=== PATIENT | female | born 1960 | race Caucasian/White ===

== ENCOUNTER → 2016-07-25 | Outpatient (CLI) | payer BC, MEDICARE ==
--- NOTE | 2016-07-28 09:22 | MM ---
Reason for exam: screening (asymptomatic). Last mammogram was performed 1 year ago. History: Patient is postmenopausal. Benign excisional biopsy of the right breast. Taking estrogen for 6 years. Physical Findings: A clinical breast exam by your physician is recommended on an annual basis and results should be correlated with mammographic findings. MG Screening Mammo w CAD Bilateral CC and MLO view(s) were taken. Prior study comparison: July 30, 2015, left breast MG 3d work up w/cad LT. July 24, 2015, bilateral MG screening mammo w CAD. There are scattered fibroglandular densities. Finding: There are typically benign calcifications in both breasts. No significant changes in finding since July 30, 2015 and July 24, 2015. ASSESSMENT: Benign, BI-RAD 2 RECOMMENDATION: Routine screening mammogram of both breasts in 1 year.
== END | disposition home or self-care (01) ==
LOC: RADMAMWWP 10:58
PROVIDERS: ATTEND Family Medicine
DX: Z12.31 Encounter for screening mammogram for malignant neoplasm of breast (principal)

== ENCOUNTER → 2016-09-16 | Outpatient (CLI) | payer BC, MEDICARE ==
--- NOTE | 2016-09-16 13:06 | CT ---
EXAMINATION TYPE: CT sinus wo con DATE OF EXAM: 09/16/2016 12:56 PM COMPARISON: April 02, 2011 HISTORY: Deviated septum CT DLP: [address] of the paranasal sinuses was performed in the axial and coronal planes. Bone and soft tissue settings are submitted. Changes of medial maxillary antrectomy and near total ethmoidectomy. The paranasal sinuses are free of air fluid level. Mild mucosal thickening at the base of the left maxillary sinus. No evidence for obstruction. The nasal septum is midline. No bony destructive changes are seen within the field of view. IMPRESSION: Postoperative changes as discussed with mild mucosal thickening at the base of the left maxillary ant rum. Nasal septum appears to be midline.
== END | disposition home or self-care (01) ==
LOC: RADCTMAIN 11:52
PROVIDERS: ATTEND Otolaryngology Otolaryngology/Facial Plastic Surgery
DX: J34.89 Other specified disorders of nose and nasal sinuses (principal)
CPT/HCPCS: 70486

== ENCOUNTER → 2016-11-04 | Outpatient (CLI) | payer BC, MEDICARE ==
--- NOTE | 2016-11-04 16:35 | XR ---
EXAMINATION TYPE: XR chest 2V DATE OF EXAM: 11/04/2016 COMPARISON: 05/01/2016 HISTORY: Bronchitis TECHNIQUE: Frontal and lateral views of the chest are obtained. FINDINGS: Lungs are clear. There is no heart failure. Heart size is normal. There is neural stimulat or in the mid thoracic spine. There is no sign of pleural effusion. IMPRESSION: No active cardiopulmonary disease. There is improved aeration of the lungs compared to l ast exam.
== END ==
LOC: RADXRMAIN 16:07
PROVIDERS: ATTEND Family Medicine
DX: J20.9 Acute bronchitis, unspecified (principal)
CPT/HCPCS: 71020

== ENCOUNTER → 2016-12-09 | Outpatient (CLI) | payer BC, MEDICARE ==
--- NOTE | 2016-12-09 16:56 | CT ---
EXAMINATION TYPE: CT brain wo con DATE OF EXAM: 12/09/2016 COMPARISON: 05/01/2016 HISTORY: 56-year-old female concussion, Patient complains of hitting back of head 1 week ago. Patien t complains of new (x1 day) posterior lump in approximate location of where she hit head that is pain ful to touch. TECHNIQUE: Examination was done in axial plane without intravenous contrast. Coronal and sagittal r econstructions performed. CT DLP: 1085 mGycm Automated exposure control for dose reduction was used. FINDINGS: There is no evidence of acute intracranial hemorrhage, acute ischemic changes, mass, mass-effect, or extra-axial fluid collection. There is no effacement of cerebral sulci or basal subarachnoid cister ns. There is no hydrocephalus. There is no midline shift. [place]-white matter distinction is preserv ed. Mild bifrontal cerebral volume loss. 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 Paranasal sinuses and mastoid air cells are well pneumatized. Orbits and globes are intact. No calvar ial fracture. IMPRESSION: No acute intracranial abnormality seen. Similar mild bifrontal cerebral atrophy.
== END | disposition home or self-care (01) ==
LOC: RADCTMAIN 16:30
PROVIDERS: ATTEND Family Medicine
DX: G31.9 Degenerative disease of nervous system, unspecified (principal); Z88.0 Allergy status to penicillin; Z88.1 Allergy status to other antibiotic agents; Z88.3 Allergy status to other anti-infective agents; Z88.8 Allergy status to other drugs, medicaments and biological substances
CPT/HCPCS: 70450

== ENCOUNTER → 2016-12-10 | Outpatient (CLI) | payer BC, MEDICARE ==
--- NOTE | 2016-12-11 06:45 | XR ---
EXAMINATION TYPE: XR cervical spine comp DATE OF EXAM: 12/10/2016 TECHNIQUE: Frontal, lateral, oblique, and open mouth view of the cervical spine are obtained. HISTORY: M54.2 Cervicalgia per order. Pain for one day after hitting injury per patient. COMPARISON: Cervical spine x-ray November 24, 2014. Cervical spine CT May 01, 2016. FINDINGS: The cervical spine is visualized in its entirety from C1 thru the top bottom of C7 level, it is satisfactory in alignment without evidence of acute fracture or dislocation. C7-T1 articulation is suboptimally evaluated without dedicated swimmer's view. The pre-vertebral soft tissue appears wi thin normal limits. The C1-C2 articulation is within normal limits on the open mouth view. Osseous structures are somewhat demineralized. Vertebral body heights and disc space heights are fair ly well-maintained. There is mild multilevel anterior spurring. The oblique images are within normal limits. Mild vascular calcification left carotid bulb level is redemonstrated. IMPRESSION: Demineralization and multilevel degenerative changes as detailed above. No acute fracture or dislocation is seen.
== END | disposition home or self-care (01) ==
LOC: RADXRMAIN 16:11
PROVIDERS: ATTEND Family Medicine
DX: M47.812 Spondylosis without myelopathy or radiculopathy, cervical region (principal); M81.0 Age-related osteoporosis without current pathological fracture
CPT/HCPCS: 72050

== ENCOUNTER → 2017-01-12 | Outpatient (CLI) | payer BC, MEDICARE ==
[2017-01-12 16:10] LABS: CH 33.1; CHCM 33.1; HCT 40.5 % (34.0-46.0); HDW 2.43; HGB 13.8 gm/dL (11.4-16.0); MCH 34.2 pg (25.0-35.0); MCV 100.6 fL (80.0-100.0); Macrocytosis Slight; RBC 4.03 m/uL (3.80-5.40); RDW 13.7 % (11.5-15.5); WBC 10.5 k/uL (3.8-10.6)
[2017-01-12 16:34] LABS: ALT 30 U/L (9-52); AST 28 U/L (14-36); Alkaline Phosphatase 64 U/L (38-126); Anion Gap 10 mmol/L; Blood Urea Nitrogen 8 mg/dL (7-17); Calcium 9.3 mg/dL (8.4-10.2); Carbon Dioxide 27 mmol/L (22-30); Chloride 104 mmol/L (98-107); Glucose 100 mg/dL (74-99); Non-African American GFR(MDRD) >60 (>60 ml/min/1.73 sqM); Potassium 4.1 mmol/L (3.5-5.1); Sodium 141 mmol/L (137-145); Total Bilirubin 0.4 mg/dL (0.2-1.3); Total Protein 7.1 g/dL (6.3-8.2)
== END | disposition home or self-care (01) ==
LOC: LABWHC1 15:34
PROVIDERS: ATTEND Podiatrist Foot & Ankle Surgery
DX: Z01.812 Encounter for preprocedural laboratory examination (principal)
CPT/HCPCS: 36415; 80053; 85027

== ENCOUNTER 2017-04-02 16:03 | Observation (INO) | payer BC, MEDICARE ==
[2017-04-02 16:10] VITALS: RESP 18
[2017-04-02] MEDS ORDERED: NITROGLYCERIN OINT 1 INCH/GM PACKET TOPICAL STA (16:40)
[2017-04-02] MEDS ORDERED: SODIUM CHLORIDE 0.9% 1,000 ML IV STA (16:40)
[2017-04-02] MEDS ORDERED: ONDANSETRON 4 MG/2 ML VIAL IVP STA (16:40)
[2017-04-02] MEDS ORDERED: MORPHINE SULFATE 10 MG/ML SYRINGE IV STA (16:40)
[2017-04-02 16:52] LABS: Basophils # (A) 0.1 k/uL (0-0.2); Basophils % (A) 1 %; CH 32.2; CHCM 32.5; Eosinophils # (A) 0.1 k/uL (0-0.7); Eosinophils % (A) 1 %; HCT 41.1 % (34.0-46.0); HDW 2.45; HGB 13.5 gm/dL (11.4-16.0); Luc % (Auto) 1; Lymphocytes # (A) 2.7 k/uL (1.0-4.8); Lymphocytes % (A) 28 %; MCH 32.8 pg (25.0-35.0); MCV 99.4 fL (80.0-100.0); Mean Platelet Volume 7.5; Monocytes # (A) 0.5 k/uL (0-1.0); Monocytes % (A) 5 %; Neutrophils # (A) 6.2 k/uL (1.3-7.7); Neutrophils % (A) 65 %; RBC 4.13 m/uL (3.80-5.40); RDW 14.3 % (11.5-15.5); WBC 9.6 k/uL (3.8-10.6); WBC (Perox) 9.64
[2017-04-02 17:02] LABS: ALT 31 U/L (9-52); AST 27 U/L (14-36); Alkaline Phosphatase 67 U/L (38-126); Anion Gap 9 mmol/L; Blood Urea Nitrogen 7 mg/dL (7-17); Calcium 8.9 mg/dL (8.4-10.2); Carbon Dioxide 24 mmol/L (22-30); Chloride 108 mmol/L (98-107); Glucose 109 mg/dL (74-99); Magnesium 1.6 mg/dL (1.6-2.3); Non-African American GFR(MDRD) >60 (>60 ml/min/1.73 sqM); Potassium 4.2 mmol/L (3.5-5.1); Sodium 141 mmol/L (137-145); Total Bilirubin 0.2 mg/dL (0.2-1.3); Total Protein 7.4 g/dL (6.3-8.2)
[2017-04-02 17:06] LABS: Partial Thromboplastin Time 24.1 sec (22.0-30.0); Prothrombin Time 10.3 sec (9.0-12.0)
[2017-04-02 17:14] LABS: Creatine Kinase 111 U/L (30-135)
--- NOTE | 2017-04-02 17:23 | ED ---
Chest Pain HPI - General Chief Complaint: Chest Pain Stated Complaint: Chest Pain Time Seen by Provider: 04/02/17 16:26 Source: patient Mode of arrival: ambulatory Limitations: no limitations - History of Present Illness Initial Comments: 56 years old female had episode of chest pain yesterday, it lasted for about an hour and she has a prescription of nitro she took 3 nitros it took the edge off pain also went to the left side of the jaw and she also had episode of shortness of breath shortness of breath she does have a some baseline she has a history of COPD she has smoked for 40 years. He denies any headaches no migraines no neck stiffness no fever no chills or pain no frequency urgency dysuria - Related Data Home Medications Medication Instructions Recorded Confirmed Albuterol Inhaler [Ventolin Hfa 2 puff INHALATION RT-QID PRN 12/05/15 04/02/17 Inhaler] DULoxetine HCL [Cymbalta] 120 mg PO DAILY 12/05/15 04/02/17 Estradiol [Estrace] 1 mg PO DAILY 12/05/15 04/02/17 Gabapentin [Neurontin] 600 mg PO TID 12/05/15 04/02/17 Lisinopril [Zestril] 10 mg PO DAILY 12/05/15 04/02/17 Potassium Chloride [Klor-Con 10] 10 meq PO DAILY 12/05/15 04/02/17 Ziprasidone HCl [Geodon] 80 mg PO HS 12/05/15 04/02/17 cycloSPORINE 0.05% OPHTH SOLN 1 drops BOTH EYES BID 12/05/15 04/02/17 [Restasis] Cyclobenzaprine [Flexeril] 10 mg PO TID 03/03/16 04/02/17 Levothyroxine Sodium [Synthroid] 50 mcg PO SUTUWETHSA 03/03/16 04/02/17 traZODone HCL 100 mg PO HS 03/04/16 04/02/17 clonazePAM [KlonoPIN] 1 mg PO TID 05/02/16 04/02/17 Atorvastatin [Lipitor] 40 mg PO DAILY 04/02/17 04/02/17 Cetirizine HCl [Zyrtec] 10 mg PO DAILY 04/02/17 04/02/17 Dextroamphetamine/Amphetamine 10 mg PO BID 04/02/17 04/02/17 [Adderall] Furosemide [Lasix] 20 - 40 mg PO DAILY PRN 04/02/17 04/02/17 HYDROcodone/APAP 10-325MG [[place] 1 tab PO QID PRN 04/02/17 04/02/17 10-325] Ibuprofen [Motrin] 800 mg PO TID PRN 04/02/17 04/02/17 Linaclotide [Linzess] 290 mcg PO DAILY 04/02/17 04/02/17 Nitroglycerin Sl Tabs [Nitrostat] 0.4 mg SUBLINGUAL Q5M PRN 04/02/17 04/02/17 Ziprasidone [Geodon] 60 mg PO DAILY 04/02/17 04/02/17 Allergies Allergy/AdvReac Type Severity Reaction Status Date / Time adhesive Allergy Rash/Hives Verified 04/02/17 16:56 azithromycin Allergy Rash/Hives Verified 04/02/17 16:56 [From Zithromax Z-Ivan] ciprofloxacin [From Cipro] Allergy Rash/Hives Verified 04/02/17 16:56 ciprofloxacin HCl Allergy Rash/Hives Verified 04/02/17 16:56 [From Cipro] clarithromycin [From Biaxin] Allergy Rash/Hives Verified 04/02/17 16:56 doxycycline calcium Allergy Rash/Hives Verified 04/02/17 16:56 [From Vibramycin] doxycycline hyclate Allergy Rash/Hives Verified 04/02/17 16:56 [From Vibramycin] doxycycline monohydrate Allergy Rash/Hives Verified 04/02/17 16:56 [From Vibramycin] erythromycin base Allergy Rash/Hives Verified 04/02/17 16:56 [From E-Mycin] Latex, Natural Rubber Allergy Anaphylaxis Verified 04/02/17 16:56 levofloxacin [From Levaquin] Allergy Rash/Hives Verified 04/02/17 16:56 oxybutynin chloride Allergy Rash/Hives Verified 04/02/17 16:56 [From Ditropan] penicillin G Allergy Rash/Hives Verified 04/02/17 16:56 prochlorperazine edisylate Allergy Rash/Hives Verified 04/02/17 16:56 [From Compazine] prochlorperazine maleate Allergy Rash/Hives Verified 04/02/17 16:56 [From Compazine] tetracycline [Tetracycline] Allergy Rash/Hives Verified 04/02/17 16:56 valdecoxib [From Bextra] Allergy Rash/Hives Verified 04/02/17 16:56 Review of Systems ROS Statement: Those systems with pertinent positive or pertinent negative responses have been documented in the HPI. ROS Other: All systems not noted in ROS Statement are negative. EKG Findings - EKG Comments: EKG Findings:: EKG is normal sinus rhythm ventricular rate is 79 [place] interval is 150 QRS duration is 96 QT/QTc is 414/474 review of this EKG revealed a T-wave inversion in aVL no ST elevation or ST depression noticed this EKG EKG was compared with the EKG done on 12/06/2015and changes were appreciated Past Medical History Past Medical History: COPD, CVA/TIA, Diabetes Mellitus, Fibromyalgia, Hypertension, Osteoarthritis (OA), Pneumonia, Rheumatoid Arthritis (RA), Thyroid Disorder Additional Past Medical History / Comment(s): diabetic neuropathy, lupus ,diet controlled diabetic ,DDD IBS, chronic dry eye, palpitations,migraines, TIA x 5- rt lip droops, emphysema, eczema in ears, History of Any Multi-Drug Resistant Organisms: None Reported Past Surgical History: Back Surgery, Cholecystectomy, Hysterectomy, Orthopedic Surgery, Tonsillectomy, Uterine Ablation Additional Past Surgical History / Comment(s): EGD, Colonoscopy, vocal cord surgery, cataract bilateral removal, right knee arthroscopy, right elbow surgery , bilateral feet heel spurs and arthroplasty on left foot toes, left carpal tunnel, nerve stimulator in spine, laminectomy L4-5,hiatal hernia repair, biopsy left arm,mult sinus surgeries, STIMULATOR BATTERIES REPLACED IN BACK Past Anesthesia/Blood Transfusion Reactions: Family History of Problems w/ Anesthesia Additional Past Anesthesia/Blood Transfusion Reaction / Comment(s): claustrophobic, mother- [place] during surgery Past Psychological History: Anxiety, Bipolar, Depression, Panic Disorder Smoking Status: Current every day smoker Past Alcohol Use History: Occasional Past Drug Use History: Marijuana - Past Family History Mother Family Medical History: Cancer Additional Family Medical History / Comment(s): Mother has scleroderma. She is 75 yrs old. Father Family Medical History: Cancer Additional Family Medical History / Comment(s): LUNG CANCER General Exam Limitations: no limitations Course Vital Signs 11/02/17 11/02/17 11/02/17 16:05 17:13 18:19 Temperature 98.6 F Pulse Rate 107 H 76 78 Respiratory 18 18 18 Rate Blood Pressure 133/58 128/73 129/73 O2 Sat by Pulse 99 96 97 Oximetry Disposition Clinical Impression: Chest pain Disposition: ADMITTED IP TO THIS HOSP Condition: Good Referrals: Anson Valdez MD [Primary Care Provider] - 1-2 days
[2017-04-02] MEDS ORDERED: RX INFO: IV CONTRAST WAS GIVEN 1 EACH MISC MISCELLANE PRN (17:25)
[2017-04-02 17:27] LABS: Creatine Kinase MB 1.3 ng/mL (0.0-2.4); Troponin I <0.012 ng/mL (0.000-0.034)
--- NOTE | 2017-04-02 17:50 | XR ---
EXAMINATION TYPE: XR chest 2V DATE OF EXAM: 04/02/2017 COMPARISON: 11/04/2016 HISTORY: Chest pain TECHNIQUE: Frontal and lateral views of the chest are obtained. FINDINGS: There is relative poor inspiration. There is slight coarsening of the lung markings at the lung bases. There is no pleural effusion. There is neurostimulator in the mid thoracic spine. There are chest leads. Thoracic aorta is atheromatous. Heart size is normal. IMPRESSION: Poor inspiration with minimal atelectasis at the lung bases that is worse than last exam . Normal heart. No heart failure.
--- NOTE | 2017-04-02 17:57 | CT ---
EXAMINATION TYPE: CT angio chest DATE OF EXAM: 04/02/2017 5:50 PM COMPARISON: 03/16/2011 HISTORY: Chest pain today. CT DLP: 302.8 mGycm Automated exposure control for dose reduction was used. CONTRAST: CTA scan of the thorax is performed with IV Contrast, patient injected with 60 mL of Omnipaque 350, p ulmonary embolism protocol. There are 3-D post processed images.. FINDINGS: The lungs are clear of consolidation. There is no evidence of a pulmonary mass. There is mild right m iddle lobe atelectasis. There is mild left posterior basilar subsegmental atelectasis. There is no pl eural effusion. Heart size is normal. I see no filling defects in the pulmonary arteries. There is no sign of aortic aneurysm or dissection. There is no mediastinal adenopathy. There are no hilar masses. There is spurr ing in the thoracic spine. IMPRESSION: NO EVIDENCE OF PULMONARY EMBOLISM. THERE IS BILATERAL MILD SCARRING AND ATELECTASIS THAT IS NOT SIGNI FICANTLY DIFFERENT THAN OLD EXAM.
[2017-04-02] MEDS ORDERED: NITROGLYCERIN SL TABS 0.4 MG TAB SUBLINGUAL PRN (18:28)
[2017-04-02] MEDS ORDERED: HEPARIN SODIUM,PORCINE 5,000 UNIT/ML 1 ML VIAL IV ONE (18:28)
[2017-04-02] MEDS ORDERED: MORPHINE SULFATE 10 MG/ML SYRINGE IV PRN (18:28)
[2017-04-02] MEDS ORDERED: HEPARIN SODIUM,PORCINE/D5W PMX 25,000 UNIT in DEXTROSE/WATER 1 500ML.BAG IV SCH (18:30)
[2017-04-02] MEDS ORDERED: IBUPROFEN 800 MG TAB PO PRN (18:33)
[2017-04-02] MEDS ORDERED: ALBUTEROL NEBULIZED 2.5 MG/3 ML INHALATION PRN (18:33)
[2017-04-02] MEDS ORDERED: FUROSEMIDE 20 MG TAB PO PRN (18:33)
[2017-04-02] MEDS ORDERED: HYDROcodone/APAP 10-325MG 1 EACH TAB PO PRN (18:33)
[2017-04-02 20:47] VITALS: BMI 25.9
[2017-04-02 20:48] LABS: Glucose,Whole Blood 93 mg/dL (75-99)
[2017-04-02] MEDS: cycloSPORINE 0.05% OPHTH 0.4 ML DROPERETTE BOTH EYES SCH (20:55)
[2017-04-02] MEDS: GABAPENTIN 300 MG CAP PO SCH (20:56)
[2017-04-02] MEDS: clonazePAM 1 MG TAB PO SCH (20:56)
[2017-04-02] MEDS: CYCLOBENZAPRINE 10 MG TAB PO SCH (20:56)
[2017-04-02 21:00] LABS: Creatine Kinase 97 U/L (30-135)
[2017-04-02] MEDS ORDERED: traZODone HCL 100 MG TAB PO SCH (21:00)
[2017-04-02] MEDS ORDERED: NON-FORMULARY DRUG (Dextroamphetamine/Amphetamine [Adderall] 10 MG) PO SCH (21:00)
[2017-04-02] MEDS ORDERED: ZIPRASIDONE 80 MG CAP PO SCH (21:00)
[2017-04-02 21:14] LABS: Creatine Kinase MB 1.4 ng/mL (0.0-2.4); Troponin I <0.012 ng/mL (0.000-0.034)
[2017-04-03 02:24] LABS: Creatine Kinase 81 U/L (30-135)
[2017-04-03 02:37] LABS: Creatine Kinase MB 1.1 ng/mL (0.0-2.4); Troponin I <0.012 ng/mL (0.000-0.034)
[2017-04-03 03:37] LABS: Cholesterol 144 mg/dL (<200); HDL Cholesterol 52 mg/dL (40-60)
[2017-04-03 07:01] LABS: Glucose,Whole Blood 96 mg/dL (75-99)
[2017-04-03] MEDS ORDERED: ZIPRASIDONE 60 MG CAP PO SCH (07:30)
[2017-04-03 08:34] VITALS: PULSE 68
[2017-04-03] MEDS ORDERED: NON-FORMULARY DRUG (Linaclotide [Linzess] 290 MCG) PO SCH (09:00)
[2017-04-03] MEDS ORDERED: POTASSIUM CHLORIDE ER 10 MEQ TAB.ER.PRT PO SCH (09:00)
[2017-04-03] MEDS ORDERED: DULoxetine HCL 60 MG CAPSULE.DR PO SCH (09:00)
[2017-04-03] MEDS ORDERED: LISINOPRIL 10 MG TAB PO SCH (09:00)
[2017-04-03] MEDS ORDERED: ATORVASTATIN 40 MG TAB PO SCH (09:00)
[2017-04-03] MEDS ORDERED: ASPIRIN 325 MG TAB PO SCH (09:00)
[2017-04-03] MEDS ORDERED: LORATADINE 10 MG TAB PO SCH (09:00)
[2017-04-03] MEDS: GABAPENTIN 300 MG CAP PO SCH (09:18)
[2017-04-03] MEDS: cycloSPORINE 0.05% OPHTH 0.4 ML DROPERETTE BOTH EYES SCH (09:19)
[2017-04-03] MEDS: CYCLOBENZAPRINE 10 MG TAB PO SCH (09:19)
[2017-04-03] MEDS: clonazePAM 1 MG TAB PO SCH (09:19)
[2017-04-03] MEDS ORDERED: ISOSORBIDE MONONITRATE ER 30 MG TAB.ER.24H PO SCH (09:45)
[2017-04-03 12:13] LABS: Glucose,Whole Blood 102 mg/dL (75-99)
[2017-04-03 12:17] VITALS: BP 104/52; TEMP 98.6
--- NOTE | 2017-04-03 14:01 | P.CRDCN ---
History of Present Illness Consult date: 04/03/17 History of present illness: This is a 56 showed female patient who sees Dr. Rick in the office. Past medical history significant for hypertension, hyperlipidemia, chronic tobacco abuse, diabetes and chronic migraines. The patient came to the emergency room with complaints of chest pain that lasted for approximately one hour. This episode occurred on Thursday she waited to present to the hospital until last night. She states she has been having a migraine constantly for the past week. The pain is not associated with shortness of breath, dizziness, palpitations or nausea. She states that she does feel tingling in her left jaw line. She recently saw Dr. Rick in the office and underwent a Lexiscan stress test which was negative. It showed a normal perfusion study with a small well mild defect at the apex that could be physiological although previous small myocardial infarction cannot be excluded. At this time of the chest pain the patient states she took 3 sublingual nitroglycerin and the pain ultimately went away. This time of my examination she denies any ongoing chest pain. She is only complaining of a migraine headache. She has been coughing recently the cough is dry in nature and she was recently treated for an upper respiratory infection. EKG reveals sinus mechanism with no acute ST or T-wave abnormalities. Chest x-ray indicates atelectasis with no sign of heart failure. CTA negative for pulmonary embolism. Blood pressure 90/52 with a heart rate of 62. Cardiac enzymes negative 3, potassium 4.2, magnesium 1.6, BUS and 7, creatinine 0.69, LDL 58, HDL 52, triglycerides 169, total cholesterol 144. Current cardiac medications include Zestril 10 mg daily, Lasix 20-40 mg daily when necessary, Lipitor 40 mg daily. Review of Systems CONSTITUTIONAL: Denies fever. Denies chills. EYES: Denies blurred vision. Denies vision changes. Denies eye pain. EARS, NOSE, MOUTH & THROAT: Complains of persistent headache for the past week. Denies sore throat. Denies ear pain. CARDIOVASCULAR: Complains of one episode of midsternal chest pain Thursday that lasted one hour with difficulty taking a deep. Denies orthopnea. Denies PND. Denies palpitations. RESPIRATORY: Complains of chronic cough. GASTROINTESTINAL: Denies abdominal pain. Denies diarrhea. Denies constipation. Denies nausea. Denies vomitng. MUSCULOSKELETAL: Denies myalgias. INTEGUMENTARY: Denies pruitis. Denies rash. NEUROLOGIC: Denies numbness. Denies tingling. Denies weakness. PSYCHIATRIC: Denies anxiety. Denies depression. ENDOCRINE: Denies fatigue. Denies weight change. Denies polydipsia. Denies polyurina. GENITOURINARY: Denies burning, hematuria or urgency with micturation. HEMATOLOGIC: Denies history of anemia. Denies bleeding. Past Medical History Past Medical History: COPD, CVA/TIA, Diabetes Mellitus, Fibromyalgia, Hypertension, Osteoarthritis (OA), Pneumonia, Rheumatoid Arthritis (RA), Thyroid Disorder Additional Past Medical History / Comment(s): diabetic neuropathy, lupus ,diet controlled diabetic ,DDD IBS, chronic dry eye, palpitations,migraines, TIA x 5- rt lip droops, emphysema, eczema in ears, History of Any Multi-Drug Resistant Organisms: None Reported Past Surgical History: Back Surgery, Cholecystectomy, Hysterectomy, Orthopedic Surgery, Tonsillectomy, Uterine Ablation Additional Past Surgical History / Comment(s): EGD, Colonoscopy, vocal cord surgery, cataract bilateral removal, right knee arthroscopy, right elbow surgery , bilateral feet heel spurs and arthroplasty on B/L foot toes, left carpal tunnel, 2 nerve stimulator in spine, laminectomy L4-5,hiatal hernia repair, biopsy left arm,mult sinus surgeries, STIMULATOR BATTERIES REPLACED IN BACK Past Anesthesia/Blood Transfusion Reactions: Family History of Problems w/ Anesthesia Additional Past Anesthesia/Blood Transfusion Reaction / Comment(s): claustrophobic, mother- [place] during surgery Smoking Status: Current every day smoker - Past Family History Mother Family Medical History: Cancer, CVA/TIA, Myocardial Infarction ([place]), Osteoarthritis (OA), Rheumatoid Arthritis (RA) Additional Family Medical History / Comment(s): Mother has scleroderma. She is 75 yrs old. lymphoma and stomach CA, stents. lupus Father Family Medical History: Cancer Additional Family Medical History / Comment(s): LUNG CANCER Medications and Allergies Home Medications Medication Instructions Recorded Confirmed Type Albuterol Inhaler [Ventolin Hfa 2 puff INHALATION RT-QID PRN 12/05/15 04/02/17 History Inhaler] DULoxetine HCL [Cymbalta] 120 mg PO DAILY 12/05/15 04/02/17 History Estradiol [Estrace] 1 mg PO DAILY 12/05/15 04/02/17 History Gabapentin [Neurontin] 600 mg PO TID 12/05/15 04/02/17 History Lisinopril [Zestril] 10 mg PO DAILY 12/05/15 04/02/17 History Potassium Chloride [Klor-Con 10] 10 meq PO DAILY 12/05/15 04/02/17 History Ziprasidone HCl [Geodon] 80 mg PO HS 12/05/15 04/02/17 History cycloSPORINE 0.05% OPHTH SOLN 1 drops BOTH EYES BID 12/05/15 04/02/17 History [Restasis] Cyclobenzaprine [Flexeril] 10 mg PO TID 03/03/16 04/02/17 History Levothyroxine Sodium [Synthroid] 50 mcg PO SUTUWETHSA 03/03/16 04/02/17 History traZODone HCL 100 mg PO HS 03/04/16 04/02/17 History clonazePAM [KlonoPIN] 1 mg PO TID 05/02/16 04/02/17 History Atorvastatin [Lipitor] 40 mg PO DAILY 04/02/17 04/02/17 History Cetirizine HCl [Zyrtec] 10 mg PO DAILY 04/02/17 04/02/17 History Dextroamphetamine/Amphetamine 10 mg PO BID 04/02/17 04/02/17 History [Adderall] Furosemide [Lasix] 20 - 40 mg PO DAILY PRN 04/02/17 04/02/17 History HYDROcodone/APAP 10-325MG [[place] 1 tab PO QID PRN 04/02/17 04/02/17 History 10-325] Ibuprofen [Motrin] 800 mg PO TID PRN 04/02/17 04/02/17 History Linaclotide [Linzess] 290 mcg PO DAILY PRN 04/02/17 04/02/17 History Nitroglycerin Sl Tabs [Nitrostat] 0.4 mg SUBLINGUAL Q5M PRN 04/02/17 04/02/17 History Ziprasidone [Geodon] 60 mg PO DAILY 04/02/17 04/02/17 History Allergies Allergy/AdvReac Type Severity Reaction Status Date / Time adhesive Allergy Rash/Hives Verified 04/02/17 20:26 azithromycin Allergy Rash/Hives Verified 04/02/17 20:26 [From Zithromax Z-Ivan] ciprofloxacin [From Cipro] Allergy Rash/Hives Verified 04/02/17 20:26 ciprofloxacin HCl Allergy Rash/Hives Verified 04/02/17 20:26 [From Cipro] clarithromycin [From Biaxin] Allergy Rash/Hives Verified 04/02/17 20:26 doxycycline calcium Allergy Rash/Hives Verified 04/02/17 20:26 [From Vibramycin] doxycycline hyclate Allergy Rash/Hives Verified 04/02/17 20:26 [From Vibramycin] doxycycline monohydrate Allergy Rash/Hives Verified 04/02/17 20:26 [From Vibramycin] erythromycin base Allergy Rash/Hives Verified 04/02/17 20:26 [From E-Mycin] Latex, Natural Rubber Allergy Anaphylaxis Verified 04/02/17 20:26 levofloxacin [From Levaquin] Allergy Rash/Hives Verified 04/02/17 20:26 oxybutynin chloride Allergy Rash/Hives Verified 04/02/17 20:26 [From Ditropan] penicillin G Allergy Rash/Hives Verified 04/02/17 20:26 prochlorperazine edisylate Allergy Rash/Hives Verified 04/02/17 20:26 [From Compazine] prochlorperazine maleate Allergy Rash/Hives Verified 04/02/17 20:26 [From Compazine] tetracycline [Tetracycline] Allergy Rash/Hives Verified 04/02/17 20:26 valdecoxib [From Bextra] Allergy Hallucinati Verified 04/02/17 20:26 ons Physical Exam Vitals: Vital Signs Temp Pulse Pulse Resp BP BP Pulse Ox 04/03/17 08:00 97.6 F 68 18 98/47 95 04/03/17 04:00 98 F 62 18 90/52 97 04/03/17 00:00 18 04/02/17 23:55 98.1 F 66 18 84/44 99 04/02/17 22:00 18 04/02/17 19:45 98.1 F 65 18 118/70 99 04/02/17 18:51 98.9 F 80 18 132/64 96 04/02/17 18:19 78 18 129/73 97 04/02/17 17:13 76 18 128/73 96 04/02/17 16:05 98.6 F 107 H 18 133/58 99 Intake and Output 04/02/17 04/03/17 04/03/17 22:59 06:59 14:59 Intake Total 137.208 Balance 137.208 Intake: Intake, IV Titration 137.208 Amount Heparin Sodium,Porcine/ 137.208 D5w Pmx 25,000 unit In Dextrose/Water 1 500ml. bag @ 12 UNITS/KG/HR 18.5 mls/hr IV .Q24H [facility] Rx#: [id number] Other: # Voids 1 1 Weight 77.5 kg GENERAL: This is a 56-year-old female in no apparent distress at the time of my examination. HEENT: Head is atraumatic, normocephalic. Pupils are equal, round. Sclerae anicteric. Conjunctivae are clear. Mucous membranes of the mouth are moist. Neck is supple. There is no jugular venous distention. No carotid bruit is heard. LUNGS: Scattered rhonchi throughout, no wheezes or rales. No chest wall tenderness is noted on palpation or with deep breathing. HEART: Regular rate and rhythm without murmurs, rubs or gallops. S1 and S2 heard. ABDOMEN: Soft, nontender. Bowel sounds are heard. No organomegaly noted. EXTREMITIES: 2+ peripheral pulses with no evidence of peripheral edema and no calf tenderness noted. NEUROLOGIC: Patient is awake, alert and oriented x3. Results 04/02/17 14:34 04/02/17 14:34 Cardiac Enzymes 04/02/17 04/02/17 04/02/17 Range/Units 14:34 14:34 20:18 AST 27 (14-36) U/L CK-MB (CK-2) 1.3 1.4 (0.0-2.4) ng/mL Troponin I <0.012 <0.012 (0.000-0.034) ng/mL 04/03/17 Range/Units 01:52 AST (14-36) U/L CK-MB (CK-2) 1.1 (0.0-2.4) ng/mL Troponin I <0.012 (0.000-0.034) ng/mL Coagulation 04/02/17 04/03/17 Range/Units 14:34 01:52 PT 10.3 (9.0-12.0) sec APTT 24.1 46.3 H (22.0-30.0) sec Lipids 04/03/17 Range/Units 01:52 Triglycerides 169 H (<150) mg/dL Cholesterol 144 (<200) mg/dL HDL Cholesterol 52 (40-60) mg/dL CBC 04/02/17 Range/Units 14:34 WBC 9.6 (3.8-10.6) k/uL RBC 4.13 (3.80-5.40) m/uL Hgb 13.5 (11.4-16.0) gm/dL Hct 41.1 (34.0-46.0) % Plt Count 270 (150-450) k/uL Comprehensive Metabolic Panel 04/02/17 Range/Units 14:34 Sodium 141 (137-145) mmol/L Potassium 4.2 (3.5-5.1) mmol/L Chloride 108 H (98-107) mmol/L Carbon Dioxide 24 (22-30) mmol/L BUN 7 (7-17) mg/dL Creatinine 0.69 (0.52-1.04) mg/dL Glucose 109 H (74-99) mg/dL Calcium 8.9 (8.4-10.2) mg/dL AST 27 (14-36) U/L ALT 31 (9-52) U/L Alkaline Phosphatase 67 (38-126) U/L Total Protein 7.4 (6.3-8.2) g/dL Albumin 4.2 (3.5-5.0) g/dL Current Medications Generic Name Dose Route Start Last Admin Trade Name Freq PRN Reason Stop Dose Admin Hydrocodone Bitart/Acetaminophen 1 each 04/02/17 18:33 [place] 10 PO QID PRN Pain Albuterol Sulfate 2.5 mg 04/02/17 18:33 Ventolin Nebulized INHALATION RT-QID PRN Shortness Of Breath Aspirin 325 mg 04/03/17 09:00 Aspirin PO DAILY [facility] Atorvastatin Calcium 40 mg 04/03/17 09:00 Lipitor PO DAILY ANA Clonazepam 1 mg 04/02/17 22:00 04/02/17 20:56 Klonopin PO 1 mg TID ANA Administration Cyclobenzaprine HCl 10 mg 04/02/17 22:00 04/02/17 20:56 Flexeril PO 10 mg TID ANA Administration Cyclosporine 1 drops 04/02/17 21:00 04/02/17 20:55 Restasis 0.05% Ophth Soln BOTH EYES 1 drops BID ANA Administration Duloxetine HCl 120 mg 04/03/17 09:00 Cymbalta PO DAILY ANA Furosemide 20 mg 04/02/17 18:33 Lasix PO DAILY PRN Edema Gabapentin 600 mg 04/02/17 22:00 04/02/17 20:56 Neurontin PO 600 mg TID ANA Administration Heparin Sodium/Dextrose 25,000 500 mls @ 18.5 mls/hr 04/02/17 18:30 04/03/17 02:29 unit/ IV Solution IV 14 units/kg/hr .Q24H ANA 21.59 mls/hr Protocol Titration 12 UNITS/KG/HR Ibuprofen 800 mg 04/02/17 18:33 Motrin PO TID PRN Mild Pain Levothyroxine Sodium 50 mcg 04/04/17 06:30 Synthroid PO SUTUWETHSA [facility] Lisinopril 10 mg 04/03/17 09:00 Zestril PO DAILY [facility] Loratadine 10 mg 04/03/17 09:00 Claritin PO DAILY [facility] Miscellaneous Information 1 each 04/02/17 17:25 Rx Info: Iv Contrast Was Given MISCELLANE 04/04/17 17:25 DAILY PRN Per Protocol Morphine Sulfate 4 mg 04/02/17 18:28 04/02/17 20:53 Morphine Sulfate (Inj) IV 4 mg Q5M PRN Administration Chest Pain Nitroglycerin 0.4 mg 04/02/17 18:28 Nitrostat SUBLINGUAL Q5M PRN Chest Pain Non-Formulary Medication 290 mcg 04/03/17 09:00 Linaclotide [Linzess] PO DAILY [facility] Potassium Chloride 10 meq 04/03/17 09:00 K-Dur 10 PO DAILY [facility] Trazodone HCl 100 mg 04/02/17 21:00 04/02/17 20:55 Desyrel PO 100 mg HS ANA Administration Ziprasidone 60 mg 04/03/17 07:30 Geodon PO AC-BRKFST ANA Ziprasidone 80 mg 04/02/17 21:00 04/02/17 20:55 Geodon PO 80 mg HS ANA Administration Intake and Output 11/07/1804/03/17 04/03/17 22:59 06:59 14:59 Intake Total 137.208 Balance 137.208 Intake: Intake, IV Titration 137.208 Amount Heparin Sodium,Porcine/ 137.208 D5w Pmx 25,000 unit In Dextrose/Water 1 500ml. bag @ 12 UNITS/KG/HR 18.5 mls/hr IV .Q24H [facility] Rx#: [id number] Other: # Voids 1 1 Weight 77.5 kg 04/02/17 14:34 04/02/17 14:34 Assessment and Plan Assessment: ASSESSMENT 1. Chest pain, atypical. Patient had a normal Lexiscan stress test in the office November 2016. 2. Hypertension 3. Hyperlipidemia 4. Diabetes mellitus 5. Chronic tobacco abuse PLAN EKG and cardiac enzymes rule out an acute coronary event. Start imdur for possibility of coronary spasm secondary to imitrex. We would do no further cardiac workup at this time. Recommend evaluation per pulmonology for chronic lung disease. Thank you kindly for this consultation. Nurse Practitioner note has been reviewed, I agree with a documented findings and plan of care. Patient was seen and examined.
--- NOTE | 2017-04-03 16:19 | P.HPIM ---
History of Present Illness 56 -year-old female patient who sees Dr. Rick in the office. Past medical history significant for hypertension, hyperlipidemia, chronic tobacco abuse, diabetes and chronic migraines. The patient came to the emergency room with complaints of chest pain that lasted for approximately one hour. This episode occurred on Thursday she waited to present to the hospital until last night. She states she has been having a migraine constantly for the past week. The pain is not associated with shortness of breath, dizziness, palpitations or nausea. She states that she does feel tingling in her left jaw line. She recently saw Dr. Rick in the office and underwent a Lexiscan stress test which was negative. It showed a normal perfusion study with a small well mild defect at the apex that could be physiological although previous small myocardial infarction cannot be excluded. At this time of the chest pain the patient states she took 3 sublingual nitroglycerin and the pain ultimately went away. This time of my examination she denies any ongoing chest pain. She is only complaining of a migraine headache. She has been coughing recently the cough is dry in nature and she was recently treated for an upper respiratory infection. patient was a valid by cardiology and patient is a recent stress test which was negative because of which patient is cleared for discharge patient pain appears to be musculoskeletal coming from the back and patient the has a bandlike pain around the lower chest area and patient does have significant degenerative thoracic spine disease which is contributing to her pain. Review of Systems REVIEW OF SYSTEMS: CONSTITUTIONAL: No fever, no malaise, no fatigue. HEENT: No recent visual problems or hearing problems. Denied any sore throat. CARDIOVASCULAR: No orthopnea, PND, no palpitations, no syncope. PULMONARY: No shortness of breath, no cough, no hemoptysis. GASTROINTESTINAL: No diarrhea, no nausea, no vomiting, no abdominal pain. Normoactive bowel sounds. NEUROLOGICAL: No headaches, no weakness, no numbness. HEMATOLOGICAL: Denies any bleeding or petechiae. GENITOURINARY: Denies any burning micturition, frequency, or urgency. MUSCULOSKELETAL/RHEUMATOLOGICAL: Denies any joint pain, swelling, or any muscle pain. ENDOCRINE: Denies any polyuria or polydipsia. The rest of the 14-point review of systems is negative. Past Medical History Past Medical History: COPD, CVA/TIA, Diabetes Mellitus, Fibromyalgia, Hypertension, Osteoarthritis (OA), Pneumonia, Rheumatoid Arthritis (RA), Thyroid Disorder Additional Past Medical History / Comment(s): diabetic neuropathy, lupus ,diet controlled diabetic ,DDD IBS, chronic dry eye, palpitations,migraines, TIA x 5- rt lip droops, emphysema, eczema in ears, History of Any Multi-Drug Resistant Organisms: None Reported Past Surgical History: Back Surgery, Cholecystectomy, Hysterectomy, Orthopedic Surgery, Tonsillectomy, Uterine Ablation Additional Past Surgical History / Comment(s): EGD, Colonoscopy, vocal cord surgery, cataract bilateral removal, right knee arthroscopy, right elbow surgery , bilateral feet heel spurs and arthroplasty on B/L foot toes, left carpal tunnel, 2 nerve stimulator in spine, laminectomy L4-5,hiatal hernia repair, biopsy left arm,mult sinus surgeries, STIMULATOR BATTERIES REPLACED IN BACK Past Anesthesia/Blood Transfusion Reactions: Family History of Problems w/ Anesthesia Additional Past Anesthesia/Blood Transfusion Reaction / Comment(s): claustrophobic, mother- [place] during surgery Smoking Status: Current every day smoker - Past Family History Mother Family Medical History: Cancer, CVA/TIA, Myocardial Infarction ([place]), Osteoarthritis (OA), Rheumatoid Arthritis (RA) Additional Family Medical History / Comment(s): Mother has scleroderma. She is 75 yrs old. lymphoma and stomach CA, stents. lupus Father Family Medical History: Cancer Additional Family Medical History / Comment(s): LUNG CANCER Medications and Allergies Home Medications Medication Instructions Recorded Confirmed Type Albuterol Inhaler [Ventolin Hfa 2 puff INHALATION RT-QID PRN 12/05/15 04/02/17 History Inhaler] DULoxetine HCL [Cymbalta] 120 mg PO DAILY 12/05/15 04/02/17 History Estradiol [Estrace] 1 mg PO DAILY 12/05/15 04/02/17 History Gabapentin [Neurontin] 600 mg PO TID 12/05/15 04/02/17 History Lisinopril [Zestril] 10 mg PO DAILY 12/05/15 04/02/17 History Potassium Chloride [Klor-Con 10] 10 meq PO DAILY 12/05/15 04/02/17 History Ziprasidone HCl [Geodon] 80 mg PO HS 12/05/15 04/02/17 History cycloSPORINE 0.05% OPHTH SOLN 1 drops BOTH EYES BID 12/05/15 04/02/17 History [Restasis] Cyclobenzaprine [Flexeril] 10 mg PO TID 03/03/16 04/02/17 History Levothyroxine Sodium [Synthroid] 50 mcg PO SUTUWETHSA 03/03/16 04/02/17 History traZODone HCL 100 mg PO HS 03/04/16 04/02/17 History clonazePAM [KlonoPIN] 1 mg PO TID 05/02/16 04/02/17 History Atorvastatin [Lipitor] 40 mg PO DAILY 04/02/17 04/02/17 History Cetirizine HCl [Zyrtec] 10 mg PO DAILY 04/02/17 04/02/17 History Dextroamphetamine/Amphetamine 10 mg PO BID 04/02/17 04/02/17 History [Adderall] Furosemide [Lasix] 20 - 40 mg PO DAILY PRN 04/02/17 04/02/17 History HYDROcodone/APAP 10-325MG [[place] 1 tab PO QID PRN 04/02/17 04/02/17 History 10-325] Ibuprofen [Motrin] 800 mg PO TID PRN 04/02/17 04/02/17 History Linaclotide [Linzess] 290 mcg PO DAILY PRN 04/02/17 04/02/17 History Nitroglycerin Sl Tabs [Nitrostat] 0.4 mg SUBLINGUAL Q5M PRN 04/02/17 04/02/17 History Ziprasidone [Geodon] 60 mg PO DAILY 04/02/17 04/02/17 History Isosorbide Mononitrate ER [Imdur] 30 mg PO DAILY #30 tab.er.24h 04/03/17 Rx Allergies Allergy/AdvReac Type Severity Reaction Status Date / Time adhesive Allergy Rash/Hives Verified 04/02/17 20:26 azithromycin Allergy Rash/Hives Verified 04/02/17 20:26 [From Zithromax Z-Ivan] ciprofloxacin [From Cipro] Allergy Rash/Hives Verified 04/02/17 20:26 ciprofloxacin HCl Allergy Rash/Hives Verified 04/02/17 20:26 [From Cipro] clarithromycin [From Biaxin] Allergy Rash/Hives Verified 04/02/17 20:26 doxycycline calcium Allergy Rash/Hives Verified 04/02/17 20:26 [From Vibramycin] doxycycline hyclate Allergy Rash/Hives Verified 04/02/17 20:26 [From Vibramycin] doxycycline monohydrate Allergy Rash/Hives Verified 04/02/17 20:26 [From Vibramycin] erythromycin base Allergy Rash/Hives Verified 04/02/17 20:26 [From E-Mycin] Latex, Natural Rubber Allergy Anaphylaxis Verified 04/02/17 20:26 levofloxacin [From Levaquin] Allergy Rash/Hives Verified 04/02/17 20:26 oxybutynin chloride Allergy Rash/Hives Verified 04/02/17 20:26 [From Ditropan] penicillin G Allergy Rash/Hives Verified 04/02/17 20:26 prochlorperazine edisylate Allergy Rash/Hives Verified 04/02/17 20:26 [From Compazine] prochlorperazine maleate Allergy Rash/Hives Verified 04/02/17 20:26 [From Compazine] tetracycline [Tetracycline] Allergy Rash/Hives Verified 04/02/17 20:26 valdecoxib [From Bextra] Allergy Hallucinati Verified 04/02/17 20:26 ons Physical Exam Vitals: Vital Signs Temp Pulse Pulse Resp BP BP Pulse Ox 04/03/17 12:00 98.6 F 68 18 104/52 96 04/03/17 08:00 97.6 F 68 18 98/47 95 04/03/17 04:00 98 F 62 18 90/52 97 04/03/17 00:00 18 04/02/17 23:55 98.1 F 66 18 84/44 99 04/02/17 22:00 18 04/02/17 19:45 98.1 F 65 18 118/70 99 04/02/17 18:51 98.9 F 80 18 132/64 96 04/02/17 18:19 78 18 129/73 97 04/02/17 17:13 76 18 128/73 96 Intake and Output 04/03/17 04/03/17 04/03/17 06:59 14:59 22:59 Intake Total 137.208 240 Balance 137.208 240 Intake: Intake, IV Titration 137.208 Amount Heparin Sodium,Porcine/ 137.208 D5w Pmx 25,000 unit In Dextrose/Water 1 500ml. bag @ 12 UNITS/KG/HR 18.5 mls/hr IV .Q24H [facility] Rx#: [id number] Oral 240 Other: Voiding Method Toilet # Voids 1 1 PHYSICAL EXAMINATION: GENERAL: The patient is alert and oriented x3, not in any acute distress. Well developed, well nourished. HEENT: Pupils are round and equally reacting to light. EOMI. No scleral icterus. No conjunctival pallor. Normocephalic, atraumatic. No pharyngeal erythema. No thyromegaly. CARDIOVASCULAR: S1 and S2 present. No murmurs, rubs, or gallops. PULMONARY: Chest is clear to auscultation, no wheezing or crackles. ABDOMEN: Soft, nontender, nondistended, normoactive bowel sounds. No palpable organomegaly. MUSCULOSKELETAL: No joint swelling or deformity. EXTREMITIES: No cyanosis, clubbing, or pedal edema. NEUROLOGICAL: Gross neurological examination did not reveal any focal deficits. SKIN: No rashes. Results CBC & Chem 7: 04/02/17 14:34 04/02/17 14:34 Labs: Abnormal Lab Results - Last 24 Hours (Table) 04/02/17 04/02/17 04/03/17 Range/Units 14:34 14:34 01:52 APTT (22.0-30.0) sec D-Dimer 0.80 H (<0.60) mg/L FEU Chloride 108 H (98-107) mmol/L Glucose 109 H (74-99) mg/dL POC Glucose (mg/dL) (75-99) mg/dL Triglycerides 169 H (<150) mg/dL 04/03/17 04/03/17 Range/Units 01:52 12:07 APTT 46.3 H (22.0-30.0) sec D-Dimer (<0.60) mg/L FEU Chloride (98-107) mmol/L Glucose (74-99) mg/dL POC Glucose (mg/dL) 102 H (75-99) mg/dL Triglycerides (<150) mg/dL Thrombosis Risk Factor Assmnt - Choose All That Apply Each Risk Factor Represents 2 Points: Age 61-74 years Each Risk Factor Represents 3 Points: Positive Lupus Anticoagulant Thrombosis Risk Factor Assessment Total Risk Factor Score: 5 Thrombosis Risk Factor Assessment Level: High Risk Assessment and Plan Plan: #1 chest pain: Rule out acute coronary syndromes and patient chest pain is musculoskeletal in nature patient has recent stress sutures is negative patient pain is coming from the back and patient has follow-up with neurology for a morphine pump placement failure patient will be discharged to follow with the neurology as an outpatient. 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
--- NOTE | 2017-04-03 16:20 | P.DS ---
Providers Date of admission: 04/02/17 18:28 Attending physician: Bro Houston Consults: 04/02/17 18:28 Consult Physician Urgent Consulting Provider: Melanie Hampton Consult Reason/Comments: Chest pain with a multiple risk factors Do you want consulting provider notified?: Yes Primary care physician: Anson Valdez [facility] Course: refer to my HPI for further details Patient Condition at Discharge: Good Plan - Discharge Summary New Discharge Prescriptions: New Isosorbide Mononitrate ER [Imdur] 30 mg PO DAILY #30 tab.er.24h No Action Gabapentin [Neurontin] 600 mg PO TID Estradiol [Estrace] 1 mg PO DAILY Potassium Chloride [Klor-Con 10] 10 meq PO DAILY DULoxetine HCL [Cymbalta] 120 mg PO DAILY Albuterol Inhaler [Ventolin Hfa Inhaler] 2 puff INHALATION RT-QID PRN PRN Reason: Shortness Of Breath cycloSPORINE 0.05% OPHTH SOLN [Restasis] 1 drops BOTH EYES BID Ziprasidone HCl [Geodon] 80 mg PO HS Lisinopril [Zestril] 10 mg PO DAILY Levothyroxine Sodium [Synthroid] 50 mcg PO SUTUWETHSA Cyclobenzaprine [Flexeril] 10 mg PO TID traZODone HCL 100 mg PO HS clonazePAM [KlonoPIN] 1 mg PO TID Ziprasidone [Geodon] 60 mg PO DAILY Nitroglycerin Sl Tabs [Nitrostat] 0.4 mg SUBLINGUAL Q5M PRN PRN Reason: Chest Pain Linaclotide [Linzess] 290 mcg PO DAILY PRN PRN Reason: Constipation Ibuprofen [Motrin] 800 mg PO TID PRN PRN Reason: Pain HYDROcodone/APAP 10-325MG [[place] 10-325] 1 tab PO QID PRN PRN Reason: Pain Furosemide [Lasix] 20 - 40 mg PO DAILY PRN PRN Reason: Edema Dextroamphetamine/Amphetamine [Adderall] 10 mg PO BID Cetirizine HCl [Zyrtec] 10 mg PO DAILY Atorvastatin [Lipitor] 40 mg PO DAILY Discharge Medication List Albuterol Inhaler [Ventolin Hfa Inhaler] 2 puff INHALATION RT-QID PRN 12/05/15 [ History] DULoxetine HCL [Cymbalta] 120 mg PO DAILY 12/05/15 [History] Estradiol [Estrace] 1 mg PO DAILY 12/05/15 [History] Gabapentin [Neurontin] 600 mg PO TID 12/05/15 [History] Lisinopril [Zestril] 10 mg PO DAILY 12/05/15 [History] Potassium Chloride [Klor-Con 10] 10 meq PO DAILY 12/05/15 [History] Ziprasidone HCl [Geodon] 80 mg PO HS 12/05/15 [History] cycloSPORINE 0.05% OPHTH SOLN [Restasis] 1 drops BOTH EYES BID 12/05/15 [History ] Cyclobenzaprine [Flexeril] 10 mg PO TID 03/03/16 [History] Levothyroxine Sodium [Synthroid] 50 mcg PO SUTUWETHSA 03/03/16 [History] traZODone HCL 100 mg PO HS 03/04/16 [History] clonazePAM [KlonoPIN] 1 mg PO TID 05/02/16 [History] Atorvastatin [Lipitor] 40 mg PO DAILY 04/02/17 [History] Cetirizine HCl [Zyrtec] 10 mg PO DAILY 04/02/17 [History] Dextroamphetamine/Amphetamine [Adderall] 10 mg PO BID 04/02/17 [History] Furosemide [Lasix] 20 - 40 mg PO DAILY PRN 04/02/17 [History] HYDROcodone/APAP 10-325MG [[place] 10-325] 1 tab PO QID PRN 04/02/17 [History] Ibuprofen [Motrin] 800 mg PO TID PRN 04/02/17 [History] Linaclotide [Linzess] 290 mcg PO DAILY PRN 04/02/17 [History] Nitroglycerin Sl Tabs [Nitrostat] 0.4 mg SUBLINGUAL Q5M PRN 04/02/17 [History] Ziprasidone [Geodon] 60 mg PO DAILY 04/02/17 [History] Isosorbide Mononitrate ER [Imdur] 30 mg PO DAILY #30 tab.er.24h 04/03/17 [Rx] Follow up Appointment(s)/Referral(s): Anson Valdez MD [Primary Care Provider] - 04/08/17 9:30 am Shahla Rick MD [STAFF PHYSICIAN] - 4 Weeks (office will call with appointment date and time) Patient Instructions/Handouts: Chest Pain (DC) Activity/Diet/Wound Care/Special Instructions: Resume normal activity Follow up with Dr. Valdez Discharge Disposition: HOME SELF-CARE
[2017-04-04] MEDS ORDERED: LEVOTHYROXINE 50 MCG TAB PO SCH (06:30)
== END 2017-04-03 15:21 | disposition home or self-care (01) ==
LOC: EC 16:03 → 3OBS 18:28
PROVIDERS: ADMIT Hospitalist; ATTEND Hospitalist
DX: R07.89 Other chest pain (principal); I10 Essential (primary) hypertension; E78.5 Hyperlipidemia, unspecified; F17.200 Nicotine dependence, unspecified, uncomplicated; J44.9 Chronic obstructive pulmonary disease, unspecified; M79.7 Fibromyalgia; M06.9 Rheumatoid arthritis, unspecified; M50.30 Other cervical disc degeneration, unspecified cervical region; M51.34 Other intervertebral disc degeneration, thoracic region; E03.9 Hypothyroidism, unspecified; M19.90 Unspecified osteoarthritis, unspecified site; E11.40 Type 2 diabetes mellitus with diabetic neuropathy, unspecified; K58.9 Irritable bowel syndrome, unspecified; H04.129 Dry eye syndrome of unspecified lacrimal gland; G43.909 Migraine, unspecified, not intractable, without status migrainosus; I69.392 Facial weakness following cerebral infarction; F41.0 Panic disorder [episodic paroxysmal anxiety]; F31.9 Bipolar disorder, unspecified; Z80.1 Family history of malignant neoplasm of trachea, bronchus and lung; J06.9 Acute upper respiratory infection, unspecified; Z79.890 Hormone replacement therapy; Z79.899 Other long term (current) drug therapy; Z87.01 Personal history of pneumonia (recurrent); Z91.048 Other nonmedicinal substance allergy status; Z91.040 Latex allergy status; Z88.0 Allergy status to penicillin; Z88.8 Allergy status to other drugs, medicaments and biological substances; Z88.1 Allergy status to other antibiotic agents
CPT/HCPCS: 96375 ×3; 96361 ×3; 99285; 96365; 96366 ×2; 96376; 36415; 93005; 85379; 83880; 80061; 80053; 82550 ×2; 82553 ×2; 83735; 84484 ×2; 85025; 85610; 85730 ×2; 71020; 71275; G0378 ×2; J1644 ×2; Q9967; J2270; J2405

== ENCOUNTER → 2017-08-03 | Outpatient (CLI) | payer BC, MEDICARE ==
--- NOTE | 2017-08-04 10:42 | MM ---
Reason for exam: screening (asymptomatic). Last mammogram was performed 1 year ago. History: Patient is postmenopausal. Benign excisional biopsy of the right breast. Taking estrogen for 6 years. Physical Findings: A clinical breast exam by your physician is recommended on an annual basis and results should be correlated with mammographic findings. MG Screening Mammo w CAD Bilateral CC and MLO view(s) were taken. Prior study comparison: July 25, 2016, bilateral MG screening mammo w CAD. July 24, 2015, bilateral MG screening mammo w CAD. July 06, 2014, bilateral MG screening mammo w CAD. There are scattered fibroglandular densities. No significant changes when compared with prior studies. ASSESSMENT: Negative, BI-RAD 1 RECOMMENDATION: Routine screening mammogram of both breasts in 1 year. Manage on a clinical basis with regard to patient's inferior left breast pain.
== END | disposition home or self-care (01) ==
LOC: RADMAMWWP 16:43
PROVIDERS: ATTEND Family Medicine
DX: Z12.31 Encounter for screening mammogram for malignant neoplasm of breast (principal)
CPT/HCPCS: 77067

== ENCOUNTER → 2017-11-16 | Outpatient (CLI) | payer BC, MEDICARE ==
[2017-11-16 08:29] LABS: Cholesterol 142 mg/dL (<200); Glucose 146 mg/dL (74-99); HDL Cholesterol 30 mg/dL (40-60); LDL Cholesterol,Calculated 44 mg/dL (0-99); Triglycerides 338 mg/dL (<150)
[2017-11-16 12:49] LABS: Hemoglobin A1C 7.1 % (4.0-6.0)
== END | disposition home or self-care (01) ==
LOC: LABWHC1 07:47
PROVIDERS: ATTEND Psychiatry & Neurology Psychiatry
DX: F31.81 Bipolar II disorder (principal)
CPT/HCPCS: 36415; 80061; 82947; 83036

== ENCOUNTER 2018-05-07 06:57 | Day surgery (SDC) | payer BC, MEDICARE ==
[2018-05-05 11:21] VITALS: BMI 22.8
[~2018-05-07 06:57] MED LIST: LACTATED RINGERS 1,000 ML IV SCH
[2018-05-07 07:23] VITALS: RESP 16; TEMP 97.8
[2018-05-07 07:35] LABS: Glucose,Whole Blood 142 mg/dL (75-99)
[2018-05-07] MEDS ORDERED: PROPOFOL 10 MG/ML 20 ML VIAL IV ONE (07:40)
--- NOTE | 2018-05-07 07:58 | P.PCN ---
Date of Procedure: 05/07/18 Procedure(s) Performed: BRIEF HISTORY: Patient is a 57-year-old, pleasant, white female, scheduled for an upper endoscopy as a part of evaluation of persistent epigastric pain, intermittent dysphagia to solids for the last several months duration. Pain sometimes can be very intense radiating to the back associated with nausea but no emesis. She is status post Romeo fundoplication 4 years ago. In view of this and she is scheduled for an upper endoscopy to evaluate further.. PROCEDURE PERFORMED: Esophagogastroduodenoscopy with biopsy. PREOPERATIVE DIAGNOSIS: Persistent epigastric pain, nausea and intermittent dysphagia to solids. IV sedation per anesthesia. PROCEDURE: After informed consent was obtained, the patient was brought into the endoscopy unit. IV sedation was administered by Anesthesia under continuous monitoring. Initially the Olympus GIF-140 video endoscope was inserted into the mouth. Esophagus intubated without any difficulty. It was gradually advanced into the stomach and duodenum and carefully examined. The bulb and the second part of the duodenum appeared normal. The scope at this time was withdrawn to the stomach, adequately insufflated with air, and upon careful examination, mucosa of the antrum, had mild gastritis and biopsies were done from this area. The appeared normal. There was large amount of retained solid food in the stomach with no evidence of gastric outlet obstruction. The visualized portions of the body, cardia and the fundus appeared normal. The scope was then withdrawn into the esophagus. The GE junction was located at 41 cm from the incisors. There was a 5 mm GE junction polyp that was biopsied. The lower esophageal sphincter at the site of Romeo fundoplication was very tight but there was no stricture noted. The entire length of esophagus appeared normal. Biopsies were done from the esophagus. There were no erosions or ulcerations seen and the patient tolerated the procedure well. IMPRESSION: 1. Retained food in the stomach suggestive of diabetic gastroparesis but no evidence of gastric outlet obstruction. 2. Mild antral gastritis. 3. Tight lower esophagus into secondary to Romeo fundoplication but no evidence of esophagitis or esophageal stricture. RECOMMENDATIONS: The findings of this examination were discussed with the patient as well as her family. She was advised to continue with Prilosec 20 mg daily, small frequent meals and follow antireflux measures. She will follow with the biopsy results and she'll be seen in office in 3-4 weeks..
[2018-05-07 08:12] VITALS: BP 100/59; PULSE 83
== END 2018-05-07 09:00 | disposition home or self-care (01) ==
LOC: ORWHC2ENDO 06:57
PROVIDERS: ATTEND Internal Medicine Gastroenterology
DX: K29.50 Unspecified chronic gastritis without bleeding (principal); K31.84 Gastroparesis; I10 Essential (primary) hypertension; E78.5 Hyperlipidemia, unspecified; K20.9 Esophagitis, unspecified; E11.43 Type 2 diabetes mellitus with diabetic autonomic (poly)neuropathy; M06.9 Rheumatoid arthritis, unspecified; K58.9 Irritable bowel syndrome, unspecified; M79.7 Fibromyalgia; Z79.891 Long term (current) use of opiate analgesic; Z86.73 Personal history of transient ischemic attack (TIA), and cerebral infarction without residual deficits; Z79.890 Hormone replacement therapy; Z79.899 Other long term (current) drug therapy; Z88.1 Allergy status to other antibiotic agents; Z88.0 Allergy status to penicillin; Z88.3 Allergy status to other anti-infective agents; Z91.040 Latex allergy status; Z79.84 Long term (current) use of oral hypoglycemic drugs
CPT/HCPCS: 88305; 43239; J2704

== ENCOUNTER 2018-05-14 12:14 | Emergency (ER) | payer BC, MEDICARE ==
[2018-05-14 12:39] VITALS: BP 104/63; PULSE 94; RESP 18; TEMP 97.8
--- NOTE | 2018-05-14 13:09 | ED ---
Extremity Problem HPI - General Chief complaint: Extremity Problem,Nontraumatic Stated complaint: leg redness, "poss bug bite or blood clot" Time Seen by Provider: 05/14/18 12:35 Source: patient, RN notes reviewed, old records reviewed Mode of arrival: wheelchair Limitations: no limitations - History of Present Illness Initial comments: Patient is a 57-year-old female presents emergency department today with an area of redness over her left calf. Patient reports that she noticed it started this morning. Patient states that she's had no history of blood clots. She has not been sedentary. No hormone use. Patient states she's chest pain or shortness of breath. Patient reports that she's been having intermittent skin infections. She is currently on Bactrim and has 2 days of this left. Patient states that she's had the area of redness and swelling measuring 3 cm. Patient lives that she may been bit by something on her leg. - Related Data Home Medications Medication Instructions Recorded Confirmed Albuterol Inhaler [Ventolin Hfa 2 puff INHALATION RT-QID PRN 12/05/15 05/07/18 Inhaler] DULoxetine HCL [Cymbalta] 120 mg PO DAILY 12/05/15 05/07/18 Gabapentin [Neurontin] 600 mg PO TID 12/05/15 05/07/18 Lisinopril [Zestril] 10 mg PO DAILY 12/05/15 05/07/18 Potassium Chloride [Klor-Con 10] 10 meq PO BID 12/05/15 05/07/18 Ziprasidone HCl [Geodon] 80 mg PO HS 12/05/15 05/07/18 cycloSPORINE 0.05% OPHTH SOLN 1 drops BOTH EYES BID 12/05/15 05/07/18 [Restasis] Cyclobenzaprine [Flexeril] 10 mg PO TID 03/03/16 05/07/18 Levothyroxine Sodium [Synthroid] 50 mcg PO DAILY 03/03/16 05/07/18 traZODone HCL 100 mg PO HS 03/04/16 05/07/18 clonazePAM [KlonoPIN] 1 mg PO TID 05/02/16 05/07/18 Dextroamphetamine/Amphetamine 10 mg PO BID 04/02/17 05/07/18 [Adderall] Furosemide [Lasix] 20 - 40 mg PO BID 04/02/17 05/07/18 HYDROcodone/APAP 10-325MG [[place] 1 tab PO QID PRN 04/02/17 05/07/18 10-325] Ibuprofen [Motrin] 800 mg PO TID PRN 04/02/17 05/07/18 Linaclotide [Linzess] 290 mcg PO DAILY PRN 04/02/17 05/07/18 Nitroglycerin Sl Tabs [Nitrostat] 0.4 mg SUBLINGUAL Q5M PRN 04/02/17 05/07/18 Ziprasidone [Geodon] 60 mg PO DAILY 04/02/17 05/07/18 Morphine Pump 05/05/18 Sulfamethox-Tmp 800-160Mg [Bactrim 1 tab PO Q12HR 05/05/18 05/07/18 DS 800-160 mg] metFORMIN HCL [Glucophage] 500 mg PO BID 05/05/18 05/07/18 Previous Rx's Medication Instructions Recorded Isosorbide Mononitrate ER [Imdur] 30 mg PO DAILY #30 tab.er.24h 04/03/17 Sulfamethox-Tmp 800-160Mg [Bactrim 1 tab PO Q12HR #10 tab 05/14/18 DS 800-160 mg] Allergies Allergy/AdvReac Type Severity Reaction Status Date / Time adhesive Allergy Rash/Hives Verified 09/08/17 17:00 azithromycin Allergy Rash/Hives Verified 09/08/17 17:00 [From Zithromax Z-Ivan] ciprofloxacin [From Cipro] Allergy Rash/Hives Verified 09/08/17 17:00 ciprofloxacin HCl Allergy Rash/Hives Verified 09/08/17 17:00 [From Cipro] clarithromycin [From Biaxin] Allergy Rash/Hives Verified 09/08/17 17:00 doxycycline calcium Allergy Rash/Hives Verified 09/08/17 17:00 [From Vibramycin] doxycycline hyclate Allergy Rash/Hives Verified 09/08/17 17:00 [From Vibramycin] doxycycline monohydrate Allergy Rash/Hives Verified 09/08/17 17:00 [From Vibramycin] erythromycin base Allergy Rash/Hives Verified 09/08/17 17:00 [From E-Mycin] Latex, Natural Rubber Allergy Anaphylaxis Verified 09/08/17 17:00 levofloxacin [From Levaquin] Allergy Rash/Hives Verified 09/08/17 17:00 oxybutynin chloride Allergy Rash/Hives Verified 09/08/17 17:00 [From Ditropan] penicillin G Allergy Rash/Hives Verified 09/08/17 17:00 prochlorperazine edisylate Allergy Rash/Hives Verified 09/08/17 17:00 [From Compazine] prochlorperazine maleate Allergy Rash/Hives Verified 09/08/17 17:00 [From Compazine] tetracycline [Tetracycline] Allergy Rash/Hives Verified 09/08/17 17:00 valdecoxib [From Bextra] Allergy Hallucinati Verified 09/08/17 17:00 ons Review of Systems ROS Statement: Those systems with pertinent positive or pertinent negative responses have been documented in the HPI. ROS Other: All systems not noted in ROS Statement are negative. Past Medical History Past Medical History: COPD, CVA/TIA, Diabetes Mellitus, Fibromyalgia, Hyperlipidemia, Hypertension, Osteoarthritis (OA), Rheumatoid Arthritis (RA), Skin Disorder, Thyroid Disorder Additional Past Medical History / Comment(s): diabetic neuropathy, lupus ,DDD , IBS, chronic dry eye, palpitations,migraines, TIA x 5-rt lip droops, emphysema, eczema in ears, HAS NON HEALING WOULD TO RT LITTLE TOE, gastroparesis History of Any Multi-Drug Resistant Organisms: None Reported Past Surgical History: Back Surgery, Cholecystectomy, Hernia Repair, Hysterectomy, Orthopedic Surgery, Tonsillectomy, Uterine Ablation Additional Past Surgical History / Comment(s): EGD, Colonoscopy, vocal cord surgery, cataract bilateral removal, right knee arthroscopy, right elbow surgery , bilateral feet heel spurs and arthroplasty on B/L foot toes, BILAT CTR, 2 nerve stimulator in spine X2, laminectomy L4-5,hiatal hernia repair, biopsy left arm,mult sinus surgeries, STIMULATOR BATTERIES REPLACED IN BACK , MORPHINE PUMP INSERTED, I&D RT FOOT WOUND, Past Anesthesia/Blood Transfusion Reactions: Family History of Problems w/ Anesthesia Additional Past Anesthesia/Blood Transfusion Reaction / Comment(s): claustrophobic, mother- AL during surgery Past Psychological History: Anxiety, Bipolar, Depression, Panic Disorder, PTSD Smoking Status: Current every day smoker Past Alcohol Use History: Occasional Past Drug Use History: None Reported - Past Family History Mother Family Medical History: Cancer, CVA/TIA, Myocardial Infarction (AL), Osteoarthritis (OA), Rheumatoid Arthritis (RA) Additional Family Medical History / Comment(s): Mother has scleroderma. She is 75 yrs old. lymphoma and stomach CA, stents. lupus Father Family Medical History: Cancer Additional Family Medical History / Comment(s): LUNG CANCER General Exam - General Exam Comments Initial Comments: Pleasant 57-year-old female. Alert and oriented. Patient appears in no acute distress. Limitations: no limitations General appearance: alert, in no apparent distress Head exam: Present: atraumatic, normocephalic, normal inspection Eye exam: Present: normal appearance, PERRL, EOMI. Absent: scleral icterus, conjunctival injection, periorbital swelling ENT exam: Present: normal exam, mucous membranes moist Neck exam: Present: normal inspection. Absent: tenderness, meningismus, lymphadenopathy Respiratory exam: Present: normal lung sounds bilaterally. Absent: respiratory distress, wheezes, rales, rhonchi, stridor Cardiovascular Exam: Present: regular rate, normal rhythm, normal heart sounds. Absent: systolic murmur, diastolic murmur, rubs, gallop, clicks GI/Abdominal exam: Present: soft, normal bowel sounds. Absent: distended, tenderness, guarding, rebound, rigid Extremities exam: Present: normal inspection, full ROM, normal capillary refill. Absent: tenderness, pedal edema, joint swelling, calf tenderness Left Knee exam: Present: normal inspection, full ROM. Absent: laceration Lower Leg exam: Present: full ROM. Absent: normal inspection (Patient has a 3 cm superficial area of erythema over the medial aspect of the calf. Some superficial veins noted. No circumferential. No posterior calf tenderness. There is a central area that seems to be a puncture wound from a insect bite. That erythema is soupy superficial cellulitis.) Ankle exam: Present: normal inspection, full ROM Foot/Toe exam: Present: normal inspection, full ROM Neurovascular tendon exam: Present: no vascular compromise Back exam: Present: normal inspection Neurological exam: Present: alert, oriented X3, CN II-XII intact Psychiatric exam: Present: normal affect, normal mood Course Vital Signs 05/14/18 12:34 Temperature 97.8 F Pulse Rate 94 Respiratory 18 Rate Blood Pressure 104/63 O2 Sat by Pulse 95 Oximetry Medical Decision Making - Medical Decision Making 57-year-old female. Alert and oriented. Patient appears in no acute distress. She presents today with some superficial erythema over the left medial calf. The areas circumferential measuring 3 cm. Appears to be cellulitis with a central area likely from a bite. At this time Patient will be given Rx on Bactrim. Patient will be able to follow up with PCP. Discussed with increasing swelling she should foullow up or return to ED if it worsens. Disposition Clinical Impression: Cellulitis of right leg Disposition: HOME SELF-CARE Condition: Good Instructions: Cellulitis (ED) Additional Instructions: Patient advised to monitor the area. The area of redness worsens, please return for reevaluation. Take medication as prescribed. Warm compresses over the area. Prescriptions: Sulfamethox-Tmp 800-160Mg [Bactrim DS 800-160 mg] 1 tab PO Q12HR #10 tab Is patient prescribed a controlled substance at d/c from ED?: No Referrals: Reinaldo Starr MD [Primary Care Provider] - 1-2 days Time of Disposition: 13:03
== END 2018-05-14 13:13 | disposition home or self-care (01) ==
LOC: EC 12:14
DX: L03.116 Cellulitis of left lower limb (principal); J44.9 Chronic obstructive pulmonary disease, unspecified; E11.40 Type 2 diabetes mellitus with diabetic neuropathy, unspecified; E11.43 Type 2 diabetes mellitus with diabetic autonomic (poly)neuropathy; K31.84 Gastroparesis; I10 Essential (primary) hypertension; M19.90 Unspecified osteoarthritis, unspecified site; E07.9 Disorder of thyroid, unspecified; F31.9 Bipolar disorder, unspecified; M79.7 Fibromyalgia; F41.0 Panic disorder [episodic paroxysmal anxiety]; M06.9 Rheumatoid arthritis, unspecified; F17.200 Nicotine dependence, unspecified, uncomplicated; Z79.899 Other long term (current) drug therapy; Z79.84 Long term (current) use of oral hypoglycemic drugs; Z88.1 Allergy status to other antibiotic agents; Z88.0 Allergy status to penicillin; Z91.040 Latex allergy status; Z91.048 Other nonmedicinal substance allergy status; Z88.8 Allergy status to other drugs, medicaments and biological substances; Z86.69 Personal history of other diseases of the nervous system and sense organs; Z98.42 Cataract extraction status, left eye; Z98.41 Cataract extraction status, right eye; Z98.890 Other specified postprocedural states
CPT/HCPCS: 99283

== ENCOUNTER → 2018-05-19 | Outpatient (CLI) | payer BC, MEDICARE ==
--- NOTE | 2018-05-20 12:08 | BD ---
EXAMINATION TYPE: Axial Bone Density DATE OF EXAM: 05/19/2018 COMPARISON: NONE CLINICAL HISTORY: Height: 5 FT 6 IN Weight: 183 FRAX RISK QUESTIONS: History of Fracture in Adulthood: YES Secondary Osteoporosis: 3. Menopause before 45: YES Current Tobacco Use: YES RISK FACTORS HISTORY OF: History of Wrist Fracture: LT WRIST When: UNSURE Surgery to Spine/Hip(right/left)/Wrist (right/left): LUMBAR WITH METAL When: 2002 Family History of Osteoporosis: YES Active: YES Postmenopausal woman: TOTAL HYST AGE 32 Take estrogen and/or progesterone medications: YES How lon YEARS Lost more than 2 inches in height since high school: YES Poor Health: YES MEDICATIONS: Thyroid Medications: YES Which medication: SYNTHROID How Long: APROX 15 YEARS Additional Medications: SYNTHROID, LASIX, GLUCOPHAGE, CYMBALTA, MOOD STABILIZER, LISINOPRIL, HEART ME DS Additional History: EXAM MEASUREMENTS: Bone mineral density about the R hip (g/cm2): 0.906 Bone mineral density about the L hip (g/cm2): 0.871 T Score values are as follows: -----R Neck: -1.0 -----L Neck: -1.2 -----R Total: -0.3 -----L Total: -0.2 Bone mineral density has: INCREASED 6.9 % since study of: 2016 Bone mineral density about the L Wrist (g/cm2): 0.649 T Score values are as follows: -----Dist. R+U: -1.3 -----Prox. R+U: -0.3 -----Radius total: -0.4 FIRST TIME WRIST WAS DONE IMPRESSION: No evidence for osteoporosis or osteopenia. NOTE: T-SCORE=SD OF THE YOUNG ADULT MEAN.
== END | disposition home or self-care (01) ==
LOC: RADBDWWP 15:04
PROVIDERS: ATTEND Internal Medicine
DX: N95.1 Menopausal and female climacteric states (principal)
CPT/HCPCS: 77080

== ENCOUNTER 2018-07-20 10:13 | Inpatient (IN) | payer BC, MEDICARE ==
[2018-07-20] MEDS ORDERED: NALOXONE 0.4 MG/ML 1 ML VIAL IV STA ×2 (10:24→10:38)
[2018-07-20] MEDS ORDERED: SODIUM CHLORIDE 0.9% 500 ML 500 ML IV ONE (10:25)
[2018-07-20 10:42] LABS: Basophils # (A) 0.1 k/uL (0-0.2); Basophils % (A) 1 %; Eosinophils # (A) 0.1 k/uL (0-0.7); Eosinophils % (A) 1 %; HCT 39.6 % (34.0-46.0); HGB 12.9 gm/dL (11.4-16.0); Hypochromasia Slight; Lymphocytes # (A) 2.4 k/uL (1.0-4.8); Lymphocytes % (A) 23 %; MCH 32.1 pg (25.0-35.0); MCHC 32.5 g/dL (31.0-37.0); MCV 98.6 fL (80.0-100.0); Monocytes # (A) 0.5 k/uL (0-1.0); Monocytes % (A) 5 %; Neutrophils # (A) 7.2 k/uL (1.3-7.7); Neutrophils % (A) 69 %; Platelet Count 359 k/uL (150-450); RBC 4.01 m/uL (3.80-5.40); RDW 14.5 % (11.5-15.5); WBC 10.5 k/uL (3.8-10.6)
--- NOTE | 2018-07-20 10:42 | ED ---
General Adult HPI - General Chief complaint: Overdose Stated complaint: stemi Time Seen by Provider: 07/20/18 10:13 Source: patient, EMS, RN notes reviewed Mode of arrival: EMS Limitations: altered mental status - History of Present Illness Initial comments: this a 58-year-old female presents emergency department with altered mental status. Patient was at the primary medical care doctor's office and she was lethargic and he decided to send the emergency department. Patient states she is on a pain pump and she did take her [place] today. Patient states she lost her Adderall so she did not take that this morning. Patient states she lost yesterday. Patient has no complaints. Patient states she has no chest pain no difficulty breathing no shortness of breath. Patient denies headache patient denies any numbness weakness. Patient denies abdominal pain patient denies nausea vomiting diarrhea. Patient denies any recent fever chills or cough. Patient the patient was aware of who she was and where she was as well as the year. - Related Data Home Medications Medication Instructions Recorded Confirmed DULoxetine HCL [Cymbalta] 120 mg PO DAILY 12/05/15 07/20/18 Gabapentin [Neurontin] 600 mg PO TID 12/05/15 07/20/18 Lisinopril [Zestril] 10 mg PO DAILY 12/05/15 07/20/18 Cyclobenzaprine [Flexeril] 10 mg PO TID 03/03/16 07/20/18 traZODone HCL 100 mg PO HS 03/04/16 07/20/18 clonazePAM [KlonoPIN] 1 mg PO TID 05/02/16 07/20/18 Dextroamphetamine/Amphetamine 10 mg PO BID 04/02/17 07/20/18 [Adderall] Furosemide [Lasix] 20 - 40 mg PO BID 04/02/17 07/20/18 HYDROcodone/APAP 10-325MG [[place] 1 tab PO QID PRN 04/02/17 07/20/18 10-325] Ibuprofen [Motrin] 800 mg PO TID PRN 04/02/17 07/20/18 Nitroglycerin Sl Tabs [Nitrostat] 0.4 mg SUBLINGUAL Q5M PRN 04/02/17 07/20/18 Ziprasidone [Geodon] 60 mg PO W/SUPPER 04/02/17 07/20/18 Morphine Pump 1 dose IV CONTINUOUS 05/05/18 07/20/18 metFORMIN HCL [Glucophage] 1,000 mg PO BID 05/05/18 07/20/18 Montelukast [Singulair] 10 mg PO DAILY 07/20/18 07/20/18 Omeprazole 20 mg PO DAILY 07/20/18 07/20/18 Ziprasidone [Geodon] 80 mg PO HS 07/20/18 07/20/18 Previous Rx's Medication Instructions Recorded Isosorbide Mononitrate ER [Imdur] 30 mg PO DAILY #30 tab.er.24h 04/03/17 Allergies Allergy/AdvReac Type Severity Reaction Status Date / Time adhesive Allergy Rash/Hives Verified 09/08/17 17:00 azithromycin Allergy Rash/Hives Verified 09/08/17 17:00 [From Zithromax Z-Ivan] ciprofloxacin [From Cipro] Allergy Rash/Hives Verified 09/08/17 17:00 ciprofloxacin HCl Allergy Rash/Hives Verified 09/08/17 17:00 [From Cipro] clarithromycin [From Biaxin] Allergy Rash/Hives Verified 09/08/17 17:00 doxycycline calcium Allergy Rash/Hives Verified 09/08/17 17:00 [From Vibramycin] doxycycline hyclate Allergy Rash/Hives Verified 09/08/17 17:00 [From Vibramycin] doxycycline monohydrate Allergy Rash/Hives Verified 09/08/17 17:00 [From Vibramycin] erythromycin base Allergy Rash/Hives Verified 09/08/17 17:00 [From E-Mycin] Latex, Natural Rubber Allergy Anaphylaxis Verified 09/08/17 17:00 levofloxacin [From Levaquin] Allergy Rash/Hives Verified 09/08/17 17:00 oxybutynin chloride Allergy Rash/Hives Verified 09/08/17 17:00 [From Ditropan] penicillin G Allergy Rash/Hives Verified 09/08/17 17:00 prochlorperazine edisylate Allergy Rash/Hives Verified 09/08/17 17:00 [From Compazine] prochlorperazine maleate Allergy Rash/Hives Verified 09/08/17 17:00 [From Compazine] tetracycline [Tetracycline] Allergy Rash/Hives Verified 09/08/17 17:00 valdecoxib [From Bextra] Allergy Hallucinati Verified 09/08/17 17:00 ons Review of Systems ROS Statement: Those systems with pertinent positive or pertinent negative responses have been documented in the HPI. ROS Other: All systems not noted in ROS Statement are negative. Past Medical History Past Medical History: COPD, CVA/TIA, Diabetes Mellitus, Fibromyalgia, Hyperlipidemia, Hypertension, Osteoarthritis (OA), Rheumatoid Arthritis (RA), Skin Disorder, Thyroid Disorder Additional Past Medical History / Comment(s): diabetic neuropathy, lupus ,DDD , IBS, chronic dry eye, palpitations,migraines, TIA x 5-rt lip droops, emphysema, eczema in ears, HAS NON HEALING WOULD TO RT LITTLE TOE, gastroparesis History of Any Multi-Drug Resistant Organisms: None Reported Past Surgical History: Back Surgery, Cholecystectomy, Hernia Repair, Hysterectomy, Orthopedic Surgery, Tonsillectomy, Uterine Ablation Additional Past Surgical History / Comment(s): EGD, Colonoscopy, vocal cord surgery, cataract bilateral removal, right knee arthroscopy, right elbow surgery , bilateral feet heel spurs and arthroplasty on B/L foot toes, BILAT CTR, 2 nerve stimulator in spine X2, laminectomy L4-5,hiatal hernia repair, biopsy left arm,mult sinus surgeries, STIMULATOR BATTERIES REPLACED IN BACK , MORPHINE PUMP INSERTED, I&D RT FOOT WOUND, Past Anesthesia/Blood Transfusion Reactions: Family History of Problems w/ Anesthesia Additional Past Anesthesia/Blood Transfusion Reaction / Comment(s): claustrophobic, mother- [place] during surgery Past Psychological History: Anxiety, Bipolar, Depression, Panic Disorder, PTSD Smoking Status: Current every day smoker Past Alcohol Use History: Occasional Past Drug Use History: None Reported - Past Family History Mother Family Medical History: Cancer, CVA/TIA, Myocardial Infarction ([place]), Osteoarthritis (OA), Rheumatoid Arthritis (RA) Additional Family Medical History / Comment(s): Mother has scleroderma. She is 75 yrs old. lymphoma and stomach CA, stents. lupus Father Family Medical History: Cancer Additional Family Medical History / Comment(s): LUNG CANCER General Exam - General Exam Comments Initial Comments: GENERAL: Patient is well-developed and well-nourished. Patient is nontoxic and well- hydrated and is in no acute distress.patient is very lethargic. ENT: Neck is soft and supple. No significant lymphadenopathy is noted. Oropharynx is clear. Moist mucous membranes. Neck has full range of motion without eliciting any pain. EYES: The sclera were anicteric and conjunctiva were pink and moist. Extraocular movements were intact and pupils were equal round and reactive to light. Eyelids were unremarkable. PULMONARY: Unlabored respirations. Good breath sounds bilaterally. No audible rales rhonchi or wheezing was noted. CARDIOVASCULAR: There is a regular rate and rhythm without any murmurs gallops or rubs. ABDOMEN: Soft and nontender with normal bowel sounds. No palpable organomegaly was noted. There is no palpable pulsatile mass. SKIN: Skin is clear with no lesions or rashes and otherwise unremarkable. NEUROLOGIC: Patient is alert and oriented x3. Cranial nerves II through XII are grossly intact. Motor and sensory are also intact. Normal speech, volume and content. Symmetrical smile. MUSCULOSKELETAL: Normal extremities with adequate strength and full range of motion. LYMPHATICS: No significant lymphadenopathy is noted PSYCHIATRIC: difficult to assess since patient is very lethargic. Limitations: altered mental status Course Vital Signs 07/20/18 07/20/18 07/20/18 10:15 10:21 10:47 Temperature 98.7 F Pulse Rate 105 H Respiratory 14 14 14 Rate Blood Pressure 120/87 O2 Sat by Pulse 99 Oximetry 07/20/18 10:50 Temperature Pulse Rate 91 Respiratory 14 Rate Blood Pressure 143/72 O2 Sat by Pulse 97 Oximetry Medical Decision Making - Medical Decision Making patient is given 0.4 of Narcan. Patient's EKG shows sinus tachycardia at 104 bpm [place] interval 268 QRSs 108 QT interval 360 QTC is 473. Patient's EKG shows no ST segment elevation or depression. No T-wave abnormalities are noted.EKG is compared to an old EKG no acute abnormalities are noted. After patient received another milligram of Narcan aerobic and thought she was alert and oriented 3 and much more alert. Patient had no complaints. I spoke with Dr. Sol he agreed to admit the patient admitted the patient - Lab Data Result diagrams: 07/20/18 10:20 07/20/18 10:20 Lab Results 07/20/18 07/20/18 07/20/18 Range/Units 10:20 10:20 10:20 WBC 10.5 (3.8-10.6) k/uL RBC 4.01 (3.80-5.40) m/uL Hgb 12.9 (11.4-16.0) gm/dL Hct 39.6 (34.0-46.0) % MCV 98.6 (80.0-100.0) fL MCH 32.1 (25.0-35.0) pg MCHC 32.5 (31.0-37.0) g/dL RDW 14.5 (11.5-15.5) % Plt Count 359 (150-450) k/uL Neutrophils % 69 % Lymphocytes % 23 % Monocytes % 5 % Eosinophils % 1 % Basophils % 1 % Neutrophils # 7.2 (1.3-7.7) k/uL Lymphocytes # 2.4 (1.0-4.8) k/uL Monocytes # 0.5 (0-1.0) k/uL Eosinophils # 0.1 (0-0.7) k/uL Basophils # 0.1 (0-0.2) k/uL Hypochromasia Slight PT (9.0-12.0) sec INR (<1.2) APTT (22.0-30.0) sec Sodium 143 (137-145) mmol/L Potassium 3.2 L (3.5-5.1) mmol/L Chloride 116 H (98-107) mmol/L Carbon Dioxide 17 L (22-30) mmol/L Anion Gap 10 mmol/L BUN 20 H (7-17) mg/dL Creatinine 1.88 H (0.52-1.04) mg/dL Est GFR (CKD-EPI)AfAm 34 (>60 ml/min/1.73 sqM) Est GFR (CKD-EPI)NonAf 29 (>60 ml/min/1.73 sqM) Glucose 125 H (74-99) mg/dL Calcium 12.1 H (8.4-10.2) mg/dL Magnesium 2.1 (1.6-2.3) mg/dL Total Bilirubin 0.4 (0.2-1.3) mg/dL AST 25 (14-36) U/L ALT 28 (9-52) U/L Alkaline Phosphatase 82 (38-126) U/L Total Creatine Kinase 162 H (30-135) U/L CK-MB (CK-2) 5.7 H (0.0-2.4) ng/mL CK-MB (CK-2) Rel Index 3.5 Troponin I <0.012 (0.000-0.034) ng/mL Total Protein 7.3 (6.3-8.2) g/dL Albumin 3.7 (3.5-5.0) g/dL 07/20/18 Range/Units 10:20 WBC (3.8-10.6) k/uL RBC (3.80-5.40) m/uL Hgb (11.4-16.0) gm/dL Hct (34.0-46.0) % MCV (80.0-100.0) fL MCH (25.0-35.0) pg MCHC (31.0-37.0) g/dL RDW (11.5-15.5) % Plt Count (150-450) k/uL Neutrophils % % Lymphocytes % % Monocytes % % Eosinophils % % Basophils % % Neutrophils # (1.3-7.7) k/uL Lymphocytes # (1.0-4.8) k/uL Monocytes # (0-1.0) k/uL Eosinophils # (0-0.7) k/uL Basophils # (0-0.2) k/uL Hypochromasia PT 10.0 (9.0-12.0) sec INR 0.9 (<1.2) APTT 22.4 (22.0-30.0) sec Sodium (137-145) mmol/L Potassium (3.5-5.1) mmol/L Chloride (98-107) mmol/L Carbon Dioxide (22-30) mmol/L Anion Gap mmol/L BUN (7-17) mg/dL Creatinine (0.52-1.04) mg/dL Est GFR (CKD-EPI)AfAm (>60 ml/min/1.73 sqM) Est GFR (CKD-EPI)NonAf (>60 ml/min/1.73 sqM) Glucose (74-99) mg/dL Calcium (8.4-10.2) mg/dL Magnesium (1.6-2.3) mg/dL Total Bilirubin (0.2-1.3) mg/dL AST (14-36) U/L ALT (9-52) U/L Alkaline Phosphatase (38-126) U/L Total Creatine Kinase (30-135) U/L CK-MB (CK-2) (0.0-2.4) ng/mL CK-MB (CK-2) Rel Index Troponin I (0.000-0.034) ng/mL Total Protein (6.3-8.2) g/dL Albumin (3.5-5.0) g/dL Disposition Clinical Impression: Opiate overdose Disposition: ADMITTED IP TO THIS HOSP Referrals: Bobby Frye MD [Primary Care Provider] - 1-2 days Time of Disposition: 12:14
[2018-07-20] MEDS ORDERED: NALOXONE 0.4 MG/ML 10 ML VIAL IVP STA (10:43)
[2018-07-20 10:53] LABS: Albumin 3.7 g/dL (3.5-5.0); Calcium 12.1 mg/dL (8.4-10.2); Magnesium 2.1 mg/dL (1.6-2.3); Potassium 3.2 mmol/L (3.5-5.1); Total Bilirubin 0.4 mg/dL (0.2-1.3); Total Protein 7.3 g/dL (6.3-8.2)
--- NOTE | 2018-07-20 10:53 | XR ---
EXAMINATION TYPE: XR chest 2V DATE OF EXAM: 07/20/2018 COMPARISON: 04/02/2017 HISTORY: 58-year-old female with chest pain TECHNIQUE: AP and lateral views FINDINGS: Leftward patient rotation and patient obliqued towards the left. This causes some limitation in asses sment. Heart appears grossly normal size. Atherosclerotic arch calcifications. Interstitial prominenc e and patchy bibasilar densities are present. No pleural effusion. Spinal stimulator array centered a long the mid thoracic spinal canal. IMPRESSION: Some interstitial and patchy bibasilar opacities could represent areas of atelectasis. Some of these changes appear in part chronic. Early infiltrates difficult to exclude. Correlate for any infectious respiratory signs/symptoms.
[2018-07-20 10:56] LABS: INR 0.9 (<1.2); Partial Thromboplastin Time 22.4 sec (22.0-30.0)
[2018-07-20 11:05] LABS: Creatine Kinase 162 U/L (30-135)
[2018-07-20 11:18] LABS: Creatine Kinase MB 5.7 ng/mL (0.0-2.4); Troponin I <0.012 ng/mL (0.000-0.034)
[2018-07-20] MEDS ORDERED: SODIUM CHLORIDE 0.9% 1,000 ML IV ONE (12:14)
[2018-07-20 16:48] VITALS: BMI 28.0
[2018-07-20 17:33] LABS: Glucose,Whole Blood 125 mg/dL (75-99)
[2018-07-20 20:15] LABS: Glucose,Whole Blood 122 mg/dL (75-99)
[2018-07-20] MEDS: metFORMIN 500 MG TAB PO SCH (21:15)
[2018-07-21 01:58] LABS: Glucose,Whole Blood 99 mg/dL (75-99)
[2018-07-21 07:11] LABS: Glucose,Whole Blood 98 mg/dL (75-99)
--- NOTE | 2018-07-21 07:53 | P.HPIM ---
History of Present Illness H&P Date: 07/21/18 Chief Complaint: Altered mental status The patient is a 58-year-old white female with known history of chronic back pain and anxiety with depression who yesterday came to my office but was obtunded. She actually drove but could not even remember what happened yesterday. We asked her to sign her name and follow-up standard form, and she was able to do this. Due to this, she was transported via EMS and admitted for opiate overdose. She recently had morphine pump with Folcroft from neurology. She also has an element of anxiety and has seen Dr. Wiley whitley in the past. After multiple doses of Narcan, she is now becoming more lucid and she has no recollection of yesterday prior to admission. He does not remember how she came to such a state. However, her friends say that even on Thursday she was not lucid playing cards. Review of Systems Constitutional: Denies chills, Denies fever Eyes: denies blurred vision, denies pain Ears, nose, mouth and throat: Denies headache, Denies sore throat Cardiovascular: Denies chest pain, Denies shortness of breath Genitourinary: Denies dysuria, Denies hematuria Musculoskeletal: Denies myalgias Past Medical History Past Medical History: COPD, CVA/TIA, Diabetes Mellitus, Fibromyalgia, Hyperlipidemia, Hypertension, Osteoarthritis (OA), Rheumatoid Arthritis (RA), Skin Disorder, Thyroid Disorder Additional Past Medical History / Comment(s): diabetic neuropathy, lupus ,DDD , IBS, chronic dry eye, palpitations,migraines, TIA x 5-rt lip droops, emphysema, eczema in ears, history of wound on right toe, gastroparesis History of Any Multi-Drug Resistant Organisms: None Reported Past Surgical History: Back Surgery, Cholecystectomy, Hernia Repair, Hysterectomy, Orthopedic Surgery, Tonsillectomy, Uterine Ablation Additional Past Surgical History / Comment(s): EGD, Colonoscopy, vocal cord surgery, cataract bilateral removal, right knee arthroscopy, right elbow surgery , bilateral feet heel spurs and arthroplasty on B/L foot toes, BILAT CTR, 2 nerve stimulator in spine X2, laminectomy L4-5,hiatal hernia repair, biopsy left arm,mult sinus surgeries, STIMULATOR in back (not currently working) , MORPHINE PUMP INSERTED to left side of abdomen for chronic back pain by Dr. Williamson, I&D RT FOOT WOUND Past Anesthesia/Blood Transfusion Reactions: Family History of Problems w/ Anesthesia Additional Past Anesthesia/Blood Transfusion Reaction / Comment(s): claustrophobic, mother- [place] during surgery Smoking Status: Current every day smoker - Past Family History Mother Family Medical History: Cancer, CVA/TIA, Myocardial Infarction ([place]), Osteoarthritis (OA), Rheumatoid Arthritis (RA) Additional Family Medical History / Comment(s): Mother had scleroderma, lymphoma and stomach CA, stents, lupus Father Family Medical History: Cancer Additional Family Medical History / Comment(s): LUNG CANCER Medications and Allergies Home Medications Medication Instructions Recorded Confirmed Type RX: Gabapentin [Neurontin] 600 mg PO TID 12/05/15 07/20/18 History RX: Lisinopril [Zestril] 10 mg PO DAILY 12/05/15 07/20/18 History Cyclobenzaprine [Flexeril] 10 mg PO TID 03/03/16 07/20/18 History RX: traZODone HCL 100 mg PO HS 03/04/16 07/20/18 History Dextroamphetamine/Amphetamine 10 mg PO BID 04/02/17 07/20/18 History [Adderall] Furosemide [Lasix] 20 - 40 mg PO BID 04/02/17 07/20/18 History HYDROcodone/APAP 10-325MG [Folcroft 1 tab PO QID PRN 04/02/17 07/20/18 History 10-325] Ibuprofen [Motrin] 800 mg PO TID PRN 04/02/17 07/20/18 History Nitroglycerin Sl Tabs [Nitrostat] 0.4 mg SUBLINGUAL Q5M PRN 04/02/17 07/20/18 History Ziprasidone [Geodon] 60 mg PO W/SUPPER 04/02/17 07/20/18 History RX: Isosorbide Mononitrate ER 30 mg PO DAILY #30 tab.er.24h 04/03/17 07/20/18 Rx [Imdur] Morphine Pump 1 dose IV CONTINUOUS 05/05/18 07/20/18 History metFORMIN HCL [Glucophage] 1,000 mg PO BID 05/05/18 07/20/18 History DULoxetine HCL [Cymbalta] 90 mg PO DAILY 07/20/18 07/20/18 History Montelukast [Singulair] 10 mg PO DAILY 07/20/18 07/20/18 History RX: Omeprazole 20 mg PO DAILY 07/20/18 07/20/18 History RX: clonazePAM 0.5 mg PO HS 07/20/18 07/20/18 History RX: clonazePAM 1 mg PO BID@0900,1400 07/20/18 07/20/18 History Ziprasidone [Geodon] 80 mg PO HS 07/20/18 07/20/18 History Allergies Allergy/AdvReac Type Severity Reaction Status Date / Time adhesive Allergy Rash/Hives Verified 09/08/17 17:00 azithromycin Allergy Rash/Hives Verified 09/08/17 17:00 [From Zithromax Z-Ivan] ciprofloxacin [From Cipro] Allergy Rash/Hives Verified 09/08/17 17:00 ciprofloxacin HCl Allergy Rash/Hives Verified 09/08/17 17:00 [From Cipro] clarithromycin [From Biaxin] Allergy Rash/Hives Verified 09/08/17 17:00 doxycycline calcium Allergy Rash/Hives Verified 09/08/17 17:00 [From Vibramycin] doxycycline hyclate Allergy Rash/Hives Verified 09/08/17 17:00 [From Vibramycin] doxycycline monohydrate Allergy Rash/Hives Verified 09/08/17 17:00 [From Vibramycin] erythromycin base Allergy Rash/Hives Verified 09/08/17 17:00 [From E-Mycin] Latex, Natural Rubber Allergy Anaphylaxis Verified 09/08/17 17:00 levofloxacin [From Levaquin] Allergy Rash/Hives Verified 09/08/17 17:00 oxybutynin chloride Allergy Rash/Hives Verified 09/08/17 17:00 [From Ditropan] penicillin G Allergy Rash/Hives Verified 09/08/17 17:00 prochlorperazine edisylate Allergy Rash/Hives Verified 09/08/17 17:00 [From Compazine] prochlorperazine maleate Allergy Rash/Hives Verified 09/08/17 17:00 [From Compazine] tetracycline [Tetracycline] Allergy Rash/Hives Verified 09/08/17 17:00 valdecoxib [From Bextra] Allergy Hallucinati Verified 09/08/17 17:00 ons Physical Exam Vitals: Vital Signs Temp Pulse Pulse Resp BP BP Pulse Ox 07/21/18 04:41 97.8 F 77 18 96/59 97 07/20/18 21:00 98.1 F 87 16 101/66 93 L 07/20/18 16:43 97.4 F L 108 H 16 130/80 100 07/20/18 15:00 96 131/69 95 07/20/18 14:00 95 150/81 97 07/20/18 11:30 96 139/83 100 07/20/18 10:50 91 14 143/72 97 07/20/18 10:47 14 07/20/18 10:21 14 07/20/18 10:15 98.7 F 105 H 14 120/87 99 Intake and Output 07/20/18 07/21/18 07/21/18 22:59 06:59 14:59 Other: Voiding Method Toilet # Voids 1 2 - Constitutional General appearance: no acute distress - EENT Eyes: EOMI - Neck Neck: no lymphadenopathy - Respiratory Respiratory: bilateral: CTA - Cardiovascular Rhythm: regular Heart sounds: normal: S1, S2 Abnormal Heart Sounds: no S3 Gallop - Gastrointestinal General gastrointestinal: soft, no tenderness - Psychiatric Psychiatric: A&O x's 3, no appropriate affect Results CBC & Chem 7: 07/20/18 10:20 07/20/18 10:20 Labs: Abnormal Lab Results - Last 24 Hours (Table) 07/20/18 07/20/18 07/20/18 Range/Units 10:20 10:20 17:31 Potassium 3.2 L (3.5-5.1) mmol/L Chloride 116 H (98-107) mmol/L Carbon Dioxide 17 L (22-30) mmol/L BUN 20 H (7-17) mg/dL Creatinine 1.88 H (0.52-1.04) mg/dL Glucose 125 H (74-99) mg/dL POC Glucose (mg/dL) 125 H (75-99) mg/dL Calcium 12.1 H (8.4-10.2) mg/dL Total Creatine Kinase 162 H (30-135) U/L CK-MB (CK-2) 5.7 H (0.0-2.4) ng/mL 07/20/18 Range/Units 20:14 Potassium (3.5-5.1) mmol/L Chloride (98-107) mmol/L Carbon Dioxide (22-30) mmol/L BUN (7-17) mg/dL Creatinine (0.52-1.04) mg/dL Glucose (74-99) mg/dL POC Glucose (mg/dL) 122 H (75-99) mg/dL Calcium (8.4-10.2) mg/dL Total Creatine Kinase (30-135) U/L CK-MB (CK-2) (0.0-2.4) ng/mL Thrombosis Risk Factor Assmnt - Choose All That Apply Any of the Below Risk Factors Present?: Yes Each Factor Represents 1 point: Abnormal pulmonary function (COPD), Age 41-60 years Other Risk Factors: No Other congenital or acquired thrombophilia - If yes, enter type in comment: No Thrombosis Risk Factor Assessment Total Risk Factor Score: 2 Thrombosis Risk Factor Assessment Level: Low Risk Assessment and Plan (1) Anxiety Current Visit: Yes Status: Acute Code(s): F41.9 - ANXIETY DISORDER, UNSPECIFIED SNOMED Code(s): 49026119 (2) Depression Current Visit: Yes Status: Acute Code(s): F32.9 - MAJOR DEPRESSIVE DISORDER , SINGLE EPISODE, UNSPECIFIED SNOMED Code(s): 35343523 (3) Chronic low back pain Current Visit: Yes Status: Acute Code(s): M54.5 - LOW BACK PAIN; G89.29 - OTHER CHRONIC PAIN SNOMED Code(s): 566689412 (4) Opiate overdose Current Visit: Yes Status: Acute Code(s): T40.601A - POISONING BY UNSP NARCOTICS, ACCIDENTAL, INIT SNOMED Code(s): 978983122 Plan: The patient will continue IV hydration and detoxification. [place] need for removal of the pump or decreasing the dose of her morphine pump. This was discussed with her at length. DC Folcroft and Adderall at this time. Continue Klonopin as necessary per psychiatry. Consider discontinuing Neurontin also. See orders otherwise. Time with Patient: Greater than 30
[2018-07-21] MEDS ORDERED: NITROGLYCERIN SL TABS 0.4 MG TAB SUBLINGUAL PRN (07:54)
[2018-07-21] MEDS ORDERED: IBUPROFEN 800 MG TAB PO PRN (07:54)
[2018-07-21] MEDS: [UNRECOGNIZED DRUG - REMARK] IV SCH (08:56)
[2018-07-21] MEDS: metFORMIN 500 MG TAB PO SCH ×2 (08:56→18:12)
[2018-07-21] MEDS: ISOSORBIDE MONONITRATE ER 30 MG TAB.ER.24H PO SCH (08:57)
[2018-07-21] MEDS: MONTELUKAST 10 MG TAB PO SCH (08:57)
[2018-07-21] MEDS: PANTOPRAZOLE 40 MG TABLET PO SCH (08:57)
[2018-07-21] MEDS: LISINOPRIL 10 MG TAB PO SCH (08:57)
[2018-07-21] MEDS: FUROSEMIDE 20 MG TAB PO SCH ×2 (08:58→16:17)
[2018-07-21] MEDS: DULoxetine HCL 30 MG CAPSULE.DR PO SCH (08:58)
[2018-07-21 10:25] LABS: Calcium 11.6 mg/dL (8.4-10.2); Potassium 3.4 mmol/L (3.5-5.1)
[2018-07-21 11:36] LABS: Glucose,Whole Blood 141 mg/dL (75-99)
[2018-07-21] MEDS ORDERED: Potassium Replacement Protocol 1 EACH MISC MISCELLANE PRN ×2 (14:02→21:05)
[2018-07-21] MEDS: POTASSIUM CHLORIDE ER 20 MEQ TAB.ER PO SCH ×3 (14:34→22:11)
[2018-07-21] MEDS ORDERED: ZIPRASIDONE 60 MG CAP PO SCH (17:30)
[2018-07-21 17:31] LABS: Glucose,Whole Blood 116 mg/dL (75-99)
[2018-07-21 20:10] LABS: Glucose,Whole Blood 105 mg/dL (75-99)
[2018-07-21 21:00] VITALS: RESP 18
[2018-07-22 01:40] LABS: Glucose,Whole Blood 100 mg/dL (75-99)
[2018-07-22 05:30] VITALS: BP 105/66; PULSE 95; TEMP 97.6
[2018-07-22 06:58] LABS: Glucose,Whole Blood 118 mg/dL (75-99)
[2018-07-22] MEDS: PANTOPRAZOLE 40 MG TABLET PO SCH (07:44)
[2018-07-22] MEDS: metFORMIN 500 MG TAB PO SCH (07:44)
[2018-07-22] MEDS: FUROSEMIDE 20 MG TAB PO SCH (07:46)
[2018-07-22] MEDS: DULoxetine HCL 30 MG CAPSULE.DR PO SCH (07:46)
[2018-07-22] MEDS: MONTELUKAST 10 MG TAB PO SCH (07:47)
[2018-07-22] MEDS: LISINOPRIL 10 MG TAB PO SCH (07:47)
[2018-07-22] MEDS: ISOSORBIDE MONONITRATE ER 30 MG TAB.ER.24H PO SCH (07:47)
[2018-07-22] MEDS: [UNRECOGNIZED DRUG - REMARK] IV SCH (08:20)
--- NOTE | 2018-07-22 08:36 | P.DS ---
Providers Date of admission: 07/20/18 12:15 Attending physician: Bobby Frye Primary care physician: Bobby Frye - Discharge Diagnosis(es) (1) Anxiety Current Visit: Yes Status: Acute (2) Depression Current Visit: Yes Status: Acute (3) Chronic low back pain Current Visit: Yes Status: Acute (4) Opiate overdose Current Visit: Yes Status: Acute Hospital Course: The patient is a 58-year-old white female essentially minute for opiate and polypharmacy overdose. The patient was stabilized with appropriate treatment with IV hydration and supportive care. We'll discontinue gabapentin, [place] and Adderall at this time. Question need to decrease trazodone and Geodon as possible but due to her mental state I will defer this to psychiatry. The patient is now stable lucid alert but still at risk. I have had a long discussion with the family to hopefully discontinue the morphine pump. Patient Condition at Discharge: Stable Plan - Discharge Summary Discharge Rx Participant: No New Discharge Prescriptions: Continue Lisinopril [Zestril] 10 mg PO DAILY Cyclobenzaprine [Flexeril] 10 mg PO TID traZODone HCL 100 mg PO HS Ziprasidone [Geodon] 60 mg PO W/SUPPER Nitroglycerin Sl Tabs [Nitrostat] 0.4 mg SUBLINGUAL Q5M PRN PRN Reason: Chest Pain Ibuprofen [Motrin] 800 mg PO TID PRN PRN Reason: Pain Furosemide [Lasix] 20 - 40 mg PO BID Isosorbide Mononitrate ER [Imdur] 30 mg PO DAILY #30 tab.er.24h metFORMIN HCL [Glucophage] 1,000 mg PO BID Morphine Pump 1 dose IV CONTINUOUS Omeprazole 20 mg PO DAILY Montelukast [Singulair] 10 mg PO DAILY DULoxetine HCL [Cymbalta] 90 mg PO DAILY clonazePAM 0.5 mg PO HS clonazePAM 1 mg PO BID@0900,1400 Discontinued Gabapentin [Neurontin] 600 mg PO TID HYDROcodone/APAP 10-325MG [[place] 10-325] 1 tab PO QID PRN PRN Reason: Pain Dextroamphetamine/Amphetamine [Adderall] 10 mg PO BID Ziprasidone [Geodon] 80 mg PO HS Discharge Medication List Lisinopril [Zestril] 10 mg PO DAILY 12/05/15 [History] Cyclobenzaprine [Flexeril] 10 mg PO TID 03/03/16 [History] traZODone HCL 100 mg PO HS 03/04/16 [History] Furosemide [Lasix] 20 - 40 mg PO BID 04/02/17 [History] Ibuprofen [Motrin] 800 mg PO TID PRN 04/02/17 [History] Nitroglycerin Sl Tabs [Nitrostat] 0.4 mg SUBLINGUAL Q5M PRN 04/02/17 [History] Ziprasidone [Geodon] 60 mg PO W/SUPPER 04/02/17 [History] Isosorbide Mononitrate ER [Imdur] 30 mg PO DAILY #30 tab.er.24h 04/03/17 [Rx] Morphine Pump 1 dose IV CONTINUOUS 05/05/18 [History] metFORMIN HCL [Glucophage] 1,000 mg PO BID 05/05/18 [History] DULoxetine HCL [Cymbalta] 90 mg PO DAILY 07/20/18 [History] Montelukast [Singulair] 10 mg PO DAILY 07/20/18 [History] Omeprazole 20 mg PO DAILY 07/20/18 [History] clonazePAM 0.5 mg PO HS 07/20/18 [History] clonazePAM 1 mg PO BID@0900,1400 07/20/18 [History] Follow up Appointment(s)/Referral(s): Bobby Frye MD [Primary Care Provider] - 1-2 days
[2018-07-22 08:48] LABS: HCT 36.6 % (34.0-46.0); HGB 11.6 gm/dL (11.4-16.0); Hypochromasia Slight; MCH 31.4 pg (25.0-35.0); MCHC 31.7 g/dL (31.0-37.0); MCV 99.2 fL (80.0-100.0); Macrocytosis Slight; Mean Platelet Volume 6.5; Platelet Count 327 k/uL (150-450); RBC 3.69 m/uL (3.80-5.40); RDW 14.4 % (11.5-15.5); WBC 8.9 k/uL (3.8-10.6)
[2018-07-22 09:01] LABS: Albumin 3.7 g/dL (3.5-5.0); Calcium 11.1 mg/dL (8.4-10.2); Potassium 3.4 mmol/L (3.5-5.1); Total Bilirubin 0.4 mg/dL (0.2-1.3); Total Protein 7.1 g/dL (6.3-8.2)
== END 2018-07-22 09:00 | disposition home or self-care (01) | DRG 918 ==
LOC: EC 10:13 → 4MS4W 12:15 → 3NMEDONC 13:45
PROVIDERS: ADMIT Family Medicine; ATTEND Family Medicine
DX: T40.601A Poisoning by unspecified narcotics, accidental (unintentional), initial encounter (principal); E11.43 Type 2 diabetes mellitus with diabetic autonomic (poly)neuropathy; E78.5 Hyperlipidemia, unspecified; F17.200 Nicotine dependence, unspecified, uncomplicated; F31.9 Bipolar disorder, unspecified; F40.240 Claustrophobia; F41.0 Panic disorder [episodic paroxysmal anxiety]; F43.10 Post-traumatic stress disorder, unspecified; G89.29 Other chronic pain; I10 Essential (primary) hypertension; J43.9 Emphysema, unspecified; K31.84 Gastroparesis; K58.9 Irritable bowel syndrome, unspecified; M06.9 Rheumatoid arthritis, unspecified; M79.7 Fibromyalgia; Z79.84 Long term (current) use of oral hypoglycemic drugs; Z79.899 Other long term (current) drug therapy; Z80.0 Family history of malignant neoplasm of digestive organs; Z80.1 Family history of malignant neoplasm of trachea, bronchus and lung; Z80.7 Family history of other malignant neoplasms of lymphoid, hematopoietic and related tissues; Z82.49 Family history of ischemic heart disease and other diseases of the circulatory system; Z86.73 Personal history of transient ischemic attack (TIA), and cerebral infarction without residual deficits; Z90.710 Acquired absence of both cervix and uterus; Y63.6 Underdosing and nonadministration of necessary drug, medicament or biological substance; Z88.0 Allergy status to penicillin; Z88.8 Allergy status to other drugs, medicaments and biological substances; Z88.1 Allergy status to other antibiotic agents; Z91.040 Latex allergy status; Z98.42 Cataract extraction status, left eye; Z98.41 Cataract extraction status, right eye; M54.5 Low back pain
CPT/HCPCS: 36415; 71046; 80048; 80053; 82550; 82553; 83036; 83735; 84132; 84484; 85025; 85027; 85610; 85730; 96361; 96374; 99285

== ENCOUNTER 2018-07-30 14:20 | Inpatient (IN) | payer BC, MEDICARE ==
[2018-07-30] MEDS ORDERED: SODIUM CHLORIDE 0.9% 1,000 ML IV ONE (14:37)
[2018-07-30] MEDS ORDERED: SODIUM CHLORIDE 0.9% 500 ML 500 ML IV ONE (14:37)
[2018-07-30 15:09] LABS: Basophils % (A) 0 %; Eosinophils # (A) 0.1 k/uL (0-0.7); Eosinophils % (A) 1 %; HCT 43.1 % (34.0-46.0); HGB 13.9 gm/dL (11.4-16.0); Lymphocytes # (A) 1.9 k/uL (1.0-4.8); Lymphocytes % (A) 19 %; MCH 31.2 pg (25.0-35.0); MCHC 32.3 g/dL (31.0-37.0); MCV 96.7 fL (80.0-100.0); Mean Platelet Volume 6.7; Monocytes # (A) 0.4 k/uL (0-1.0); Monocytes % (A) 4 %; Neutrophils # (A) 7.5 k/uL (1.3-7.7); Neutrophils % (A) 75 %; Platelet Count 306 k/uL (150-450); RBC 4.45 m/uL (3.80-5.40); RDW 14.6 % (11.5-15.5)
[2018-07-30 15:15] LABS: Albumin 4.6 g/dL (3.5-5.0); Calcium 12.5 mg/dL (8.4-10.2); Potassium 4.6 mmol/L (3.5-5.1); Total Bilirubin 0.9 mg/dL (0.2-1.3); Total Protein 8.7 g/dL (6.3-8.2)
[2018-07-30 15:23] LABS: Appearance,Urine Clear (Clear); Bilirubin,Urine Negative (Negative); Blood,Urine Negative (Negative); Color,Urine Yellow; Glucose,Urine (UA) Negative (Negative); Ketones,Urine Negative (Negative); Leukocyte Esterase,Urine Negative (Negative); Nitrite,Urine Negative (Negative); PH, Urine 6.5 (5.0-8.0); Protein,Urine Trace (Negative); Specific Gravity,Urine 1.008 (1.001-1.035); Urobilinogen,Urine <2.0 mg/dL (<2.0)
[2018-07-30 15:28] LABS: Glucose,Whole Blood 138 mg/dL (75-99)
[2018-07-30 15:31] LABS: INR 0.9 (<1.2); Partial Thromboplastin Time 22.5 sec (22.0-30.0); Prothrombin Time 10.1 sec (9.0-12.0)
[2018-07-30 15:32] LABS: Amphetamine Screen,Urine Not Detected (NotDetected); Barbiturate Screen,Urine Not Detected (NotDetected); Benzodiazepines Screen,Urine Not Detected (NotDetected); Cocaine Screen,Urine Not Detected (NotDetected); Methadone Screen, Urine Not Detected (NotDetected); Opiate Screen,Urine Detected (NotDetected); Oxycodone Screen, Urine Not Detected (NotDetected); Phencyclidine Screen,Urine Not Detected (NotDetected); Tricyclic Antidepressant,Urine Not Detected (NotDetected); Urn Cannabinoid Scrn Not Detected (NotDetected)
--- NOTE | 2018-07-30 16:06 | ED ---
General Adult HPI <Samuel Desai - Last Filed: 07/30/18 16:15> - General Source: patient, family Mode of arrival: wheelchair Limitations: altered mental status <Alisa Meyers - Last Filed: 07/30/18 17:27> - General Chief complaint: Overdose Stated complaint: Poss overdose Time Seen by Provider: 07/30/18 14:29 - History of Present Illness Initial comments: 58-year-old female past medical history of multiple psychiatric disorders including bipolar depression, chronic pain with multiple cervical spine surgeries on morphine pump at home and norco. Pt was brought in by patient after being told by primary care provider they should come to the ER. Patient states for the past 2 weeks patient has been out of it, increased drowsiness. They felt this was due to her medication list with multiple psychiatric medications as well her pain medication which includes a morphine pump. Pt was hospitalized and discharged in July for same complaint. Pt states at that time she was much worse, however the symptoms today are very similar in characteristic. He states she knows who she is or where she is at but patient never knows the date or time. He states she always seem tired and lethargic. He denies any focalized weakness he denies any weakness of the upper extremities or lower tremors, patient denies any complaints. He denies noticing any facial droop or speech changes. He states she has not steady on her feet, due to being drowsy. Patient denies any dizziness or chest pain, dyspnea, dyspnea on exertion. She denies any lower extremity edema. Patient denies any fever or chills denies noting any. Pt has no complaints. Pt has history of alcoholism. Pt denies current drinking. Pt denies any drug use in addition to her prescribed medications. Upon arrival VS [facility]. Pt has head down, responding to questions, alert and oriented x 2. Place and person. Quick responses, no slurred speech. (Alisa Meyers) - Related Data Home Medications Medication Instructions Recorded Confirmed Lisinopril [Zestril] 10 mg PO DAILY 12/05/15 07/30/18 Cyclobenzaprine [Flexeril] 10 mg PO TID 03/03/16 07/30/18 traZODone HCL 100 mg PO HS 03/04/16 07/30/18 Ibuprofen [Motrin] 800 mg PO TID PRN 04/02/17 07/30/18 Nitroglycerin Sl Tabs [Nitrostat] 0.4 mg SUBLINGUAL Q5M PRN 04/02/17 07/30/18 Morphine Pump 1 dose IV CONTINUOUS 05/05/18 07/30/18 metFORMIN HCL [Glucophage] 1,000 mg PO BID 05/05/18 07/30/18 Montelukast [Singulair] 10 mg PO DAILY 07/20/18 07/30/18 Omeprazole 20 mg PO DAILY 07/20/18 07/30/18 clonazePAM 0.5 mg PO HS 07/20/18 07/30/18 clonazePAM 1 mg PO BID@0900,1400 07/20/18 07/30/18 DULoxetine HCL [Cymbalta] 30 mg PO DAILY 07/30/18 07/30/18 DULoxetine HCL [Cymbalta] 60 mg PO DAILY 07/30/18 07/30/18 Dextroamphetamine/Amphetamine 10 mg PO BID 07/30/18 07/30/18 [Adderall] Furosemide [Lasix] 40 mg PO BID 07/30/18 07/30/18 Gabapentin 600 mg PO TID 07/30/18 07/30/18 HYDROcodone/APAP 10-325MG [[place] 1 tab PO DAILY 07/30/18 07/30/18 10-325] Linaclotide [Linzess] 290 mg PO DAILY 07/30/18 07/30/18 Ziprasidone [Geodon] 40 mg PO DAILY 07/30/18 07/30/18 Previous Rx's Medication Instructions Recorded Isosorbide Mononitrate ER [Imdur] 30 mg PO DAILY #30 tab.er.24h 04/03/17 Allergies Allergy/AdvReac Type Severity Reaction Status Date / Time adhesive Allergy Rash/Hives Verified 07/30/18 16:10 azithromycin Allergy Rash/Hives Verified 07/30/18 16:10 [From Zithromax Z-Ivan] ciprofloxacin [From Cipro] Allergy Rash/Hives Verified 07/30/18 16:10 ciprofloxacin HCl Allergy Rash/Hives Verified 07/30/18 16:10 [From Cipro] clarithromycin [From Biaxin] Allergy Rash/Hives Verified 07/30/18 16:10 doxycycline calcium Allergy Rash/Hives Verified 07/30/18 16:10 [From Vibramycin] doxycycline hyclate Allergy Rash/Hives Verified 07/30/18 16:10 [From Vibramycin] doxycycline monohydrate Allergy Rash/Hives Verified 07/30/18 16:10 [From Vibramycin] erythromycin base Allergy Rash/Hives Verified 07/30/18 16:10 [From E-Mycin] Latex, Natural Rubber Allergy Anaphylaxis Verified 07/30/18 16:10 levofloxacin [From Levaquin] Allergy Rash/Hives Verified 07/30/18 16:10 oxybutynin chloride Allergy Rash/Hives Verified 07/30/18 16:10 [From Ditropan] penicillin G Allergy Rash/Hives Verified 07/30/18 16:10 prochlorperazine edisylate Allergy Rash/Hives Verified 07/30/18 16:10 [From Compazine] prochlorperazine maleate Allergy Rash/Hives Verified 07/30/18 16:10 [From Compazine] tetracycline [Tetracycline] Allergy Rash/Hives Verified 07/30/18 16:10 valdecoxib [From Bextra] Allergy Hallucinati Verified 07/30/18 16:10 ons Review of Systems ROS Other: All systems not noted in ROS Statement are negative. <Samuel Desai - Last Filed: 07/30/18 16:15> ROS Other: All systems not noted in ROS Statement are negative. <Alisa Meyers - Last Filed: 07/30/18 17:27> ROS Statement: Those systems with pertinent positive or pertinent negative responses have been documented in the HPI. Past Medical History Past Medical History: COPD, CVA/TIA, Diabetes Mellitus, Fibromyalgia, Hyperlipidemia, Hypertension, Osteoarthritis (OA), Rheumatoid Arthritis (RA), Skin Disorder, Thyroid Disorder Additional Past Medical History / Comment(s): diabetic neuropathy, lupus ,DDD , IBS, chronic dry eye, palpitations,migraines, TIA x 5-rt lip droops, emphysema, eczema in ears, history of wound on right toe, gastroparesis History of Any Multi-Drug Resistant Organisms: None Reported Past Surgical History: Back Surgery, Cholecystectomy, Hernia Repair, Hysterectomy, Orthopedic Surgery, Tonsillectomy, Uterine Ablation Additional Past Surgical History / Comment(s): EGD, Colonoscopy, vocal cord surgery, cataract bilateral removal, right knee arthroscopy, right elbow surgery , bilateral feet heel spurs and arthroplasty on B/L foot toes, BILAT CTR, 2 nerve stimulator in spine X2, laminectomy L4-5,hiatal hernia repair, biopsy left arm,mult sinus surgeries, STIMULATOR in back (not currently working) , MORPHINE PUMP INSERTED to left side of abdomen for chronic back pain by Dr. Williamson, I&D RT FOOT WOUND Past Anesthesia/Blood Transfusion Reactions: Family History of Problems w/ Anesthesia Additional Past Anesthesia/Blood Transfusion Reaction / Comment(s): claustrophobic, mother- [place] during surgery Past Psychological History: Anxiety, Bipolar, Depression, Panic Disorder, PTSD Smoking Status: Current every day smoker - Past Family History Mother Family Medical History: Cancer, CVA/TIA, Myocardial Infarction ([place]), Osteoarthritis (OA), Rheumatoid Arthritis (RA) Additional Family Medical History / Comment(s): Mother had scleroderma, lymphoma and stomach CA, stents, lupus Father Family Medical History: Cancer Additional Family Medical History / Comment(s): LUNG CANCER <Alisa Meyers - Last Filed: 07/30/18 17:27> General Exam <Samuel Desai - Last Filed: 07/30/18 16:15> Limitations: altered mental status <Alisa Meyers - Last Filed: 07/30/18 17:27> - General Exam Comments Initial Comments: General: The patient is drowsy, aaox2, person and place. Can recall my name, Eye: +2 mm pupils are equal, round and reactive to light, extra-ocular movements are intact. No nystagmus. There is normal conjunctiva bilaterally. No signs of icterus. Ears, nose, mouth and throat: There are moist mucous membranes and no oral lesions. Neck: The neck is supple, there is no tenderness or JVD. Cardiovascular: There is a regular rate and rhythm. No murmur, rub or gallop is appreciated. Respiratory: Lungs are clear to auscultation, respirations are non-labored, breath sounds are equal. No wheezes, stridor, rales, or rhonchi. Gastrointestinal: Soft, non-distended, non-tender abdomen without masses or organomegaly noted. There is no rebound or guarding present. No CVA tenderness. Bowel sounds are unremarkable. Musculoskeletal: Normal ROM, no tenderness. Strength 5/5. Sensation intact. Radial pulses equal bilaterally 2+. Neurological: A&O x 3. CN II-XII intact, There are no obvious motor or sensory deficits. Coordination appears grossly intact. Speech is slow, but slurred. Skin: Skin is warm and dry and no rashes or lesions are noted. Psychiatric: Cooperative, flat affect, AAOx2, person/place but not time. (Alisa Meyers) Vital Signs 07/30/18 07/30/18 07/30/18 14:22 15:00 15:10 Temperature 98.4 F Pulse Rate 100 Respiratory 16 17 Rate Blood Pressure 107/70 88/68 113/67 O2 Sat by Pulse 98 98 99 Oximetry 07/30/18 17:13 Temperature Pulse Rate 89 Respiratory 19 Rate Blood Pressure 119/61 O2 Sat by Pulse 100 Oximetry EKG Findings - EKG Comments: EKG Findings:: Ventricular 100 bpm, NH interval 160 ms, QRS duration 112 ms, QT/ QTC 388/500 ms. This is a prolonged QT, there is normal sinus nonspecific T- wave abnormality. EKG was compared 07/20/18, no significant change. <Alisa Meyers - Last Filed: 07/30/18 17:27> Medical Decision Making - Lab Data Result diagrams: 07/30/18 14:44 07/30/18 14:44 <Samuel Desai - Last Filed: 07/30/18 16:15> - Lab Data Result diagrams: 07/30/18 14:44 07/30/18 14:44 <Alisa Meyers - Last Filed: 07/30/18 17:27> - Medical Decision Making Patient was reevaluated and reexamined by myself, Dr. Desai. Patient resting comfortably in bed. Patient is somewhat slow to respond. Patient is able to orient however needs to be directed several times. Patient does have elevated ammonia level, etiology is unclear at this time. Patient denies significant alcohol use or any liver disease. Case was discussed in detail with Dr. Tabares , who will admit covering for Dr. Frye. (Samuel Desai) 58-year-old coming in for altered mental status. Patient does not appear in acute distress no signs of respiratory distress. Patient is somewhat slow to respond however alert and oriented 2. Patient had elevated ammonia level at 118. Hypercalcemia at 12. Patient transaminase elelvated, US pending. Pt denies current ETOH there is history of use. Pt on antipsychotics as well as opioid medication at home. At this time is unclear the etiology of increased ammonia will be explored further on inpatient basis. CT brain (-), CXR (-). EKG no acute changes, noted prolong QT. The case was discussed in detail with admitting provider Dr. Tabares, who is aware of history, presenting illness and work up until admission. Agreeable with plan, no further orders at this time. Dr. Desai spoke with admitting provider, I was present for the in person conversation. (Alisa Meyers) - Lab Data Lab Results 07/30/18 07/30/18 07/30/18 Range/Units 14:44 14:44 14:44 WBC 10.0 (3.8-10.6) k/uL RBC 4.45 (3.80-5.40) m/uL Hgb 13.9 (11.4-16.0) gm/dL Hct 43.1 (34.0-46.0) % MCV 96.7 (80.0-100.0) fL MCH 31.2 (25.0-35.0) pg MCHC 32.3 (31.0-37.0) g/dL RDW 14.6 (11.5-15.5) % Plt Count 306 (150-450) k/uL Neutrophils % 75 % Lymphocytes % 19 % Monocytes % 4 % Eosinophils % 1 % Basophils % 0 % Neutrophils # 7.5 (1.3-7.7) k/uL Lymphocytes # 1.9 (1.0-4.8) k/uL Monocytes # 0.4 (0-1.0) k/uL Eosinophils # 0.1 (0-0.7) k/uL Basophils # 0.0 (0-0.2) k/uL PT (9.0-12.0) sec INR (<1.2) APTT (22.0-30.0) sec Sodium 142 (137-145) mmol/L Potassium 4.6 (3.5-5.1) mmol/L Chloride 117 H (98-107) mmol/L Carbon Dioxide 12 L (22-30) mmol/L Anion Gap 13 mmol/L BUN 26 H (7-17) mg/dL Creatinine 1.56 H (0.52-1.04) mg/dL Est GFR (CKD-EPI)AfAm 42 (>60 ml/min/1.73 sqM) Est GFR (CKD-EPI)NonAf 37 (>60 ml/min/1.73 sqM) Glucose 151 H (74-99) mg/dL POC Glucose (mg/dL) (75-99) mg/dL POC Glu Lathe Sander ID Plasma Lactic Acid Otis (0.7-2.0) mmol/L Calcium 12.5 H (8.4-10.2) mg/dL Total Bilirubin 0.9 (0.2-1.3) mg/dL AST 56 H (14-36) U/L ALT 36 (9-52) U/L Alkaline Phosphatase 69 (38-126) U/L Ammonia 118 H (<30) umol/L Troponin I (0.000-0.034) ng/mL Total Protein 8.7 H (6.3-8.2) g/dL Albumin 4.6 (3.5-5.0) g/dL Lipase (23-300) U/L Urine Color Urine Appearance (Clear) Urine pH (5.0-8.0) Ur Specific Helm (1.001-1.035) Urine Protein (Negative) Urine Glucose (UA) (Negative) Urine Ketones (Negative) Urine Blood (Negative) Urine Nitrite (Negative) Urine Bilirubin (Negative) Urine Urobilinogen (<2.0) mg/dL Ur Leukocyte Esterase (Negative) Urine Opiates Screen (NotDetected) Ur Oxycodone Screen (NotDetected) Urine Methadone Screen (NotDetected) Ur Propoxyphene Screen (NotDetected) Ur Barbiturates Screen (NotDetected) U Tricyclic Antidepress (NotDetected) Ur Phencyclidine Scrn (NotDetected) Ur Amphetamines Screen (NotDetected) U Methamphetamines Scrn (NotDetected) U Benzodiazepines Scrn (NotDetected) Urine Cocaine Screen (NotDetected) U Marijuana (THC) Screen (NotDetected) 07/30/18 07/30/18 07/30/18 Range/Units 14:44 14:44 14:44 WBC (3.8-10.6) k/uL RBC (3.80-5.40) m/uL Hgb (11.4-16.0) gm/dL Hct (34.0-46.0) % MCV (80.0-100.0) fL MCH (25.0-35.0) pg MCHC (31.0-37.0) g/dL RDW (11.5-15.5) % Plt Count (150-450) k/uL Neutrophils % % Lymphocytes % % Monocytes % % Eosinophils % % Basophils % % Neutrophils # (1.3-7.7) k/uL Lymphocytes # (1.0-4.8) k/uL Monocytes # (0-1.0) k/uL Eosinophils # (0-0.7) k/uL Basophils # (0-0.2) k/uL PT 10.1 (9.0-12.0) sec INR 0.9 (<1.2) APTT 22.5 (22.0-30.0) sec Sodium (137-145) mmol/L Potassium (3.5-5.1) mmol/L Chloride (98-107) mmol/L Carbon Dioxide (22-30) mmol/L Anion Gap mmol/L BUN (7-17) mg/dL Creatinine (0.52-1.04) mg/dL Est GFR (CKD-EPI)AfAm (>60 ml/min/1.73 sqM) Est GFR (CKD-EPI)NonAf (>60 ml/min/1.73 sqM) Glucose (74-99) mg/dL POC Glucose (mg/dL) (75-99) mg/dL POC Glu Lathe Sander ID Plasma Lactic Acid Otis (0.7-2.0) mmol/L Calcium (8.4-10.2) mg/dL Total Bilirubin (0.2-1.3) mg/dL AST (14-36) U/L ALT (9-52) U/L Alkaline Phosphatase (38-126) U/L Ammonia (<30) umol/L Troponin I <0.012 (0.000-0.034) ng/mL Total Protein (6.3-8.2) g/dL Albumin (3.5-5.0) g/dL Lipase 127 (23-300) U/L Urine Color Urine Appearance (Clear) Urine pH (5.0-8.0) Ur Specific Helm (1.001-1.035) Urine Protein (Negative) Urine Glucose (UA) (Negative) Urine Ketones (Negative) Urine Blood (Negative) Urine Nitrite (Negative) Urine Bilirubin (Negative) Urine Urobilinogen (<2.0) mg/dL Ur Leukocyte Esterase (Negative) Urine Opiates Screen (NotDetected) Ur Oxycodone Screen (NotDetected) Urine Methadone Screen (NotDetected) Ur Propoxyphene Screen (NotDetected) Ur Barbiturates Screen (NotDetected) U Tricyclic Antidepress (NotDetected) Ur Phencyclidine Scrn (NotDetected) Ur Amphetamines Screen (NotDetected) U Methamphetamines Scrn (NotDetected) U Benzodiazepines Scrn (NotDetected) Urine Cocaine Screen (NotDetected) U Marijuana (THC) Screen (NotDetected) 07/30/18 07/30/18 07/30/18 Range/Units 14:44 15:00 15:21 WBC (3.8-10.6) k/uL RBC (3.80-5.40) m/uL Hgb (11.4-16.0) gm/dL Hct (34.0-46.0) % MCV (80.0-100.0) fL MCH (25.0-35.0) pg MCHC (31.0-37.0) g/dL RDW (11.5-15.5) % Plt Count (150-450) k/uL Neutrophils % % Lymphocytes % % Monocytes % % Eosinophils % % Basophils % % Neutrophils # (1.3-7.7) k/uL Lymphocytes # (1.0-4.8) k/uL Monocytes # (0-1.0) k/uL Eosinophils # (0-0.7) k/uL Basophils # (0-0.2) k/uL PT (9.0-12.0) sec INR (<1.2) APTT (22.0-30.0) sec Sodium (137-145) mmol/L Potassium (3.5-5.1) mmol/L Chloride (98-107) mmol/L Carbon Dioxide (22-30) mmol/L Anion Gap mmol/L BUN (7-17) mg/dL Creatinine (0.52-1.04) mg/dL Est GFR (CKD-EPI)AfAm (>60 ml/min/1.73 sqM) Est GFR (CKD-EPI)NonAf (>60 ml/min/1.73 sqM) Glucose (74-99) mg/dL POC Glucose (mg/dL) 138 H (75-99) mg/dL POC Glu Lathe Sander ID Mary Cavazos Plasma Lactic Acid Otis 1.3 (0.7-2.0) mmol/L Calcium (8.4-10.2) mg/dL Total Bilirubin (0.2-1.3) mg/dL AST (14-36) U/L ALT (9-52) U/L Alkaline Phosphatase (38-126) U/L Ammonia (<30) umol/L Troponin I (0.000-0.034) ng/mL Total Protein (6.3-8.2) g/dL Albumin (3.5-5.0) g/dL Lipase (23-300) U/L Urine Color Yellow Urine Appearance Clear (Clear) Urine pH 6.5 (5.0-8.0) Ur Specific Helm 1.008 (1.001-1.035) Urine Protein Trace H (Negative) Urine Glucose (UA) Negative (Negative) Urine Ketones Negative (Negative) Urine Blood Negative (Negative) Urine Nitrite Negative (Negative) Urine Bilirubin Negative (Negative) Urine Urobilinogen <2.0 (<2.0) mg/dL Ur Leukocyte Esterase Negative (Negative) Urine Opiates Screen Detected H (NotDetected) Ur Oxycodone Screen Not Detected (NotDetected) Urine Methadone Screen Not Detected (NotDetected) Ur Propoxyphene Screen Not Detected (NotDetected) Ur Barbiturates Screen Not Detected (NotDetected) U Tricyclic Antidepress Not Detected (NotDetected) Ur Phencyclidine Scrn Not Detected (NotDetected) Ur Amphetamines Screen Not Detected (NotDetected) U Methamphetamines Scrn Not Detected (NotDetected) U Benzodiazepines Scrn Not Detected (NotDetected) Urine Cocaine Screen Not Detected (NotDetected) U Marijuana (THC) Screen Not Detected (NotDetected) Disposition <Samuel Desai - Last Filed: 07/30/18 16:15> Is patient prescribed a controlled substance at d/c from ED?: No Time of Disposition: 16:23 Decision to Admit Reason: Admit from EC Decision Date: 07/30/18 Decision Time: 16:23 <Alisa Meyers - Last Filed: 07/30/18 17:27> Clinical Impression: Altered mental status, Increased ammonia level, Hypercalcemia, Carbon dioxide, decreased level Disposition: ADMITTED IP TO THIS HOSP Condition: Serious
--- NOTE | 2018-07-30 16:12 | CT ---
EXAMINATION TYPE: CT brain wo con DATE OF EXAM: 07/30/2018 COMPARISON: 04/05/2017 HISTORY: Altered mental status. CT DLP: 1087.4 mGycm Automated exposure control for dose reduction was used. FINDINGS: There is no evidence of acute intracranial hemorrhage, acute ischemic changes, mass, mass-effect, or extra-axial fluid collection. There is no effacement of cerebral sulci or basal subarachnoid cisterns . There is no hydrocephalus. There is no midline shift. [place]-white matter distinction is preserved. M oderate bifrontal cerebral cortical atrophy is unchanged. Mild chronic paranasal sinus disease and pr ior Fess. Orbits and globes are intact. Mastoid air cells well pneumatized. IMPRESSION: NO ACUTE HEMORRHAGE OR MASS EFFECT. DEGENERATIVE CHANGE WITH A GREATER FRONTAL LOBE COMPONENT IS DWIGHT LAR TO THE PRIOR EXAM. IF THERE IS CONCERN FOR ACUTE ISCHEMIA CORRELATE WITH MRI CLINICALLY [facility].
[2018-07-30] MEDS ORDERED: LACTULOSE 20 GM/30 ML CUP PO ONE (16:17)
[2018-07-30] MEDS ORDERED: NALOXONE 0.4 MG/ML 1 ML VIAL IV PRN (16:21)
[2018-07-30 16:27] LABS: VBG PH 7.22 (7.31-7.41)
--- NOTE | 2018-07-30 16:28 | XR ---
EXAMINATION TYPE: XR chest 2V DATE OF EXAM: 07/30/2018 COMPARISON: NONE TECHNIQUE: PA and lateral views submitted. HISTORY: Altered mental status FINDINGS: The lungs are clear and there is no pneumothorax, pleural effusion, or focal pneumonia. Hypertrophi c and degenerative change of the spine. There appears to be a spinal stimulator device. Surgical clip s in the abdomen. No overt failure. Atherosclerotic change aorta. IMPRESSION: 1. No acute process.
[2018-07-30] MEDS: SODIUM CHLORIDE 0.9% 1,000 ML IV SCH (17:05)
[2018-07-30 17:24] LABS: Hepatitis A AB IgM Index 0.02; Hepatitis A Antibody IgM NEGATIVE
--- NOTE | 2018-07-30 17:47 | US ---
EXAMINATION TYPE: US liver DATE OF EXAM: 07/30/2018 COMPARISON: CT 2016 CLINICAL HISTORY: Pain. Dizziness, lightheadedness, patient denies any abdomen pain or N/V, history o f cholecystectomy EXAM MEASUREMENTS: Liver Length: 15.4 cm Gallbladder Wall: surgically absent CBD: 0.7 cm Right Kidney: 12.2 x 4.8 x 4.8 cm Difficult and limited study due to patient body habitus Pancreas: obscured by overlying midline bowel gas Liver: mildly heterogeneous Gallbladder: surgically absent Evidence for sonographic Yang's sign: no CBD: visualized portions wnl, limited by overlying bowel gas Right Kidney: visualized portions wnl, inferior pole limited by overlying bowel gas IMPRESSION: No focal liver defect. No dilated ducts. Right kidney shows no hydronephrosis. No ascites seen.
[2018-07-30] MEDS: INSULIN ASPART (NovoLOG) 100 UNIT/ML VIAL SQ SCH (21:06)
[2018-07-30 21:07] LABS: Glucose,Whole Blood 94 mg/dL (75-99)
[2018-07-30] MEDS: LACTULOSE 20 GM/30 ML CUP PO SCH (21:14)
[2018-07-30 23:44] LABS: Hepatitis B Core IgM Non-Reactive (Non-Reactive)
[2018-07-31] MEDS: SODIUM CHLORIDE 0.9% 1,000 ML IV SCH (06:15)
[2018-07-31 06:28] LABS: Glucose,Whole Blood 107 mg/dL (75-99)
[2018-07-31 06:28] LABS: Basophils % (A) 0 %; Eosinophils # (A) 0.2 k/uL (0-0.7); Eosinophils % (A) 2 %; HCT 34.8 % (34.0-46.0); HGB 11.1 gm/dL (11.4-16.0); Lymphocytes # (A) 2.9 k/uL (1.0-4.8); Lymphocytes % (A) 32 %; MCH 31.1 pg (25.0-35.0); MCHC 31.9 g/dL (31.0-37.0); MCV 97.4 fL (80.0-100.0); Mean Platelet Volume 6.9; Monocytes # (A) 0.5 k/uL (0-1.0); Monocytes % (A) 5 %; Neutrophils # (A) 5.2 k/uL (1.3-7.7); Neutrophils % (A) 59 %; Platelet Count 260 k/uL (150-450); RBC 3.57 m/uL (3.80-5.40); RDW 14.5 % (11.5-15.5); WBC 8.8 k/uL (3.8-10.6)
[2018-07-31] MEDS: INSULIN ASPART (NovoLOG) 100 UNIT/ML VIAL SQ SCH ×4 (06:29→20:20)
[2018-07-31 06:38] LABS: Calcium 10.7 mg/dL (8.4-10.2); Magnesium 1.9 mg/dL (1.6-2.3); Potassium 2.8 mmol/L (3.5-5.1)
[2018-07-31] MEDS ORDERED: Potassium Replacement Protocol 1 EACH MISC MISCELLANE PRN ×5 (06:59→23:47)
[2018-07-31] MEDS: POTASSIUM CHLORIDE ER 20 MEQ TAB.ER PO SCH ×7 (07:28→18:56)
[2018-07-31] MEDS: LACTULOSE 20 GM/30 ML CUP PO SCH ×3 (09:07→20:17)
[2018-07-31] MEDS ORDERED: NITROGLYCERIN SL TABS 0.4 MG TAB SUBLINGUAL PRN (10:11)
[2018-07-31] MEDS ORDERED: MORPHINE PUMP IV SCH (10:15)
--- NOTE | 2018-07-31 10:20 | P.HPIM ---
History of Present Illness H&P Date: 07/30/18 58-year-old female came in and is being admitted for altered mental status patient appears to be overdosed upon interviewing. Patient does have chronic pain issues does have a pain pump with 2 spinal stimulators aalong with the patient is also on multiple opiate medications along with clonazepam developed 19 cyclobenzaprine all of which she can cause secondary to affect. Patient is also found to have elevated ammonia patient denied any history of cirrhosis used to be alcoholic denied using alcohol recently. He shouldn't does have some peripheral signs of cirrhosis including palmar erythema although there is no spider anemia or ascites. Patient's INR is only 0.9. Patient is receiving lactulose for this elevated ammonia level CAT scan of the head did not show any significant abnormality. Patient has multiple other issues going on at including acute renal failure secondary to intravascular depletion and diuretic therapy, lisinopril. His metformin will be held as well due to acute renal failure. Patient is also on nonsteroidal anti-inflammatory switched to be held because of acute renal failure. patient is oriented 3 was quite drowsy when I interviewed the patient urine drug screen is positive for opiates in spite of her clonazepam as her home medication patient is negative for benzodiazepines. Review of Systems REVIEW OF SYSTEMS: CONSTITUTIONAL: No fever, no malaise, no fatigue. HEENT: No recent visual problems or hearing problems. Denied any sore throat. CARDIOVASCULAR: No chest pain, orthopnea, PND, no palpitations, no syncope. PULMONARY: No shortness of breath, no cough, no hemoptysis. GASTROINTESTINAL: No diarrhea, no nausea, no vomiting, no abdominal pain. NEUROLOGICAL: No headaches, no weakness, no numbness. HEMATOLOGICAL: Denies any bleeding or petechiae. GENITOURINARY: Denies any burning micturition, frequency, or urgency. MUSCULOSKELETAL/RHEUMATOLOGICAL: Denies any joint pain, swelling, or any muscle pain. ENDOCRINE: Denies any polyuria or polydipsia. The rest of the 14-point review of systems is negative. Past Medical History Past Medical History: COPD, CVA/TIA, Diabetes Mellitus, Fibromyalgia, Hyperlipidemia, Hypertension, Osteoarthritis (OA), Rheumatoid Arthritis (RA), Skin Disorder, Thyroid Disorder Additional Past Medical History / Comment(s): diabetic neuropathy, lupus ,DDD , IBS, chronic dry eye, palpitations,migraines, TIA x 5-rt lip droops, emphysema, eczema in ears, history of wound on right toe, gastroparesis History of Any Multi-Drug Resistant Organisms: None Reported Past Surgical History: Back Surgery, Cholecystectomy, Hernia Repair, Hysterectomy, Orthopedic Surgery, Tonsillectomy, Uterine Ablation Additional Past Surgical History / Comment(s): EGD, Colonoscopy, vocal cord surgery, cataract bilateral removal, right knee arthroscopy, right elbow surgery , bilateral feet heel spurs and arthroplasty on B/L foot toes, BILAT CTR, 2 nerve stimulator in spine X2, laminectomy L4-5,hiatal hernia repair, biopsy left arm,mult sinus surgeries, STIMULATOR in back (not currently working) , MORPHINE PUMP INSERTED to left side of abdomen for chronic back pain by Dr. Williamson, I&D RT FOOT WOUND Past Anesthesia/Blood Transfusion Reactions: Family History of Problems w/ Anesthesia Additional Past Anesthesia/Blood Transfusion Reaction / Comment(s): claustrophobic, mother- AL during surgery Past Psychological History: Anxiety, Bipolar, Depression, Panic Disorder, PTSD Smoking Status: Current every day smoker - Past Family History Mother Family Medical History: Cancer, CVA/TIA, Myocardial Infarction (AL), Osteoarthritis (OA), Rheumatoid Arthritis (RA) Additional Family Medical History / Comment(s): Mother had scleroderma, lymphoma and stomach CA, stents, lupus Father Family Medical History: Cancer Additional Family Medical History / Comment(s): LUNG CANCER Medications and Allergies Home Medications Medication Instructions Recorded Confirmed Type Lisinopril [Zestril] 10 mg PO DAILY 12/05/15 07/30/18 History Cyclobenzaprine [Flexeril] 10 mg PO TID 03/03/16 07/30/18 History traZODone HCL 100 mg PO HS 03/04/16 07/30/18 History Ibuprofen [Motrin] 800 mg PO TID PRN 04/02/17 07/30/18 History Nitroglycerin Sl Tabs [Nitrostat] 0.4 mg SUBLINGUAL Q5M PRN 04/02/17 07/30/18 History Isosorbide Mononitrate ER [Imdur] 30 mg PO DAILY #30 tab.er.24h 04/03/17 Rx Morphine Pump 1 dose IV CONTINUOUS 05/05/18 07/30/18 History metFORMIN HCL [Glucophage] 1,000 mg PO BID 05/05/18 07/30/18 History Montelukast [Singulair] 10 mg PO DAILY 07/20/18 07/30/18 History Omeprazole 20 mg PO DAILY 07/20/18 07/30/18 History clonazePAM 0.5 mg PO HS 07/20/18 07/30/18 History clonazePAM 1 mg PO BID@0900,1400 07/20/18 07/30/18 History DULoxetine HCL [Cymbalta] 30 mg PO DAILY 07/30/18 07/30/18 History DULoxetine HCL [Cymbalta] 60 mg PO DAILY 07/30/18 07/30/18 History Dextroamphetamine/Amphetamine 10 mg PO BID 07/30/18 07/30/18 History [Adderall] Furosemide [Lasix] 40 mg PO BID 07/30/18 07/30/18 History Gabapentin 600 mg PO TID 07/30/18 07/30/18 History HYDROcodone/APAP 10-325MG [[place] 1 tab PO DAILY 07/30/18 07/30/18 History 10-325] Linaclotide [Linzess] 290 mg PO DAILY 07/30/18 07/30/18 History Ziprasidone [Geodon] 40 mg PO DAILY 07/30/18 07/30/18 History Allergies Allergy/AdvReac Type Severity Reaction Status Date / Time adhesive Allergy Rash/Hives Verified 07/30/18 16:10 azithromycin Allergy Rash/Hives Verified 07/30/18 16:10 [From Zithromax Z-Ivan] ciprofloxacin [From Cipro] Allergy Rash/Hives Verified 07/30/18 16:10 ciprofloxacin HCl Allergy Rash/Hives Verified 07/30/18 16:10 [From Cipro] clarithromycin [From Biaxin] Allergy Rash/Hives Verified 07/30/18 16:10 doxycycline calcium Allergy Rash/Hives Verified 07/30/18 16:10 [From Vibramycin] doxycycline hyclate Allergy Rash/Hives Verified 07/30/18 16:10 [From Vibramycin] doxycycline monohydrate Allergy Rash/Hives Verified 07/30/18 16:10 [From Vibramycin] erythromycin base Allergy Rash/Hives Verified 07/30/18 16:10 [From E-Mycin] Latex, Natural Rubber Allergy Anaphylaxis Verified 07/30/18 16:10 levofloxacin [From Levaquin] Allergy Rash/Hives Verified 07/30/18 16:10 oxybutynin chloride Allergy Rash/Hives Verified 07/30/18 16:10 [From Ditropan] penicillin G Allergy Rash/Hives Verified 07/30/18 16:10 prochlorperazine edisylate Allergy Rash/Hives Verified 07/30/18 16:10 [From Compazine] prochlorperazine maleate Allergy Rash/Hives Verified 07/30/18 16:10 [From Compazine] tetracycline [Tetracycline] Allergy Rash/Hives Verified 07/30/18 16:10 valdecoxib [From Bextra] Allergy Hallucinati Verified 07/30/18 16:10 ons Physical Exam Vitals: Vital Signs Temp Pulse Pulse Resp BP BP Pulse Ox 07/31/18 07:35 95 07/31/18 07:20 98.0 F 87 18 131/71 97 07/31/18 03:03 97.6 F 102 H 18 132/70 99 07/31/18 00:00 98 F 88 16 125/69 99 07/30/18 20:00 98 F 84 16 123/82 98 07/30/18 17:13 89 19 119/61 100 07/30/18 16:42 98.2 F 90 18 142/75 98 07/30/18 15:10 17 113/67 99 07/30/18 15:00 88/68 98 07/30/18 14:22 98.4 F 100 16 107/70 98 Intake and Output 07/30/18 07/31/18 07/31/18 22:59 06:59 14:59 Intake Total 840 600 240 Output Total 1200 Balance -360 600 240 Intake: IV 600 600 Sodium Chloride 0.9% 1, 600 600 000 ml @ 75 mls/hr IV . [id number] ONE Rx#:[id number] Oral 240 240 Output: Urine 1200 Other: Weight 76.6 kg PHYSICAL EXAMINATION: GENERAL: The patient is alert and oriented x3, not in any acute distress. Well developed, well nourished. Although patient is oriented 2-3 patient appeared to be quite drowsy and appear to be overdosed on opiates. Pupils are reactive not constricted. HEENT: Pupils are round and equally reacting to light. EOMI. No scleral icterus. No conjunctival pallor. Normocephalic, atraumatic. No pharyngeal erythema. No thyromegaly. CARDIOVASCULAR: S1 and S2 present. No murmurs, rubs, or gallops. PULMONARY: Chest is clear to auscultation, no wheezing or crackles. ABDOMEN: Soft, nontender, nondistended, normoactive bowel sounds. No palpable organomegaly. MUSCULOSKELETAL: No joint swelling or deformity. EXTREMITIES: No cyanosis, clubbing, or pedal edema. NEUROLOGICAL: Gross neurological examination did not reveal any focal deficits. SKIN: No rashes. Results CBC & Chem 7: 07/31/18 05:57 07/31/18 05:57 Labs: Abnormal Lab Results - Last 24 Hours (Table) 07/30/18 07/30/18 07/30/18 Range/Units 14:44 14:44 15:00 RBC (3.80-5.40) m/uL Hgb (11.4-16.0) gm/dL VBG pH (7.31-7.41) VBG pCO2 (37-51) mmHg VBG HCO3 (24-28) mmol/L Potassium (3.5-5.1) mmol/L Chloride 117 H (98-107) mmol/L Carbon Dioxide 12 L (22-30) mmol/L BUN 26 H (7-17) mg/dL Creatinine 1.56 H (0.52-1.04) mg/dL Glucose 151 H (74-99) mg/dL POC Glucose (mg/dL) (75-99) mg/dL Calcium 12.5 H (8.4-10.2) mg/dL AST 56 H (14-36) U/L Ammonia 118 H (<30) umol/L Total Protein 8.7 H (6.3-8.2) g/dL Urine Protein Trace H (Negative) Urine Opiates Screen Detected H (NotDetected) 07/30/18 07/30/18 07/31/18 Range/Units 15:21 16:16 05:57 RBC (3.80-5.40) m/uL Hgb (11.4-16.0) gm/dL VBG pH 7.22 L (7.31-7.41) VBG pCO2 33 L (37-51) mmHg VBG HCO3 13 L (24-28) mmol/L Potassium (3.5-5.1) mmol/L Chloride (98-107) mmol/L Carbon Dioxide (22-30) mmol/L BUN (7-17) mg/dL Creatinine (0.52-1.04) mg/dL Glucose (74-99) mg/dL POC Glucose (mg/dL) 138 H (75-99) mg/dL Calcium (8.4-10.2) mg/dL AST (14-36) U/L Ammonia 91 H (<30) umol/L Total Protein (6.3-8.2) g/dL Urine Protein (Negative) Urine Opiates Screen (NotDetected) 07/31/18 07/31/18 07/31/18 Range/Units 05:57 05:57 06:19 RBC 3.57 L (3.80-5.40) m/uL Hgb 11.1 L (11.4-16.0) gm/dL VBG pH (7.31-7.41) VBG pCO2 (37-51) mmHg VBG HCO3 (24-28) mmol/L Potassium 2.8 L (3.5-5.1) mmol/L Chloride 117 H (98-107) mmol/L Carbon Dioxide 16 L (22-30) mmol/L BUN 18 H (7-17) mg/dL Creatinine 1.14 H (0.52-1.04) mg/dL Glucose 102 H (74-99) mg/dL POC Glucose (mg/dL) 107 H (75-99) mg/dL Calcium 10.7 H (8.4-10.2) mg/dL AST (14-36) U/L Ammonia (<30) umol/L Total Protein (6.3-8.2) g/dL Urine Protein (Negative) Urine Opiates Screen (NotDetected) Thrombosis Risk Factor Assmnt - Choose All That Apply Any of the Below Risk Factors Present?: No Other Risk Factors: No Other congenital or acquired thrombophilia - If yes, enter type in comment: No Thrombosis Risk Factor Assessment Level: Very Low Risk Assessment and Plan Plan: -Altered mental status, multifactorial encephalopathy toxic from medications including Lopid and ALLERGIES see a, metabolic from hyper ammoniemia and acute renal failure. Patient was started on IV fluids monitored overnight. -Hyper ammoniemia etiology is not clear patient is not on any medication that increase in ammonia level patient probably has early stages of cirrhosis although there is no clear-cut evidence for that patient doesn't have any ascites. Patient will be treated with lactic low since repeat ammonia. [place]- acute infiltrate failure multifactorial secondary to diuretic therapy and prerenal azotemia from intravascular lower limb depletion as mentioned about diuretic therapy will be held Patient was continued on IV fluids. -Type 2 diabetes mellitus hold off metformin because of acute renal failure patient will be on sliding scale insulin -COPD without any significant exacerbation -fibromyalgia -Hyperlipidemia -Hypertension -Hypothyroidism For above-mentioned chronic medical problems patient will be resumed on appropriate home medications, sedative medications will be held because of her altered mental status and toxic encephalopathy
[2018-07-31] MEDS ORDERED: SODIUM CHLORIDE 0.45% 1,000 ML IV SCH (10:30)
[2018-07-31 11:29] LABS: Glucose,Whole Blood 103 mg/dL (75-99)
[2018-07-31] MEDS: SODIUM CHLORIDE 0.45% 1,000 ML IV SCH ×2 (11:47→20:17)
[2018-07-31 14:01] VITALS: BMI 27.2
[2018-07-31] MEDS ORDERED: HYOSCYAMINE SULFATE 0.375 MG TAB.ER.12H PO PRN (15:13)
[2018-07-31] MEDS ORDERED: REPAGLINIDE 1 MG TAB PO PRN (15:13)
--- NOTE | 2018-07-31 16:10 | P.PN ---
Subjective 58-year-old female came in and is being admitted for altered mental status patient appears to be overdosed upon interviewing. Patient does have chronic pain issues does have a pain pump with 2 spinal stimulators aalong with the patient is also on multiple opiate medications along with clonazepam developed 19 cyclobenzaprine all of which she can cause secondary to affect. Patient is also found to have elevated ammonia patient denied any history of cirrhosis used to be alcoholic denied using alcohol recently. He shouldn't does have some peripheral signs of cirrhosis including palmar erythema although there is no spider anemia or ascites. Patient's INR is only 0.9. Patient is receiving lactulose for this elevated ammonia level CAT scan of the head did not show any significant abnormality. Patient has multiple other issues going on at including acute renal failure secondary to intravascular depletion and diuretic therapy, lisinopril. His metformin will be held as well due to acute renal failure. Patient is also on nonsteroidal anti-inflammatory switched to be held because of acute renal failure. patient is oriented 3 was quite drowsy when I interviewed the patient urine drug screen is positive for opiates in spite of her clonazepam as her home medication patient is negative for benzodiazepines. 07/31/2018 This is which were reviewed today ammonia level still elevated will continue with the lactulose repeat ammonia tomorrow possibility of discharge tomorrow extensive counseling regarding 70 use was provided. Patient will be transferred out of [facility] to care Constitutional: Denied any fatigue denied any fever. Cardio vascular: denied any chest pain, palpitations Gastrointestinal denied any nausea vomiting Pulmonary: Denied any shortness of breath cough Neurologic denied any new focal deficits All inpatient medications were reviewed and appropriate changes in these medications as dictated in the interval history and assessment and plan. Objective - Vital Signs Vital signs: Vital Signs Temp 98.0 F 07/31/18 11:42 Pulse 85 07/31/18 11:42 Resp 18 07/31/18 11:42 BP 126/81 07/31/18 11:42 Pulse Ox 100 07/31/18 11:42 Intake & Output 07/30/18 07/31/18 07/31/18 18:59 06:59 18:59 Intake Total 240 1200 1080 Output Total 1200 Balance -960 1200 1080 Weight 77.111 kg 76.6 kg 76.6 kg Intake: IV 1200 600 Sodium Chloride 0.9% 1, 1200 600 000 ml @ 75 mls/hr IV . [id number] ONE Rx#:[id number] Oral 240 480 Output: Urine 1200 Other: # Voids 1 # Bowel Movements 1 - Exam PHYSICAL EXAMINATION: GENERAL: The patient is alert and oriented x3, not in any acute distress. Well developed, well nourished. Shouldn't looks much better compared to yesterday. HEENT: Pupils are round and equally reacting to light. EOMI. No scleral icterus. No conjunctival pallor. Normocephalic, atraumatic. No pharyngeal erythema. No thyromegaly. CARDIOVASCULAR: S1 and S2 present. No murmurs, rubs, or gallops. PULMONARY: Chest is clear to auscultation, no wheezing or crackles. ABDOMEN: Soft, nontender, nondistended, normoactive bowel sounds. No palpable organomegaly. MUSCULOSKELETAL: No joint swelling or deformity. EXTREMITIES: No cyanosis, clubbing, or pedal edema. NEUROLOGICAL: Gross neurological examination did not reveal any focal deficits. SKIN: No rashes. - Labs CBC & Chem 7: 07/31/18 05:57 07/31/18 10:42 Labs: Abnormal Lab Results - Last 24 Hours (Table) 07/30/18 07/31/18 07/31/18 Range/Units 16:16 05:57 05:57 RBC 3.57 L (3.80-5.40) m/uL Hgb 11.1 L (11.4-16.0) gm/dL VBG pH 7.22 L (7.31-7.41) VBG pCO2 33 L (37-51) mmHg VBG HCO3 13 L (24-28) mmol/L Potassium (3.5-5.1) mmol/L Chloride (98-107) mmol/L Carbon Dioxide (22-30) mmol/L BUN (7-17) mg/dL Creatinine (0.52-1.04) mg/dL Glucose (74-99) mg/dL POC Glucose (mg/dL) (75-99) mg/dL Calcium (8.4-10.2) mg/dL Ammonia 91 H (<30) umol/L 07/31/18 07/31/18 07/31/18 Range/Units 05:57 06:19 10:42 RBC (3.80-5.40) m/uL Hgb (11.4-16.0) gm/dL VBG pH (7.31-7.41) VBG pCO2 (37-51) mmHg VBG HCO3 (24-28) mmol/L Potassium 2.8 L 3.1 L (3.5-5.1) mmol/L Chloride 117 H (98-107) mmol/L Carbon Dioxide 16 L (22-30) mmol/L BUN 18 H (7-17) mg/dL Creatinine 1.14 H (0.52-1.04) mg/dL Glucose 102 H (74-99) mg/dL POC Glucose (mg/dL) 107 H (75-99) mg/dL Calcium 10.7 H (8.4-10.2) mg/dL Ammonia (<30) umol/L 07/31/18 Range/Units 11:26 RBC (3.80-5.40) m/uL Hgb (11.4-16.0) gm/dL VBG pH (7.31-7.41) VBG pCO2 (37-51) mmHg VBG HCO3 (24-28) mmol/L Potassium (3.5-5.1) mmol/L Chloride (98-107) mmol/L Carbon Dioxide (22-30) mmol/L BUN (7-17) mg/dL Creatinine (0.52-1.04) mg/dL Glucose (74-99) mg/dL POC Glucose (mg/dL) 103 H (75-99) mg/dL Calcium (8.4-10.2) mg/dL Ammonia (<30) umol/L Assessment and Plan Plan: -Altered mental status, multifactorial encephalopathy toxic from medications including Lopid and ALLERGIES see a, metabolic from hyper ammoniemia and acute renal failure. Patient's IV fluids will be switched to half-normal saline secondary to hyperchloremia will be monitored overnight and repeat ammonia level tomorrow patient ammonia level today is 90 has come down possibility of discharge tomorrow -Hyper ammoniemia etiology is not clear patient is not on any medication that increase in ammonia level patient probably has early stages of cirrhosis although there is no clear-cut evidence for that patient doesn't have any ascites. -And gap and non-anion gap metabolic acidosis: Secondary to hyperchloremia and uremia Acute renal failure failure multifactorial secondary to diuretic therapy and prerenal azotemia from intravascular lower limb depletion as mentioned about diuretic therapy will be held Patient was continued on IV fluids. -Type 2 diabetes mellitus hold off metformin because of acute renal failure patient will be on sliding scale insulin -COPD without any significant exacerbation -fibromyalgia -Hyperlipidemia -Hypertension -Hypothyroidism For above-mentioned chronic medical problems patient will be resumed on appropriate home medications, sedative medications will be held because of her altered mental status and toxic encephalopathy
[2018-07-31 16:39] LABS: Glucose,Whole Blood 100 mg/dL (75-99)
[2018-07-31] MEDS: metFORMIN 500 MG TAB PO SCH (17:24)
[2018-07-31 20:15] LABS: Glucose,Whole Blood 112 mg/dL (75-99)
[2018-07-31] MEDS: POTASSIUM CHLORIDE ER 10 MEQ TAB.ER.PRT PO SCH (20:16)
[2018-07-31] MEDS ORDERED: ZIPRASIDONE 80 MG CAP PO SCH (21:00)
[2018-07-31] MEDS ORDERED: FUROSEMIDE 40 MG TAB PO SCH (21:00)
[2018-07-31] MEDS ORDERED: traZODone HCL 100 MG TAB PO SCH (21:00)
[2018-07-31] MEDS ORDERED: clonazePAM 0.5 MG TAB PO SCH (21:00)
[2018-07-31 22:31] VITALS: RESP 16
[2018-07-31] MEDS ORDERED: POTASSIUM CHLORIDE 10 MEQ in WATER FOR INJECTION 1 100ML.BAG IVPB SCH (23:00)
[2018-08-01] MEDS: POTASSIUM CHLORIDE ER 20 MEQ TAB.ER PO SCH ×2 (00:49→03:21)
[2018-08-01 05:55] LABS: Glucose,Whole Blood 120 mg/dL (75-99)
[2018-08-01 06:24] LABS: Basophils # (A) 0.1 k/uL (0-0.2); Basophils % (A) 1 %; Eosinophils # (A) 0.2 k/uL (0-0.7); Eosinophils % (A) 1 %; HCT 39.4 % (34.0-46.0); HGB 12.6 gm/dL (11.4-16.0); Hypochromasia Slight; Lymphocytes # (A) 3.6 k/uL (1.0-4.8); Lymphocytes % (A) 35 %; MCH 31.5 pg (25.0-35.0); MCHC 32.1 g/dL (31.0-37.0); MCV 98.1 fL (80.0-100.0); Monocytes # (A) 0.5 k/uL (0-1.0); Monocytes % (A) 5 %; Neutrophils # (A) 5.9 k/uL (1.3-7.7); Neutrophils % (A) 57 %; Platelet Count 277 k/uL (150-450); RBC 4.01 m/uL (3.80-5.40); RDW 14.4 % (11.5-15.5); WBC 10.4 k/uL (3.8-10.6)
[2018-08-01] MEDS ORDERED: LEVOTHYROXINE 50 MCG TAB PO SCH (06:30)
[2018-08-01 06:31] LABS: Albumin 3.7 g/dL (3.5-5.0); Calcium 10.8 mg/dL (8.4-10.2); Magnesium 1.9 mg/dL (1.6-2.3); Potassium 3.7 mmol/L (3.5-5.1); Total Bilirubin 0.5 mg/dL (0.2-1.3); Total Protein 7.2 g/dL (6.3-8.2)
[2018-08-01] MEDS: SODIUM CHLORIDE 0.45% 1,000 ML IV SCH (06:50)
[2018-08-01] MEDS: INSULIN ASPART (NovoLOG) 100 UNIT/ML VIAL SQ SCH (06:50)
[2018-08-01] MEDS: metFORMIN 500 MG TAB PO SCH (06:53)
[2018-08-01] MEDS ORDERED: Potassium Replacement Protocol 1 EACH MISC MISCELLANE PRN (07:19)
[2018-08-01] MEDS ORDERED: PANTOPRAZOLE 40 MG TABLET PO SCH (07:30)
[2018-08-01] MEDS ORDERED: POTASSIUM CHLORIDE ER 20 MEQ TAB.ER PO SCH (08:00)
[2018-08-01 08:55] VITALS: BP 101/63; PULSE 103; TEMP 98.2
[2018-08-01] MEDS ORDERED: LISINOPRIL 10 MG TAB PO SCH (09:00)
[2018-08-01] MEDS ORDERED: DULoxetine HCL 30 MG CAPSULE.DR PO SCH (09:00)
[2018-08-01] MEDS ORDERED: LINACLOTIDE 290 MG PO SCH (09:00)
[2018-08-01] MEDS ORDERED: ZIPRASIDONE 60 MG CAP PO SCH (09:00)
[2018-08-01] MEDS ORDERED: MONTELUKAST 10 MG TAB PO SCH (09:00)
[2018-08-01] MEDS ORDERED: clonazePAM 1 MG TAB PO SCH (09:00)
[2018-08-01] MEDS ORDERED: ISOSORBIDE MONONITRATE ER 30 MG TAB.ER.24H PO SCH (09:00)
[2018-08-01] MEDS ORDERED: DULoxetine HCL 60 MG CAPSULE.DR PO SCH (09:00)
[2018-08-01] MEDS ORDERED: ZIPRASIDONE 40 MG CAP PO SCH (09:00)
[2018-08-01] MEDS ORDERED: POTASSIUM CHLORIDE ER 20 MEQ TAB.ER PO STA (11:02)
--- NOTE | 2018-08-01 11:13 | P.DS ---
Providers Date of admission: 07/30/18 16:16 Attending physician: Santa Tabares Primary care physician: Bobby Frye [facility] Course: 58-year-old female came in and is being admitted for altered mental status patient appears to be overdosed upon interviewing. Patient does have chronic pain issues does have a pain pump with 2 spinal stimulators aalong with the patient is also on multiple opiate medications along with clonazepam developed 19 cyclobenzaprine all of which she can cause secondary to affect. Patient is also found to have elevated ammonia patient denied any history of cirrhosis used to be alcoholic denied using alcohol recently. He shouldn't does have some peripheral signs of cirrhosis including palmar erythema although there is no spider anemia or ascites. Patient's INR is only 0.9. Patient is receiving lactulose for this elevated ammonia level CAT scan of the head did not show any significant abnormality. Patient has multiple other issues going on at including acute renal failure secondary to intravascular depletion and diuretic therapy, lisinopril. His metformin will be held as well due to acute renal failure. Patient is also on nonsteroidal anti-inflammatory switched to be held because of acute renal failure. patient is oriented 3 was quite drowsy when I interviewed the patient urine drug screen is positive for opiates in spite of her clonazepam as her home medication patient is negative for benzodiazepines. 07/31/2018 This is which were reviewed today ammonia level still elevated will continue with the lactulose repeat ammonia tomorrow possibility of discharge tomorrow extensive counseling regarding 70 use was provided. Patient will be transferred out of [facility] to care 08/01/2018 Patient's ammonia level improved although etiology of hyper ammonium is not clear because of which I'll give her couple days of lactulose and repeat the ammonia level in about 5-7 days there is no clear evidence of for cirrhosis on this patient. I do not believe patient patient will require any diuretic therapy that will be discontinued. PHYSICAL EXAMINATION: GENERAL: The patient is alert and oriented x3, not in any acute distress. Well developed, well nourished. HEENT: Pupils are round and equally reacting to light. EOMI. No scleral icterus. No conjunctival pallor. Normocephalic, atraumatic. No pharyngeal erythema. No thyromegaly. CARDIOVASCULAR: S1 and S2 present. No murmurs, rubs, or gallops. PULMONARY: Chest is clear to auscultation, no wheezing or crackles. ABDOMEN: Soft, nontender, nondistended, normoactive bowel sounds. No palpable organomegaly. MUSCULOSKELETAL: No joint swelling or deformity. EXTREMITIES: No cyanosis, clubbing, or pedal edema. NEUROLOGICAL: Gross neurological examination did not reveal any focal deficits. SKIN: No rashes. Assessment and Plan Plan: -Altered mental status, multifactorial encephalopathy toxic from medications, metabolic from hyper ammoniemia and acute renal failure. Significant improvement although etiology of hyper ammoniemia is unknown because of which I' ll give her couple days of lactulose and repeat ammonia level in 5-7 days -Hyper ammoniemia etiology is not clear Anion gap gap and non-anion gap metabolic acidosis: Secondary to hyperchloremia and uremia Acute renal failure failure multifactorial secondary to diuretic therapy and prerenal azotemia from intravascular lower limb depletion improved now diuretic therapy will be discontinued -Type 2 diabetes mellitus shouldn't can be resumed on her home regimen -COPD without any significant exacerbation -fibromyalgia -Hyperlipidemia -Hypertension -Hypothyroidism Patient Condition at Discharge: Serious Plan - Discharge Summary Discharge Rx Participant: Yes New Discharge Prescriptions: New Lactulose [Cephulac] 20 gm PO BID #7 dose Continue Nitroglycerin Sl Tabs [Nitrostat] 0.4 mg SUBLINGUAL Q5M PRN PRN Reason: Chest Pain Isosorbide Mononitrate ER [Imdur] 30 mg PO DAILY #30 tab.er.24h metFORMIN HCL [Glucophage] 1,000 mg PO BID Morphine Pump 1 dose IV CONTINUOUS Omeprazole 20 mg PO DAILY Montelukast [Singulair] 10 mg PO DAILY Linaclotide [Linzess] 290 mg PO DAILY DULoxetine HCL [Cymbalta] 60 mg PO DAILY Ziprasidone [Geodon] 80 mg PO HS Repaglinide [Prandin] 1 mg PO AC-BID PRN PRN Reason: hyperglycemia Hyoscyamine Sulfate [Levbid] 0.375 mg PO BID PRN PRN Reason: diarrhea Levothyroxine Sodium [Synthroid] 50 mcg PO DAILY Ziprasidone [Geodon] 60 mg PO DAILY Changed Lisinopril [Zestril] 5 mg PO DAILY #0 Gabapentin 300 mg PO TID PRN #0 PRN Reason: Pain Discontinued clonazePAM 0.5 mg PO HS clonazePAM 1 mg PO BID@0900,1400 Furosemide [Lasix] 40 mg PO BID Potassium Chloride [K-Tab ER] 10 meq PO BID Discharge Medication List Nitroglycerin Sl Tabs [Nitrostat] 0.4 mg SUBLINGUAL Q5M PRN 04/02/17 [History] Isosorbide Mononitrate ER [Imdur] 30 mg PO DAILY #30 tab.er.24h 04/03/17 [Rx] Morphine Pump 1 dose IV CONTINUOUS 05/05/18 [History] metFORMIN HCL [Glucophage] 1,000 mg PO BID 05/05/18 [History] Montelukast [Singulair] 10 mg PO DAILY 07/20/18 [History] Omeprazole 20 mg PO DAILY 07/20/18 [History] DULoxetine HCL [Cymbalta] 60 mg PO DAILY 07/30/18 [History] Linaclotide [Linzess] 290 mg PO DAILY 07/30/18 [History] Ziprasidone [Geodon] 80 mg PO HS 07/30/18 [History] Hyoscyamine Sulfate [Levbid] 0.375 mg PO BID PRN 07/31/18 [History] Levothyroxine Sodium [Synthroid] 50 mcg PO DAILY 07/31/18 [History] Repaglinide [Prandin] 1 mg PO AC-BID PRN 07/31/18 [History] Ziprasidone [Geodon] 60 mg PO DAILY 07/31/18 [History] Gabapentin 300 mg PO TID PRN #0 08/01/18 [Rx] Lactulose [Cephulac] 20 gm PO BID #7 dose 08/01/18 [Rx] Lisinopril [Zestril] 5 mg PO DAILY #0 08/01/18 [Rx] Follow up Appointment(s)/Referral(s): Bobby Frye MD [Primary Care Provider] - 3 Days Discharge Disposition: HOME SELF-CARE
[2018-08-01] MEDS: POTASSIUM CHLORIDE ER 10 MEQ TAB.ER.PRT PO SCH (11:29)
[2018-08-01] MEDS: LACTULOSE 20 GM/30 ML CUP PO SCH (11:29)
[2018-08-01 11:40] LABS: Glucose,Whole Blood 113 mg/dL (75-99)
== END 2018-08-01 12:04 | disposition home or self-care (01) | DRG 917 ==
LOC: EC 14:20 → 3SCARD 16:16
PROVIDERS: ADMIT Internal Medicine; ATTEND Internal Medicine
DX: T40.2X1A Poisoning by other opioids, accidental (unintentional), initial encounter (principal); G92 Toxic encephalopathy; E87.2 Acidosis; F31.30 Bipolar disorder, current episode depressed, mild or moderate severity, unspecified; N17.9 Acute kidney failure, unspecified; T42.4X1A Poisoning by benzodiazepines, accidental (unintentional), initial encounter; E03.9 Hypothyroidism, unspecified; E11.43 Type 2 diabetes mellitus with diabetic autonomic (poly)neuropathy; E78.5 Hyperlipidemia, unspecified; E83.52 Hypercalcemia; E87.8 Other disorders of electrolyte and fluid balance, not elsewhere classified; F17.200 Nicotine dependence, unspecified, uncomplicated; F40.240 Claustrophobia; F41.0 Panic disorder [episodic paroxysmal anxiety]; F43.10 Post-traumatic stress disorder, unspecified; G89.29 Other chronic pain; I10 Essential (primary) hypertension; J43.9 Emphysema, unspecified; K31.84 Gastroparesis; E11.40 Type 2 diabetes mellitus with diabetic neuropathy, unspecified; K58.9 Irritable bowel syndrome, unspecified; K74.60 Unspecified cirrhosis of liver; M06.9 Rheumatoid arthritis, unspecified; M79.7 Fibromyalgia; T50.2X5A Adverse effect of carbonic-anhydrase inhibitors, benzothiadiazides and other diuretics, initial encounter; Z79.84 Long term (current) use of oral hypoglycemic drugs; Z79.899 Other long term (current) drug therapy; Z80.0 Family history of malignant neoplasm of digestive organs; Z80.1 Family history of malignant neoplasm of trachea, bronchus and lung; Z80.7 Family history of other malignant neoplasms of lymphoid, hematopoietic and related tissues; Z82.49 Family history of ischemic heart disease and other diseases of the circulatory system; Z86.73 Personal history of transient ischemic attack (TIA), and cerebral infarction without residual deficits; Z90.710 Acquired absence of both cervix and uterus; Z88.2 Allergy status to sulfonamides; Z88.8 Allergy status to other drugs, medicaments and biological substances; Z88.1 Allergy status to other antibiotic agents; Z91.040 Latex allergy status; Z90.49 Acquired absence of other specified parts of digestive tract
CPT/HCPCS: 36415; 70450; 71046; 76705; 80048; 80053; 80074; 80306; 81003; 82140; 82803; 83605; 83690; 83735; 84132; 84484; 85025; 85610; 85730; 93005; 94760; 96360; 96361; 99285

== ENCOUNTER → 2018-08-09 | Outpatient (CLI) | payer BC, MEDICARE | LOC: LABWHC1 11:28 | PROVIDERS: ATTEND Internal Medicine | DX: E72.20 Disorder of urea cycle metabolism, unspecified (principal) | CPT/HCPCS: 36415; 82140 ==

== ENCOUNTER → 2018-08-19 | Outpatient (CLI) | payer BC, MEDICARE ==
--- NOTE | 2018-08-20 07:31 | US ---
EXAMINATION TYPE: US kidneys/renal and bladder DATE OF EXAM: 08/19/2018 COMPARISON: US & CT May 01, 2016 CLINICAL HISTORY: R94.4 Abnormal Labs. EXAM MEASUREMENTS: Right Kidney: 12.4 x 4.2 x 4.8 cm Left Kidney: 12.5 x 5.9 x 5.7 cm Right Kidney: cyst measures 0.8 x 0.8 x 0.8 cm Left Kidney: upper pole cyst measures 1.3 x 0.9 x 0.9 cm Bladder: wnl Bilateral Jets seen: Yes There is no evidence for hydronephrosis at this point in time. No nephrolithiasis is seen. No worri some solid or cystic masses are identified. The urinary bladder is anechoic. Bilateral ureteral jet s are seen. IMPRESSION: No hydronephrosis is evident bilaterally.
== END | disposition home or self-care (01) ==
LOC: RADUSWWP 15:43
PROVIDERS: ATTEND Family Medicine
DX: R94.4 Abnormal results of kidney function studies (principal)
CPT/HCPCS: 76770

== ENCOUNTER → 2018-09-30 | Outpatient (CLI) | payer BC, MEDICARE ==
[2018-09-30 17:00] LABS: Anion Gap 8.4 mmol/L (4.00-12.00); Calcium 9.5 mg/dL (8.7-10.3); Carbon Dioxide 22.6 mmol/L (21.6-31.8)
[2018-10-01 07:41] LABS: Potassium 2.7 mmol/L (3.5-5.5)
== END ==
LOC: LABWHC1 07:53
PROVIDERS: ATTEND Internal Medicine
DX: I12.9 Hypertensive chronic kidney disease with stage 1 through stage 4 chronic kidney disease, or unspecified chronic kidney disease (principal); N18.3 Chronic kidney disease, stage 3 (moderate)
CPT/HCPCS: 36415; 80048; 83735

== ENCOUNTER → 2018-10-18 | Outpatient (CLI) | payer BC, MEDICARE ==
[2018-10-18 15:28] LABS: Anion Gap 9 mmol/L; Blood Urea Nitrogen 12 mg/dL (7-17); Carbon Dioxide 18 mmol/L (22-30); Chloride 116 mmol/L (98-107); Glucose 104 mg/dL (74-99); Magnesium 1.9 mg/dL (1.6-2.3); Potassium 3.8 mmol/L (3.5-5.1); Sodium 143 mmol/L (137-145)
== END | disposition home or self-care (01) ==
LOC: LABWHC1 14:58
PROVIDERS: ATTEND Internal Medicine
DX: N18.3 Chronic kidney disease, stage 3 (moderate) (principal)
CPT/HCPCS: 36415; 80048; 83735

== ENCOUNTER 2018-10-26 13:42 | Inpatient (IN) | payer BC, MEDICARE ==
[2018-10-26] MEDS ORDERED: SODIUM CHLORIDE 0.9% 500 ML 500 ML IV STA (15:24)
[2018-10-26] MEDS ORDERED: SODIUM CHLORIDE 0.9% 1,000 ML IV STA (15:24)
[2018-10-26 15:52] LABS: Basophils # (A) 0.1 k/uL (0-0.2); Basophils % (A) 0 %; Eosinophils # (A) 0.1 k/uL (0-0.7); Eosinophils % (A) 1 %; HCT 46.4 % (34.0-46.0); HGB 14.5 gm/dL (11.4-16.0); Lymphocytes # (A) 3.4 k/uL (1.0-4.8); Lymphocytes % (A) 24 %; MCH 30.2 pg (25.0-35.0); MCHC 31.4 g/dL (31.0-37.0); MCV 96.1 fL (80.0-100.0); Monocytes # (A) 0.7 k/uL (0-1.0); Monocytes % (A) 5 %; Neutrophils # (A) 9.6 k/uL (1.3-7.7); Neutrophils % (A) 68 %; Platelet Count 345 k/uL (150-450); RBC 4.83 m/uL (3.80-5.40); RDW 14.2 % (11.5-15.5); WBC 14.2 k/uL (3.8-10.6)
--- NOTE | 2018-10-26 16:02 | ED ---
General Adult HPI - General Chief complaint: Dizziness Stated complaint: unable to urinate, hypotensive, SOB Time Seen by Provider: 10/26/18 15:19 Source: patient, RN notes reviewed Mode of arrival: ambulatory Limitations: no limitations - History of Present Illness Initial comments: This a 58-year-old female presents emergency Department chief complaint of unable to urinate. Patient states she went to her PCP today because she has not urinated since Thursday. Patient states that she's had this in the past where she states that the self cath. Patient states that she went to her PCP because she wanted to be cathed but was sent here because her blood pressure has been low. Patient reportedly does have known renal disease but states is very mild. Patient denies any nausea, vomiting, diarrhea constipation. Patient states that she has now developed some chest discomfort but is very mild. Denies any back pain, headache, focal weakness, fever, chills or URI symptoms. - Related Data Home Medications Medication Instructions Recorded Confirmed Morphine Pump 1 dose INTRATHECA CONTINUOUS 05/05/18 10/26/18 Montelukast [Singulair] 10 mg PO HS 07/20/18 10/26/18 Omeprazole 20 mg PO DAILY 07/20/18 10/26/18 DULoxetine HCL [Cymbalta] 60 mg PO DAILY 07/30/18 10/26/18 Ziprasidone [Geodon] 80 mg PO HS 07/30/18 10/26/18 Levothyroxine Sodium [Synthroid] 50 mcg PO DAILY 07/31/18 10/26/18 Ziprasidone [Geodon] 60 mg PO DAILY 07/31/18 10/26/18 Dicyclomine [Bentyl] 20 mg PO QID 10/26/18 10/26/18 Gabapentin 600 mg PO HS 10/26/18 10/26/18 Linaclotide [Linzess] 145 mcg PO DAILY PRN 10/26/18 10/26/18 Lisinopril [Zestril] 10 mg PO DAILY 10/26/18 10/26/18 Melatonin 25mg 25 mg PO HS 10/26/18 10/26/18 Potassium Chloride ER [K-Dur 20] 20 meq PO DAILY 10/26/18 10/26/18 Promethazine [Phenergan] 12.5 mg PO QID 10/26/18 10/26/18 Torsemide [Demadex] 5 mg PO DAILY 10/26/18 10/26/18 Allergies Allergy/AdvReac Type Severity Reaction Status Date / Time adhesive Allergy Rash/Hives Verified 10/26/18 15:50 azithromycin Allergy Rash/Hives Verified 10/26/18 15:50 [From Zithromax Z-Ivan] ciprofloxacin [From Cipro] Allergy Rash/Hives Verified 10/26/18 15:50 ciprofloxacin HCl Allergy Rash/Hives Verified 10/26/18 15:50 [From Cipro] clarithromycin [From Biaxin] Allergy Rash/Hives Verified 10/26/18 15:50 doxycycline calcium Allergy Rash/Hives Verified 10/26/18 15:50 [From Vibramycin] doxycycline hyclate Allergy Rash/Hives Verified 10/26/18 15:50 [From Vibramycin] doxycycline monohydrate Allergy Rash/Hives Verified 10/26/18 15:50 [From Vibramycin] erythromycin base Allergy Rash/Hives Verified 10/26/18 15:50 [From E-Mycin] Latex, Natural Rubber Allergy Anaphylaxis Verified 10/26/18 15:50 levofloxacin [From Levaquin] Allergy Rash/Hives Verified 10/26/18 15:50 oxybutynin chloride Allergy Rash/Hives Verified 10/26/18 15:50 [From Ditropan] penicillin G Allergy Rash/Hives Verified 10/26/18 15:50 prochlorperazine edisylate Allergy Rash/Hives Verified 10/26/18 15:50 [From Compazine] prochlorperazine maleate Allergy Rash/Hives Verified 10/26/18 15:50 [From Compazine] tetracycline [Tetracycline] Allergy Rash/Hives Verified 10/26/18 15:50 valdecoxib [From Bextra] Allergy Hallucinati Verified 10/26/18 15:50 ons Review of Systems ROS Statement: Those systems with pertinent positive or pertinent negative responses have been documented in the HPI. ROS Other: All systems not noted in ROS Statement are negative. Past Medical History Past Medical History: COPD, CVA/TIA, Diabetes Mellitus, Fibromyalgia, Hyperlipidemia, Hypertension, Osteoarthritis (OA), Renal Disease, Rheumatoid Arthritis (RA), Skin Disorder, Thyroid Disorder Additional Past Medical History / Comment(s): diabetic neuropathy, lupus ,DDD ,IBS, chronic dry eye, palpitations,migraines, TIA x 5-rt lip droops, emphysema, eczema in ears, history of wound on right toe, gastroparesis History of Any Multi-Drug Resistant Organisms: None Reported Past Surgical History: Back Surgery, Cholecystectomy, Hernia Repair, Hysterectomy, Orthopedic Surgery, Tonsillectomy, Uterine Ablation Additional Past Surgical History / Comment(s): EGD, Colonoscopy, vocal cord surgery, cataract bilateral removal, right knee arthroscopy, right elbow surgery, bilateral feet heel spurs and arthroplasty on B/L foot toes, BILAT CTR, 2 nerve stimulator in spine X2, laminectomy L4-5,hiatal hernia repair, biopsy left arm,mult sinus surgeries, STIMULATOR in back (not currently working) , MORPHINE PUMP INSERTED to left side of abdomen for chronic back pain by Dr. Williamson, I&D RT FOOT WOUND Past Anesthesia/Blood Transfusion Reactions: Family History of Problems w/ Anesthesia Additional Past Anesthesia/Blood Transfusion Reaction / Comment(s): claustrophob ic, mother- [place] during surgery Past Psychological History: Anxiety, Bipolar, Depression, Panic Disorder, PTSD Smoking Status: Current every day smoker - Past Family History Mother Family Medical History: Cancer, CVA/TIA, Myocardial Infarction ([place]), Osteoarthritis (OA), Rheumatoid Arthritis (RA) Additional Family Medical History / Comment(s): Mother had scleroderma, lymphoma and stomach CA, stents, lupus Father Family Medical History: Cancer Additional Family Medical History / Comment(s): LUNG CANCER General Exam Limitations: no limitations General appearance: alert, in no apparent distress Head exam: Present: atraumatic, normocephalic, normal inspection Eye exam: Present: normal appearance, PERRL, EOMI. Absent: scleral icterus, conjunctival injection, periorbital swelling ENT exam: Present: normal exam, normal oropharynx, mucous membranes moist, TM's normal bilaterally Neck exam: Present: normal inspection. Absent: tenderness, meningismus, lymphadenopathy Respiratory exam: Present: normal lung sounds bilaterally. Absent: respiratory distress, wheezes, rales, rhonchi, stridor Cardiovascular Exam: Present: regular rate, normal rhythm, normal heart sounds. Absent: systolic murmur, diastolic murmur, rubs, gallop, clicks GI/Abdominal exam: Present: soft, tenderness (Mild suprapubic), normal bowel sounds. Absent: distended, guarding, rebound, rigid Back exam: Absent: CVA tenderness (R), CVA tenderness (L) Neurological exam: Present: alert, oriented X3, CN II-XII intact Skin exam: Present: warm, dry, intact, normal color. Absent: rash Course Vital Signs 10/26/18 14:41 Temperature 98.0 F Pulse Rate 105 H Respiratory 18 Rate Blood Pressure 82/45 O2 Sat by Pulse 98 Oximetry Medical Decision Making - Lab Data Result diagrams: 10/26/18 15:25 10/26/18 15:25 Lab Results 10/26/18 10/26/18 10/26/18 Range/Units 15:25 15:25 15:25 WBC 14.2 H (3.8-10.6) k/uL RBC 4.83 (3.80-5.40) m/uL Hgb 14.5 (11.4-16.0) gm/dL Hct 46.4 H (34.0-46.0) % MCV 96.1 (80.0-100.0) fL MCH 30.2 (25.0-35.0) pg MCHC 31.4 (31.0-37.0) g/dL RDW 14.2 (11.5-15.5) % Plt Count 345 (150-450) k/uL Neutrophils % 68 % Lymphocytes % 24 % Monocytes % 5 % Eosinophils % 1 % Basophils % 0 % Neutrophils # 9.6 H (1.3-7.7) k/uL Lymphocytes # 3.4 (1.0-4.8) k/uL Monocytes # 0.7 (0-1.0) k/uL Eosinophils # 0.1 (0-0.7) k/uL Basophils # 0.1 (0-0.2) k/uL Sodium 137 (137-145) mmol/L Potassium 4.6 (3.5-5.1) mmol/L Chloride 105 (98-107) mmol/L Carbon Dioxide 12 L (22-30) mmol/L Anion Gap 20 mmol/L BUN 42 H (7-17) mg/dL Creatinine 5.48 H (0.52-1.04) mg/dL Est GFR (CKD-EPI)AfAm 9 (>60 ml/min/1.73 sqM) Est GFR (CKD-EPI)NonAf 8 (>60 ml/min/1.73 sqM) Glucose 94 (74-99) mg/dL Plasma Lactic Acid Otis 2.3 H* (0.7-2.0) mmol/L Calcium 9.3 (8.4-10.2) mg/dL Phosphorus (2.5-4.5) mg/dL Magnesium (1.6-2.3) mg/dL Total Bilirubin 0.6 (0.2-1.3) mg/dL AST 21 (14-36) U/L ALT <6 L (9-52) U/L Alkaline Phosphatase 88 (38-126) U/L Troponin I (0.000-0.034) ng/mL Total Protein 8.3 H (6.3-8.2) g/dL Albumin 4.6 (3.5-5.0) g/dL Urine Color Urine Appearance (Clear) Urine pH (5.0-8.0) Ur Specific [place] (1.001-1.035) Urine Protein (Negative) Urine Glucose (UA) (Negative) Urine Ketones (Negative) Urine Blood (Negative) Urine Nitrite (Negative) Urine Bilirubin (Negative) Urine Urobilinogen (<2.0) mg/dL Ur Leukocyte Esterase (Negative) Urine RBC (0-5) /hpf Urine WBC (0-5) /hpf Amorphous Sediment (None) /hpf Hyaline Casts (0-2) /lpf Urine Mucus (None) /hpf 10/26/18 10/26/18 10/26/18 Range/Units 15:25 15:25 16:03 WBC (3.8-10.6) k/uL RBC (3.80-5.40) m/uL Hgb (11.4-16.0) gm/dL Hct (34.0-46.0) % MCV (80.0-100.0) fL MCH (25.0-35.0) pg MCHC (31.0-37.0) g/dL RDW (11.5-15.5) % Plt Count (150-450) k/uL Neutrophils % % Lymphocytes % % Monocytes % % Eosinophils % % Basophils % % Neutrophils # (1.3-7.7) k/uL Lymphocytes # (1.0-4.8) k/uL Monocytes # (0-1.0) k/uL Eosinophils # (0-0.7) k/uL Basophils # (0-0.2) k/uL Sodium (137-145) mmol/L Potassium (3.5-5.1) mmol/L Chloride (98-107) mmol/L Carbon Dioxide (22-30) mmol/L Anion Gap mmol/L BUN (7-17) mg/dL Creatinine (0.52-1.04) mg/dL Est GFR (CKD-EPI)AfAm (>60 ml/min/1.73 sqM) Est GFR (CKD-EPI)NonAf (>60 ml/min/1.73 sqM) Glucose (74-99) mg/dL Plasma Lactic Acid Otis (0.7-2.0) mmol/L Calcium (8.4-10.2) mg/dL Phosphorus 9.6 H* (2.5-4.5) mg/dL Magnesium 1.6 (1.6-2.3) mg/dL Total Bilirubin (0.2-1.3) mg/dL AST (14-36) U/L ALT (9-52) U/L Alkaline Phosphatase (38-126) U/L Troponin I 0.019 (0.000-0.034) ng/mL Total Protein (6.3-8.2) g/dL Albumin (3.5-5.0) g/dL Urine Color Yellow Urine Appearance Cloudy H (Clear) Urine pH 5.5 (5.0-8.0) Ur Specific [place] 1.013 (1.001-1.035) Urine Protein 1+ H (Negative) Urine Glucose (UA) Negative (Negative) Urine Ketones Negative (Negative) Urine Blood Trace H (Negative) Urine Nitrite Negative (Negative) Urine Bilirubin Negative (Negative) Urine Urobilinogen <2.0 (<2.0) mg/dL Ur Leukocyte Esterase Negative (Negative) Urine RBC 3 (0-5) /hpf Urine WBC 4 (0-5) /hpf Amorphous Sediment Rare H (None) /hpf Hyaline Casts 67 H (0-2) /lpf Urine Mucus Many H (None) /hpf Critical Care Time Critical Care Time: Yes Total Critical Care Time: 35 Critical Care Time: Total 35 minutes of critical care time were used to initially evaluated the patient, reviewed past medical history, review past labs, medications, evaluated patient. Patient had labs, x-rays, urinalysis, bladder scan, Wilhelm catheter ordered. Patient's found to be in acute renal failure with a creatinine greater than 5. Patient does have mild hypotension though she is asymptomatic at this time. EKG does not show any acute changes. Additional labs were ordered due to acute renal failure including magnesium and phosphorus. Patient was given a bolus of fluids including 2 and half liters a CERT maintenance fluids. Patient be admitted to medicine consult nephrology. Disposition Clinical Impression: Acute renal failure, Hypotension Disposition: ADMITTED IP TO THIS HOSP Condition: Fair Referrals: James Plata MD [Primary Care Provider] - 1-2 days
[2018-10-26 16:04] LABS: ALT <6 U/L (9-52); AST 21 U/L (14-36); Albumin 4.6 g/dL (3.5-5.0); Alkaline Phosphatase 88 U/L (38-126); Anion Gap 20 mmol/L; Blood Urea Nitrogen 42 mg/dL (7-17); Calcium 9.3 mg/dL (8.4-10.2); Carbon Dioxide 12 mmol/L (22-30); Chloride 105 mmol/L (98-107); Glucose 94 mg/dL (74-99); Potassium 4.6 mmol/L (3.5-5.1); Sodium 137 mmol/L (137-145); Total Bilirubin 0.6 mg/dL (0.2-1.3); Total Protein 8.3 g/dL (6.3-8.2)
[2018-10-26] MEDS ORDERED: SODIUM CHLORIDE 0.9% 1,000 ML IV ONE (16:14)
[2018-10-26 16:26] LABS: Amorphous Sediment,Urine Rare /hpf; Appearance,Urine Cloudy (Clear); Bilirubin,Urine Negative (Negative); Blood,Urine Trace (Negative); Color,Urine Yellow; Glucose,Urine (UA) Negative (Negative); Hyaline Casts,Urine 67 /lpf (0-2); Ketones,Urine Negative (Negative); Leukocyte Esterase,Urine Negative (Negative); Mucus,Urine Many /hpf; Nitrite,Urine Negative (Negative); PH, Urine 5.5 (5.0-8.0); Protein,Urine 1+ (Negative); RBC,Urine 3 /hpf (0-5); Specific Gravity,Urine 1.013 (1.001-1.035); Urobilinogen,Urine <2.0 mg/dL (<2.0)
--- NOTE | 2018-10-26 16:40 | XR ---
EXAMINATION: XR chest 1V DATE AND TIME: 10/26/2018 4:35 PM CLINICAL INDICATION: PHH; Pain TECHNIQUE: Departmental protocol COMPARISON: 07/30/2018 FINDINGS: The lungs are clear. The pleural spaces are negative. The cardiac silhouette is not enlarged. The remainder of the mediastinal silhouette is unremarkable. The skeletal structures and soft tissues are negative for acute findings. IMPRESSION: NO ACUTE PROCESS.
--- NOTE | 2018-10-26 16:45 | XR ---
EXAMINATION TYPE: XR KUB DATE OF EXAM: 10/26/2018 COMPARISON: 03/05/2011 HISTORY: Pain; unable to urinate; renal failure TECHNIQUE: 2 upright radiographs to cover the abdomen and pelvis FINDINGS: Visualized lung bases and pleural spaces are negative. There is no pneumoperitoneum. No pneumatosis. However, there are several loops of mildly dilated and gas distended small bowel throughout all 4 azul drants. Gas fluid level is noted within the stomach. No other gas fluid levels are evident. Only mini mal gas is seen within the colon. No acute skeletal or soft tissue findings. Urinary bladder shadow not well seen. IMPRESSION: Radiographic findings are nonspecific, but clinical exclusion of early mild small bowel obstruction i s requested.
[2018-10-26] MEDS ORDERED: ACETAMINOPHEN TAB 325 MG TAB PO PRN (16:48)
[2018-10-26] MEDS ORDERED: ONDANSETRON 4 MG/2 ML VIAL IVP PRN (16:48)
[2018-10-26] MEDS ORDERED: NALOXONE 0.4 MG/ML 1 ML VIAL IV PRN (16:48)
[2018-10-26 16:51] LABS: Magnesium 1.6 mg/dL (1.6-2.3)
[2018-10-26 16:54] LABS: Phosphorus 9.6 mg/dL (2.5-4.5)
--- NOTE | 2018-10-26 17:25 | P.HPIM ---
History of Present Illness H&P Date: 10/26/18 Chief Complaint: Shortness of breath decreased urination The patient is a 58-year-old female with a past medical history of type 2 diabetes, essential hypertension, bipolar disorder who presents to the ER via private vehicle with chief complaint of decreased urination or shortness of breath. Apparently the patient began having decreased urination this had very u rine production since this past Thursday, the patient previously had some dysuria and suprapubic pain described as fullness but denies any flank pain. She reports having the urge to void but reports that nothing has been coming out. She is a smoker but she denies any cough or wheezing, she denies any lower extremity swelling or chest pain, she denies any nausea or vomiting or abdominal pain. She reports some subjective fevers and chills. The patient reports that she was told that she has chronic kidney disease stage III by Dr. David. In the ER the patient had a conference a workup, WBC was 14.2, serum sodium was 136 serum bicarb 12 D1 was 5.48, serum lactic acid 2.3 serum phosphorus was 9.6, troponin was 0.019. Urinalysis +1 protein, trace blood, With hyalin casts. A Wilhelm catheter was inserted in the ED, The patient was given 3 L of fluids and recommended for admission for acute kidney injury Review of Systems Pertinent positives per HPI all other systems otherwise negative Past Medical History Past Medical History: COPD, CVA/TIA, Diabetes Mellitus, Fibromyalgia, Hyperlipidemia, Hypertension, Osteoarthritis (OA), Renal Disease, Rheumatoid Arthritis (RA), Skin Disorder, Thyroid Disorder Additional Past Medical History / Comment(s): diabetic neuropathy, lupus ,DDD ,IBS, chronic dry eye, palpitations,migraines, TIA x 5-rt lip droops, emphysema, eczema in ears, history of wound on right toe, gastroparesis History of Any Multi-Drug Resistant Organisms: None Reported Past Surgical History: Back Surgery, Cholecystectomy, Hernia Repair, Hysterectomy, Orthopedic Surgery, Tonsillectomy, Uterine Ablation Additional Past Surgical History / Comment(s): EGD, Colonoscopy, vocal cord surgery, cataract bilateral removal, right knee arthroscopy, right elbow surgery, bilateral feet heel spurs and arthroplasty on B/L foot toes, BILAT CTR, 2 nerve stimulator in spine X2, laminectomy L4-5,hiatal hernia repair, biopsy left arm,mult sinus surgeries, STIMULATOR in back (not currently working) , MORPHINE PUMP INSERTED to left side of abdomen for chronic back pain by Dr. Williamson, I&D RT FOOT WOUND Past Anesthesia/Blood Transfusion Reactions: Family History of Problems w/ Anesthesia Additional Past Anesthesia/Blood Transfusion Reaction / Comment(s): claustrophobic, mother- [place] during surgery Past Psychological History: Anxiety, Bipolar, Depression, Panic Disorder, PTSD Smoking Status: Current every day smoker - Past Family History Mother Family Medical History: Cancer, CVA/TIA, Myocardial Infarction ([place]), Osteoarthritis (OA), Rheumatoid Arthritis (RA) Additional Family Medical History / Comment(s): Mother had scleroderma, lymphoma and stomach CA, stents, lupus Father Family Medical History: Cancer Additional Family Medical History / Comment(s): LUNG CANCER Medications and Allergies Home Medications Medication Instructions Recorded Confirmed Type Morphine Pump 1 dose INTRATHECA CONTINUOUS 05/05/18 10/26/18 History Montelukast [Singulair] 10 mg PO HS 07/20/18 10/26/18 History Omeprazole 20 mg PO DAILY 07/20/18 10/26/18 History DULoxetine HCL [Cymbalta] 60 mg PO DAILY 07/30/18 10/26/18 History Ziprasidone [Geodon] 80 mg PO HS 07/30/18 10/26/18 History Levothyroxine Sodium [Synthroid] 50 mcg PO DAILY 07/31/18 10/26/18 History Ziprasidone [Geodon] 60 mg PO DAILY 07/31/18 10/26/18 History Dicyclomine [Bentyl] 20 mg PO QID 10/26/18 10/26/18 History Gabapentin 600 mg PO HS 10/26/18 10/26/18 History Linaclotide [Linzess] 145 mcg PO DAILY PRN 10/26/18 10/26/18 History Lisinopril [Zestril] 10 mg PO DAILY 10/26/18 10/26/18 History Melatonin 25mg 25 mg PO HS 10/26/18 10/26/18 History Potassium Chloride ER [K-Dur 20] 20 meq PO DAILY 10/26/18 10/26/18 History Promethazine [Phenergan] 12.5 mg PO QID 10/26/18 10/26/18 History Torsemide [Demadex] 5 mg PO DAILY 10/26/18 10/26/18 History Allergies Allergy/AdvReac Type Severity Reaction Status Date / Time adhesive Allergy Rash/Hives Verified 10/26/18 15:50 azithromycin Allergy Rash/Hives Verified 10/26/18 15:50 [From Zithromax Z-Ivan] ciprofloxacin [From Cipro] Allergy Rash/Hives Verified 10/26/18 15:50 ciprofloxacin HCl Allergy Rash/Hives Verified 10/26/18 15:50 [From Cipro] clarithromycin [From Biaxin] Allergy Rash/Hives Verified 10/26/18 15:50 doxycycline calcium Allergy Rash/Hives Verified 10/26/18 15:50 [From Vibramycin] doxycycline hyclate Allergy Rash/Hives Verified 10/26/18 15:50 [From Vibramycin] doxycycline monohydrate Allergy Rash/Hives Verified 10/26/18 15:50 [From Vibramycin] erythromycin base Allergy Rash/Hives Verified 10/26/18 15:50 [From E-Mycin] Latex, Natural Rubber Allergy Anaphylaxis Verified 10/26/18 15:50 levofloxacin [From Levaquin] Allergy Rash/Hives Verified 10/26/18 15:50 oxybutynin chloride Allergy Rash/Hives Verified 10/26/18 15:50 [From Ditropan] penicillin G Allergy Rash/Hives Verified 10/26/18 15:50 prochlorperazine edisylate Allergy Rash/Hives Verified 10/26/18 15:50 [From Compazine] prochlorperazine maleate Allergy Rash/Hives Verified 10/26/18 15:50 [From Compazine] tetracycline [Tetracycline] Allergy Rash/Hives Verified 10/26/18 15:50 valdecoxib [From Bextra] Allergy Hallucinati Verified 10/26/18 15:50 ons Physical Exam Vitals: Vital Signs Temp Pulse Resp BP Pulse Ox 10/26/18 14:41 98.0 F 105 H 18 82/45 98 Intake and Output 10/26/18 10/26/18 10/26/18 06:59 14:59 22:59 Other: Weight 68.946 kg Constitutional: No acute distress, conversant, pleasant Eyes: Anicteric sclerae, moist conjunctiva, no lid-lag, PERRLA ENMT: NC/AT,Oropharynx clear, no erythema, exudates Neck:Supple, FROM, no masses, or JVD, No carotid bruits; No thyromegaly Lungs: Clear to auscultation, Clear to percussion, Normal respiratory effort, no accessory muscle use Cardiovascular: Heart regular in rate and rhythm, No murmurs, gallops, or rubs no peripheral edema Abdominal: Soft Nontender, nom distended, no guarding, no rebound or rigidity, Normoactive bowel sounds No hepatomegaly, No splenomegaly, No palpable mass No abdominal wall hernia noted Skin: Normal temperature, tone, texture, turgor, No induration No subcutaneous nodules, No rash, lesions, No ulcers Extremities:No digital cyanosis No clubbing, Pedal pulses intact and symme trical Radial pulses intact and symmetrical Normal gait and station, No calf tenderness Psychiatric: Alert and oriented to person, place and time, Appropriate affect Intact judgement Neuro: Muscles Strength 5/5 in all 4 extremities, Sensation to light touch grossly present throughout, Cranial nerves II-XII grossly intact. No focal sensory deficits Results CBC & Chem 7: 10/26/18 15:25 10/26/18 15:25 Labs: Abnormal Lab Results - Last 24 Hours (Table) 10/26/18 10/26/18 10/26/18 Range/Units 15:25 15:25 15:25 WBC 14.2 H (3.8-10.6) k/uL Hct 46.4 H (34.0-46.0) % Neutrophils # 9.6 H (1.3-7.7) k/uL Carbon Dioxide 12 L (22-30) mmol/L BUN 42 H (7-17) mg/dL Creatinine 5.48 H (0.52-1.04) mg/dL Plasma Lactic Acid Otis 2.3 H* (0.7-2.0) mmol/L Phosphorus (2.5-4.5) mg/dL ALT <6 L (9-52) U/L Total Protein 8.3 H (6.3-8.2) g/dL Urine Appearance (Clear) Urine Protein (Negative) Urine Blood (Negative) Amorphous Sediment (None) /hpf Hyaline Casts (0-2) /lpf Urine Mucus (None) /hpf 10/26/18 10/26/18 Range/Units 15:25 16:03 WBC (3.8-10.6) k/uL Hct (34.0-46.0) % Neutrophils # (1.3-7.7) k/uL Carbon Dioxide (22-30) mmol/L BUN (7-17) mg/dL Creatinine (0.52-1.04) mg/dL Plasma Lactic Acid Otis (0.7-2.0) mmol/L Phosphorus 9.6 H* (2.5-4.5) mg/dL ALT (9-52) U/L Total Protein (6.3-8.2) g/dL Urine Appearance Cloudy H (Clear) Urine Protein 1+ H (Negative) Urine Blood Trace H (Negative) Amorphous Sediment Rare H (None) /hpf Hyaline Casts 67 H (0-2) /lpf Urine Mucus Many H (None) /hpf Assessment and Plan (1) Acute kidney injury superimposed on chronic kidney disease Current Visit: Yes Status: Acute Code(s): N17.9 - ACUTE KIDNEY FAILURE, UNSPECIFIED; N18.9 - CHRONIC KIDNEY DISEASE, UNSPECIFIED SNOMED Code(s): 94642029 (2) Hypotension Current Visit: Yes Status: Acute Code(s): I95.9 - HYPOTENSION, UNSPECIFIED SNOMED Code(s): 40348435 (3) Leukocytosis Current Visit: Yes Status: Acute Code(s): D72.829 - ELEVATED WHITE BLOOD CELL COUNT, UNSPECIFIED SNOMED Code(s): 842289193 (4) Increased anion gap metabolic acidosis Current Visit: Yes Status: Acute Code(s): E87.2 - ACIDOSIS SNOMED Code(s): 97061267 (5) Hyperphosphatemia Current Visit: Yes Status: Acute Code(s): E83.39 - OTHER DISORDERS OF PH OSPHORUS METABOLISM SNOMED Code(s): 52689597 (6) Type 2 diabetes mellitus Current Visit: Yes Status: Acute Code(s): E11.9 - TYPE 2 DIABETES MELLITUS WITHOUT COMPLICATIONS SNOMED Code(s): 69502228 Plan: Patient is admitted with acute renal failure superimposed on underlying chronic kidney disease stage III after presenting with symptoms of oliguria with a previous creatinine baseline of about 1 currently with a creatinine of 5.48 today. We'll continue her Wilhelm catheter continue IV fluids maintenance at 100 mL an hour normal saline, will plan to consult nephrology. We'll obtain a renal ultrasound, blood cultures, plan to repeat labs in the morning. Medical conditions were reviewed we will hold her nephrotoxic agents hold her metformin lisinopril, hold Bentyl. We'll place her on DVT prophylaxis with SCDs and heparin. Continue to follow her clinical course CODE STATUS : Full code Discussed plan of care with: Patient Anticipated discharge 3-5 days
--- NOTE | 2018-10-26 21:39 | CT ---
EXAMINATION TYPE: CT abdomen pelvis wo con DATE OF EXAM: 10/26/2018 COMPARISON: 05/01/2016 HISTORY: RICKIE. Patient unable to urinate. CT DLP: 496.7 mGycm Automated exposure control for dose reduction was used. TECHNIQUE: Helical acquisition of images was performed from the lung bases through the pelvis. FINDINGS: Within the limitations of noncontrast CT the following observations are made: LUNG BASES: No significant abnormality is appreciated. LIVER/GB: No significant abnormality is appreciated. PANCREAS: No significant abnormality is seen. SPLEEN: No significant abnormality is seen. ADRENALS: No significant abnormality is seen. KIDNEYS: No hydronephrosis or hydroureter. No focal renal findings. FREE AIR: No free air is visualized RETROPERITONEAL ADENOPATHY: None visualized REPRODUCTIVE ORGANS: No significant abnormality is seen URINARY BLADDER: Transurethral Wilhelm catheter is seen within a collapsed urinary bladder. Small gas bubbles are noted within the the urinary bladder lumen nondependently, likely related to instrumentat ion. PELVIC ADENOPATHY: None visualized. OSSEOUS STRUCTURES: No significant abnormality is seen. BOWEL: No significant abnormality is seen. Appendix is negative. IMPRESSION: NO ACUTE PROCESS, NONCONTRAST CT.
--- NOTE | 2018-10-26 22:02 | US ---
EXAMINATION TYPE: US kidneys/renal and bladder DATE OF EXAM: 10/26/2018 COMPARISON: NONE CLINICAL HISTORY: RICKIE on chronic kidney disease . Renal failure. EXAM MEASUREMENTS: Right Kidney: 12.9 x 4.6 x 3.9 cm Left Kidney: 12.8 x 5.3 x 4.7 cm Right Kidney: Cystic area .9 x .8 x .5cm. Left Kidney: Cystic area upper pole 1.1 x .7 x .9cm. Bladder: Catheter in. There is no evidence for hydronephrosis at this point in time. No nephrolithiasis is seen IMPRESSION: No acute process.
[2018-10-26] MEDS: SODIUM CHLORIDE 0.9% 1,000 ML IV SCH (22:20)
[2018-10-26] MEDS: PROMETHAZINE 25 MG TAB PO SCH (22:45)
[2018-10-26] MEDS: MELATONIN 5 MG TABLET PO SCH (22:49)
[2018-10-26] MEDS: MONTELUKAST 10 MG TAB PO SCH (22:49)
[2018-10-26] MEDS: GABAPENTIN 300 MG CAP PO SCH (22:49)
[2018-10-26] MEDS: NICOTINE 21MG/24HR PATCH TRANSDERM SCH (22:49)
[2018-10-26] MEDS: ZIPRASIDONE 40 MG CAP PO SCH (23:11)
[2018-10-26] MEDS: HEPARIN SODIUM,PORCINE 5,000 UNIT/ML 1 ML VIAL SQ SCH (23:11)
[2018-10-27] MEDS ORDERED: SODIUM CHLORIDE 0.9% 1,000 ML IV ONE (01:19)
[2018-10-27] MEDS: SODIUM CHLORIDE 0.9% 1,000 ML IV SCH ×3 (03:09→21:06)
[2018-10-27] MEDS: LEVOTHYROXINE 50 MCG TAB PO SCH (06:10)
[2018-10-27 06:54] LABS: Glucose,Whole Blood 100 mg/dL (75-99)
[2018-10-27] MEDS: INSULIN ASPART (NovoLOG) 100 UNIT/ML VIAL SQ SCH ×4 (08:19→22:15)
[2018-10-27] MEDS: PROMETHAZINE 25 MG TAB PO SCH ×4 (09:52→21:08)
[2018-10-27] MEDS: HEPARIN SODIUM,PORCINE 5,000 UNIT/ML 1 ML VIAL SQ SCH ×2 (09:55→15:37)
[2018-10-27] MEDS: NICOTINE 21MG/24HR PATCH TRANSDERM SCH (09:55)
[2018-10-27 10:17] LABS: Basophils % (A) 0 %; Eosinophils # (A) 0.1 k/uL (0-0.7); Eosinophils % (A) 1 %; HCT 33.8 % (34.0-46.0); Hypochromasia Slight; Lymphocytes # (A) 1.9 k/uL (1.0-4.8); Lymphocytes % (A) 21 %; MCHC 32.1 g/dL (31.0-37.0); MCV 96.6 fL (80.0-100.0); Mean Platelet Volume 7.5; Monocytes # (A) 0.5 k/uL (0-1.0); Monocytes % (A) 5 %; Neutrophils # (A) 6.6 k/uL (1.3-7.7); Neutrophils % (A) 72 %; Platelet Count 239 k/uL (150-450); RDW 14.2 % (11.5-15.5); WBC 9.2 k/uL (3.8-10.6)
[2018-10-27 10:29] LABS: HGB 10.8 gm/dL (11.4-16.0)
[2018-10-27 10:30] LABS: Calcium 7.4 mg/dL (8.4-10.2); Potassium 4.1 mmol/L (3.5-5.1)
[2018-10-27 10:58] LABS: Glucose,Whole Blood 141 mg/dL (75-99)
--- NOTE | 2018-10-27 12:22 | P.NPCON ---
History of Present Illness - Reason for Consult acute renal failure - History of Present Illness Reason for consultation: Acute kidney injury on chronic kidney disease History of present illness: Patient is a 58-year-old female seen in renal consultation for acute kidney injury on chronic kidney disease. Patient has chronic kidney disease stage III with baseline creatinine in the range of 1-1.5 secondary to diabetic kidney disease. Patient presented to the hospital due to hypotension and difficulty with urination. Patient's blood pressure was in the systolic 70s and she has received nearly 3 L of normal saline since admission. She is currently maintained on normal saline at 100 mL an hour. Urine output has significantly improved. No hematuria or dysuria. No vomiting or diarrhea. Lactic acidosis has resolved. Patient was taking Demadex as well as lisinopril at home which have been discontinued. She denies any vomiting or diarrhea. She denies use of nonsteroidals. Patient's creatinine was 5.48 on admission and is down to 4.7 today. Oral intake is fair. No dizziness or passing out. No abdominal pain. No edema. No family history of renal disease. Vital signs are stable. General: The patient appeared well nourished and normally developed. HEENT: Head exam is unremarkable. Neck is without jugular venous distension. LUNGS: Lungs are clear to auscultation and percussion. Breath sounds decreased. HEART: Rate and Rhythm are regular. First and second heart sounds normal. No murmurs, rubs or gallops. ABDOMEN: Abdominal exam reveals normal bowel sounds. Non-tender and non- distended. No evidence of peritonitis. EXTREMITITES: No clubbing, cyanosis, or edema. Past Medical History Past Medical History: COPD, CVA/TIA, Diabetes Mellitus, Fibromyalgia, Hyperlipidemia, Hypertension, Osteoarthritis (OA), Renal Disease, Rheumatoid Arthritis (RA), Skin Disorder, Thyroid Disorder Additional Past Medical History / Comment(s): diabetic neuropathy, lupus ,DDD ,IBS, chronic dry eye, palpitations,migraines, TIA x 5-rt lip droops, emphysema, eczema in ears, history of wound on right toe, gastroparesis History of Any Multi-Drug Resistant Organisms: None Reported Past Surgical History: Back Surgery, Cholecystectomy, Hernia Repair, Hysterectomy, Orthopedic Surgery, Tonsillectomy, Uterine Ablation Additional Past Surgical History / Comment(s): EGD, Colonoscopy, vocal cord surgery, cataract bilateral removal, right knee arthroscopy, right elbow surgery, bilateral feet heel spurs and arthroplasty on B/L foot toes, BILAT CTR, 2 nerve stimulator in spine X2, laminectomy L4-5,hiatal hernia repair, biopsy left arm,mult sinus surgeries, STIMULATOR in back (not currently working) , MORPHINE PUMP INSERTED to left side of abdomen for chronic back pain by Dr. Williamson, I&D RT FOOT WOUND Past Anesthesia/Blood Transfusion Reactions: Family History of Problems w/ Anesthesia Additional Past Anesthesia/Blood Transfusion Reaction / Comment(s): claustrophobic, mother- NH during surgery Past Psychological History: Anxiety, Bipolar, Depression, Panic Disorder, PTSD Additional Psychological History / Comment(s): . Smoking Status: Current every day smoker Past Alcohol Use History: Occasional Additional Past Alcohol Use History / Comment(s): smokes > 1 1/2 ppd since 1974 Past Drug Use History: None Reported Additional Drug Use History / Comment(s): NO LONGER USES MARIJUANA. - Past Family History Mother Family Medical History: Cancer, CVA/TIA, Myocardial Infarction (NH), Osteoarthritis (OA), Rheumatoid Arthritis (RA) Additional Family Medical History / Comment(s): Mother had scleroderma, lymphoma and stomach CA, stents, lupus Father Family Medical History: Cancer Additional Family Medical History / Comment(s): LUNG CANCER Medications and Allergies Home Medications Medication Instructions Recorded Confirmed Type Morphine Pump 1 dose INTRATHECA CONTINUOUS 05/05/18 10/26/18 History Montelukast [Singulair] 10 mg PO HS 07/20/18 10/26/18 History Omeprazole 20 mg PO DAILY 07/20/18 10/26/18 History DULoxetine HCL [Cymbalta] 60 mg PO DAILY 07/30/18 10/26/18 History Ziprasidone [Geodon] 80 mg PO HS 07/30/18 10/26/18 History Levothyroxine Sodium [Synthroid] 50 mcg PO DAILY 07/31/18 10/26/18 History Ziprasidone [Geodon] 60 mg PO DAILY 07/31/18 10/26/18 History Dicyclomine [Bentyl] 20 mg PO QID 10/26/18 10/26/18 History Gabapentin 600 mg PO HS 10/26/18 10/26/18 History Linaclotide [Linzess] 145 mcg PO DAILY PRN 10/26/18 10/26/18 History Lisinopril [Zestril] 10 mg PO DAILY 10/26/18 10/26/18 History Melatonin 25mg 25 mg PO HS 10/26/18 10/26/18 History Potassium Chloride ER [K-Dur 20] 20 meq PO DAILY 10/26/18 10/26/18 History Promethazine [Phenergan] 12.5 mg PO QID 10/26/18 10/26/18 History Torsemide [Demadex] 5 mg PO DAILY 10/26/18 10/26/18 History Allergies Allergy/AdvReac Type Severity Reaction Status Date / Time adhesive Allergy Rash/Hives Verified 10/26/18 15:50 azithromycin Allergy Rash/Hives Verified 10/26/18 15:50 [From Zithromax Z-Ivan] ciprofloxacin [From Cipro] Allergy Rash/Hives Verified 10/26/18 15:50 ciprofloxacin HCl Allergy Rash/Hives Verified 10/26/18 15:50 [From Cipro] clarithromycin [From Biaxin] Allergy Rash/Hives Verified 10/26/18 15:50 doxycycline calcium Allergy Rash/Hives Verified 10/26/18 15:50 [From Vibramycin] doxycycline hyclate Allergy Rash/Hives Verified 10/26/18 15:50 [From Vibramycin] doxycycline monohydrate Allergy Rash/Hives Verified 10/26/18 15:50 [From Vibramycin] erythromycin base Allergy Rash/Hives Verified 10/26/18 15:50 [From E-Mycin] Latex, Natural Rubber Allergy Anaphylaxis Verified 10/26/18 15:50 levofloxacin [From Levaquin] Allergy Rash/Hives Verified 10/26/18 15:50 oxybutynin chloride Allergy Rash/Hives Verified 10/26/18 15:50 [From Ditropan] penicillin G Allergy Rash/Hives Verified 10/26/18 15:50 prochlorperazine edisylate Allergy Rash/Hives Verified 10/26/18 15:50 [From Compazine] prochlorperazine maleate Allergy Rash/Hives Verified 10/26/18 15:50 [From Compazine] tetracycline [Tetracycline] Allergy Rash/Hives Verified 10/26/18 15:50 valdecoxib [From Bextra] Allergy Hallucinati Verified 10/26/18 15:50 ons Physical Exam Vitals: Vital Signs Temp Pulse Pulse Resp BP BP Pulse Ox 10/27/18 07:00 97.8 F 68 16 84/48 98 10/27/18 02:50 73 85/48 10/27/18 01:36 98.1 F 71 16 76/41 93 L 10/26/18 21:59 97.7 F 80 16 91/54 99 10/26/18 21:07 98.6 F 86 18 107/70 98 10/26/18 20:18 87 18 95/50 100 10/26/18 18:50 81 18 84/47 98 10/26/18 18:40 16 84/47 99 10/26/18 18:30 77 18 90/46 98 10/26/18 18:20 81 14 90/46 99 10/26/18 18:10 79 20 90/46 99 10/26/18 18:00 84/51 10/26/18 17:50 79 13 84/51 97 10/26/18 17:40 77 15 84/51 99 10/26/18 17:30 77 17 95/54 100 10/26/18 17:20 75 15 95/54 100 10/26/18 17:10 80 16 95/54 99 10/26/18 17:00 79 13 82/32 99 10/26/18 16:50 80 16 82/32 98 10/26/18 16:40 18 82/32 98 10/26/18 16:30 82/32 10/26/18 16:20 94 20 82/32 10/26/18 16:10 90 12 82/32 98 10/26/18 16:00 84 15 113/74 97 10/26/18 15:50 0 L 18 113/74 96 10/26/18 15:40 86 14 113/74 96 10/26/18 15:39 79 22 97 10/26/18 14:41 98.0 F 105 H 18 82/45 98 Intake and Output 10/26/18 10/27/18 10/27/18 22:59 06:59 14:59 Intake Total 120 4100 Output Total 800 1100 Balance 120 3300 -1100 Intake: Intake, IV Titration 1700 Amount Sodium Chloride 0.9% 1, 700 000 ml @ 100 mls/hr IV . Q10H [facility] Rx#:[id number] Sodium Chloride 0.9% 1, 1000 000 ml @ 999 mls/hr IV . Q1H1M [facility] Rx#:[id number] Oral 120 2400 Output: Urine 800 1100 Other: Voiding Method Indwelling Catheter Indwelling Catheter Indwelling Catheter Results - Lab Results Most recent lab results Calcium 7.4 mg/dL (8.4-10.2) L 10/27/18 09:37 Phosphorus 9.6 mg/dL (2.5-4.5) H* 10/26/18 15:25 Magnesium 1.6 mg/dL (1.6-2.3) 10/26/18 15:25 10/27/18 09:37 10/27/18 09:37 Assessment and Plan Plan: Assessment: 1. Acute kidney injury mostly prerenal secondary to hypotension and diuretics. Creatinine was 5.48 on admission and is 4.7 today. No evidence of hydronep hrosis noted on imaging. 2. Chronic kidney disease stage III most likely secondary to diabetic kidney disease with baseline creatinine in the range of 1-1.4. 3. Metabolic acidosis secondary to acute kidney injury and lactic acidosis. 4. Type A lactic acidosis secondary to hypotension. Improved with IV hydration. 5. Insulin-dependent diabetes mellitus. 6. Hyperphosphatemia secondary to acute kidney injury. Expect improvement with improving renal function. Plan: Maintain normal saline at 100 mL an hour. Add oral sodium bicarbonate. Repeat electrolytes including phosphorus level in the morning. Encouraged oral intake. Avoid nephrotoxins. Continue to hold diuretics as well as antihypertensives. Thank you for the consultation. I will continue to follow the patient with you during her hospital stay.
[2018-10-27] MEDS: SODIUM BICARBONATE TAB 650 MG TAB PO SCH ×3 (12:27→21:14)
--- NOTE | 2018-10-27 18:56 | P.PN ---
Subjective Progress Note Date: 10/27/18 Patient seen and examined follow-up, doing well overnight denies any lightheadedness or dizziness, blood pressure continues to be borderline. Having good urine output is made approximately 1.8 L since having Wilhelm placed. No acute events overnight Objective - Vital Signs Vital signs: Vital Signs Temp 98 F 10/27/18 14:18 Pulse 76 10/27/18 18:00 Resp 14 10/27/18 16:53 BP 72/39 10/27/18 18:00 Pulse Ox 95 10/27/18 14:18 Intake & Output 10/26/18 10/27/18 10/27/18 18:59 06:59 18:59 Intake Total 4220 Output Total 800 2060 Balance 3420 -2060 Weight 68.946 kg Intake: Intake, IV Titration 1700 Amount Sodium Chloride 0.9% 1, 700 000 ml @ 100 mls/hr IV . Q10H [facility] Rx#:[id number] Sodium Chloride 0.9% 1, 1000 000 ml @ 999 mls/hr IV . Q1H1M [facility] Rx#:[id number] Oral 2520 Output: Urine 800 2060 Other: Voiding Method Indwelling Catheter Indwelling Catheter - Exam Constitutional: No acute distress, conversant, pleasant Eyes: Anicteric sclerae, moist conjunctiva, no lid-lag, PERRLA ENMT: NC/AT,Oropharynx clear, no erythema, exudates Neck:Supple, FROM, no masses, or JVD, No carotid bruits; No thyromegaly Lungs: Clear to auscultation, Clear to percussion, Normal respiratory effort, no accessory muscle use Cardiovascular: Heart regular in rate and rhythm, No murmurs, gallops, or rubs no peripheral edema Abdominal: Soft Nontender, nom distended, no guarding, no rebound or rigidity, Normoactive bowel sounds No hepatomegaly, No splenomegaly, No palpable mass No abdominal wall hernia noted Skin: Normal temperature, tone, texture, turgor, No induration No subcutaneous nodules, No rash, lesions, No ulcers Extremities:No digital cyanosis No clubbing, Pedal pulses intact and symmetrical Radial pulses intact and symmetrical Normal gait and station, No calf tenderness Psychiatric: Alert and oriented to person, place and time, Appropriate affect Intact judgement Neuro: Muscles Strength 5/5 in all 4 extremities, Sensation to light touch grossly present throughout, Cranial nerves II-XII grossly intact. No focal sensory deficits - Labs CBC & Chem 7: 10/27/18 09:37 10/27/18 09:37 Labs: Abnormal Lab Results - Last 24 Hours (Table) 10/27/18 10/27/18 10/27/18 Range/Units 06:52 09:37 09:37 RBC 3.50 L (3.80-5.40) m/uL Hgb 10.8 L D (11.4-16.0) gm/dL Hct 33.8 L (34.0-46.0) % Sodium 135 L (137-145) mmol/L Carbon Dioxide 15 L (22-30) mmol/L BUN 46 H (7-17) mg/dL Creatinine 4.27 H (0.52-1.04) mg/dL Glucose 128 H (74-99) mg/dL POC Glucose (mg/dL) 100 H (75-99) mg/dL Calcium 7.4 L (8.4-10.2) mg/dL 10/27/18 Range/Units 10:55 RBC (3.80-5.40) m/uL Hgb (11.4-16.0) gm/dL Hct (34.0-46.0) % Sodium (137-145) mmol/L Carbon Dioxide (22-30) mmol/L BUN (7-17) mg/dL Creatinine (0.52-1.04) mg/dL Glucose (74-99) mg/dL POC Glucose (mg/dL) 141 H (75-99) mg/dL Calcium (8.4-10.2) mg/dL Assessment and Plan (1) Acute kidney injury superimposed on chronic kidney disease Narrative/Plan: * Multifactorial secondary to hypotension due to diuretic superimposed on ongoing use of nephrotoxic agents currently held * Creatinine improving down to 4.4 today no evidence of hydronephrosis on imaging * Good urine output has had 1.8 L out since last night * A metabolic acidosis as well * awaiting nephrology recommendations * Continue IV fluids NS @ 100 cc /hr Current Visit: Yes Status: Acute Code(s): N17.9 - ACUTE KIDNEY FAILURE, UN SPECIFIED; N18.9 - CHRONIC KIDNEY DISEASE, UNSPECIFIED SNOMED Code(s): 40 511987 (2) Hypotension Narrative/Plan: * Multifactorial likely secondary to diuretics use Current Visit: Yes Status: Acute Code(s): I95.9 - HYPOTENSION, UNSPECIFIED SNOMED Code(s): 69875950 (3) Leukocytosis Narrative/Plan: * Patient afebrile leukocytosis has resolved Current Visit: Yes Status: Resolved Code(s): D72.829 - ELEVATED WHITE BLOOD CELL COUNT, UNSPECIFIED SNOMED Code(s): 116062762 (4) Increased anion gap metabolic acidosis Narrative/Plan: * Secondary to acute kidney injury driven by ongoing use of diuretics and hypotension * Initiated bicarb oral replacement Current Visit: Yes Status: Acute Code(s): E87.2 - ACIDOSIS SNOMED Code(s): 94678983 (5) Hyperphosphatemia Narrative/Plan: * Secondary to acute kidney injury * Nephrology following Current Visit: Yes Status: Acute Code(s): E83.39 - OTHER DISORDERS OF PHOS PHORUS METABOLISM SNOMED Code(s): 17325331 (6) Type 2 diabetes mellitus Current Visit: Yes Status: Acute Code(s): E11.9 - TYPE 2 DIABETES MELLITUS WITHOUT COMPLICATIONS SNOMED Code(s): 35238101
[2018-10-27 20:27] LABS: Glucose,Whole Blood 122 mg/dL (75-99)
[2018-10-27] MEDS: MELATONIN 5 MG TABLET PO SCH (21:07)
[2018-10-27] MEDS: GABAPENTIN 300 MG CAP PO SCH (21:07)
[2018-10-27] MEDS: ZIPRASIDONE 40 MG CAP PO SCH (21:07)
[2018-10-27] MEDS: MONTELUKAST 10 MG TAB PO SCH (21:07)
[2018-10-28] MEDS: HEPARIN SODIUM,PORCINE 5,000 UNIT/ML 1 ML VIAL SQ SCH ×3 (01:36→17:54)
[2018-10-28] MEDS: LEVOTHYROXINE 50 MCG TAB PO SCH (04:43)
[2018-10-28 07:40] LABS: Glucose,Whole Blood 132 mg/dL (75-99)
[2018-10-28 09:05] LABS: Calcium 8.7 mg/dL (8.4-10.2); Magnesium 1.6 mg/dL (1.6-2.3); Phosphorus 4.7 mg/dL (2.5-4.5)
[2018-10-28] MEDS: INSULIN ASPART (NovoLOG) 100 UNIT/ML VIAL SQ SCH ×4 (09:33→22:00)
[2018-10-28] MEDS: PROMETHAZINE 25 MG TAB PO SCH ×4 (09:34→21:57)
[2018-10-28] MEDS: NICOTINE 21MG/24HR PATCH TRANSDERM SCH (09:34)
[2018-10-28] MEDS: SODIUM BICARBONATE TAB 650 MG TAB PO SCH ×3 (09:34→21:57)
[2018-10-28] MEDS: SODIUM CHLORIDE 0.9% 1,000 ML IV SCH (09:35)
--- NOTE | 2018-10-28 11:01 | P.PN ---
Subjective Patient is seen in follow-up for acute kidney injury on chronic kidney disease. Patient has chronic kidney disease stage III with baseline creatinine in the range of 1-1.5 secondary to diabetic kidney disease. Renal function is improving. Creatinine was 5.48 on admission and is down to 5.4 today. She admits to good urine output. No edema. No vomiting or diarrhea. She is eager to go home. Vital signs are stable. General: The patient appeared well nourished and normally developed. HEENT: Head exam is unremarkable. Neck is without jugular venous distension. LUNGS: Lungs are clear to auscultation and percussion. Breath sounds decreased. HEART: Rate and Rhythm are regular. First and second heart sounds normal. No murmurs, rubs or gallops. ABDOMEN: Abdominal exam reveals normal bowel sounds. Non-tender and non- distended. No evidence of peritonitis. EXTREMITITES: No clubbing, cyanosis, or edema. Objective - Vital Signs Vital signs: Vital Signs Temp 97.8 F 10/28/18 06:49 Pulse 73 10/28/18 06:49 Resp 18 10/28/18 06:49 BP 84/48 10/28/18 06:49 Pulse Ox 97 10/28/18 06:49 Intake & Output 10/27/18 10/28/18 10/28/18 18:59 06:59 18:59 Output Total 2059 4200 Balance -2059 -420 Output: Urine 2059 4200 Other: Voiding Method Indwelling Catheter Indwelling Catheter - Labs CBC & Chem 7: 10/27/18 09:37 10/28/18 08:12 Labs: Abnormal Lab Results - Last 24 Hours (Table) 10/27/18 10/27/18 10/28/18 Range/Units 10:55 20:15 06:51 Chloride (98-107) mmol/L Carbon Dioxide (22-30) mmol/L BUN (7-17) mg/dL Creatinine (0.52-1.04) mg/dL Glucose (74-99) mg/dL POC Glucose (mg/dL) 141 H 122 H 132 H (75-99) mg/dL Phosphorus (2.5-4.5) mg/dL 10/28/18 Range/Units 08:12 Chloride 113 H (98-107) mmol/L Carbon Dioxide 18 L (22-30) mmol/L BUN 32 H (7-17) mg/dL Creatinine 1.63 H (0.52-1.04) mg/dL Glucose 168 H (74-99) mg/dL POC Glucose (mg/dL) (75-99) mg/dL Phosphorus 4.7 H (2.5-4.5) mg/dL Microbiology - Last 24 Hours (Table) 10/26/18 18:21 Blood Culture - Preliminary Blood No Growth after 24 hours Assessment and Plan Plan: Assessment: 1. Acute kidney injury mostly prerenal secondary to hypotension and diuretics. Creatinine was 5.48 on admission and is 1.63 today. No evidence of hydronephrosis noted on imaging. 2. Chronic kidney disease stage III most likely secondary to diabetic kidney disease with baseline creatinine in the range of 1-1.4. 3. Metabolic acidosis secondary to acute kidney injury and lactic acidosis. Better. 4. Type A lactic acidosis secondary to hypotension. Improved with IV hydration. 5. Insulin-dependent diabetes mellitus. 6. Hyperphosphatemia secondary to acute kidney injury. Better. Expect further improvement with improving renal function. Plan: Decrease rate of normal saline to 70 mL an hour. Maintain oral sodium bicarbonate. Encouraged oral intake. Avoid nephrotoxins. Continue to hold diuretics as well as antihypertensives. Add cortisol level to morning labs as patient is still quite hypotensive. Replace magnesium. 2 g IV today.
[2018-10-28 12:16] LABS: Glucose,Whole Blood 107 mg/dL (75-99)
[2018-10-28] MEDS: MAGNESIUM SULFATE-D5W PMX 1 GM in DEXTROSE/WATER 1 100ML.BAG IVPB SCH ×2 (13:11→14:49)
[2018-10-28 16:44] LABS: Glucose,Whole Blood 125 mg/dL (75-99)
--- NOTE | 2018-10-28 19:19 | P.PN ---
Subjective Progress Note Date: 10/28/18 Patient was seen and examined at the bedside. The patient was in good spirits and denied any active complaints. The patient denied fever, chills, chest pain, shortness of breath, nausea, vomiting, or abdominal pain. Objective - Vital Signs Vital signs: Vital Signs Temp 99.1 F 10/28/18 14:05 Pulse 77 10/28/18 16:00 Resp 18 10/28/18 16:00 BP 90/51 10/28/18 14:52 Pulse Ox 98 10/28/18 14:05 Intake & Output 10/28/18 10/28/18 10/29/18 06:59 18:59 06:59 Intake Total 180 Output Total 4200 3275 Balance -4200 -3095 Intake: Oral 180 Output: Urine 4200 3275 Other: Voiding Method Indwelling Catheter Indwelling Catheter - Exam General: Non-toxic, in no acute distress, appears stated age, normal weight HEENT: NC/AT, anicteric sclerae, moist conjunctiva, no lid-lag, PERRLA Cardiovascular: S1/S2 wnl, no murmurs, rubs, or gallops Lungs: Clear to auscultation, normal respiratory effort, no accessory muscle use Abdominal: Soft, non-tender, non-distended, no guarding, rebound, or rigidity Skin: Warm, dry Extremities: No edema or contractures Psychiatric: Alert and oriented to person, place and time, appropriate affect Neuro: CN II-XII grossly intact, Strength 5/5 in all 4 extremities, Speech intac t, Sensation to light touch grossly intact throughout - Labs CBC & Chem 7: 10/27/18 09:37 10/28/18 08:12 Labs: Abnormal Lab Results - Last 24 Hours (Table) 10/27/18 10/28/18 10/28/18 Range/Units 20:15 06:51 08:12 Chloride 113 H (98-107) mmol/L Carbon Dioxide 18 L (22-30) mmol/L BUN 32 H (7-17) mg/dL Creatinine 1.63 H (0.52-1.04) mg/dL Glucose 168 H (74-99) mg/dL POC Glucose (mg/dL) 122 H 132 H (75-99) mg/dL Phosphorus 4.7 H (2.5-4.5) mg/dL 10/28/18 10/28/18 Range/Units 11:54 16:42 Chloride (98-107) mmol/L Carbon Dioxide (22-30) mmol/L BUN (7-17) mg/dL Creatinine (0.52-1.04) mg/dL Glucose (74-99) mg/dL POC Glucose (mg/dL) 107 H 125 H (75-99) mg/dL Phosphorus (2.5-4.5) mg/dL Microbiology - Last 24 Hours (Table) 10/26/18 18:21 Blood Culture - Preliminary Blood No Growth after 24 hours Assessment and Plan Plan: RICKIE on CKD, improved -Nephrology recommendations appreciated -Continue with IV fluids 100 mL an hour -Holding diuretics and antihypertensives in setting of borderline BP Hypotension -Likely secondary to overuse of diuretics Leukocytosis, resolved Metabolic acidosis, anion gap normalized -Continue with sodium bicarb as per nephrology Type 2 diabetes mellitus -Continue with insulin sliding scale with blood glucose monitoring Hypothyroidism -Continue with levothyroxine
[2018-10-28] MEDS ORDERED: ZIPRASIDONE 80 MG CAP PO SCH (21:00)
[2018-10-28 21:19] LABS: Glucose,Whole Blood 129 mg/dL (75-99)
[2018-10-28] MEDS: MONTELUKAST 10 MG TAB PO SCH (21:57)
[2018-10-28] MEDS: GABAPENTIN 300 MG CAP PO SCH (21:57)
[2018-10-28] MEDS: MELATONIN 5 MG TABLET PO SCH (22:00)
[2018-10-29] MEDS: HEPARIN SODIUM,PORCINE 5,000 UNIT/ML 1 ML VIAL SQ SCH ×2 (01:08→09:43)
[2018-10-29] MEDS: MELATONIN 5 MG TABLET PO SCH (01:11)
[2018-10-29] MEDS: SODIUM CHLORIDE 0.9% 1,000 ML IV SCH (02:52)
[2018-10-29 06:48] LABS: Glucose,Whole Blood 129 mg/dL (75-99)
[2018-10-29] MEDS: LEVOTHYROXINE 50 MCG TAB PO SCH (07:08)
[2018-10-29 07:16] VITALS: BP 86/51; PULSE 83; RESP 16; TEMP 98.5
[2018-10-29] MEDS: INSULIN ASPART (NovoLOG) 100 UNIT/ML VIAL SQ SCH (07:29)
[2018-10-29 08:26] LABS: Calcium 9.7 mg/dL (8.4-10.2); Magnesium 1.7 mg/dL (1.6-2.3); Potassium 3.8 mmol/L (3.5-5.1)
--- NOTE | 2018-10-29 09:05 | P.PN ---
Subjective Patient is seen in follow-up for acute kidney injury on chronic kidney disease. Patient has chronic kidney disease stage III with baseline creatinine in the range of 1-1.5 secondary to diabetic kidney disease. Renal function is improving. Creatinine was 5.48 on admission and is down to 1.1 today. She admits to good urine output. No edema. No vomiting or diarrhea. She is eager to go home. Vital signs are stable. General: The patient appeared well nourished and normally developed. HEENT: Head exam is unremarkable. Neck is without jugular venous distension. LUNGS: Lungs are clear to auscultation and percussion. Breath sounds decreased. HEART: Rate and Rhythm are regular. First and second heart sounds normal. No murmurs, rubs or gallops. ABDOMEN: Abdominal exam reveals normal bowel sounds. Non-tender and non- distended. No evidence of peritonitis. EXTREMITITES: No clubbing, cyanosis, or edema. Objective - Vital Signs Vital signs: Vital Signs Temp 98.5 F 10/29/18 07:00 Pulse 83 10/29/18 07:00 Resp 16 10/29/18 07:00 BP 86/51 10/29/18 07:00 Pulse Ox 95 10/29/18 07:00 Intake & Output 10/28/18 10/29/18 10/29/18 18:59 06:59 18:59 Intake Total 180 Output Total 3275 1700 1550 Balance -3095 -1700 -1550 Intake: Oral 180 Output: Urine 3275 1700 1550 Uretheral (Wilhelm) 1550 Other: Voiding Method Indwelling Catheter Indwelling Catheter - Labs CBC & Chem 7: 10/27/18 09:37 10/29/18 07:21 Labs: Abnormal Lab Results - Last 24 Hours (Table) 10/28/18 10/28/18 10/28/18 Range/Units 08:12 11:54 16:42 Chloride 113 H (98-107) mmol/L Carbon Dioxide 18 L (22-30) mmol/L BUN 32 H (7-17) mg/dL Creatinine 1.63 H (0.52-1.04) mg/dL Glucose 168 H (74-99) mg/dL POC Glucose (mg/dL) 107 H 125 H (75-99) mg/dL Phosphorus 4.7 H (2.5-4.5) mg/dL 10/28/18 10/29/18 10/29/18 Range/Units 21:17 06:47 07:21 Chloride 116 H (98-107) mmol/L Carbon Dioxide 18 L (22-30) mmol/L BUN 21 H (7-17) mg/dL Creatinine 1.10 H (0.52-1.04) mg/dL Glucose 118 H (74-99) mg/dL POC Glucose (mg/dL) 129 H 129 H (75-99) mg/dL Phosphorus (2.5-4.5) mg/dL Microbiology - Last 24 Hours (Table) 10/26/18 18:21 Blood Culture - Preliminary Blood No Growth after 48 hours Assessment and Plan Plan: Assessment: 1. Acute kidney injury mostly prerenal secondary to hypotension and diuretics. Creatinine was 5.48 on admission and is 1.1 today. No evidence of hydroneph rosis noted on imaging. 2. Chronic kidney disease stage III most likely secondary to diabetic kidney disease with baseline creatinine in the range of 1-1.4. 3. Metabolic acidosis secondary to acute kidney injury and lactic acidosis. Better. 4. Type A lactic acidosis secondary to hypotension. Improved with IV hydration. Cortisol level normal. 5. Insulin-dependent diabetes mellitus. 6. Hyperphosphatemia secondary to acute kidney injury. Better. Expect further improvement with improving renal function. Plan: Hep-Lock IV fluids. Maintain oral sodium bicarbonate. Continue to hold all antihypertensives. I also advised patient to hold torsemide for now. She may resume if notices worsening of edema or weight gain after discharge. Anticipate discharge soon. Follow up outpatient in the next 1-2 weeks.
[2018-10-29] MEDS: NICOTINE 21MG/24HR PATCH TRANSDERM SCH (09:43)
[2018-10-29] MEDS: SODIUM BICARBONATE TAB 650 MG TAB PO SCH (09:43)
[2018-10-29] MEDS: PROMETHAZINE 25 MG TAB PO SCH (09:44)
[2018-10-29] MEDS: MAGNESIUM SULFATE-D5W PMX 1 GM in DEXTROSE/WATER 1 100ML.BAG IVPB SCH ×2 (09:56→11:13)
--- NOTE | 2018-10-29 10:49 | P.DS ---
Providers Date of admission: 10/26/18 17:01 Expected date of discharge: 10/29/18 Attending physician: Karrie Amado DO Consults: 10/26/18 17:04 Consult Physician Stat Consulting Provider: Robbin David Consult Reason/Comments: Renal failure Do you want consulting provider notified?: Yes Primary care physician: [facility] Course: The patient is a 58 yo F with a PMH of DM, HTN, HLD, bipolar disorder, and CKD III presented to the ED for complaints of shortness of breath and decreased urination. She also had reported some suprapubic pain along with subjective f gilberto and chills. She underwent an extensive evaluation in the ED and was noted to be hypotensive and had creatinine 5.4 (elevated from baseline of 1.1-1.4), w/ lactate 2.3, and UA w/ hyalin casts and +1 proteins. The patient was subsequently admitted to the medicine service for RICKIE possibly secondary to over-diuresis and hypotension. Nephrology was consulted and the patient's diuretics and antihypertensives were held. The patient's creatinine gradually improved to 1.10. She was seen and examined at the bedside on the day of discharge. She reports feeling well and denied any active complaints. Denied fever, chills, abdominal pain, chest pain, dysuria, or SOB. Physical Examination General: Non-toxic, in no acute distress, appears stated age, normal weight HEENT: NC/AT, anicteric sclerae, moist conjunctiva, no lid-lag, PERRLA Cardiovascular: S1/S2 wnl, no murmurs, rubs, or gallops Lungs: Clear to auscultation, normal respiratory effort, no accessory muscle use Abdominal: Soft, non-tender, non-distended, no guarding, rebound, or rigidity Skin: Warm, dry Extremities: No edema or contractures Psychiatric: Alert and oriented to person, place and time, appropriate affect Neuro: CN II-XII grossly intact, Strength 5/5 in all 4 extremities, Speech intact, Sensation to light touch grossly intact throughout Discharge diagnosis: RICKIE on CKD, resolved; Hypotension; Leukocytosis, resolved; Type 2 DM; Hypothyroidism; Metabolic acidosis A total of 40 minutes of time were spent preparing this complex discharge summ jose. Patient Condition at Discharge: Stable Plan - Discharge Summary Discharge Rx Participant: Yes New Discharge Prescriptions: New Sodium Bicarbonate Tab 650 mg PO TID #21 tab Continue Morphine Pump 1 dose INTRATHECA CONTINUOUS Omeprazole 20 mg PO DAILY Montelukast [Singulair] 10 mg PO HS Ziprasidone [Geodon] 80 mg PO HS Levothyroxine Sodium [Synthroid] 50 mcg PO DAILY Ziprasidone [Geodon] 60 mg PO DAILY Melatonin 25mg 25 mg PO HS Dicyclomine [Bentyl] 20 mg PO QID Linaclotide [Linzess] 145 mcg PO DAILY PRN PRN Reason: ibs Promethazine [Phenergan] 12.5 mg PO QID Gabapentin 600 mg PO HS Discontinued DULoxetine HCL [Cymbalta] 60 mg PO DAILY Potassium Chloride ER [K-Dur 20] 20 meq PO DAILY Torsemide [Demadex] 5 mg PO DAILY Lisinopril [Zestril] 10 mg PO DAILY Discharge Medication List Morphine Pump 1 dose INTRATHECA CONTINUOUS 05/05/18 [History] Montelukast [Singulair] 10 mg PO HS 07/20/18 [History] Omeprazole 20 mg PO DAILY 07/20/18 [History] Ziprasidone [Geodon] 80 mg PO HS 07/30/18 [History] Levothyroxine Sodium [Synthroid] 50 mcg PO DAILY 07/31/18 [History] Ziprasidone [Geodon] 60 mg PO DAILY 07/31/18 [History] Dicyclomine [Bentyl] 20 mg PO QID 10/26/18 [History] Gabapentin 600 mg PO HS 10/26/18 [History] Linaclotide [Linzess] 145 mcg PO DAILY PRN 10/26/18 [History] Melatonin 25mg 25 mg PO HS 10/26/18 [History] Promethazine [Phenergan] 12.5 mg PO QID 10/26/18 [History] Sodium Bicarbonate Tab 650 mg PO TID #21 tab 10/29/18 [Rx] Follow up Appointment(s)/Referral(s): James Plata MD [Primary Care Provider] - 1-2 days Discharge Disposition: HOME SELF-CARE
[2018-10-29 11:12] LABS: Glucose,Whole Blood 155 mg/dL (75-99)
== END 2018-10-29 13:05 | disposition home or self-care (01) | DRG 683 ==
LOC: EC 13:42 → 4SSUR 17:01
PROVIDERS: ADMIT Internal Medicine; ATTEND Internal Medicine
DX: N17.9 Acute kidney failure, unspecified (principal); E87.2 Acidosis; T50.2X5A Adverse effect of carbonic-anhydrase inhibitors, benzothiadiazides and other diuretics, initial encounter; N18.3 Chronic kidney disease, stage 3 (moderate); D72.829 Elevated white blood cell count, unspecified; E03.9 Hypothyroidism, unspecified; E11.22 Type 2 diabetes mellitus with diabetic chronic kidney disease; E11.43 Type 2 diabetes mellitus with diabetic autonomic (poly)neuropathy; E78.5 Hyperlipidemia, unspecified; E83.39 Other disorders of phosphorus metabolism; F17.210 Nicotine dependence, cigarettes, uncomplicated; F31.9 Bipolar disorder, unspecified; F40.240 Claustrophobia; F41.0 Panic disorder [episodic paroxysmal anxiety]; F43.10 Post-traumatic stress disorder, unspecified; I12.9 Hypertensive chronic kidney disease with stage 1 through stage 4 chronic kidney disease, or unspecified chronic kidney disease; J43.9 Emphysema, unspecified; K31.84 Gastroparesis; K58.9 Irritable bowel syndrome, unspecified; M06.9 Rheumatoid arthritis, unspecified; M79.7 Fibromyalgia; Z79.4 Long term (current) use of insulin; Z79.890 Hormone replacement therapy; Z79.899 Other long term (current) drug therapy; Z80.0 Family history of malignant neoplasm of digestive organs; Z80.1 Family history of malignant neoplasm of trachea, bronchus and lung; Z80.7 Family history of other malignant neoplasms of lymphoid, hematopoietic and related tissues; Z82.49 Family history of ischemic heart disease and other diseases of the circulatory system; Z86.73 Personal history of transient ischemic attack (TIA), and cerebral infarction without residual deficits; Z90.710 Acquired absence of both cervix and uterus; L30.9 Dermatitis, unspecified; Z82.3 Family history of stroke; I95.9 Hypotension, unspecified; Z98.42 Cataract extraction status, left eye; Z98.41 Cataract extraction status, right eye; Z88.0 Allergy status to penicillin; Z88.1 Allergy status to other antibiotic agents; Z91.040 Latex allergy status; H04.129 Dry eye syndrome of unspecified lacrimal gland; M32.9 Systemic lupus erythematosus, unspecified; M54.9 Dorsalgia, unspecified; G89.29 Other chronic pain
CPT/HCPCS: 36415; 51702; 71045; 74018; 74176; 76770; 80048; 80053; 81001; 82533; 83605; 83735; 84100; 84484; 85025; 87040; 93005; 96360; 99291

== ENCOUNTER → 2018-11-09 | Outpatient (CLI) | payer BC, MEDICARE ==
--- NOTE | 2018-11-09 14:56 | US ---
EXAMINATION TYPE: US mass soft tissue chest/back DATE OF EXAM: 11/09/2018 COMPARISON: CT dated 10/26/2018 CLINICAL HISTORY: M54.5 low back pain. Lump felt/seen in lumbar area just to the left of spine. Complex cystic mass at area of lump = 3.4 x 2.9 x 2.2 cm. Inferiorly there is an echogenic, circular structure representing a limb of the left anterior abdominal wall subcutaneous nerve stimulator.No in ternal vascular flow or peripheral hyperemia is seen. No edema surrounding this. IMPRESSION: Septated fluid collection encapsulated a coiled portion of the left abdominal wall nerve stimulator implanted in the subcutaneous tissues of the lumbar spine likely represents a chronic orga nizing hematoma and/or seroma as no surrounding edema or peripheral hyperemia are seen to suggest abs cess.
== END | disposition home or self-care (01) ==
LOC: RADXRMAIN 14:09
PROVIDERS: ATTEND Internal Medicine
DX: R93.7 Abnormal findings on diagnostic imaging of other parts of musculoskeletal system (principal); Z96.89 Presence of other specified functional implants; M54.5 Low back pain

== ENCOUNTER → 2018-11-16 | Outpatient (CLI) | payer BC, MEDICARE ==
[2018-11-16 15:33] LABS: HCT 38.4 % (34.0-46.0); Hypochromasia Slight; MCH 30.8 pg (25.0-35.0); MCHC 31.4 g/dL (31.0-37.0); Mean Platelet Volume 7.4; Platelet Count 388 k/uL (150-450); RBC 3.91 m/uL (3.80-5.40); RDW 14.9 % (11.5-15.5); WBC 10.4 k/uL (3.8-10.6)
[2018-11-16 15:58] LABS: Appearance,Urine Clear (Clear); Bilirubin,Urine Negative (Negative); Blood,Urine Negative (Negative); Color,Urine Yellow; Glucose,Urine (UA) Negative (Negative); Ketones,Urine Negative (Negative); Leukocyte Esterase,Urine Negative (Negative); Nitrite,Urine Negative (Negative); Protein,Urine Trace (Negative); Urobilinogen,Urine <2.0 mg/dL (<2.0)
[2018-11-16 23:26] LABS: Parathyroid Hormone Intact 14.7 pg/mL (14.0-72.0)
[2018-11-17] LABS: Iron Saturation 10.63 (12.00-45.00)
[2018-11-17 00:09] LABS: Vitamin D 25 Hydroxy 15.6 ng/mL (30.0-100.0)
[2018-11-17 00:43] LABS: African American GFR (CKD) 71.9 (60.0-200.0); Albumin/Globulin Ratio 1.48 (1.60-3.17); Anion Gap 4.5 mmol/L (4.00-12.00); Calcium 9.4 mg/dL (8.7-10.3); Carbon Dioxide 18.5 mmol/L (21.6-31.8); Globulin 2.7 g/dL (1.6-3.3); Magnesium 1.9 mg/dL (1.5-2.4); Phosphorus 3.4 mg/dL (2.4-5.1); Potassium 4.1 mmol/L (3.5-5.5); Total Bilirubin 0.2 mg/dL (0.3-1.2); Total Protein 6.7 g/dL (6.2-8.2); Uric Acid 5.2 mg/dL (2.9-7.7)
== END | disposition home or self-care (01) ==
LOC: LABWHC1 14:57
PROVIDERS: ATTEND Internal Medicine
DX: N18.3 Chronic kidney disease, stage 3 (moderate) (principal); D63.1 Anemia in chronic kidney disease; N39.0 Urinary tract infection, site not specified; R80.9 Proteinuria, unspecified; N25.81 Secondary hyperparathyroidism of renal origin; E55.9 Vitamin D deficiency, unspecified; M10.9 Gout, unspecified
CPT/HCPCS: 36415; 80053; 81003; 82043; 82306; 82570; 82728; 83540; 83550; 83735; 83970; 84100; 84550; 85027

== ENCOUNTER → 2018-12-22 | Outpatient (CLI) | payer BC, MEDICARE ==
--- NOTE | 2018-12-23 10:27 | MM ---
Reason for exam: screening (asymptomatic). Last mammogram was performed 1 year and 5 months ago. History: Patient is postmenopausal. Benign excisional biopsy of the right breast. Taking estrogen for 6 years. Physical Findings: A clinical breast exam by your physician is recommended on an annual basis and results should be correlated with mammographic findings. MG Screening Mammo w CAD Bilateral CC and MLO view(s) were taken. Prior study comparison: August 03, 2017, bilateral MG screening mammo w CAD. July 25, 2016, bilateral MG screening mammo w CAD. There are scattered fibroglandular densities. No suspicious abnormality. No significant changes when compared with prior studies. ASSESSMENT: Benign, BI-RAD 2 RECOMMENDATION: Routine screening mammogram of both breasts in 1 year.
== END | disposition home or self-care (01) ==
LOC: RADMAMWWP 14:36
PROVIDERS: ATTEND Family Medicine
DX: Z12.31 Encounter for screening mammogram for malignant neoplasm of breast (principal)
CPT/HCPCS: 77067

== ENCOUNTER 2019-04-13 18:12 | Inpatient (IN) | payer BC, MEDICARE ==
[2019-04-13] MEDS ORDERED: SODIUM CHLORIDE 0.9% 500 ML 500 ML IV STA (18:14)
[2019-04-13] MEDS: NALOXONE 0.4 MG/ML 10 ML VIAL IVP PRN ×2 (18:36→19:07)
[2019-04-13 18:46] LABS: Basophils % (A) 0 %; Eosinophils # (A) 0.1 k/uL (0-0.7); Eosinophils % (A) 0 %; HCT 41.1 % (34.0-46.0); HGB 13.4 gm/dL (11.4-16.0); Lymphocytes # (A) 1.2 k/uL (1.0-4.8); Lymphocytes % (A) 9 %; MCH 32.5 pg (25.0-35.0); MCHC 32.7 g/dL (31.0-37.0); MCV 99.3 fL (80.0-100.0); Mean Platelet Volume 6.6; Monocytes # (A) 0.5 k/uL (0-1.0); Monocytes % (A) 4 %; Neutrophils # (A) 11.2 k/uL (1.3-7.7); Neutrophils % (A) 86 %; Platelet Count 256 k/uL (150-450); RBC 4.14 m/uL (3.80-5.40); RDW 13.3 % (11.5-15.5); WBC 13.1 k/uL (3.8-10.6)
[2019-04-13 18:53] LABS: ALT 13 U/L (9-52); AST 22 U/L (14-36); Acetaminophen <10.0 ug/mL; African American GFR (CKD) 60 (>60 ml/min/1.73 sqM); Alcohol <10 mg/dL; Alkaline Phosphatase 88 U/L (38-126); Anion Gap 8 mmol/L; Blood Urea Nitrogen 13 mg/dL (7-17); Calcium 9.4 mg/dL (8.4-10.2); Carbon Dioxide 20 mmol/L (22-30); Chloride 110 mmol/L (98-107); Creatine Kinase 493 U/L (30-135); Glucose 160 mg/dL (74-99); Potassium 3.8 mmol/L (3.5-5.1); Salicylate <1.0 mg/dL; Sodium 138 mmol/L (137-145); Total Bilirubin 0.5 mg/dL (0.2-1.3)
--- NOTE | 2019-04-13 18:55 | ED ---
General Adult HPI - General Chief complaint: Overdose Stated complaint: Overdose Time Seen by Provider: 04/13/19 18:14 Source: patient, family, EMS, RN notes reviewed, old records reviewed Mode of arrival: EMS Limitations: altered mental status - History of Present Illness Initial comments: 58-year-old female presenting with polysubstance overdose. Patient's admits to ingesting morphine sulfate and trazodone. She had recent prescriptions filled for total morphine sulfates 30 mg and extended release 15 mg to these prescription bottles were filled on April 10 2120 quantity. One was filled on March 11 quantity 60. And she had a trazodone 100 mg prescription filled on April 02 quantity of 30. All of these bottles are empty. Unknown exact quantity of ingested pills. She admits taking these prescriptions approximately 15 hours prior to arrival. When EMS arrived she was somnolent with snoring respirations. She was given 0.4 mg of Narcan with improvement in mental status. She admits to intentional overdose. She has had intentional overdose in the past. No physical complaints. - Related Data Home Medications Medication Instructions Recorded Confirmed Ziprasidone [Geodon] 80 mg PO HS 07/30/18 03/09/19 Levothyroxine Sodium [Synthroid] 50 mcg PO DAILY 07/31/18 03/09/19 Ziprasidone [Geodon] 60 mg PO DAILY 07/31/18 03/09/19 Dicyclomine [Bentyl] 20 mg PO QID 10/26/18 03/09/19 Gabapentin 600 mg PO HS 10/26/18 03/09/19 Linaclotide [Linzess] 145 mcg PO DAILY PRN 10/26/18 03/09/19 Melatonin 25mg 25 mg PO HS 10/26/18 03/09/19 Promethazine [Phenergan] 12.5 mg PO QID 10/26/18 03/09/19 Citrazine 20 mg PO HS 03/02/19 03/09/19 Glipizide PO DAILY 03/02/19 03/02/19 Morphine Sulfate [Ms Contin] 30 mg PO Q12HR 03/02/19 03/09/19 lamoTRIgine [LaMICtal] 100 mg PO HS 03/02/19 03/09/19 Allergies Allergy/AdvReac Type Severity Reaction Status Date / Time adhesive Allergy Rash/Hives Verified 03/09/19 14:31 azithromycin Allergy Rash/Hives Verified 03/09/19 14:31 [From Zithromax Z-Ivan] ciprofloxacin [From Cipro] Allergy Rash/Hives Verified 03/09/19 14:31 ciprofloxacin HCl Allergy Rash/Hives Verified 03/09/19 14:31 [From Cipro] clarithromycin [From Biaxin] Allergy Rash/Hives Verified 03/09/19 14:31 doxycycline calcium Allergy Rash/Hives Verified 03/09/19 14:31 [From Vibramycin] doxycycline hyclate Allergy Rash/Hives Verified 03/09/19 14:31 [From Vibramycin] doxycycline monohydrate Allergy Rash/Hives Verified 03/09/19 14:31 [From Vibramycin] erythromycin base Allergy Rash/Hives Verified 03/09/19 14:31 [From E-Mycin] Latex, Natural Rubber Allergy Anaphylaxis Verified 03/09/19 14:31 levofloxacin [From Levaquin] Allergy Rash/Hives Verified 03/09/19 14:31 oxybutynin chloride Allergy Rash/Hives Verified 03/09/19 14:31 [From Ditropan] penicillin G Allergy Rash/Hives Verified 03/09/19 14:31 prochlorperazine edisylate Allergy Rash/Hives Verified 03/09/19 14:31 [From Compazine] prochlorperazine maleate Allergy Rash/Hives Verified 03/09/19 14:31 [From Compazine] tetracycline [Tetracycline] Allergy Rash/Hives Verified 03/09/19 14:31 valdecoxib [From Bextra] Allergy Hallucinati Verified 03/09/19 14:31 ons Review of Systems ROS Statement: Those systems with pertinent positive or pertinent negative responses have been documented in the HPI. ROS Other: All systems not noted in ROS Statement are negative. Past Medical History Past Medical History: COPD, CVA/TIA, Diabetes Mellitus, Fibromyalgia, Hyperlipidemia, Hypertension, Osteoarthritis (OA), Renal Disease, Rheumatoid Arthritis (RA), Skin Disorder, Thyroid Disorder Additional Past Medical History / Comment(s): diabetic neuropathy, lupus ,DDD ,IBS, chronic dry eye, palpitations,migraines, TIA x 5-rt lip droops, emphysema, eczema in ears, history of wound on right toe, gastroparesis, Kidney failure with hospitalization in September 2018 History of Any Multi-Drug Resistant Organisms: None Reported Past Surgical History: Back Surgery, Cholecystectomy, Hernia Repair, Hysterectomy, Orthopedic Surgery, Tonsillectomy, Uterine Ablation Additional Past Surgical History / Comment(s): EGD, Colonoscopy, vocal cord surgery, cataract bilateral removal, right knee arthroscopy, right elbow surgery, bilateral feet heel spurs and arthroplasty on B/L foot toes, BILAT CTR, 2 nerve stimulator in spine X2, laminectomy L4-5,hiatal hernia repair, biopsy left arm,mult sinus surgeries, STIMULATOR in back (not currently working) , MORPHINE PUMP INSERTED to left side of abdomen for chronic back pain by Dr. Williamson, I&D RT FOOT WOUND Surgical removal of seroma and cyst on back in November 2018; surgical removal of Pain Pump in november 2018 Past Anesthesia/Blood Transfusion Reactions: Family History of Problems w/ Anesthesia Additional Past Anesthesia/Blood Transfusion Reaction / Comment(s): claustrophobic, mother- IN during surgery Past Psychological History: Anxiety, Bipolar, Depression, Panic Disorder, PTSD Smoking Status: Current every day smoker Past Alcohol Use History: Occasional Past Drug Use History: None Reported - Past Family History Mother Family Medical History: Cancer, CVA/TIA, Myocardial Infarction (IN), Osteoarthritis (OA), Rheumatoid Arthritis (RA) Additional Family Medical History / Comment(s): Mother had scleroderma, lymphoma and stomach CA, stents, lupus Father Family Medical History: Cancer Additional Family Medical History / Comment(s): LUNG CANCER General Exam Limitations: altered mental status General appearance: in no apparent distress, lethargic Head exam: Present: atraumatic, normocephalic Eye exam: Present: normal appearance, PERRL ENT exam: Present: normal exam Neck exam: Present: normal inspection. Absent: tenderness, meningismus Respiratory exam: Present: normal lung sounds bilaterally. Absent: respiratory distress, wheezes Cardiovascular Exam: Present: regular rate, normal rhythm GI/Abdominal exam: Present: soft. Absent: distended, tenderness, guarding Extremities exam: Present: normal inspection, normal capillary refill. Absent: pedal edema Back exam: Present: full ROM Neurological exam: Present: alert. Absent: motor sensory deficit Psychiatric exam: Present: depressed, flat affect, suicidal ideation Skin exam: Present: warm, dry, intact. Absent: cyanosis, diaphoretic Course Vital Signs 1104/13/19 04/13/19 18:15 18:20 18:36 Temperature 98.0 F Pulse Rate 103 H Pulse Rate [ 94 Psychodramatist ] Respiratory 18 18 Rate Blood Pressure 135/73 O2 Sat by Pulse 96 Oximetry 04/13/19 04/13/19 04/13/19 19:07 19:09 20:21 Temperature Pulse Rate 92 68 Pulse Rate [ Psychodramatist ] Respiratory 16 16 16 Rate Blood Pressure 117/74 105/57 O2 Sat by Pulse 96 98 Oximetry 04/13/19 04/13/19 20:30 20:40 Temperature Pulse Rate 59 L 55 L Pulse Rate [ Psychodramatist ] Respiratory 16 16 Rate Blood Pressure 105/57 86/48 O2 Sat by Pulse 98 98 Oximetry - Reevaluation(s) Reevaluation #1: 04/13/19 20:59 Patient requiring multiple doses of Narcan constant stimulation to maintain her respiratory drive. Decision is made to intubate this patient for airway protection, and respiratory support. EKG Findings - EKG Comments: EKG Findings:: EKG obtained at 1832, sinus tachycardia, right atrial enlargement, rate of 102, OK interval 160, QRS duration 104, QTC prolonged at 518, no ST segment elevation. EKG obtained at 0, sinus bradycardia, low voltage, rate of 55, OK interval 152, QRS duration 100, QTC [address] segment elevation Procedures - Intubation Sedative: Versed Mg Given: 5 Paralytic: Rocuronium Mg Given: 50 Laryngoscope: Chacha Size: 3 ET Tube Size: 7.5 ET Tube Uncuffed: No Tube Secured Depth (cm): 22 Tube Secured Location: lips Tube Placement Confirmation: visualized tube passing through cords, equal breath sounds bilaterally, no breath sounds over epigastrium, confirmation by capnometry Patient Tolerated Procedure: well Intubation Complications: none Medical Decision Making - Medical Decision Making 58-year-old female presenting with intentional overdose patient initial stating that she took morphine and trazodone more than 12 hours prior to arrival. She does have minimal response to Narcan requiring multiple dosing emergency department. She is not able to protect her airway and he was intubated. Laboratory testing reveals mild leukocytosis, normal electrolytes, mild elevation in serum trending kinase of 493. She is placed on a Versed drip after intubation. She will be admitted to the ICU. Case is discussed with the pulmonary weapons electrical engineering officer and the admitting physician for [facility]. Diagnosis: Respiratory failure requiring intubation, polysubstance overdose, suicide attempt. - Lab Data Result diagrams: 04/13/19 18:33 04/13/19 18:33 Lab Results 04/13/19 04/13/19 04/13/19 Range/Units 18:30 18:33 18:33 WBC 13.1 H (3.8-10.6) k/uL RBC 4.14 (3.80-5.40) m/uL Hgb 13.4 (11.4-16.0) gm/dL Hct 41.1 (34.0-46.0) % MCV 99.3 (80.0-100.0) fL MCH 32.5 (25.0-35.0) pg MCHC 32.7 (31.0-37.0) g/dL RDW 13.3 (11.5-15.5) % Plt Count 256 (150-450) k/uL Neutrophils % 86 % Lymphocytes % 9 % Monocytes % 4 % Eosinophils % 0 % Basophils % 0 % Neutrophils # 11.2 H (1.3-7.7) k/uL Lymphocytes # 1.2 (1.0-4.8) k/uL Monocytes # 0.5 (0-1.0) k/uL Eosinophils # 0.1 (0-0.7) k/uL Basophils # 0.0 (0-0.2) k/uL PT 10.6 (9.0-12.0) sec INR 1.0 (<1.2) Sample Site ABG pH (7.35-7.45) ABG pCO2 (35-45) mmHg ABG pO2 (83-108) mmHg ABG HCO3 (21-25) mmol/L ABG Total CO2 (19-24) mmol/L ABG O2 Saturation (94-97) % ABG Base Excess mmol/L Fred Test FiO2 % Sodium 138 (137-145) mmol/L Potassium 3.8 (3.5-5.1) mmol/L Chloride 110 H (98-107) mmol/L Carbon Dioxide 20 L (22-30) mmol/L Anion Gap 8 mmol/L BUN 13 (7-17) mg/dL Creatinine 1.16 H (0.52-1.04) mg/dL Est GFR (CKD-EPI)AfAm 60 (>60 ml/min/1.73 sqM) Est GFR (CKD-EPI)NonAf 52 (>60 ml/min/1.73 sqM) Glucose 160 H (74-99) mg/dL Plasma Lactic Acid Otis (0.7-2.0) mmol/L Calcium 9.4 (8.4-10.2) mg/dL Total Bilirubin 0.5 (0.2-1.3) mg/dL AST 22 (14-36) U/L ALT 13 (9-52) U/L Alkaline Phosphatase 88 (38-126) U/L Creatine Kinase 493 H (30-135) U/L Total Protein 7.0 (6.3-8.2) g/dL Albumin 4.0 (3.5-5.0) g/dL Urine Color Urine Appearance (Clear) Urine pH (5.0-8.0) Ur Specific Shirley (1.001-1.035) Urine Protein (Negative) Urine Glucose (UA) (Negative) Urine Ketones (Negative) Urine Blood (Negative) Urine Nitrite (Negative) Urine Bilirubin (Negative) Urine Urobilinogen (<2.0) mg/dL Ur Leukocyte Esterase (Negative) Salicylates <1.0 mg/dL Urine Opiates Screen (NotDetected) Ur Oxycodone Screen (NotDetected) Urine Methadone Screen (NotDetected) Ur Propoxyphene Screen (NotDetected) Acetaminophen <10.0 ug/mL Ur Barbiturates Screen (NotDetected) U Tricyclic Antidepress (NotDetected) Ur Phencyclidine Scrn (NotDetected) Ur Amphetamines Screen (NotDetected) U Methamphetamines Scrn (NotDetected) U Benzodiazepines Scrn (NotDetected) Urine Cocaine Screen (NotDetected) U Marijuana (THC) Screen (NotDetected) Serum Alcohol <10 mg/dL 04/13/19 04/13/19 04/13/19 Range/Units 18:33 20:16 20:35 WBC (3.8-10.6) k/uL RBC (3.80-5.40) m/uL Hgb (11.4-16.0) gm/dL Hct (34.0-46.0) % MCV (80.0-100.0) fL MCH (25.0-35.0) pg MCHC (31.0-37.0) g/dL RDW (11.5-15.5) % Plt Count (150-450) k/uL Neutrophils % % Lymphocytes % % Monocytes % % Eosinophils % % Basophils % % Neutrophils # (1.3-7.7) k/uL Lymphocytes # (1.0-4.8) k/uL Monocytes # (0-1.0) k/uL Eosinophils # (0-0.7) k/uL Basophils # (0-0.2) k/uL PT (9.0-12.0) sec INR (<1.2) Sample Site r rad ABG pH 7.22 L (7.35-7.45) ABG pCO2 50 H (35-45) mmHg ABG pO2 363 H (83-108) mmHg ABG HCO3 21 (21-25) mmol/L ABG Total CO2 22 (19-24) mmol/L ABG O2 Saturation 100.0 H (94-97) % ABG Base Excess -7.2 mmol/L Fred Test Yes FiO2 100 % Sodium (137-145) mmol/L Potassium (3.5-5.1) mmol/L Chloride (98-107) mmol/L Carbon Dioxide (22-30) mmol/L Anion Gap mmol/L BUN (7-17) mg/dL Creatinine (0.52-1.04) mg/dL Est GFR (CKD-EPI)AfAm (>60 ml/min/1.73 sqM) Est GFR (CKD-EPI)NonAf (>60 ml/min/1.73 sqM) Glucose (74-99) mg/dL Plasma Lactic Acid Otis 1.7 (0.7-2.0) mmol/L Calcium (8.4-10.2) mg/dL Total Bilirubin (0.2-1.3) mg/dL AST (14-36) U/L ALT (9-52) U/L Alkaline Phosphatase (38-126) U/L Creatine Kinase (30-135) U/L Total Protein (6.3-8.2) g/dL Albumin (3.5-5.0) g/dL Urine Color Yellow Urine Appearance Clear (Clear) Urine pH 6.5 (5.0-8.0) Ur Specific Shirley 1.009 (1.001-1.035) Urine Protein Trace H (Negative) Urine Glucose (UA) Negative (Negative) Urine Ketones Negative (Negative) Urine Blood Negative (Negative) Urine Nitrite Negative (Negative) Urine Bilirubin Negative (Negative) Urine Urobilinogen <2.0 (<2.0) mg/dL Ur Leukocyte Esterase Negative (Negative) Salicylates mg/dL Urine Opiates Screen Detected H (NotDetected) Ur Oxycodone Screen Not Detected (NotDetected) Urine Methadone Screen Not Detected (NotDetected) Ur Propoxyphene Screen Not Detected (NotDetected) Acetaminophen ug/mL Ur Barbiturates Screen Not Detected (NotDetected) U Tricyclic Antidepress Not Detected (NotDetected) Ur Phencyclidine Scrn Not Detected (NotDetected) Ur Amphetamines Screen Not Detected (NotDetected) U Methamphetamines Scrn Not Detected (NotDetected) U Benzodiazepines Scrn Not Detected (NotDetected) Urine Cocaine Screen Not Detected (NotDetected) U Marijuana (THC) Screen Detected H (NotDetected) Serum Alcohol mg/dL Critical Care Time Critical Care Time: Yes Total Critical Care Time: 45 Disposition Clinical Impression: Overdose, Poisoning by opiates and related narcotics, other, Suicide attempt, Respiratory failure with hypoxia and hypercapnia Disposition: ADMITTED IP TO THIS [facility] Condition: Serious Is patient prescribed a controlled substance at d/c from ED?: No Referrals: None,Stated [Primary Care Provider] - 1-2 days Decision to Admit Reason: Admit from EC Decision Date: 04/13/19 Decision Time: 20:20
[2019-04-13 19:31] LABS: Prothrombin Time 10.6 sec (9.0-12.0)
[2019-04-13] MEDS ORDERED: ROCURONIUM BROMIDE 10 MG/ML 10 ML VIAL IV STA (19:58)
[2019-04-13] MEDS ORDERED: MIDAZOLAM 1 MG/ML 5 ML VIAL IV STA (19:58)
[2019-04-13] MEDS ORDERED: NALOXONE 2 MG in SODIUM CHLORIDE 0.9% 250 ML IV SCH (20:15)
--- NOTE | 2019-04-13 20:20 | XR ---
EXAMINATION TYPE: XR chest 1V portable DATE OF EXAM: 04/13/2019 COMPARISON: 10/26/2018 HISTORY: Check tube placement TECHNIQUE: Single frontal view of the chest is obtained. FINDINGS: There is a poor inspiration. There is some atelectasis at the lung bases. There is nasogas tric tube in the stomach. There are chest leads. Endotracheal tube is in good position and is 4.5 cm from the onofre. IMPRESSION: Bilateral patchy atelectasis in the lower lung august are new compared to last exam. No heart failure.
[2019-04-13] MEDS ORDERED: MIDAZOLAM HCL 50 MG in SODIUM CHLORIDE 0.9% 40 ML IV SCH (20:30)
[2019-04-13 20:39] LABS: ABG Base Excess -7.2 mmol/L; ABG HCO3 21 mmol/L (21-25); ABG PCO2 50 mmHg (35-45); ABG PH 7.22 (7.35-7.45); ABG PO2 363 mmHg (83-108); ABG TCO2 22 mmol/L (19-24); Allen Test Performed? Yes
[2019-04-13] MEDS ORDERED: SODIUM CHLORIDE 0.9% 1,000 ML IV ONE ×2 (20:43→23:29)
[2019-04-13 20:44] LABS: Appearance,Urine Clear (Clear); Bilirubin,Urine Negative (Negative); Blood,Urine Negative (Negative); Color,Urine Yellow; Glucose,Urine (UA) Negative (Negative); Ketones,Urine Negative (Negative); Leukocyte Esterase,Urine Negative (Negative); Nitrite,Urine Negative (Negative); PH, Urine 6.5 (5.0-8.0); Protein,Urine Trace (Negative); Specific Gravity,Urine 1.009 (1.001-1.035); Urobilinogen,Urine <2.0 mg/dL (<2.0)
[2019-04-13] MEDS ORDERED: NALOXONE 0.4 MG/ML 1 ML VIAL IV PRN (20:51)
[2019-04-13 20:54] LABS: Amphetamine Screen,Urine Not Detected (NotDetected); Barbiturate Screen,Urine Not Detected (NotDetected); Benzodiazepines Screen,Urine Not Detected (NotDetected); Cocaine Screen,Urine Not Detected (NotDetected); Methadone Screen, Urine Not Detected (NotDetected); Opiate Screen,Urine Detected (NotDetected); Oxycodone Screen, Urine Not Detected (NotDetected); Phencyclidine Screen,Urine Not Detected (NotDetected); Tricyclic Antidepressant,Urine Not Detected (NotDetected); Urn Cannabinoid Scrn Detected (NotDetected)
[2019-04-13] MEDS: SODIUM CHLORIDE 0.9% 1,000 ML IV SCH (21:09)
[2019-04-13 22:16] LABS: Glucose,Whole Blood 86 mg/dL (75-99)
[2019-04-13] MEDS: PROPOFOL 1,000 MG in EMPTY BAG 1 BAG IV SCH (22:30)
[2019-04-13] MEDS: CHLORHEXIDINE GLUCONATE 15 ML CUP MUCOUS MEM SCH (22:53)
[2019-04-13] MEDS: ENOXAPARIN 40 MG/0.4 ML SYRINGE SQ SCH (23:37)
[2019-04-13] MEDS: PANTOPRAZOLE 40 MG/10 ML VIAL IVP SCH (23:37)
[2019-04-13 23:49] LABS: Glucose,Whole Blood 84 mg/dL (75-99)
[2019-04-14] MEDS ORDERED: SODIUM CHLORIDE 0.9% 1,000 ML IV ONE ×2 (00:22→10:34)
[2019-04-14] MEDS ORDERED: Magnesium Replacement Protocol 1 EACH MISC MISCELLANE PRN (00:24)
[2019-04-14] MEDS ORDERED: Potassium Replacement Protocol 1 EACH MISC MISCELLANE PRN (00:24)
[2019-04-14] MEDS ORDERED: POTASSIUM BICARBONATE/CIT AC 20 MEQ TABLET.EFF NG-TUBE SCH (01:00)
[2019-04-14] MEDS: MAGNESIUM SULFATE-D5W PMX 1 GM in DEXTROSE/WATER 1 100ML.BAG IVPB SCH ×4 (01:28→19:52)
[2019-04-14] MEDS: NOREPINEPHRINE 4 MG in SODIUM CHLORIDE 0.9% 250 ML IV SCH ×3 (02:23→10:50)
[2019-04-14 04:56] LABS: Basophils % (A) 0 %; Eosinophils # (A) 0.1 k/uL (0-0.7); Eosinophils % (A) 1 %; HCT 39.2 % (34.0-46.0); HGB 12.2 gm/dL (11.4-16.0); Lymphocytes # (A) 3.1 k/uL (1.0-4.8); Lymphocytes % (A) 29 %; MCH 31.7 pg (25.0-35.0); MCHC 31.1 g/dL (31.0-37.0); MCV 101.8 fL (80.0-100.0); Macrocytosis Slight; Mean Platelet Volume 6.8; Monocytes # (A) 0.6 k/uL (0-1.0); Monocytes % (A) 6 %; Neutrophils # (A) 6.8 k/uL (1.3-7.7); Neutrophils % (A) 63 %; Platelet Count 250 k/uL (150-450); RBC 3.86 m/uL (3.80-5.40); RDW 13.3 % (11.5-15.5); WBC 10.8 k/uL (3.8-10.6)
[2019-04-14 05:04] LABS: African American GFR (CKD) >90 (>60 ml/min/1.73 sqM); Anion Gap 5 mmol/L; Blood Urea Nitrogen 11 mg/dL (7-17); Calcium 8.1 mg/dL (8.4-10.2); Carbon Dioxide 18 mmol/L (22-30); Chloride 117 mmol/L (98-107); Glucose 91 mg/dL (74-99); Potassium 4.4 mmol/L (3.5-5.1); Sodium 140 mmol/L (137-145)
[2019-04-14 06:29] LABS: Glucose,Whole Blood 111 mg/dL (75-99)
[2019-04-14] MEDS: PROPOFOL 1,000 MG in EMPTY BAG 1 BAG IV SCH (07:15)
--- NOTE | 2019-04-14 07:37 | XR ---
EXAMINATION TYPE: XR chest 1V portable DATE OF EXAM: 04/14/2019 COMPARISON: 04/13/2019 HISTORY: SOB, Follow Up FINDINGS: Indwelling tubes and catheters are unchanged. No change in bibasilar opacities. Stable appearance of the cardio-mediastinal structures at this time. Pleural effusion unchanged. IMPRESSION: 1. Stable portable chest. Clinical correlation and follow up until resolution is recommended.
[2019-04-14 08:12] LABS: ABG Base Excess -9.8 mmol/L; ABG HCO3 18 mmol/L (21-25); ABG PCO2 43 mmHg (35-45); ABG PH 7.23 (7.35-7.45); ABG PO2 128 mmHg (83-108); ABG TCO2 19 mmol/L (19-24); Allen Test Performed? Yes
[2019-04-14] MEDS: ENOXAPARIN 40 MG/0.4 ML SYRINGE SQ SCH (08:19)
[2019-04-14] MEDS: SODIUM CHLORIDE 0.9% 1,000 ML IV SCH ×2 (08:20→19:52)
[2019-04-14] MEDS: CHLORHEXIDINE GLUCONATE 15 ML CUP MUCOUS MEM SCH ×2 (08:20→19:53)
[2019-04-14] MEDS: PANTOPRAZOLE 40 MG/10 ML VIAL IVP SCH (08:20)
--- NOTE | 2019-04-14 08:40 | P.CON ---
Consult Note - . Consult date: 04/14/19 Assessment/Plan:: I reviewed the medical record and attempted to interview the patient. She is a 58-year-old female admitted to the SICU for intentional overdose of prescription opiate medications. She was sedated and intubated. She is not ap propriate for psychiatric assessment at this time. Please reconsult after she was transferred to a general medical bed.
[2019-04-14 12:25] LABS: Glucose,Whole Blood 121 mg/dL (75-99)
[2019-04-14] MEDS: NICOTINE 21MG/24HR PATCH TRANSDERM SCH (12:56)
--- NOTE | 2019-04-14 13:02 | P.CNPUL ---
History of Present Illness Consult date: 04/14/19 Reason for consult: other (Acute hypoxic respiratory failure secondary to multiple drugs overdose.) Chief complaint: Altered mental status History of present illness: This is a 58-year-old female with known history of polysubstance abuse, previous history of respiratory failure secondary to narcotics overdose, patient admits to taking morphine sulfate and trazodone. She had a recent prescription for morphine sulfate 30 mg, and apparently her bottles were filled on April 10 2019. She also had prescriptions for trazodone 100 mg tablets, filled on April 02. Apparently the patient was noted to be somnolent, and having mental status change, EMS was notified. Upon arrival, EMS noted the patient to be somnolent and snoring. Patient was given 0.4 mg of Narcan with minimal improvement in mental status. Patient admitted to EMS that she has been overdosing on her narcotics. And possibly her heart trazodone. Patient was brought into the ER, and as soon as she arrived the patient was noted to be quite somnolent, she was given Narcan again, with minimal response, and she was noted to be unable to protect her airways, she was intubated, placed on mechanical ventilation, placed also on Versed drip, and she was admitted to the ICU. I saw the patient this morning, she was noted to be hypotensive requiring norepinephrine, I recommended giving the patient more fluids, fluid boluses were given and I have also recommended to check weaning parameters once the patient is more awake later today. Sure enough the patient became more awake. Hours later, her weaning parameters were noted to be excellent, and I proceeded to extubating the patient to nasal cannula. Her drug screen on admission was positive for opiates, marijuana, and her acetaminophen level was less than 10. Salicylate level was less than 1. Serum alcohol was less than 10. The rest of the drug screen was basically unremarkable. Review of Systems ROS unobtainable: due to endotracheal tube Past Medical History Past Medical History: COPD, CVA/TIA, Diabetes Mellitus, Fibromyalgia, Hyperlipidemia, Hypertension, Osteoarthritis (OA), Renal Disease, Rheumatoid Arthritis (RA), Skin Disorder, Thyroid Disorder Additional Past Medical History / Comment(s): diabetic neuropathy, lupus ,DDD ,IBS, chronic dry eye, palpitations,migraines, TIA x 5-rt lip droops, emphysema, eczema in ears, history of wound on right toe, gastroparesis, Kidney failure with hospitalization in September 2018 History of Any Multi-Drug Resistant Organisms: None Reported Past Surgical History: Back Surgery, Cholecystectomy, Hernia Repair, Hysterectomy, Orthopedic Surgery, Tonsillectomy, Uterine Ablation Additional Past Surgical History / Comment(s): EGD, Colonoscopy, vocal cord surgery, cataract bilateral removal, right knee arthroscopy, right elbow surgery, bilateral feet heel spurs and arthroplasty on B/L foot toes, BILAT CTR, 2 nerve stimulator in spine X2, laminectomy L4-5,hiatal hernia repair, biopsy left arm,mult sinus surgeries, STIMULATOR in back (not currently working) , MORPHINE PUMP INSERTED to left side of abdomen for chronic back pain by Dr. Williamson, I&D RT FOOT WOUND Surgical removal of seroma and cyst on back in November 2018; surgical removal of Pain Pump in november 2018 Past Anesthesia/Blood Transfusion Reactions: Family History of Problems w/ Anesthesia Additional Past Anesthesia/Blood Transfusion Reaction / Comment(s): claustrophobic, mother- SD during surgery Past Psychological History: Anxiety, Bipolar, Depression, Panic Disorder, PTSD Smoking Status: Current every day smoker Past Alcohol Use History: Occasional Past Drug Use History: None Reported - Past Family History Mother Family Medical History: Cancer, CVA/TIA, Myocardial Infarction (SD), Osteoarthritis (OA), Rheumatoid Arthritis (RA) Additional Family Medical History / Comment(s): Mother had scleroderma, lymphoma and stomach CA, stents, lupus Father Family Medical History: Cancer Additional Family Medical History / Comment(s): LUNG CANCER Medications and Allergies Home Medications Medication Instructions Recorded Confirmed Type Ziprasidone [Geodon] 80 mg PO HS 07/30/18 04/14/19 History Levothyroxine Sodium [Synthroid] 50 mcg PO DAILY 07/31/18 04/14/19 History Ziprasidone [Geodon] 60 mg PO DAILY 07/31/18 04/14/19 History Morphine Sulfate [Ms Contin] 30 mg PO Q12HR 03/02/19 04/14/19 History Dicyclomine HCl 20 mg PO QID PRN 04/14/19 04/14/19 History Morphine Sulfate ER [Ms Contin] 15 mg PO Q12HR 04/14/19 04/14/19 History Omeprazole 40 mg PO DAILY 04/14/19 04/14/19 History SUMAtriptan SUCCINATE [Imitrex] 50 mg PO DAILY PRN 04/14/19 04/14/19 History glipiZIDE XL [Glucotrol XL] 2.5 mg PO DAILY 04/14/19 04/14/19 History lamoTRIgine [LaMICtal] 150 mg PO HS 04/14/19 04/14/19 History traZODone HCL [Desyrel] 100 mg PO HS 04/14/19 04/14/19 History Allergies Allergy/AdvReac Type Severity Reaction Status Date / Time adhesive Allergy Rash/Hives Verified 03/09/19 14:31 azithromycin Allergy Rash/Hives Verified 03/09/19 14:31 [From Zithromax Z-Ivan] ciprofloxacin [From Cipro] Allergy Rash/Hives Verified 03/09/19 14:31 ciprofloxacin HCl Allergy Rash/Hives Verified 03/09/19 14:31 [From Cipro] clarithromycin [From Biaxin] Allergy Rash/Hives Verified 03/09/19 14:31 doxycycline calcium Allergy Rash/Hives Verified 03/09/19 14:31 [From Vibramycin] doxycycline hyclate Allergy Rash/Hives Verified 03/09/19 14:31 [From Vibramycin] doxycycline monohydrate Allergy Rash/Hives Verified 03/09/19 14:31 [From Vibramycin] erythromycin base Allergy Rash/Hives Verified 03/09/19 14:31 [From E-Mycin] Latex, Natural Rubber Allergy Anaphylaxis Verified 03/09/19 14:31 levofloxacin [From Levaquin] Allergy Rash/Hives Verified 03/09/19 14:31 oxybutynin chloride Allergy Rash/Hives Verified 03/09/19 14:31 [From Ditropan] penicillin G Allergy Rash/Hives Verified 03/09/19 14:31 prochlorperazine edisylate Allergy Rash/Hives Verified 03/09/19 14:31 [From Compazine] prochlorperazine maleate Allergy Rash/Hives Verified 03/09/19 14:31 [From Compazine] tetracycline [Tetracycline] Allergy Rash/Hives Verified 03/09/19 14:31 valdecoxib [From Bextra] Allergy Hallucinati Verified 03/09/19 14:31 ons Physical Exam Vitals: Vital Signs Temp Pulse Pulse Resp BP BP Pulse Ox 11/14/19 12:30 69 14 04/14/19 12:15 88 14 119/50 92 L 04/14/19 12:00 98.7 F 70 20 99/46 96 04/14/19 11:45 64 14 108/59 97 04/14/19 11:30 64 21 115/49 96 04/14/19 11:15 68 14 117/54 97 04/14/19 11:00 64 20 117/54 97 04/14/19 10:45 62 20 111/57 96 04/14/19 10:30 61 20 90/67 97 04/14/19 10:15 56 L 20 109/59 96 04/14/19 10:00 56 L 20 109/59 97 04/14/19 09:45 54 L 20 106/47 96 04/14/19 09:30 53 L 20 91/36 95 04/14/19 09:15 52 L 21 101/39 95 04/14/19 09:00 56 L 20 97/56 95 04/14/19 08:45 54 L 20 102/44 96 04/14/19 08:30 54 L 22 119/51 97 04/14/19 08:15 60 20 117/69 98 04/14/19 08:05 69 20 04/14/19 08:00 99.5 F 63 20 124/54 98 04/14/19 07:45 63 20 122/51 98 04/14/19 07:30 63 20 124/52 98 04/14/19 07:15 64 20 122/49 98 04/14/19 07:00 65 20 111/48 97 04/14/19 06:30 67 20 115/48 96 04/14/19 06:00 70 20 111/43 98 04/14/19 05:30 71 20 104/48 97 04/14/19 05:00 68 20 96/32 94 L 04/14/19 04:30 75 20 105/52 97 04/14/19 04:00 98.1 F 69 20 101/49 97 04/14/19 03:30 94 20 140/59 99 04/14/19 03:00 49 L 20 89/55 99 04/14/19 02:30 48 L 20 73/41 99 04/14/19 02:00 51 L 20 85/51 100 04/14/19 01:30 53 L 20 97/49 98 04/14/19 01:00 48 L 20 83/49 99 04/14/19 00:30 51 L 20 85/50 99 04/14/19 00:00 97.9 F 66 69 20 95/53 116/85 99 04/13/19 23:30 61 20 70/38 98 04/13/19 23:00 80 20 109/53 97 04/13/19 22:48 86 16 112/65 99 04/13/19 22:00 88 16 82/49 98 04/13/19 21:30 50 L 17 85/48 98 04/13/19 21:00 53 L 13 86/48 98 04/13/19 20:40 55 L 16 86/48 98 04/13/19 20:30 59 L 16 105/57 98 04/13/19 20:21 68 16 105/57 98 04/13/19 19:09 92 16 117/74 96 04/13/19 19:07 16 04/13/19 18:36 18 04/13/19 18:20 98.0 F 103 H 18 135/73 96 04/13/19 18:15 94 Intake and Output 04/13/19 04/14/19 04/14/19 22:59 06:59 14:59 Intake Total 75.367 3305.930 1887.720 Output Total 425 925 310 Balance -855.618 3494.930 1577.720 Intake: IV 75 3100 1500 Magnesium Sulfate-D5w Pmx 200 1 gm In Dextrose/Water 1 100ml.bag @ 100 mls/hr IVPB Q1H ANA Rx#: [id number] Sodium Chloride 0.9% 1, 75 900 500 000 ml @ 125 mls/hr IV . Q8H ANA Rx#:[id number] Sodium Chloride 0.9% 1, 2000 1000 000 ml @ 999 mls/hr IV . Q1H1M ONE Rx#:[id number] Intake, IV Titration 0.367 205.930 387.720 Amount Midazolam HCl 50 mg In 0.367 5.65 Sodium Chloride 0.9% 40 ml @ 1 MG/HR 1 mls/hr IV .Q24H ANA Rx#:[id number] Norepinephrine 4 mg In 161.668 345.065 Sodium Chloride 0.9% 250 ml @ 0.05 MCG/KG/MIN 13. 826 mls/hr IV .[id number] ANA Rx#:[id number] Propofol 1,000 mg In 44.262 37.005 Empty Bag 1 bag @ Titrate IV .Q0M ANA Rx#: [id number] Output: Urine 425 925 310 Other: Voiding Method Indwelling Catheter Indwelling Catheter Indwelling Catheter Weight 72.575 kg 71.3 kg Physical Exam: Revealed a 58-year-old female on mechanical ventilation. Seems to be quite lethargic, but arousable and follows very simple instructions. Head: Atraumatic, normocephalic. HEENT:[Neck is supple.] [No neck masses.] [No thyromegaly.] [No JVD.] PERRLA, EOMI, no icterus. Chest: [Clear throughout, no crackles, no rhonchi, no wheezes.] Cardiac Exam: [Normal S1 and S2, no S3 gallop, no murmur.] Abdomen: [Soft, nontender, no megaly, no rebound, no guarding, normal bowel sounds.] Extremities: [No clubbing, no edema, no cyanosis.] Neurological Exam: Arousable, follows simple instructions, but tends to fall asleep easily and she is quite lethargic. Psychiatric: Could not be assessed. Skin: No rashes. Lymphatics: No lymphadenopathy. Results - Laboratory Findings CBC and BMP: 04/14/19 04:03 04/14/19 04:03 ABG ABG pH 7.23 (7.35-7.45) L 04/14/19 08:11 ABG pCO2 43 mmHg (35-45) 04/14/19 08:11 ABG pO2 128 mmHg (83-108) H 04/14/19 08:11 ABG O2 Saturation 98.0 % (94-97) H 04/14/19 08:11 PT/INR, D-dimer PT 10.6 sec (9.0-12.0) 04/13/19 18:30 INR 1.0 (<1.2) 04/13/19 18:30 Abnormal lab findings: Abnormal Labs 04/13/19 04/13/19 04/13/19 18:33 18:33 20:16 WBC 13.1 H MCV Neutrophils # 11.2 H ABG pH ABG pCO2 ABG pO2 ABG HCO3 ABG O2 Saturation Chloride 110 H Carbon Dioxide 20 L Creatinine 1.16 H Glucose 160 H POC Glucose (mg/dL) Calcium Creatine Kinase 493 H Urine Protein Trace H Urine Opiates Screen Detected H U Marijuana (THC) Screen Detected H 04/13/19 04/14/19 04/14/19 20:35 04:03 04:03 WBC 10.8 H MCV 101.8 H Neutrophils # ABG pH 7.22 L ABG pCO2 50 H ABG pO2 363 H ABG HCO3 ABG O2 Saturation 100.0 H Chloride 117 H Carbon Dioxide 18 L Creatinine Glucose POC Glucose (mg/dL) Calcium 8.1 L Creatine Kinase Urine Protein Urine Opiates Screen U Marijuana (THC) Screen 04/14/19 04/14/19 04/14/19 06:28 08:11 12:23 WBC MCV Neutrophils # ABG pH 7.23 L ABG pCO2 ABG pO2 128 H ABG HCO3 18 L ABG O2 Saturation 98.0 H Chloride Carbon Dioxide Creatinine Glucose POC Glucose (mg/dL) 111 H 121 H Calcium Creatine Kinase Urine Protein Urine Opiates Screen U Marijuana (THC) Screen - Diagnostic Findings Chest x-ray: image reviewed (Minimal bibasilar atelectasis is noted on the chest x-ray.) Assessment and Plan Assessment: Impression: 1 acute hypoxic and hypercapnic respiratory failure secondary to opiates overdose. 2 possible suicidal attempt, hence patient will require psychiatric evaluation after extubation, and after clearance in the ICU. 3 history of multiple comorbidities including COPD, type 2 diabetes, fibromyalgia, dyslipidemia, hypertension, degenerative joint disease, rheumatoid arthritis, and hypothyroidism. Diabetic neuropathy, irritable bowel syndrome, 4 hypotension secondary to narcotics, and secondary to hypovolemia. Patient will respond to fluids mostly, and to holding all narcotics and sedatives. Propofol was discontinued, and I plan to give the patient fluid boluses, planning to discontinue norepinephrine which was initiated in the ER. Recommendation: Patient will be kept on mechanical ventilation for now, her ventilator settings were noted and adjusted accordingly and according to the ABG. Patient was given fluid boluses for her low blood pressure felt to be related to narcotics and hypovolemia. Depending on the patient's response over the next couple of hours, may proceed to weaning and extubation. In the meantime continue present supportive care measures, continue GI and DVT prophylaxis, will eventually resume most of her home meds. Once the patient is extubated. Psychiatry was consulted, however they could not evaluate the patient because she was uncooperative, on mechanical ventilation. Time with Patient: Greater than 30
[2019-04-14 17:24] LABS: Glucose,Whole Blood 115 mg/dL (75-99)
[2019-04-14 20:30] LABS: Glucose,Whole Blood 148 mg/dL (75-99)
--- NOTE | 2019-04-14 21:48 | P.HPIM ---
History of Present Illness H&P Date: 04/14/19 Chief Complaint: Acute drug overdose Patient is a 58-year-old female with a known history of a known history of COPD, diabetes type 2 [id number], fibromyalgia, rheumatoid arthritis, hypothyroidism and diabetic peripheral neuropathy as well as anxiety/depression/bipolar/PTSD was brought to the hospital by EMS due to altered mental status. Apparently patient took medications including morphine sulfate, trazodone and Geodon which were filled on 04/10/2019. Patient was quite somnolent upon arrival to ER. Patient was given Narcan with minimal response. Patient was eventually intubated for airway protection and was on Versed drip. Patient was admitted to MICU. Patient was also hypotensive requiring norepinephrine. Patient was continued on IV fluids with improvement in blood pressure. and currently patient is extubated. Patient says that she has been very stressful recently and tried to commit suicide. Drug screen is positive for opiates, marijuana. Serum drug screen is negative. EKG showed sinus tachycardia and chest x-ray showed no acute cardiopulmonary process. CPK 493 WBC 13.1 PH 7.22 and pCO2 50 Review of Systems Constitutional: Patient denies any fever or chills . No generalized weakness or weight loss. Abdomen: Patient denied nausea vomiting and diarrhea and abdominal pain. Cardiovascular: Patient denies any chest pain or short of breath no palpitations. Respiratory: patient denied any cough is from production. No shortness of breath Neurologic: Patient denied any numbness or tingling headache. Musculoskeletal: Patient denies any complaints of joint swelling or deformity. Skin: Negative Psychiatric: Negative Endocrine: No heat or cold intolerance. No recent weight gain. Genitourinary: No dysuria or hematuria. All other 14 point ROS negative except the above Past Medical History Past Medical History: COPD, CVA/TIA, Diabetes Mellitus, Fibromyalgia, Hyperlipidemia, Hypertension, Osteoarthritis (OA), Renal Disease, Rheumatoid Arthritis (RA), Skin Disorder, Thyroid Disorder Additional Past Medical History / Comment(s): diabetic neuropathy, lupus ,DDD ,IBS, chronic dry eye, palpitations,migraines, TIA x 5-rt lip droops, emphysema, eczema in ears, history of wound on right toe, gastroparesis, Kidney failure with hospitalization in September 2018 History of Any Multi-Drug Resistant Organisms: None Reported Past Surgical History: Back Surgery, Cholecystectomy, Hernia Repair, Hysterectomy, Orthopedic Surgery, Tonsillectomy, Uterine Ablation Additional Past Surgical History / Comment(s): EGD, Colonoscopy, vocal cord surgery, cataract bilateral removal, right knee arthroscopy, right elbow surgery, bilateral feet heel spurs and arthroplasty on B/L foot toes, BILAT CTR, 2 nerve stimulator in spine X2, laminectomy L4-5,hiatal hernia repair, biopsy left arm,mult sinus surgeries, STIMULATOR in back (not currently working) , MORPHINE PUMP INSERTED to left side of abdomen for chronic back pain by Dr. Williamson, I&D RT FOOT WOUND Surgical removal of seroma and cyst on back in November 2018; surgical removal of Pain Pump in november 2018 Past Anesthesia/Blood Transfusion Reactions: Family History of Problems w/ Anesthesia Additional Past Anesthesia/Blood Transfusion Reaction / Comment(s): claustrophobic, mother- CT during surgery Past Psychological History: Anxiety, Bipolar, Depression, Panic Disorder, PTSD Smoking Status: Current every day smoker Past Alcohol Use History: Occasional Past Drug Use History: None Reported - Past Family History Mother Family Medical History: Cancer, CVA/TIA, Myocardial Infarction (CT), Osteoarthritis (OA), Rheumatoid Arthritis (RA) Additional Family Medical History / Comment(s): Mother had scleroderma, lymphoma and stomach CA, stents, lupus Father Family Medical History: Cancer Additional Family Medical History / Comment(s): LUNG CANCER Medications and Allergies Home Medications Medication Instructions Recorded Confirmed Type Ziprasidone [Geodon] 80 mg PO HS 07/30/18 04/14/19 History Levothyroxine Sodium [Synthroid] 50 mcg PO DAILY 07/31/18 04/14/19 History Ziprasidone [Geodon] 60 mg PO DAILY 07/31/18 04/14/19 History Morphine Sulfate [Ms Contin] 30 mg PO Q12HR 03/02/19 04/14/19 History Dicyclomine HCl 20 mg PO QID PRN 04/14/19 04/14/19 History Morphine Sulfate ER [Ms Contin] 15 mg PO Q12HR 04/14/19 04/14/19 History Omeprazole 40 mg PO DAILY 04/14/19 04/14/19 History SUMAtriptan SUCCINATE [Imitrex] 50 mg PO DAILY PRN 04/14/19 04/14/19 History glipiZIDE XL [Glucotrol XL] 2.5 mg PO DAILY 04/14/19 04/14/19 History lamoTRIgine [LaMICtal] 150 mg PO HS 04/14/19 04/14/19 History traZODone HCL [Desyrel] 100 mg PO HS 04/14/19 04/14/19 History Allergies Allergy/AdvReac Type Severity Reaction Status Date / Time adhesive Allergy Rash/Hives Verified 03/09/19 14:31 azithromycin Allergy Rash/Hives Verified 03/09/19 14:31 [From Zithromax Z-Ivan] ciprofloxacin [From Cipro] Allergy Rash/Hives Verified 03/09/19 14:31 ciprofloxacin HCl Allergy Rash/Hives Verified 03/09/19 14:31 [From Cipro] clarithromycin [From Biaxin] Allergy Rash/Hives Verified 03/09/19 14:31 doxycycline calcium Allergy Rash/Hives Verified 03/09/19 14:31 [From Vibramycin] doxycycline hyclate Allergy Rash/Hives Verified 03/09/19 14:31 [From Vibramycin] doxycycline monohydrate Allergy Rash/Hives Verified 03/09/19 14:31 [From Vibramycin] erythromycin base Allergy Rash/Hives Verified 03/09/19 14:31 [From E-Mycin] Latex, Natural Rubber Allergy Anaphylaxis Verified 03/09/19 14:31 levofloxacin [From Levaquin] Allergy Rash/Hives Verified 03/09/19 14:31 oxybutynin chloride Allergy Rash/Hives Verified 03/09/19 14:31 [From Ditropan] penicillin G Allergy Rash/Hives Verified 03/09/19 14:31 prochlorperazine edisylate Allergy Rash/Hives Verified 03/09/19 14:31 [From Compazine] prochlorperazine maleate Allergy Rash/Hives Verified 03/09/19 14:31 [From Compazine] tetracycline [Tetracycline] Allergy Rash/Hives Verified 03/09/19 14:31 valdecoxib [From Bextra] Allergy Hallucinati Verified 03/09/19 14:31 ons Physical Exam Vitals: Vital Signs Temp Pulse Pulse Resp BP BP Pulse Ox 04/14/19 13:15 74 19 110/82 95 04/14/19 13:00 74 16 118/57 94 L 04/14/19 12:45 74 16 117/44 95 04/14/19 12:30 82 69 14 119/50 95 04/14/19 12:15 88 14 119/50 92 L 04/14/19 12:00 98.7 F 70 20 99/46 96 04/14/19 11:45 64 14 108/59 97 04/14/19 11:30 64 21 115/49 96 04/14/19 11:15 68 14 117/54 97 04/14/19 11:00 64 20 117/54 97 04/14/19 10:45 62 20 111/57 96 04/14/19 10:30 61 20 90/67 97 04/14/19 10:15 56 L 20 109/59 96 04/14/19 10:00 56 L 20 109/59 97 04/14/19 09:45 54 L 20 106/47 96 04/14/19 09:30 53 L 20 91/36 95 04/14/19 09:15 52 L 21 101/39 95 04/14/19 09:00 56 L 20 97/56 95 04/14/19 08:45 54 L 20 102/44 96 04/14/19 08:30 54 L 22 119/51 97 04/14/19 08:15 60 20 117/69 98 04/14/19 08:05 69 20 04/14/19 08:00 99.5 F 63 20 124/54 98 04/14/19 07:45 63 20 122/51 98 04/14/19 07:30 63 20 124/52 98 04/14/19 07:15 64 20 122/49 98 04/14/19 07:00 65 20 111/48 97 04/14/19 06:30 67 20 115/48 96 04/14/19 06:00 70 20 111/43 98 04/14/19 05:30 71 20 104/48 97 04/14/19 05:00 68 20 96/32 94 L 04/14/19 04:30 75 20 105/52 97 04/14/19 04:00 98.1 F 69 20 101/49 97 04/14/19 03:30 94 20 140/59 99 04/14/19 03:00 49 L 20 89/55 99 04/14/19 02:30 48 L 20 73/41 99 04/14/19 02:00 51 L 20 85/51 100 04/14/19 01:30 53 L 20 97/49 98 04/14/19 01:00 48 L 20 83/49 99 04/14/19 00:30 51 L 20 85/50 99 04/14/19 00:00 97.9 F 66 69 20 95/53 116/85 99 04/13/19 23:30 61 20 70/38 98 04/13/19 23:00 80 20 109/53 97 04/13/19 22:48 86 16 112/65 99 04/13/19 22:00 88 16 82/49 98 04/13/19 21:30 50 L 17 85/48 98 04/13/19 21:00 53 L 13 86/48 98 04/13/19 20:40 55 L 16 86/48 98 04/13/19 20:30 59 L 16 105/57 98 04/13/19 20:21 68 16 105/57 98 04/13/19 19:09 92 16 117/74 96 04/13/19 19:07 16 04/13/19 18:36 18 04/13/19 18:20 98.0 F 103 H 18 135/73 96 04/13/19 18:15 94 Intake and Output 04/13/19 04/14/19 04/14/19 22:59 06:59 14:59 Intake Total 75.367 3305.930 2039.126 Output Total 425 925 685 Balance -229.521 1722.930 1354.126 Intake: IV 75 3100 1625 Magnesium Sulfate-D5w Pmx 200 1 gm In Dextrose/Water 1 100ml.bag @ 100 mls/hr IVPB Q1H [facility] Rx#: [id number] Sodium Chloride 0.9% 1, 75 900 625 000 ml @ 125 mls/hr IV . Q8H [facility] Rx#:[id number] Sodium Chloride 0.9% 1, 2000 1000 000 ml @ 999 mls/hr IV . Q1H1M [facility] Rx#:[id number] Intake, IV Titration 0.367 205.930 414.126 Amount Midazolam HCl 50 mg In 0.367 5.65 Sodium Chloride 0.9% 40 ml @ 1 MG/HR 1 mls/hr IV .Q24H [facility] Rx#:[id number] Norepinephrine 4 mg In 161.668 371.471 Sodium Chloride 0.9% 250 ml @ 0.05 MCG/KG/MIN 13. 826 mls/hr IV .[id number] [facility] Rx#:[id number] Propofol 1,000 mg In 44.262 37.005 Empty Bag 1 bag @ Titrate IV .Q0M [facility] Rx#: [id number] Output: Gastric Drainage 250 Urine 425 925 435 Other: Voiding Method Indwelling Catheter Indwelling Catheter Indwelling Catheter Weight 72.575 kg 71.3 kg PHYSICAL EXAMINATION: Patient is lying in the bed comfortably, no acute distress, awake alert and oriented.. HEENT: Normocephalic. Neck is supple. Pupils reactive. Nostrils clear. Oral cavity is moist. Ears reveal no drainage. Neck reveals no JVD, carotid bruits, or thyromegaly. CHEST EXAMINATION: Trachea is central. Symmetrical expansion. Lung august clear to auscultation and percussion. CARDIAC: Normal S1, S2 with no gallops. No murmurs ABDOMEN: Soft. Bowel sounds normal. No organomegaly. No abdominal bruits. Extremities: reveal no edema. No clubbing or cyanosis Neurologically awake, alert, oriented x3 with well-coordinated movements. No focal deficits noted Skin: No rash or skin lesions. Psychiatric: Coperative. Nonsuicidal Musculoskeletal: No joint swelling or deformity. Normal range of motion. Results CBC & Chem 7: 04/14/19 04:03 04/14/19 04:03 Labs: Abnormal Lab Results - Last 24 Hours (Table) 04/13/19 04/13/19 04/13/19 Range/Units 18:33 18:33 20:16 WBC 13.1 H (3.8-10.6) k/uL MCV (80.0-100.0) fL Neutrophils # 11.2 H (1.3-7.7) k/uL ABG pH (7.35-7.45) ABG pCO2 (35-45) mmHg ABG pO2 (83-108) mmHg ABG HCO3 (21-25) mmol/L ABG O2 Saturation (94-97) % Chloride 110 H (98-107) mmol/L Carbon Dioxide 20 L (22-30) mmol/L Creatinine 1.16 H (0.52-1.04) mg/dL Glucose 160 H (74-99) mg/dL POC Glucose (mg/dL) (75-99) mg/dL Calcium (8.4-10.2) mg/dL Creatine Kinase 493 H (30-135) U/L Urine Protein Trace H (Negative) Urine Opiates Screen Detected H (NotDetected) U Marijuana (THC) Screen Detected H (NotDetected) 04/13/19 04/14/19 04/14/19 Range/Units 20:35 04:03 04:03 WBC 10.8 H (3.8-10.6) k/uL MCV 101.8 H (80.0-100.0) fL Neutrophils # (1.3-7.7) k/uL ABG pH 7.22 L (7.35-7.45) ABG pCO2 50 H (35-45) mmHg ABG pO2 363 H (83-108) mmHg ABG HCO3 (21-25) mmol/L ABG O2 Saturation 100.0 H (94-97) % Chloride 117 H (98-107) mmol/L Carbon Dioxide 18 L (22-30) mmol/L Creatinine (0.52-1.04) mg/dL Glucose (74-99) mg/dL POC Glucose (mg/dL) (75-99) mg/dL Calcium 8.1 L (8.4-10.2) mg/dL Creatine Kinase (30-135) U/L Urine Protein (Negative) Urine Opiates Screen (NotDetected) U Marijuana (THC) Screen (NotDetected) 04/14/19 04/14/19 04/14/19 Range/Units 06:28 08:11 12:23 WBC (3.8-10.6) k/uL MCV (80.0-100.0) fL Neutrophils # (1.3-7.7) k/uL ABG pH 7.23 L (7.35-7.45) ABG pCO2 (35-45) mmHg ABG pO2 128 H (83-108) mmHg ABG HCO3 18 L (21-25) mmol/L ABG O2 Saturation 98.0 H (94-97) % Chloride (98-107) mmol/L Carbon Dioxide (22-30) mmol/L Creatinine (0.52-1.04) mg/dL Glucose (74-99) mg/dL POC Glucose (mg/dL) 111 H 121 H (75-99) mg/dL Calcium (8.4-10.2) mg/dL Creatine Kinase (30-135) U/L Urine Protein (Negative) Urine Opiates Screen (NotDetected) U Marijuana (THC) Screen (NotDetected) Microbiology - Last 24 Hours (Table) 04/13/19 23:34 Sputum Culture - Preliminary Sputum Thrombosis Risk Factor Assmnt - DVT/VTE Prophylaxis DVT/VTE Prophylaxis: Pharmacologic Prophylaxis ordered - Choose All That Apply Each Factor Represents 1 point: Abnormal pulmonary function (COPD), Age 41-60 years, Medical pt on bed rest Other Risk Factors: No Thrombosis Risk Factor Assessment Total Risk Factor Score: 3 Thrombosis Risk Factor Assessment Level: Moderate Risk Assessment and Plan Assessment: Acute hypoxic and hypercapnic respiratory failure secondary to drug overdose. UDS is positive for opiates and marijuana. Hypotension likely due to hypovolemic and narcotic pain medications. Was on pressor support. Currently off pressors. Mild rhabdomyolysis Acute kidney injury likely prerenal improved now Acute suicide attempt COPD not in exacerbation Diabetes type 2 nausea. Hypothyroidism Fibromyalgia Hyperlipidemia Hypertension Degenerative joint disease History of November arthritis Diabetic peripheral neuropathy Irritable bowel syndrome Anxiety/depression/bipolar/panic disorder/PTSD Ongoing nicotine addiction History of spinal stimulator placement L4-L5 laminectomy Chronic low back pain Plan: Patient will be continued on IV hydration. Currently patient is extubated. Patient is also off pressor support. Continue the supportive care. Insulin sliding scale and blood sugar control. Patient was seen by pulmonary and psychiatric consultation. Further recommendations based on the clinical course. Smoking cessation has been counseled. Time with Patient: Greater than 30
[2019-04-14 23:39] LABS: Glucose,Whole Blood 103 mg/dL (75-99)
[2019-04-15] MEDS: NOREPINEPHRINE 4 MG in SODIUM CHLORIDE 0.9% 250 ML IV SCH (02:00)
[2019-04-15] MEDS: SODIUM CHLORIDE 0.9% 1,000 ML IV SCH ×2 (02:20→19:56)
[2019-04-15 05:04] LABS: Basophils % (A) 0 %; Eosinophils % (A) 0 %; HCT 35.4 % (34.0-46.0); HGB 11.8 gm/dL (11.4-16.0); Lymphocytes # (A) 1.6 k/uL (1.0-4.8); Lymphocytes % (A) 14 %; MCH 33.4 pg (25.0-35.0); MCHC 33.5 g/dL (31.0-37.0); Mean Platelet Volume 6.1; Monocytes # (A) 0.7 k/uL (0-1.0); Monocytes % (A) 6 %; Neutrophils # (A) 9.3 k/uL (1.3-7.7); Neutrophils % (A) 79 %; Platelet Count 220 k/uL (150-450); RBC 3.54 m/uL (3.80-5.40); RDW 13.1 % (11.5-15.5); WBC 11.7 k/uL (3.8-10.6)
[2019-04-15 05:08] LABS: African American GFR (CKD) >90 (>60 ml/min/1.73 sqM); Anion Gap 4 mmol/L; Blood Urea Nitrogen 5 mg/dL (7-17); Calcium 8.4 mg/dL (8.4-10.2); Carbon Dioxide 18 mmol/L (22-30); Chloride 118 mmol/L (98-107); Glucose 105 mg/dL (74-99); Magnesium 1.8 mg/dL (1.6-2.3); Potassium 3.5 mmol/L (3.5-5.1); Sodium 140 mmol/L (137-145)
--- NOTE | 2019-04-15 07:10 | XR ---
EXAMINATION TYPE: XR chest 1V portable DATE OF EXAM: 04/15/2019 COMPARISON: 06/14/2018 HISTORY: Extubation. Shortness of breath. TECHNIQUE: Single frontal view of the chest is obtained. FINDINGS: Interval extubation and removal of the enteric tube. Bibasilar opacities are slightly redi stributed, likely atelectasis. Cardiomediastinal silhouette is upper limits of normal and stable. No sizable pneumothorax. Diffuse osseous demineralization. Thoracic spinal stimulator incidentally seen. IMPRESSION: Shifting bibasilar atelectasis with interval extubation of the enteric tube.
[2019-04-15 07:21] LABS: Glucose,Whole Blood 104 mg/dL (75-99)
[2019-04-15] MEDS: CHLORHEXIDINE GLUCONATE 15 ML CUP MUCOUS MEM SCH (09:27)
[2019-04-15] MEDS: ENOXAPARIN 40 MG/0.4 ML SYRINGE SQ SCH (09:42)
[2019-04-15] MEDS: PANTOPRAZOLE 40 MG/10 ML VIAL IVP SCH (09:42)
[2019-04-15] MEDS: NICOTINE 21MG/24HR PATCH TRANSDERM SCH (09:42)
[2019-04-15 10:38] VITALS: BMI 25.6
[2019-04-15] MEDS: ONDANSETRON 4 MG/2 ML VIAL IVP PRN ×2 (10:57→16:56)
[2019-04-15 11:50] LABS: Glucose,Whole Blood 106 mg/dL (75-99)
--- NOTE | 2019-04-15 14:44 | P.PN ---
Subjective Progress Note Date: 04/15/19 Principal diagnosis: Acute hypoxic respiratory failure secondary to multiple drugs overdose This is a 58-year-old female with known history of polysubstance abuse, previous history of respiratory failure secondary to narcotics overdose, patient admits to taking morphine sulfate and trazodone. She had a recent prescription for morphine sulfate 30 mg, and apparently her bottles were filled on April 10 2019. She also had prescriptions for trazodone 100 mg tablets, filled on April 02. Apparently the patient was noted to be somnolent, and having mental status change, EMS was notified. Upon arrival, EMS noted the patient to be somnolent and snoring. Patient was given 0.4 mg of Narcan with minimal improvement in mental status. Patient admitted to EMS that she has been overdosing on her narcotics. And possibly her heart trazodone. Patient was brought into the ER, and as soon as she arrived the patient was noted to be quite somnolent, she was given Narcan again, with minimal response, and she was noted to be unable to protect her airways, she was intubated, placed on mechanical ventilation, placed also on Versed drip, and she was admitted to the ICU. I saw the patient this morning, she was noted to be hypotensive requiring norepinephrine, I recommended giving the patient more fluids, fluid boluses were given and I have also recommended to check weaning parameters once the patient is more awake later today. Sure enough the patient became more awake. Hours later, her weaning parameters were noted to be excellent, and I proceeded to extubating the patient to nasal cannula. Her drug screen on admission was positive for opiates, marijuana, and her acetaminophen level was less than 10. Salicylate level was less than 1. Serum alcohol was less than 10. The rest of the drug screen was basically unremarkable. Patient was reevaluated today on 04/15/2019, patient was extubated yesterday, tolerated the extubation well, patient is doing fairly well. Patient remains in the ICU, she is now off pressors, she is on IV fluids, blood pressure is stable, all her labs are reviewed and noted to be relatively unremarkable. Hence I plan to transfer the patient out of the ICU today to a regular medical floor with a bedside sitter, she will remain on suicidal precautions, and she will need to have psychiatric evaluation. CBC and basic metabolic profile were noted to be normal renal profile is normal. Chest x-ray showed minimal atelectasis at the bases. Objective - Vital Signs Vital signs: Vital Signs Temp 99.3 F 04/15/19 08:00 Pulse 66 04/15/19 11:00 Resp 18 04/15/19 11:00 BP 121/71 04/15/19 11:00 Pulse Ox 97 04/15/19 11:00 Intake & Output 04/14/19 04/15/19 04/15/19 18:59 06:59 18:59 Intake Total 2730.351 2458.788 625 Output Total 1370 1870 625 Balance 1360.351 588.788 0 Weight 72 kg 72 kg Intake: IV 2250 1500 625 Sodium Chloride 0.9% 1, 1250 1500 625 000 ml @ 125 mls/hr IV . Q8H [facility] Rx#:[id number] Sodium Chloride 0.9% 1, 1000 000 ml @ 999 mls/hr IV . Q1H1M [facility] Rx#:[id number] Intake, IV Titration 480.351 158.788 Amount Midazolam HCl 50 mg In 5.65 Sodium Chloride 0.9% 40 ml @ 1 MG/HR 1 mls/hr IV .Q24H [facility] Rx#:[id number] Norepinephrine 4 mg In 437.696 158.788 Sodium Chloride 0.9% 250 ml @ 0.05 MCG/KG/MIN 13. 826 mls/hr IV .[id number] [facility] Rx#:[id number] Propofol 1,000 mg In 37.005 Empty Bag 1 bag @ Titrate IV .Q0M [facility] Rx#: [id number] Oral 800 Output: Gastric Drainage 250 Urine 1120 1870 625 Other: Voiding Method Indwelling Catheter Indwelling Catheter - Exam Physical Exam: Revealed a 58-year-old female in no distress, pleasant Head: Atraumatic normocephalic. HEENT:[Neck is supple.] [No neck masses.] [No thyromegaly.] [No JVD.] Chest: [Clear throughout, no crackles, no rhonchi, no wheezes.] Cardiac Exam: [Normal S1 and S2, no S3 gallop, no murmur.] Abdomen: [Soft, nontender, no megaly, no rebound, no guarding, normal bowel sounds.] Extremities: [No clubbing, no edema, no cyanosis.] Neurological Exam: [No focal neurologic deficit.] Alert oriented 3 focal deficits. Psychiatric: Normal mood affect and normal mental status examination. Skin: No rashes. - Labs CBC & Chem 7: 04/15/19 04:36 04/15/19 04:36 Labs: Abnormal Lab Results - Last 24 Hours (Table) 04/14/19 04/14/19 04/14/19 Range/Units 17:22 20:29 23:37 WBC (3.8-10.6) k/uL RBC (3.80-5.40) m/uL Neutrophils # (1.3-7.7) k/uL Chloride (98-107) mmol/L Carbon Dioxide (22-30) mmol/L BUN (7-17) mg/dL Glucose (74-99) mg/dL POC Glucose (mg/dL) 115 H 148 H 103 H (75-99) mg/dL 04/15/19 04/15/19 04/15/19 Range/Units 04:36 04:36 07:20 WBC 11.7 H (3.8-10.6) k/uL RBC 3.54 L (3.80-5.40) m/uL Neutrophils # 9.3 H (1.3-7.7) k/uL Chloride 118 H (98-107) mmol/L Carbon Dioxide 18 L (22-30) mmol/L BUN 5 L (7-17) mg/dL Glucose 105 H (74-99) mg/dL POC Glucose (mg/dL) 104 H (75-99) mg/dL 04/15/19 Range/Units 11:49 WBC (3.8-10.6) k/uL RBC (3.80-5.40) m/uL Neutrophils # (1.3-7.7) k/uL Chloride (98-107) mmol/L Carbon Dioxide (22-30) mmol/L BUN (7-17) mg/dL Glucose (74-99) mg/dL POC Glucose (mg/dL) 106 H (75-99) mg/dL Microbiology - Last 24 Hours (Table) 04/13/19 23:34 Gram Stain - Preliminary Sputum Sputum Culture - Preliminary Assessment and Plan Assessment: Impression: 1 acute hypoxic and hypercapnic respiratory failure secondary to opiates overdose. 2 possible suicidal attempt, hence patient will require psychiatric evaluation after extubation, and after clearance in the ICU. 3 history of multiple comorbidities including COPD, type 2 diabetes, fibromyalgia, dyslipidemia, hypertension, degenerative joint disease, rheumatoid arthritis, and hypothyroidism. Diabetic neuropathy, irritable bowel syndrome, 4 hypotension secondary to narcotics, and secondary to hypovolemia. 5 status post successful extubation on 04/14/2019, patient will continue incentive spirometry, and we'll transfer the patient out of the ICU today. Will need psychiatric evaluation again. And we'll sign off and see the patient on when necessary basis. Recommendation: Transfer patient to a regular medical floor, continue suicidal precautions, psychiatric consultation, resume home meds, we will see on when necessary basis. Time with Patient: Less than 30
[2019-04-15 18:00] LABS: Glucose,Whole Blood 90 mg/dL (75-99)
[2019-04-16] MEDS: SODIUM CHLORIDE 0.9% 1,000 ML IV SCH ×2 (02:40→07:23)
[2019-04-16] MEDS: ENOXAPARIN 40 MG/0.4 ML SYRINGE SQ SCH (07:23)
[2019-04-16] MEDS: PANTOPRAZOLE 40 MG TABLET PO SCH (07:23)
[2019-04-16] MEDS: NICOTINE 21MG/24HR PATCH TRANSDERM SCH (07:23)
[2019-04-16 07:32] LABS: Glucose,Whole Blood 103 mg/dL (75-99)
[2019-04-16 12:03] LABS: Glucose,Whole Blood 115 mg/dL (75-99)
--- NOTE | 2019-04-16 13:59 | P.CN ---
Psychiatric Consult - . Consult date: 04/16/19 Consult:: 04/16/19 13:49 IDENTIFYING DATA: This patient is a 58-year-old female who currently lives with her and has one daughter who she is estranged from and collects Social Security disability. HISTORY OF PRESENT ILLNESS: The patient he was brought into the hospital with altered mental status after overdose from morphine sulfate, trazodone and Geodon. Patient took an unknown amount of these pills at home. Patient was so mnolent upon arrival and required Narcan and also to be intubated to protect her airway. Patient was eventually extubated and psychiatry was consulted for overdose/suicide attempt. Patient had a positive urine drug screen for opiates and THC. As per nurse taking care of patient states that she has been calm however has been sleepy during the day. Patient was agreeable to be seen by junior technical writer at the bedside. She states that she has been feeling overwhelmed with life at home. She claims that she is having financial difficulties however did not elaborate on this. She claims that she is dealing with her mother's last year. She also endorses having her house a "disaster" and is finding it difficult to clean up. She appears to be upset with her as her is not helping her around the house. Patient also describes difficulty with her daughter not speaking to her and also not being able to see her grandsons. Patient states that she was home alone and took her pills impulsively and then called her girlfriend who came over to her house and when she came over patient knew she was coming to the hospital and tried to go upstairs to gather her things to go to the hospital however claims that she "blacked out" and awoke in the hospital. Patient is unsure about any regret of the suicide attempt and states that she's been dealing with depression and excessive guilt poor sleep and poor appetite. Patient describes being diagnosed with bipolar several years ago and having a manic episode approximately 3 months ago and several the past. She describes a long history of many overdose attempts. At this time patient denies any suicidal or homical ideations, intent or plan. Patient denies any auditory, visual hallucinations and denies any paranoia or delusions. Patient admits to using marijuana approximately one joint per day and endorses smoking cigarettes daily. She denies any other drugs or alcohol. PAST PSYCHIATRIC HISTORY: Patient endorses a history of anxiety, bipolar, PTSD. She states that she is had overt 2-3 overdoses in the past. She claims that she is following up with Dr. Burgess as an outpatient. Patient claims that she was last admitted to the mental health unit in 05/2015.. PAST MEDICAL HISTORY: COPD, diabetes mellitus, fibromyalgia, rheumatoid arthritis, hypothyroidism, neuropathy.. ALLERGIES: as per EMR. CHEMICAL DEPENDENCY HISTORY: as per HPI. FAMILY PSYCHIATRIC/SUBSTANCE USE HISTORY: Claims that her mother has bipolar disorder. Patient denies any family history of suicides. SOCIAL HISTORY: She states that she has born and raised in [place] and moved to [place] after. She claims that she has a 12th grade education and went to vocational school afterwards. 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 She currently lives with her in a house and has one daughter who she does not speak with.. MENTAL STATUS EXAM: General Appearance: Patient appears to be stated age is sleepy, directable and attempts to cooperate. Patient has fair hygiene and grooming and appeared to have just showered. She is wearing hospital gown. Behavior: Patient is calmly lying in bed without any agitated behavior. Somewhat guarded. Speech: Patient's speech is fluent and nonpressured. Soft tone. Mood/Affect: Patient reports their mood is "depressed", affect is congruent Suicidality/Homicidality: Patient denies having any suicidal or homicidal ideation intent or plan. Perceptions: Patient denies any auditory or visual hallucinations. Though content/process: There is no evidence of any delusional thought content and thought process is linear and goal-directed. Guarded/evasive. Memory and concentration: AOX3, grossly intact for the purposes of this session. Can spell "WORLD" backwards Judgment and insight: Poor/impulsive IMPRESSIONS: Bipolar disorder, currently depressed. Anxiety disorder unspecified History of PTSD Nicotine dependence Cannabis use disorder PLAN: -At this time patient DOES meet criteria for inpatient psychiatric admission. -Would recommend the following medication changes/additions: We'll start patient on Vistaril 25 mg every 8 hours when necessary for anxiety. Will hold off on mood stabilizing agent and further psychiatric medications until patient is medically cleared. -Continue 1:1 sitter for safety -Cannot leave AMA at this time. Patient will need a petition and certification if attempting to leave AMA. -When patient is medically stable, please inform psychiatry for placement. -Psychiatry will sign off at this point
[2019-04-16] MEDS: ACETAMINOPHEN TAB 325 MG TAB PO PRN (16:08)
[2019-04-16 17:22] LABS: Glucose,Whole Blood 128 mg/dL (75-99)
[2019-04-16 20:47] LABS: Glucose,Whole Blood 117 mg/dL (75-99)
[2019-04-16] MEDS ORDERED: MELATONIN 3 MG TABLET PO SCH (21:00)
--- NOTE | 2019-04-17 00:32 | P.PN ---
Subjective Progress Note Date: 04/15/19 Principal diagnosis: Acute drug overdose Patient is a 58-year-old female with a known history of a known history of COPD, diabetes type 2 [id number], fibromyalgia, rheumatoid arthritis, hypothyroidism and diabetic peripheral neuropathy as well as anxiety/depression/bipolar/PTSD was brought to the hospital by EMS due to altered mental status. Apparently patient took medications including morphine sulfate, trazodone and Geodon which were filled on 04/10/2019. Patient was quite somnolent upon arrival to ER. Patient was given Narcan with minimal response. Patient was eventually intubated for airway protection and was on Versed drip. Patient was admitted to MICU. Patient was also hypotensive requiring norepinephrine. Patient was continued on IV fluids with improvement in blood pressure. and currently patient is extubated. Patient says that she has been very stressful recently and tried to commit suicide. Drug screen is positive for opiates, marijuana. Serum drug screen is negative. EKG showed sinus tachycardia and chest x-ray showed no acute cardiopulmonary process. CPK 493 WBC 13.1 PH 7.22 and pCO2 50 04/15/2019 Patient is currently extubated and saturating well on room air. Patient is being transferred to general medical floor. Patient remained on suicidal precautions and psychiatric evaluation today. Chest x-ray showed minimal atelectasis bibasilar. Tolerating oral diet. No nausea no vomiting. No chest pain or shortness of breath. No headache or dizziness. Laboratory data within normal limits. Current medications reviewed. Objective - Vital Signs Vital signs: Vital Signs Temp 99.3 F 04/15/19 08:00 Pulse 66 04/15/19 11:00 Resp 18 04/15/19 11:00 BP 121/71 04/15/19 11:00 Pulse Ox 97 04/15/19 11:00 Intake & Output 04/14/19 04/15/19 04/15/19 18:59 06:59 18:59 Intake Total 2730.351 2458.788 625 Output Total 1370 1870 625 Balance 1360.351 588.788 0 Weight 72 kg 72 kg Intake: IV 2250 1500 625 Sodium Chloride 0.9% 1, 1250 1500 625 000 ml @ 125 mls/hr IV . Q8H [facility] Rx#:[id number] Sodium Chloride 0.9% 1, 1000 000 ml @ 999 mls/hr IV . Q1H1M [facility] Rx#:[id number] Intake, IV Titration 480.351 158.788 Amount Midazolam HCl 50 mg In 5.65 Sodium Chloride 0.9% 40 ml @ 1 MG/HR 1 mls/hr IV .Q24H [facility] Rx#:[id number] Norepinephrine 4 mg In 437.696 158.788 Sodium Chloride 0.9% 250 ml @ 0.05 MCG/KG/MIN 13. 826 mls/hr IV .[id number] [facility] Rx#:[id number] Propofol 1,000 mg In 37.005 Empty Bag 1 bag @ Titrate IV .Q0M [facility] Rx#: [id number] Oral 800 Output: Gastric Drainage 250 Urine 1120 1870 625 Other: Voiding Method Indwelling Catheter Indwelling Catheter - Exam PHYSICAL EXAMINATION: Patient is lying in the bed comfortably, no acute distress, awake alert and oriented.. HEENT: Normocephalic. Neck is supple. Pupils reactive. Nostrils clear. Oral cavity is moist. Ears reveal no drainage. Neck reveals no JVD, carotid bruits, or thyromegaly. CHEST EXAMINATION: Trachea is central. Symmetrical expansion. Lung august clear to auscultation and percussion. CARDIAC: Normal S1, S2 with no gallops. No murmurs ABDOMEN: Soft. Bowel sounds normal. No organomegaly. No abdominal bruits. Extremities: reveal no edema. No clubbing or cyanosis Neurologically awake, alert, oriented x3 with well-coordinated movements. No focal deficits noted Skin: No rash or skin lesions. Psychiatric: Coperative. Nonsuicidal Musculoskeletal: No joint swelling or deformity. Normal range of motion. - Labs CBC & Chem 7: 04/15/19 04:36 04/15/19 04:36 Labs: Abnormal Lab Results - Last 24 Hours (Table) 04/14/19 04/14/19 04/14/19 Range/Units 17:22 20:29 23:37 WBC (3.8-10.6) k/uL RBC (3.80-5.40) m/uL Neutrophils # (1.3-7.7) k/uL Chloride (98-107) mmol/L Carbon Dioxide (22-30) mmol/L BUN (7-17) mg/dL Glucose (74-99) mg/dL POC Glucose (mg/dL) 115 H 148 H 103 H (75-99) mg/dL 04/15/19 04/15/19 04/15/19 Range/Units 04:36 04:36 07:20 WBC 11.7 H (3.8-10.6) k/uL RBC 3.54 L (3.80-5.40) m/uL Neutrophils # 9.3 H (1.3-7.7) k/uL Chloride 118 H (98-107) mmol/L Carbon Dioxide 18 L (22-30) mmol/L BUN 5 L (7-17) mg/dL Glucose 105 H (74-99) mg/dL POC Glucose (mg/dL) 104 H (75-99) mg/dL 04/15/19 Range/Units 11:49 WBC (3.8-10.6) k/uL RBC (3.80-5.40) m/uL Neutrophils # (1.3-7.7) k/uL Chloride (98-107) mmol/L Carbon Dioxide (22-30) mmol/L BUN (7-17) mg/dL Glucose (74-99) mg/dL POC Glucose (mg/dL) 106 H (75-99) mg/dL Microbiology - Last 24 Hours (Table) 04/13/19 23:34 Gram Stain - Preliminary Sputum Sputum Culture - Preliminary Assessment and Plan Assessment: Acute hypoxic and hypercapnic respiratory failure secondary to drug overdose. UDS is positive for opiates and marijuana. Currently extubated. Hypotension likely due to hypovolemic and narcotic pain medications. Was on pressor support. Currently off pressors. Mild rhabdomyolysis Acute kidney injury likely prerenal improved now Acute suicide attempt COPD not in exacerbation Diabetes type 2 nausea. Hypothyroidism Fibromyalgia Hyperlipidemia Hypertension Degenerative joint disease History of November arthritis Diabetic peripheral neuropathy Irritable bowel syndrome Anxiety/depression/bipolar/panic disorder/PTSD Ongoing nicotine addiction History of spinal stimulator placement L4-L5 laminectomy Chronic low back pain Plan: Patient will be continued on IV hydration. Currently patient is extubated. Patient is also off pressor support. Continue the supportive care. Insulin sliding scale and blood sugar control. Patient was seen by pulmonary and psychiatric consultation. Further recommendations based on the clinical course. Smoking cessation has been counseled. Time with Patient: Greater than 30
--- NOTE | 2019-04-17 00:34 | P.PN ---
Subjective Progress Note Date: 04/16/19 Principal diagnosis: Acute drug overdose Patient is a 58-year-old female with a known history of a known history of COPD, diabetes type 2 [id number], fibromyalgia, rheumatoid arthritis, hypothyroidism and diabetic peripheral neuropathy as well as anxiety/depression/bipolar/PTSD was brought to the hospital by EMS due to altered mental status. Apparently patient took medications including morphine sulfate, trazodone and Geodon which were filled on 04/10/2019. Patient was quite somnolent upon arrival to ER. Patient was given Narcan with minimal response. Patient was eventually intubated for airway protection and was on Versed drip. Patient was admitted to MICU. Patient was also hypotensive requiring norepinephrine. Patient was continued on IV fluids with improvement in blood pressure. and currently patient is extubated. Patient says that she has been very stressful recently and tried to commit suicide. Drug screen is positive for opiates, marijuana. Serum drug screen is negative. EKG showed sinus tachycardia and chest x-ray showed no acute cardiopulmonary process. CPK 493 WBC 13.1 PH 7.22 and pCO2 50 04/15/2019 Patient is currently extubated and saturating well on room air. Patient is being transferred to general medical floor. Patient remained on suicidal precautions and psychiatric evaluation today. Chest x-ray showed minimal atelectasis bibasilar. Tolerating oral diet. No nausea no vomiting. No chest pain or shortness of breath. No headache or dizziness. Laboratory data within normal limits. 04/16/2017 Patient is currently in the medical floor. Continued on bedside sitter and suicide precautions. Patient was seen by psychiatric and recommends inpatient psychiatric unit. Otherwise patient is tolerating oral diet. Hemodynamically stable and saturating well on room air. No other acute overnight issues. No fever no chills. Current medications reviewed. Objective - Vital Signs Vital signs: Vital Signs Temp 97.6 F 04/16/19 15:00 Pulse 81 04/16/19 15:00 Resp 20 04/16/19 15:00 BP 133/69 04/16/19 15:00 Pulse Ox 97 04/16/19 15:00 Intake & Output 04/15/19 04/16/19 04/16/19 18:59 06:59 18:59 Intake Total 1250 750 700 Output Total 1675 1001 Balance -425 -251 700 Weight 72 kg Intake: IV 1250 750 Sodium Chloride 0.9% 1, 1250 750 000 ml @ 125 mls/hr IV . Q8H [facility] Rx#:[id number] Oral 700 Output: Urine 1675 1001 Other: Voiding Method Indwelling Catheter Toilet Toilet # Voids 1 1 # Bowel Movements 1 - Exam PHYSICAL EXAMINATION: Patient is lying in the bed comfortably, no acute distress, awake alert and or iented.. HEENT: Normocephalic. Neck is supple. Pupils reactive. Nostrils clear. Oral cavity is moist. Ears reveal no drainage. Neck reveals no JVD, carotid bruits, or thyromegaly. CHEST EXAMINATION: Trachea is central. Symmetrical expansion. Lung august clear to auscultation and percussion. CARDIAC: Normal S1, S2 with no gallops. No murmurs ABDOMEN: Soft. Bowel sounds normal. No organomegaly. No abdominal bruits. Extremities: reveal no edema. No clubbing or cyanosis Neurologically awake, alert, oriented x3 with well-coordinated movements. No focal deficits noted Skin: No rash or skin lesions. Psychiatric: Coperative. Nonsuicidal Musculoskeletal: No joint swelling or deformity. Normal range of motion. - Labs CBC & Chem 7: 04/15/19 04:36 04/15/19 04:36 Labs: Abnormal Lab Results - Last 24 Hours (Table) 04/16/19 04/16/19 04/16/19 Range/Units 07:12 11:51 16:57 POC Glucose (mg/dL) 103 H 115 H 128 H (75-99) mg/dL Microbiology - Last 24 Hours (Table) 04/13/19 23:34 Gram Stain - Final Sputum Sputum Culture - Final Assessment and Plan Assessment: Acute hypoxic and hypercapnic respiratory failure secondary to drug overdose. UDS is positive for opiates and marijuana. Currently extubated. Hypotension likely due to hypovolemic and narcotic pain medications. Was on pressor support. Currently off pressors. Mild rhabdomyolysis Acute kidney injury likely prerenal improved now Acute suicide attempt COPD not in exacerbation Diabetes type 2 nausea. Hypothyroidism Fibromyalgia Hyperlipidemia Hypertension Degenerative joint disease History of April arthritis Diabetic peripheral neuropathy Irritable bowel syndrome Anxiety/depression/bipolar/panic disorder/PTSD Ongoing nicotine addiction History of spinal stimulator placement L4-L5 laminectomy Chronic low back pain Plan: Patient will be continued on IV hydration. Currently patient is extubated. Patient is also off pressor support. Continue the supportive care. Insulin sliding scale and blood sugar control. Psychiatric recommends inpatient psychiatric admission.. Further recommendations based on the clinical course. Smoking cessation has been counseled. Time with Patient: Greater than 30
[2019-04-17 07:04] LABS: Basophils % (A) 0 %; Eosinophils % (A) 0 %; HCT 39.9 % (34.0-46.0); HGB 13.5 gm/dL (11.4-16.0); Lymphocytes # (A) 1.5 k/uL (1.0-4.8); Lymphocytes % (A) 16 %; MCH 32.2 pg (25.0-35.0); MCHC 33.9 g/dL (31.0-37.0); Mean Platelet Volume 6.8; Monocytes # (A) 0.5 k/uL (0-1.0); Monocytes % (A) 5 %; Neutrophils # (A) 7.5 k/uL (1.3-7.7); Neutrophils % (A) 78 %; Platelet Count 277 k/uL (150-450); RBC 4.21 m/uL (3.80-5.40); RDW 13.1 % (11.5-15.5); WBC 9.6 k/uL (3.8-10.6)
[2019-04-17 07:11] LABS: MCV 94.9 fL (80.0-100.0)
[2019-04-17 07:15] LABS: African American GFR (CKD) >90 (>60 ml/min/1.73 sqM); Anion Gap 11 mmol/L; Blood Urea Nitrogen 10 mg/dL (7-17); Calcium 9.4 mg/dL (8.4-10.2); Carbon Dioxide 22 mmol/L (22-30); Chloride 113 mmol/L (98-107); Glucose 106 mg/dL (74-99); Sodium 146 mmol/L (137-145)
[2019-04-17 07:25] LABS: Potassium 2.5 mmol/L (3.5-5.1)
[2019-04-17 07:27] LABS: Glucose,Whole Blood 106 mg/dL (75-99)
[2019-04-17] MEDS: ENOXAPARIN 40 MG/0.4 ML SYRINGE SQ SCH (07:34)
[2019-04-17] MEDS: POTASSIUM CHLORIDE ER 20 MEQ TAB.ER PO SCH ×8 (07:34→15:51)
[2019-04-17] MEDS: NICOTINE 21MG/24HR PATCH TRANSDERM SCH (07:34)
[2019-04-17] MEDS: PANTOPRAZOLE 40 MG TABLET PO SCH (07:34)
[2019-04-17] MEDS: hydrOXYzine PAMOATE 25 MG CAP PO PRN ×2 (07:34→15:44)
[2019-04-17] MEDS: ACETAMINOPHEN TAB 325 MG TAB PO PRN ×2 (11:08→16:56)
[2019-04-17 11:34] LABS: Glucose,Whole Blood 137 mg/dL (75-99)
[2019-04-17 14:25] VITALS: RESP 20
[2019-04-17] MEDS ORDERED: NICOTINE 21MG/24HR PATCH TRANSDERM STA (15:39)
[2019-04-17 17:18] LABS: Glucose,Whole Blood 154 mg/dL (75-99)
[2019-04-17 21:34] VITALS: BP 162/71; PULSE 59; TEMP 98.1
== END 2019-04-17 21:35 | DRG 917 ==
LOC: EC 18:12 → 2SICU 21:10 → 4MS4W 04-15 23:27
PROVIDERS: ADMIT Hospitalist; ATTEND Hospitalist
PROC: 5A1935Z Respiratory Ventilation, Less than 24 Consecutive Hours (ICD-10-PCS; principal; 2019-04-13)
PROC: 0BH17EZ Insertion of Endotracheal Airway into Trachea, Via Natural or Artificial Opening (ICD-10-PCS; 2019-04-13)
DX: T40.2X2A Poisoning by other opioids, intentional self-harm, initial encounter (principal); J96.01 Acute respiratory failure with hypoxia; J96.02 Acute respiratory failure with hypercapnia; N17.9 Acute kidney failure, unspecified; M62.82 Rhabdomyolysis; E11.42 Type 2 diabetes mellitus with diabetic polyneuropathy; J43.9 Emphysema, unspecified; I95.89 Other hypotension; I95.2 Hypotension due to drugs; E11.43 Type 2 diabetes mellitus with diabetic autonomic (poly)neuropathy; K31.84 Gastroparesis; T40.7X2A Poisoning by cannabis (derivatives), intentional self-harm, initial encounter; T43.212A Poisoning by selective serotonin and norepinephrine reuptake inhibitors, intentional self-harm, initial encounter; T43.592A Poisoning by other antipsychotics and neuroleptics, intentional self-harm, initial encounter; E86.1 Hypovolemia; D72.829 Elevated white blood cell count, unspecified; I10 Essential (primary) hypertension; E78.5 Hyperlipidemia, unspecified; E03.9 Hypothyroidism, unspecified; K58.9 Irritable bowel syndrome, unspecified; G43.909 Migraine, unspecified, not intractable, without status migrainosus; F43.10 Post-traumatic stress disorder, unspecified; G89.29 Other chronic pain; M54.5 Low back pain; M79.7 Fibromyalgia; M19.90 Unspecified osteoarthritis, unspecified site; M06.9 Rheumatoid arthritis, unspecified; F31.9 Bipolar disorder, unspecified; F41.0 Panic disorder [episodic paroxysmal anxiety]; F41.9 Anxiety disorder, unspecified; L30.9 Dermatitis, unspecified; F17.210 Nicotine dependence, cigarettes, uncomplicated; T40.605A Adverse effect of unspecified narcotics, initial encounter; Z71.6 Tobacco abuse counseling; Z79.84 Long term (current) use of oral hypoglycemic drugs; Z79.890 Hormone replacement therapy; Z79.891 Long term (current) use of opiate analgesic; Z79.899 Other long term (current) drug therapy; Z86.73 Personal history of transient ischemic attack (TIA), and cerebral infarction without residual deficits; Z98.890 Other specified postprocedural states; Z90.710 Acquired absence of both cervix and uterus; Z90.49 Acquired absence of other specified parts of digestive tract; Z98.42 Cataract extraction status, left eye; Z98.41 Cataract extraction status, right eye; Z96.9 Presence of functional implant, unspecified; Z96.698 Presence of other orthopedic joint implants; Z88.1 Allergy status to other antibiotic agents; Z91.040 Latex allergy status; Z88.0 Allergy status to penicillin; Z88.8 Allergy status to other drugs, medicaments and biological substances; Z91.048 Other nonmedicinal substance allergy status; F12.10 Cannabis abuse, uncomplicated; Y92.009 Unspecified place in unspecified non-institutional (private) residence as the place of occurrence of the external cause; Z82.3 Family history of stroke; Z82.49 Family history of ischemic heart disease and other diseases of the circulatory system; Z82.61 Family history of arthritis; Z82.69 Family history of other diseases of the musculoskeletal system and connective tissue; Z80.7 Family history of other malignant neoplasms of lymphoid, hematopoietic and related tissues; Z80.1 Family history of malignant neoplasm of trachea, bronchus and lung; Z80.0 Family history of malignant neoplasm of digestive organs
CPT/HCPCS: 31500; 36415; 36600; 71045; 80048; 80053; 80306; 80320; 80329; 81003; 82075; 82550; 82805; 83520; 83605; 83735; 84132; 85025; 85610; 87070; 87205; 93005; 94002; 94003; 96361; 96374; 96376; 99291

== ENCOUNTER 2019-04-17 20:51 | Inpatient (IN) | payer BC, MEDICARE ==
[2019-04-17] MEDS ORDERED: MAGNESIUM HYDROXIDE 2,400 MG/10 ML CUP PO PRN (21:09)
[2019-04-17] MEDS ORDERED: MAG HYDROX/AL HYDROX/SIMETH 30 ML CUP PO PRN (21:09)
[2019-04-17] MEDS ORDERED: ZIPRASIDONE 20 MG VIAL IM PRN (21:09)
[2019-04-17 22:41] LABS: Glucose,Whole Blood 130 mg/dL (75-99)
[2019-04-17] MEDS: LORazepam 1 MG TAB PO PRN (22:46)
[2019-04-17] MEDS: ACETAMINOPHEN TAB 325 MG TAB PO PRN (22:46)
[2019-04-18 08:00] LABS: Glucose,Whole Blood 124 mg/dL (75-99)
[2019-04-18] MEDS: NICOTINE 7MG/24HR PATCH TRANSDERM SCH (08:53)
[2019-04-18] MEDS: ACETAMINOPHEN TAB 325 MG TAB PO PRN (09:00)
[2019-04-18] MEDS: LORazepam 1 MG TAB PO PRN (09:00)
[2019-04-18 13:04] LABS: Glucose,Whole Blood 115 mg/dL (75-99)
[2019-04-18] MEDS: clonazePAM 0.5 MG TAB PO PRN ×2 (14:20→22:12)
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
[2019-04-18] MEDS: LURASIDONE 20 MG TAB PO SCH (17:32)
[2019-04-18 17:33] LABS: Glucose,Whole Blood 87 mg/dL (75-99)
--- NOTE | 2019-04-18 17:42 | P.MDCNMH ---
History of Present Illness H&P Date: 04/18/19 Chief Complaint: Suicide attempt Patient is a 58-year-old female with a known history of a known history of COPD, diabetes type 2 [id number], fibromyalgia, rheumatoid arthritis, hypothyroidism and diabetic peripheral neuropathy as well as anxiety/depression/bipolar/PTSD was Was initially brought to ER due to altered mental status and medication overdose/suicide attempt. Patient was quite somnolent upon arrival to ER and patient was initially intubated for airway protection. Patient was also hypotensive requiring pressor support. Patient was extubated the next day and was followed on the medical floor. Patient has been anxious. Patient was seen by psychiatric and recommends inpatient psychiatric unit transfer. Patient says that she is still anxious. Otherwise denied any complaints of chest pain or shortness of breath. Able tablet in the hallway. No complains of cough or sputum production. No fever no chills. Review of Systems Constitutional: Patient denies any fever or chills . No generalized weakness or weight loss. Abdomen: Patient denied nausea vomiting and diarrhea and abdominal pain. Cardiovascular: Patient denies any chest pain or short of breath no palpitations. Respiratory: patient denied any cough is from production. No shortness of breath Neurologic: Patient denied any numbness or tingling headache. Musculoskeletal: Patient denies any complaints of joint swelling or deformity. Skin: Negative Psychiatric: Anxious Endocrine: No heat or cold intolerance. No recent weight gain. Genitourinary: No dysuria or hematuria. All other 14 point ROS negative except the above Past Medical History Past Medical History: COPD, CVA/TIA, Diabetes Mellitus, Fibromyalgia, Hyperlipidemia, Hypertension, Osteoarthritis (OA), Renal Disease, Rheumatoid Arthritis (RA), Skin Disorder, Thyroid Disorder Additional Past Medical History / Comment(s): diabetic neuropathy, lupus ,DDD ,IBS, chronic dry eye, palpitations,migraines, TIA x 5-rt lip droops, emphysema, eczema in ears, history of wound on right toe, gastroparesis, Kidney failure with hospitalization in September 2018 History of Any Multi-Drug Resistant Organisms: None Reported Past Surgical History: Back Surgery, Cholecystectomy, Hernia Repair, Hysterectomy, Orthopedic Surgery, Tonsillectomy, Uterine Ablation Additional Past Surgical History / Comment(s): EGD, Colonoscopy, vocal cord surgery, cataract bilateral removal, right knee arthroscopy, right elbow surgery, bilateral feet heel spurs and arthroplasty on B/L foot toes, BILAT CTR, 2 nerve stimulator in spine X2, laminectomy L4-5,hiatal hernia repair, biopsy left arm,mult sinus surgeries, STIMULATOR in back (not currently working) , MORPHINE PUMP INSERTED to left side of abdomen for chronic back pain by Dr. Williamson, I&D RT FOOT WOUND Surgical removal of seroma and cyst on back in November 2018; surgical removal of Pain Pump in november 2018 Past Anesthesia/Blood Transfusion Reactions: Family History of Problems w/ Anesthesia Additional Past Anesthesia/Blood Transfusion Reaction / Comment(s): claustrophobic, mother- MT during surgery Past Psychological History: Anxiety, Bipolar, Depression, Panic Disorder, PTSD Smoking Status: Current every day smoker Past Alcohol Use History: Occasional Past Drug Use History: None Reported - Past Family History Mother Family Medical History: Cancer, CVA/TIA, Myocardial Infarction (MT), Osteoarthritis (OA), Rheumatoid Arthritis (RA) Additional Family Medical History / Comment(s): Mother had scleroderma, lymphoma and stomach CA, stents, lupus Father Family Medical History: Cancer Additional Family Medical History / Comment(s): LUNG CANCER Medications and Allergies Home Medications Medication Instructions Recorded Confirmed Type Ziprasidone [Geodon] 80 mg PO HS 07/30/18 04/18/19 History Levothyroxine Sodium [Synthroid] 50 mcg PO DAILY 07/31/18 04/18/19 History Ziprasidone [Geodon] 60 mg PO DAILY 07/31/18 04/18/19 History SUMAtriptan SUCCINATE [Imitrex] 50 mg PO DAILY PRN 04/14/19 04/18/19 History glipiZIDE XL [Glucotrol XL] 2.5 mg PO DAILY 04/14/19 04/18/19 History lamoTRIgine [LaMICtal] 150 mg PO HS 04/14/19 04/18/19 History traZODone HCL [Desyrel] 100 mg PO HS 04/14/19 04/18/19 History Gabapentin 600 mg PO BID 04/18/19 04/18/19 History Morphine Sulfate ER [Ms Contin] 15 mg PO Q12HR 04/18/19 04/18/19 History Morphine Sulfate [Morphine Sulfate 30 mg PO Q12HR 04/18/19 04/18/19 History ER] Promethazine [Phenergan] 12.5 mg PO BID PRN 04/18/19 04/18/19 History Allergies Allergy/AdvReac Type Severity Reaction Status Date / Time adhesive Allergy Rash/Hives Verified 04/18/19 08:12 azithromycin Allergy Rash/Hives Verified 04/18/19 08:12 [From Zithromax Z-Ivan] ciprofloxacin [From Cipro] Allergy Rash/Hives Verified 04/18/19 08:12 ciprofloxacin HCl Allergy Rash/Hives Verified 04/18/19 08:12 [From Cipro] clarithromycin [From Biaxin] Allergy Rash/Hives Verified 04/18/19 08:12 doxycycline calcium Allergy Rash/Hives Verified 04/18/19 08:12 [From Vibramycin] doxycycline hyclate Allergy Rash/Hives Verified 04/18/19 08:12 [From Vibramycin] doxycycline monohydrate Allergy Rash/Hives Verified 04/18/19 08:12 [From Vibramycin] erythromycin base Allergy Rash/Hives Verified 04/18/19 08:12 [From E-Mycin] Latex, Natural Rubber Allergy Anaphylaxis Verified 04/18/19 08:12 levofloxacin [From Levaquin] Allergy Rash/Hives Verified 04/18/19 08:12 oxybutynin chloride Allergy Rash/Hives Verified 04/18/19 08:12 [From Ditropan] penicillin G Allergy Rash/Hives Verified 04/18/19 08:12 prochlorperazine edisylate Allergy Rash/Hives Verified 04/18/19 08:12 [From Compazine] prochlorperazine maleate Allergy Rash/Hives Verified 04/18/19 08:12 [From Compazine] tetracycline [Tetracycline] Allergy Rash/Hives Verified 04/18/19 08:12 valdecoxib [From Bextra] Allergy Hallucinati Verified 04/18/19 08:12 ons Physical Exam Vitals: Vital Signs Temp Pulse Resp BP Pulse Ox 04/18/19 09:01 99 147/90 04/18/19 07:04 97.6 F 78 18 142/74 04/17/19 22:48 94 127/84 04/17/19 22:00 97.6 F 75 16 140/86 96 PHYSICAL EXAMINATION: Patient is lying in the bed comfortably, no acute distress, awake alert and jesusita ented.. HEENT: Normocephalic. Neck is supple. Pupils reactive. Nostrils clear. Oral cavity is moist. Ears reveal no drainage. Neck reveals no JVD, carotid bruits, or thyromegaly. CHEST EXAMINATION: Trachea is central. Symmetrical expansion. Lung august clear to auscultation and percussion. CARDIAC: Normal S1, S2 with no gallops. No murmurs ABDOMEN: Soft. Bowel sounds normal. No organomegaly. No abdominal bruits. Extremities: reveal no edema. No clubbing or cyanosis Neurologically awake, alert, oriented x3 with well-coordinated movements. No focal deficits noted Skin: No rash or skin lesions. Psychiatric: Coperative. Anxious. Musculoskeletal: No joint swelling or deformity. Normal range of motion. Cranial Nerve Examination - Cranial Nerves Cranial Nerve I- Olfactory: Intact Cranial Nerve II- Optic: Intact Cranial Nerve III- Oculomotor: Intact Cranial Nerve IV- Trochlear: Intact Cranial Nerve V- Trigeminal: Intact Cranial Nerve - Abducens: Intact Cranial Nerve VII- Facial: Intact Cranial Nerve VIII- Auditory: Intact Cranial Nerve IX- Glossopharyngeal: Intact Cranial Nerve X- Vagus: Intact Cranial Nerve XI- Accessory: Intact Cranial Nerve XII- Hypoglossal: Intact Results Labs: Abnormal Lab Results - Last 24 Hours (Table) 04/17/19 04/18/19 04/18/19 Range/Units 22:40 07:12 07:58 POC Glucose (mg/dL) 130 H 124 H (75-99) mg/dL Triglycerides 192 H (<150) mg/dL Cholesterol 230 H (<200) mg/dL LDL Cholesterol, Calc 151 H (0-99) mg/dL 04/18/19 Range/Units 13:02 POC Glucose (mg/dL) 115 H (75-99) mg/dL Triglycerides (<150) mg/dL Cholesterol (<200) mg/dL LDL Cholesterol, Calc (0-99) mg/dL Assessment and Plan Assessment: Anxiety and bipolar disorder Acute suicide attempt Severe hypokalemia improved now Status post VDRF secondary to medication overdose.. UDS is positive for opiates and marijuana. COPD not in exacerbation Diabetes type 2 [id number]. Patient is on glipizide 2.5 mg daily at home. Hypothyroidism Hyperlipidemia with the LDL 151 Fibromyalgia Hyperlipidemia Hypertension. Degenerative joint disease Diabetic peripheral neuropathy Irritable bowel syndrome Anxiety/depression/bipolar/panic disorder/PTSD Ongoing nicotine addiction History of spinal stimulator placement L4-L5 laminectomy Chronic low back pain Plan: Patient will be continued on current psychiatric medications and continue with home medications for diabetes and hypothyroidism. Monitor potassium level. Patient can be started on atorvastatin 40 mg at bedtime for hyperlipidemia. Currently the current management and we will continue to follow with you. Thank you for your consult. Time with Patient: Greater than 30
[2019-04-18 18:02] LABS: Hemoglobin A1C 5.7 % (4.0-6.0)
[2019-04-18 20:48] LABS: Glucose,Whole Blood 135 mg/dL (75-99)
[2019-04-18] MEDS: MIRTAZAPINE 15 MG TAB PO SCH (20:48)
[2019-04-19] MEDS: LEVOTHYROXINE 50 MCG TAB PO SCH (06:15)
[2019-04-19 08:07] LABS: Glucose,Whole Blood 116 mg/dL (75-99)
[2019-04-19] MEDS: LURASIDONE 20 MG TAB PO SCH ×2 (08:53→12:26)
[2019-04-19] MEDS: NICOTINE 7MG/24HR PATCH TRANSDERM SCH (08:53)
[2019-04-19 09:08] LABS: African American GFR (CKD) >90 (>60 ml/min/1.73 sqM); Anion Gap 11 mmol/L; Blood Urea Nitrogen 14 mg/dL (7-17); Carbon Dioxide 20 mmol/L (22-30); Chloride 115 mmol/L (98-107); Glucose 107 mg/dL (74-99); Non-African American GFR(CKD) 81 (>60 ml/min/1.73 sqM); Potassium 3.4 mmol/L (3.5-5.1); Sodium 146 mmol/L (137-145)
[2019-04-19] MEDS: clonazePAM 0.5 MG TAB PO PRN ×3 (10:03→22:02)
[2019-04-19 11:28] VITALS: BMI 24.5
--- NOTE | 2019-04-19 11:37 | P.PN ---
Progress Note - Text Progress Note Date: 04/19/19 Chief complaint: "I feel relatively better today " Subjective: The patient has been seen today as follow-up, chart reviewed, case discussed with the treatment team. Patient slept about 5 hours last night. Patient has been going to some groups and other unit activities. Patient reports better appetite. Patient minimizes depression symptoms and he denies suicidal ideation. She reports feeling less irritable, but reports still has bouts of very severe anxiety especially afternoon. She reports less racing thoughts and less agitated today. Patient reports Remeron helps with the sleep and Latuda makes her feel less agitated. The patient is compliant with her medications and denies any adverse reactions. She denies any hallucinations, and no delusions could be elicited. She denies manic symptoms. Review of other systems: Patient denies any physical symptoms besides what has been mentioned above. No breathing problems, no chest pain reported today. Objective: Vitals has been reviewed. Mental status examination; Appearance: Appears older than stated age, not well groomed, average body built, and no specific features. Gait/ posture: Steady gait, normal arm swinging, no abnormal movements, with relaxed posture. Attitude and Behavior: Cooperative, aged related to the interviewer in socially accepted manner, fair eye contact during course of interview. Motor Activity: Normal psychomotor activity. Speech: spontaneous, normal rate, rhythm, and articulation. Normal volume. Not pressured. Language: Articulating, naming objects and repeat phrases. Mood: Depressed Affect: Restricted range. Thought process: Linear, goal-directed. Association: Intact. Thought content: Denies delusions, minimizes suicidal thoughts, denies homicidal thoughts, denies intentions, or plans. Perception: Denies any hallucinations Alertness: No impairment. Concentration: Not impaired Orientation: But to time, place, person, and situation Insight regarding psychiatric condition: Fair Judgment regarding daily activities and social situation: Fair Impulse control: Fair Assessment: Bipolar 2 disorder. Post traumatic stress disorder. Unspecified anxiety disorder Plan: Continue inpatient level of care for further stabilization on medication. Precautions: Continue 15 minutes check for safety. Consider medical consultation if any acute medical issues arise. Provide the patient individual, group therapy, substance use disorder counseling to give better insight and learn coping skills. Continue follow-up with the patient daily to monitor progress of her symptoms. Medications: Increase Latuda 20 mg with lunch and 40 mg with dinner for mood stabilization. Increase Klonopin 0.5 mg 3 times daily as needed for severe anxiety. Continue Vistaril 50 mg 4 times a day daily as needed for anxiety. Continue Remeron 15 mg at bedtime for depression and to help with insomnia. Discontinued Medications: Trintillex Labs: K level 3.4 - consult medical team to address need for K supplement- discussed with nursing. Discharge patient to OUTPATIENT services upon a stabilization Prognosis: improving Expected LOS: 3-5 days
[2019-04-19 12:33] LABS: Glucose,Whole Blood 110 mg/dL (75-99)
[2019-04-19] MEDS: ACETAMINOPHEN TAB 325 MG TAB PO PRN ×2 (12:57→18:25)
[2019-04-19] MEDS ORDERED: POTASSIUM CHLORIDE ER 20 MEQ TAB.ER PO STA (14:58)
[2019-04-19] MEDS: LURASIDONE 40 MG TAB PO SCH (16:45)
[2019-04-19 17:33] LABS: Glucose,Whole Blood 93 mg/dL (75-99)
[2019-04-19 20:10] LABS: Glucose,Whole Blood 114 mg/dL (75-99)
[2019-04-19] MEDS: MIRTAZAPINE 15 MG TAB PO SCH (21:02)
[2019-04-20] MEDS: hydrOXYzine PAMOATE 25 MG CAP PO PRN ×2 (01:23→14:54)
[2019-04-20] MEDS: LEVOTHYROXINE 50 MCG TAB PO SCH (06:28)
[2019-04-20 07:55] LABS: Glucose,Whole Blood 119 mg/dL (75-99)
--- NOTE | 2019-04-20 09:08 | P.CON ---
Consult Note - . Consult date: 04/20/19 Assessment/Plan:: This is a 58-year-old pleasant female who is being seen on the mental health unit for a nonhealing ulceration to the back. Patient states that the area has closed and reopened multiple times. It started approximately 3-4 stephan hs ago after the removal of a morphine pump. Patient states that she is having the pump reinserted on May 12. Patient states that at times ulceration will have drainage. She has not noticed any drainage in the last couple days. At this time the ulceration appears healed. The ulceration is approximately 1 x 1 x 0.6 x 0.1 cm with a thin layer of skin noted. Periwound skin is attached with no signs of infection. No drainage is noted. Review of systems: Integumentary: Reports lesion, denies pruritus, denies ecchymosis Physical exam: Integumentary: See HPI Assessment/plan: 1. Nonhealing ulceration to lumbar spine related to removal of hardware, Limited to skin breakdown. Discussed with patient that the area may reopen. She may apply zinc barrier cream to the site for the next few weeks to help protect the skin. If the ulceration reopens to consider outpatient wound care services. Patient verbalized understanding. Thank you for the consultation. Any questions please contact the wound care center. DNP note has been reviewed and discussed with Dr. Camarena and the impression and plan of care has been directed as dictated.
[2019-04-20] MEDS: NICOTINE 7MG/24HR PATCH TRANSDERM SCH (09:21)
[2019-04-20] MEDS: clonazePAM 0.5 MG TAB PO PRN ×2 (09:23→21:12)
--- NOTE | 2019-04-20 11:20 | P.PN ---
Progress Note - Text Progress Note Date: 04/20/19 Chief complaint: "I feel better today " Subjective: The patient has been seen today as follow-up, chart reviewed, case discussed with the treatment team. Patient slept about 5-6 hours last night. Patient has been going to groups and other unit activities. Patient reports fair appetite. Patient reports feeling more stable emotionally and minimize his depression and hopelessness. She denies feeling suicidal or homicidal and denies any auditory or visual hallucinations. She denies any severe mood swings, agitation, or anger problems. The patient is compliant with her medications and denies any adverse reactions. Patient reports willing to continue outpatient treatment but she doesn't want to go back to the previous psychiatrist. Review of other systems: Patient denies any physical symptoms besides what has been mentioned above. No breathing problems, no chest pain reported today. Objective: Vitals has been reviewed. Mental status examination; Appearance: Appears older than stated age, fairly groomed, average body built, and no specific features. Gait/ posture: Steady gait, normal arm swinging, no abnormal movements, with relaxed posture. Attitude and Behavior: Cooperative, fair eye contact during course of interview. Motor Activity: Normal psychomotor activity. Speech: spontaneous, normal rate, rhythm, and articulation. Normal volume. Not pressured. Language: Articulating, naming objects and repeat phrases. Mood:" Anxious" Affect: Restricted range. Thought process: Linear, goal-directed. Association: Intact. Thought content: Denies delusions, denies suicidal thoughts, denies homicidal thoughts, denies intentions, or plans. Perception: Denies any hallucinations Alertness: No impairment. Concentration: Not impaired Orientation: But to time, place, person, and situation Insight regarding psychiatric condition: Fair Judgment regarding daily activities and social situation: Fair Impulse control: Fair Assessment: Bipolar 2 disorder. Post traumatic stress disorder. Unspecified anxiety disorder Plan: Continue inpatient level of care for further stabilization on medication. Precautions: Continue 15 minutes check for safety. Consider medical consultation if any acute medical issues arise. Provide the patient individual, group therapy, substance use disorder counseling to give better insight and learn coping skills. Continue follow-up with the patient daily to monitor progress of her symptoms. Medications: Continue Latuda 20 mg with lunch and 40 mg with dinner for mood stabilization. Continue Klonopin 0.5 mg 3 times daily as needed for severe anxiety. Continue Vistaril 50 mg 4 times a day daily as needed for anxiety. Continue Remeron 15 mg at bedtime for depression and to help with insomnia. Discontinued Medications: Trintillex Labs: K level 3.4 - consult medical team to address need for K supplement- discussed with nursing. Discharge patient to OUTPATIENT services upon a stabilization Prognosis: improving Expected LOS: 1-2 days
[2019-04-20 12:37] LABS: Glucose,Whole Blood 129 mg/dL (75-99)
[2019-04-20] MEDS: LURASIDONE 20 MG TAB PO SCH (12:59)
[2019-04-20] MEDS: ACETAMINOPHEN TAB 325 MG TAB PO PRN ×2 (14:54→21:46)
[2019-04-20 17:36] LABS: Glucose,Whole Blood 98 mg/dL (75-99)
[2019-04-20] MEDS: LURASIDONE 40 MG TAB PO SCH (17:59)
[2019-04-20 20:42] LABS: Glucose,Whole Blood 180 mg/dL (75-99)
[2019-04-20] MEDS: MIRTAZAPINE 15 MG TAB PO SCH (21:11)
[2019-04-21] MEDS: LEVOTHYROXINE 50 MCG TAB PO SCH (06:17)
[2019-04-21] MEDS: clonazePAM 0.5 MG TAB PO PRN ×3 (06:19→22:05)
[2019-04-21 07:46] LABS: Glucose,Whole Blood 106 mg/dL (75-99)
[2019-04-21] MEDS: NICOTINE 7MG/24HR PATCH TRANSDERM SCH (09:04)
[2019-04-21] MEDS: ACETAMINOPHEN TAB 325 MG TAB PO PRN ×2 (09:05→14:48)
--- NOTE | 2019-04-21 11:25 | P.PN ---
Progress Note - Text Progress Note Date: 04/21/19 Chief complaint: "I am feeling great" Subjective: The patient has been seen today as follow-up, chart reviewed, case discussed with the treatment team. Patient slept about 5 hours last night. Patient has been going to most of the groups and other unit activities. Patient reports good appetite. Patient reports feeling stable emotionally and denies feeling depressed, hopeless, or suicidal. She denies any mood swings, irritable mood, agitation, or anger problems. She denies any manic or psychotic symptoms. Patient reports feeling ready for discharge had a plan to continue outpatient psychiatric services including therapy and medication management. Patient expressed some concerns about going back to her previous outpatient psychiatrist, and the unit manager social services was able to refer the patient to different outpatient psychiatrist. The patient is compliant with her me dications and denies any adverse reactions. Review of other systems: Patient denies any physical symptoms besides what has been mentioned above. No breathing problems, no chest pain reported today. Objective: Vitals has been reviewed. Mental status examination; Appearance: Appears older than stated age, fairly groomed, average body built, and no specific features. Gait/ posture: Steady gait, normal arm swinging, no abnormal movements, with relaxed posture. Attitude and Behavior: Cooperative, fair eye contact during course of interview. Motor Activity: Normal psychomotor activity. Speech: spontaneous, normal rate, rhythm, and articulation. Normal volume. Not pressured. Language: Articulating, naming objects and repeat phrases. Mood:" fine" Affect: Normal range. Thought process: Linear, goal-directed. Association: Intact. Thought content: Denies delusions, denies suicidal thoughts, denies homicidal thoughts, denies intentions, or plans. Perception: Denies any hallucinations Alertness: No impairment. Concentration: Not impaired Orientation: Oriented to time, place, person, and situation Insight regarding psychiatric condition: Fair Judgment regarding daily activities and social situation: Fair Impulse control: Fair Assessment: Bipolar 2 disorder. Post traumatic stress disorder. Unspecified anxiety disorder Plan: Continue inpatient level of care for further stabilization on medication. Precautions: Continue 15 minutes check for safety. Consider medical consultation if any acute medical issues arise. Provide the patient individual, group therapy, substance use disorder counseling to give better insight and learn coping skills. Medications: Continue Latuda 20 mg with lunch and 40 mg with dinner for mood stabilization. Continue Klonopin 0.5 mg 3 times daily as needed for severe anxiety. Continue Vistaril 50 mg 4 times a day daily as needed for anxiety. Continue Remeron 15 mg at bedtime for depression and to help with insomnia. Discontinued Medications: Trintillex Labs: K level normalized yesterday was 3.9 - Reportedly patient had hypoKalemia while was at medical floor before coming to our service. Discharge patient to OUTPATIENT services upon a stabilization Prognosis: improving Expected LOS: 1-2 days
[2019-04-21 12:42] LABS: Glucose,Whole Blood 96 mg/dL (75-99)
[2019-04-21] MEDS: LURASIDONE 20 MG TAB PO SCH (12:44)
[2019-04-21 17:50] LABS: Glucose,Whole Blood 77 mg/dL (75-99)
[2019-04-21] MEDS ORDERED: LURASIDONE 40 MG TAB PO ONE (18:15)
[2019-04-21] MEDS: LURASIDONE 40 MG TAB PO SCH ×2 (18:18→18:20)
[2019-04-21 19:59] LABS: Glucose,Whole Blood 129 mg/dL (75-99)
[2019-04-21] MEDS ORDERED: diphenhydrAMINE 25 MG CAP PO SCH (21:00)
[2019-04-21] MEDS: MIRTAZAPINE 15 MG TAB PO SCH (21:06)
[2019-04-22] MEDS: hydrOXYzine PAMOATE 25 MG CAP PO PRN (01:13)
[2019-04-22 02:08] VITALS: BP 141/80; PULSE 92; RESP 14; TEMP 98.3
[2019-04-22] MEDS: LEVOTHYROXINE 50 MCG TAB PO SCH (05:45)
[2019-04-22] MEDS: clonazePAM 0.5 MG TAB PO PRN (05:54)
[2019-04-22 07:42] LABS: Glucose,Whole Blood 127 mg/dL (75-99)
[2019-04-22] MEDS: NICOTINE 7MG/24HR PATCH TRANSDERM SCH (08:53)
--- NOTE | 2019-04-22 10:03 | P.DS ---
Providers Date of admission: 04/17/19 22:08 Expected date of discharge: 04/22/19 Attending physician: Sophie Andrew MD Consults: 04/18/19 00:31 Consult Physician Routine Consulting Provider: Bro Houston Consult Reason/Comments: H and P Do you want consulting provider notified?: Yes, Notify in am Primary care physician: [facility] Course: Brief HPI: As per the HPI from initial psychiatric evaluation during this hospital stay: " Margarita Eller is a 58-year-old female who currently lives with her , unemployed on SSD, has psychiatric history of bipolar disorder, anxiety disorder, and medical history of COPD, diabetes mellitus type 2, fibromyalgia, rheumatoid arthritis, hypothyroidism, and a diabetic peripheral neuropathy. The patient has been admitted to our inpatient psychiatric services after been transferred from medical floor for further stabilization of psychiatric condition. Patient was initially admitted to ICU after an overdose on pills as a suicidal attempt. The patient has been admitted on voluntary basis to our service. The patient was brought to the hospital by EMS due to altered mental status on 04/13/19. Reportedly the patient overdosed on her medications including morphine, trazodone and Geodon which were filled on 04/10/2019. Patient was very somnolent when she came to the ER and was given N arcan with minimal response. Patient was eventually intubated for airway protection and was admitted to MICU. Patient was also hypotensive requiring norepinephrine and continued on IV fluids with improvement in blood pressure. Patient admitted for suicidal attempt when she overdosed on pills. Based on psychiatric evaluation today, the patient currently minimizes depression symptoms and reports feeling happy that she didn't kill herself and reports feeling support from her family including her . She reports her mood is relatively better today and she has more positive thoughts. Patient couldn't recall exactly what happened when she overdosed on the pills but she admitted today that it was suicidal attempt and she was overstressed and severely anxious. She endorses severe anxiety with severe unremitting anxiety, always worried out of proportion to the situations. She admits for always has racing thoughts and feels very tense. Patient reports physical symptoms of anxiety including racing heart, sweating and twitching. Panic attacks was reported by the patient as "very frequent ". In regard of PTSD symptoms; patient reports symptoms of intrusive thoughts related to prior psychological traumas. She reports previous depressive and manic episodes, describes her depressive episodes with times feeling severely depressed, diminished motivation, feeling hopeless and worthless and sometimes suicidal. Reports her depressive times could last for a few weeks or few months. She reports manic episodes could last for a few days during which she would feel extremely euphoric with flight of ideas, unusual increased level of activity, lack need to sleep due to increased activities and impulsive behavior mainly overspending money. Patient denies any current or history of auditory or visual hallucinations, but reports always hears her own voice talking about her own thoughts. She denies any paranoid ideation and no delusions could be elicited. Patient denies any history of self-injurious behavior, and denies any chronic feeling of abandonment or rejection. Patient reports her outpatient psychiatrist is started her in [place] few month ago which caused her to feel more manic and she stopped this medication on her own. She reports feeling Geodon is not helping and continued to feel depressed and severely irritable. Patient reports has wandered on her lower back which was related to surgery done in December of this year and it was healed, but recently the wound started to open again. " Hospital Course: Psychiatric: Prior to admission psychiatric medication Trintillex was discontinued as the patient reports she stopped taking it because it worsened her mood swings. The patient was initiated on psychotropic medication Latuda for mood stabilization, Remeron for depression and to help with insomnia, and Klonopin as needed for severe anxiety/panic attacks. Also Vistaril was prescribed PRN for anxiety. The medication doses has been adjusted to optimize the stability of the psychiatric symptoms, and to avoid side effects. Patient tolerated the above medication/s very well, without side effects. Patient responded very well to Remron which helped her for sleep. Trial of Benadryl was not successful as patient reports caused her to feel more anxious and couldn't sleep. Other prior to admission psychiatric medications Lamictal, Geodon and Trazodone was not initiated as the patient reports poor response to Geodon, and Lamictal and Trazodone caused her to feel more irritable. The patient was admitted for a safe and supportive environment. A psychiatric, medical, and psychosocial evaluations were done on admission. The patient's hospital stay is unremarkable. Patient did not exhibit any aggression towards herself or others during her hospitalization, and there was no requirements for emergency medications or restraints. The patient attended most of the groups to obtain coping skills and process stress. Patient was compliant with her medications. Patient got along with her peers and with staff. The objective signs of depression, mood instability and sucide have been improved. Patient denies any suicidal ideation, not made any hopelessness/helplessness statements for more than 3 days prior to discharge. Maximum hospitalization benefit was reached and subsequently discharge was planned, and patient is appropriate to continue treatment on an outpatient basis. On the day of discharge the patient was able to create an appropriate safety plan and denies any side effect of medications. Discussion was held about need to stop use of marijuana , including its effects on mood, interaction with psychiatric medications, and its role in events leading up to admission. Patient is in the contemplative stage of a change. Medical: Patient continued the medical management of her medical conditions. Non- psychiatric medications including Levothyroxine and antidiapetic medications was maintained. Patient was educated about smoking cessation and a prescription for nicotine replacement therapy was offered at time of discharge but patient declined. Assessment: Assessment at the day of discharge: The patient was seen at the day of discharge. Patient denies any sleep or appetite disturbances, denies feeling hopeless, worthless or helpless. Also, patient denies any other depressive or manic symptoms. Patient denies any psychotic symptoms. Patient denies suicidal or homicidal thoughts, intention or plans. Nurses and therapist reported patient is psychiatrically stable, and agreed to discharge plan. Mental status examination on discharge: Appearance: Appears older than stated age, fairly groomed, average body built, and no specific features. Gait/ posture: Steady gait, normal arm swinging, no abnormal movements, with relaxed posture. Attitude and Behavior: Cooperative, fair eye contact during course of interview. Motor Activity: Normal psychomotor activity. Speech: spontaneous, normal rate, rhythm, and articulation. Normal volume. Not pressured. Language: Articulating, naming objects and repeat phrases. Mood:" fine" Affect: Normal range. Thought process: Linear, goal-directed. Association: Intact. Thought content: Denies delusions, denies suicidal thoughts, denies homicidal thoughts, denies intentions, or plans. Perception: Denies any hallucinations Alertness: No impairment. Concentration: Not impaired Orientation: Oriented to time, place, person, and situation Insight regarding psychiatric condition: Fair Judgment regarding daily activities and social situation: Fair Impulse control: Fair Discharge diagnoses: Bipolar 2 disorder. Post traumatic stress disorder. Unspecified anxiety disorder Rule out Cannabis use disorder. Tobacco use disorder Health Concerns: Activity: as tolerated Diet: Diabetic Wound Care: Follow up with PCP for back wound care Special Instructions: Labs to be completed after discharge: As clinically indicated by her outpatient psychiatrist and PCP. Pt is currently on Latuda and she was educated about risk of metabolic syndrome and need to continue monitoring weight, and continue monitoring lipid panel and Hb A1C. Discharge checklist for suicide and violence to determine stability: Safety plan was discussed with the patient. Patient denies any current suicidal/ homicidal or violent ideation/plan/ intent. Patient has ability to address stressors/emotions. Patient understands and is comfortable with discharge plan. Outpatient appointments is near [facility] Emergency number (911, crisis number) provided to the patient. Avoid the use of street drugs and alcohol. Take all medications as prescribed. When you are in need of refills please contact your medical provider and/or outpatient psychiatrist to have this done. Please go to scheduled outpatient appointment for aftercare. If symptoms return or become worse call the crisis line at and/or go to the nearest emergency room for an evaluation. Pertinent Studies: Laboratory Tests Range/Units 04/17/19 04/18/19 04/18/19 22:40 07:12 07:12 Sodium (137-145) mmol/L Potassium (3.5-5.1) mmol/L Chloride (98-107) mmol/L Carbon Dioxide (22-30) mmol/L Anion Gap mmol/L BUN (7-17) mg/dL Creatinine (0.52-1.04) mg/dL Est GFR (CKD-EPI)AfAm (>60 ml/min/1.73 sqM) Est GFR (CKD-EPI)NonAf (>60 ml/min/1.73 sqM) Glucose (74-99) mg/dL POC Glucose (mg/dL) (75-99) mg/dL 130 H POC Glu Home Health Rn ID Joseph Toscano [address] Glu mg/dL 117 Hemoglobin A1c (4.0-6.0) % 5.7 Calcium (8.4-10.2) mg/dL Magnesium (1.6-2.3) mg/dL Triglycerides (<150) mg/dL 192 H Cholesterol (<200) mg/dL 230 H LDL Cholesterol, Calc (0-99) mg/dL 151 H HDL Cholesterol (40-60) mg/dL 41 TSH (0.465-4.680) mIU/L 4.250 Range/Units 04/18/19 04/18/19 04/18/19 07:58 13:02 17:31 Sodium (137-145) mmol/L Potassium (3.5-5.1) mmol/L Chloride (98-107) mmol/L Carbon Dioxide (22-30) mmol/L Anion Gap mmol/L BUN (7-17) mg/dL Creatinine (0.52-1.04) mg/dL Est GFR (CKD-EPI)AfAm (>60 ml/min/1.73 sqM) Est GFR (CKD-EPI)NonAf (>60 ml/min/1.73 sqM) Glucose (74-99) mg/dL POC Glucose (mg/dL) (75-99) mg/dL 124 H 115 H 87 POC Glu Home Health Rn ID Ferranti, Bridget Ferranti, Bridget Noreen, Hilary [address] Glu mg/dL Hemoglobin A1c (4.0-6.0) % Calcium (8.4-10.2) mg/dL Magnesium (1.6-2.3) mg/dL Triglycerides (<150) mg/dL Cholesterol (<200) mg/dL LDL Cholesterol, Calc (0-99) mg/dL HDL Cholesterol (40-60) mg/dL TSH (0.465-4.680) mIU/L Range/Units 04/18/19 04/19/19 04/19/19 20:46 07:54 07:56 Sodium (137-145) mmol/L 146 H Potassium (3.5-5.1) mmol/L 3.4 L Chloride (98-107) mmol/L 115 H Carbon Dioxide (22-30) mmol/L 20 L Anion Gap mmol/L 11 BUN (7-17) mg/dL 14 Creatinine (0.52-1.04) mg/dL 0.81 Est GFR (CKD-EPI)AfAm (>60 ml/min/1.73 sqM) >90 Est GFR (CKD-EPI)NonAf (>60 ml/min/1.73 sqM) 81 Glucose (74-99) mg/dL 107 H POC Glucose (mg/dL) (75-99) mg/dL 135 H 116 H POC Glu Home Health Rn Hilary Callejas Beth [address] Glu mg/dL Hemoglobin A1c (4.0-6.0) % Calcium (8.4-10.2) mg/dL 10.0 Magnesium (1.6-2.3) mg/dL Triglycerides (<150) mg/dL Cholesterol (<200) mg/dL LDL Cholesterol, Calc (0-99) mg/dL HDL Cholesterol (40-60) mg/dL TSH (0.465-4.680) mIU/L Range/Units 04/19/19 04/19/19 04/19/19 07:56 12:31 17:21 Sodium (137-145) mmol/L Potassium (3.5-5.1) mmol/L Chloride (98-107) mmol/L Carbon Dioxide (22-30) mmol/L Anion Gap mmol/L BUN (7-17) mg/dL Creatinine (0.52-1.04) mg/dL Est GFR (CKD-EPI)AfAm (>60 ml/min/1.73 sqM) Est GFR (CKD-EPI)NonAf (>60 ml/min/1.73 sqM) Glucose (74-99) mg/dL POC Glucose (mg/dL) (75-99) mg/dL 110 H 93 POC Glu Home Health Rn Corina Sanchez Trina [address] Glu mg/dL Hemoglobin A1c (4.0-6.0) % Calcium (8.4-10.2) mg/dL Magnesium (1.6-2.3) mg/dL 1.7 Triglycerides (<150) mg/dL Cholesterol (<200) mg/dL LDL Cholesterol, Calc (0-99) mg/dL HDL Cholesterol (40-60) mg/dL TSH (0.465-4.680) mIU/L Range/Units 04/19/19 04/20/19 04/20/19 20:07 07:28 07:53 Sodium (137-145) mmol/L Potassium (3.5-5.1) mmol/L 3.9 Chloride (98-107) mmol/L Carbon Dioxide (22-30) mmol/L Anion Gap mmol/L BUN (7-17) mg/dL Creatinine (0.52-1.04) mg/dL Est GFR (CKD-EPI)AfAm (>60 ml/min/1.73 sqM) Est GFR (CKD-EPI)NonAf (>60 ml/min/1.73 sqM) Glucose (74-99) mg/dL POC Glucose (mg/dL) (75-99) mg/dL 114 H 119 H POC Glu Home Health Rn ID Chel Callahan Richard [address] Glu mg/dL Hemoglobin A1c (4.0-6.0) % Calcium (8.4-10.2) mg/dL Magnesium (1.6-2.3) mg/dL Triglycerides (<150) mg/dL Cholesterol (<200) mg/dL LDL Cholesterol, Calc (0-99) mg/dL HDL Cholesterol (40-60) mg/dL TSH (0.465-4.680) mIU/L Range/Units 04/20/19 04/20/19 04/20/19 12:34 17:34 20:26 Sodium (137-145) mmol/L Potassium (3.5-5.1) mmol/L Chloride (98-107) mmol/L Carbon Dioxide (22-30) mmol/L Anion Gap mmol/L BUN (7-17) mg/dL Creatinine (0.52-1.04) mg/dL Est GFR (CKD-EPI)AfAm (>60 ml/min/1.73 sqM) Est GFR (CKD-EPI)NonAf (>60 ml/min/1.73 sqM) Glucose (74-99) mg/dL POC Glucose (mg/dL) (75-99) mg/dL 129 H 98 180 H POC Glu Home Health Rn ID Samantha Burgess Debra Patalon, Stephanie [address] Glu mg/dL Hemoglobin A1c (4.0-6.0) % Calcium (8.4-10.2) mg/dL Magnesium (1.6-2.3) mg/dL Triglycerides (<150) mg/dL Cholesterol (<200) mg/dL LDL Cholesterol, Calc (0-99) mg/dL HDL Cholesterol (40-60) mg/dL TSH (0.465-4.680) mIU/L Range/Units 04/21/19 04/21/19 04/21/19 07:41 12:40 17:49 Sodium (137-145) mmol/L Potassium (3.5-5.1) mmol/L Chloride (98-107) mmol/L Carbon Dioxide (22-30) mmol/L Anion Gap mmol/L BUN (7-17) mg/dL Creatinine (0.52-1.04) mg/dL Est GFR (CKD-EPI)AfAm (>60 ml/min/1.73 sqM) Est GFR (CKD-EPI)NonAf (>60 ml/min/1.73 sqM) Glucose (74-99) mg/dL POC Glucose (mg/dL) (75-99) mg/dL 106 H 96 77 POC Glu Home Health Rn ID Samantha Burgess Shelly Rogan, Trina [address] Glu mg/dL Hemoglobin A1c (4.0-6.0) % Calcium (8.4-10.2) mg/dL Magnesium (1.6-2.3) mg/dL Triglycerides (<150) mg/dL Cholesterol (<200) mg/dL LDL Cholesterol, Calc (0-99) mg/dL HDL Cholesterol (40-60) mg/dL TSH (0.465-4.680) mIU/L Range/Units 04/21/19 04/22/19 19:58 07:36 Sodium (137-145) mmol/L Potassium (3.5-5.1) mmol/L Chloride (98-107) mmol/L Carbon Dioxide (22-30) mmol/L Anion Gap mmol/L BUN (7-17) mg/dL Creatinine (0.52-1.04) mg/dL Est GFR (CKD-EPI)AfAm (>60 ml/min/1.73 sqM) Est GFR (CKD-EPI)NonAf (>60 ml/min/1.73 sqM) Glucose (74-99) mg/dL POC Glucose (mg/dL) (75-99) mg/dL 129 H 127 H POC Glu Home Health Rn ID Chel Callahan Debra [address] Glu mg/dL Hemoglobin A1c (4.0-6.0) % Calcium (8.4-10.2) mg/dL Magnesium (1.6-2.3) mg/dL Triglycerides (<150) mg/dL Cholesterol (<200) mg/dL LDL Cholesterol, Calc (0-99) mg/dL HDL Cholesterol (40-60) mg/dL TSH (0.465-4.680) mIU/L Procedures: Plan: Patient will continue follow-up at-. As per discharge plan Continue the following medications: As per discharge plan Patient Condition at Discharge: Stable Patient will be discharge to home Discharge Medication List Levothyroxine Sodium [Synthroid] 50 mcg PO DAILY 07/31/18 [History] SUMAtriptan SUCCINATE [Imitrex] 50 mg PO DAILY PRN 04/14/19 [History] glipiZIDE XL [Glucotrol XL] 2.5 mg PO DAILY 04/14/19 [History] Gabapentin 600 mg PO BID 04/18/19 [History] Lurasidone [Latuda] 20 mg PO W/LUNCH #30 tab 04/22/19 [Rx] Lurasidone [Latuda] 40 mg PO W/SUPPER #30 tab 04/22/19 [Rx] Mirtazapine [Remeron] 22.5 mg PO HS #45 tab 04/22/19 [Rx] clonazePAM [KlonoPIN] 0.5 mg PO TID PRN #42 tab 04/22/19 [Rx] hydrOXYzine PAMOATE [Vistaril] 25 mg PO QID PRN #120 cap 04/22/19 [Rx] Plan - Discharge Summary New Discharge Prescriptions: New clonazePAM [KlonoPIN] 0.5 mg PO TID PRN #42 tab PRN Reason: severe anxiety or panic attack Lurasidone [Latuda] 20 mg PO W/LUNCH #30 tab Lurasidone [Latuda] 40 mg PO W/SUPPER #30 tab Mirtazapine [Remeron] 22.5 mg PO HS #45 tab hydrOXYzine PAMOATE [Vistaril] 25 mg PO QID PRN #120 cap PRN Reason: Anxiety Continue Levothyroxine Sodium [Synthroid] 50 mcg PO DAILY SUMAtriptan SUCCINATE [Imitrex] 50 mg PO DAILY PRN PRN Reason: Headache glipiZIDE XL [Glucotrol XL] 2.5 mg PO DAILY Gabapentin 600 mg PO BID Discontinued Ziprasidone [Geodon] 80 mg PO HS Ziprasidone [Geodon] 60 mg PO DAILY traZODone HCL [Desyrel] 100 mg PO HS lamoTRIgine [LaMICtal] 150 mg PO HS Morphine Sulfate ER [Ms Contin] 15 mg PO Q12HR Morphine Sulfate [Morphine Sulfate ER] 30 mg PO Q12HR Promethazine [Phenergan] 12.5 mg PO BID PRN PRN Reason: Nausea Discharge Medication List Levothyroxine Sodium [Synthroid] 50 mcg PO DAILY 07/31/18 [History] SUMAtriptan SUCCINATE [Imitrex] 50 mg PO DAILY PRN 04/14/19 [History] glipiZIDE XL [Glucotrol XL] 2.5 mg PO DAILY 04/14/19 [History] Gabapentin 600 mg PO BID 04/18/19 [History] Lurasidone [Latuda] 20 mg PO W/LUNCH #30 tab 04/22/19 [Rx] Lurasidone [Latuda] 40 mg PO W/SUPPER #30 tab 04/22/19 [Rx] Mirtazapine [Remeron] 22.5 mg PO HS #45 tab 04/22/19 [Rx] clonazePAM [KlonoPIN] 0.5 mg PO TID PRN #42 tab 04/22/19 [Rx] hydrOXYzine PAMOATE [Vistaril] 25 mg PO QID PRN #120 cap 04/22/19 [Rx] Follow up Appointment(s)/Referral(s): Psychiat[facility] [Other] - 05/02/19 10:00 am (Jazz Briscoe ) [facility] [Outside] - 04/25/19 2:00 pm (James Geradr) Patient Instructions/Handouts: Suicide Prevention (DC) Activity/Diet/Wound Care/Special Instructions: Activity and diet as tolerated. Avoid the use of street drugs and alcohol. Take all medications as prescribed. When you are in need of refills on your medicati ons please contact your medical provider and/or outpatient psychiatrist to have this done. Please go to scheduled outpatient appointment for aftercare treatment. If symptoms return or become worse, call the crisis line at and/or go to the nearest emergency room for evaluation. Discharge Disposition: HOME SELF-CARE
[2019-04-22] MEDS ORDERED: MIRTAZAPINE 15 MG TAB PO SCH (21:00)
== END 2019-04-22 12:07 | disposition home or self-care (01) | DRG 885 ==
LOC: 3MHU 22:08
PROVIDERS: ADMIT Psychiatry & Neurology Psychiatry; ATTEND Psychiatry & Neurology Psychiatry
DX: F31.81 Bipolar II disorder (principal); E11.42 Type 2 diabetes mellitus with diabetic polyneuropathy; E11.43 Type 2 diabetes mellitus with diabetic autonomic (poly)neuropathy; K31.84 Gastroparesis; L98.429 Non-pressure chronic ulcer of back with unspecified severity; J43.9 Emphysema, unspecified; F43.10 Post-traumatic stress disorder, unspecified; F41.9 Anxiety disorder, unspecified; G47.00 Insomnia, unspecified; F41.0 Panic disorder [episodic paroxysmal anxiety]; T50.902A Poisoning by unspecified drugs, medicaments and biological substances, intentional self-harm, initial encounter; E87.6 Hypokalemia; F12.90 Cannabis use, unspecified, uncomplicated; M79.7 Fibromyalgia; M06.9 Rheumatoid arthritis, unspecified; E03.9 Hypothyroidism, unspecified; E78.5 Hyperlipidemia, unspecified; I10 Essential (primary) hypertension; M19.90 Unspecified osteoarthritis, unspecified site; K58.9 Irritable bowel syndrome, unspecified; G43.909 Migraine, unspecified, not intractable, without status migrainosus; I69.992 Facial weakness following unspecified cerebrovascular disease; G89.29 Other chronic pain; M54.9 Dorsalgia, unspecified; F17.210 Nicotine dependence, cigarettes, uncomplicated; Z71.6 Tobacco abuse counseling; Z71.51 Drug abuse counseling and surveillance of drug abuser; Z79.84 Long term (current) use of oral hypoglycemic drugs; Z79.890 Hormone replacement therapy; Z79.891 Long term (current) use of opiate analgesic; Z79.899 Other long term (current) drug therapy; Z91.5 Personal history of self-harm; Z90.49 Acquired absence of other specified parts of digestive tract; Z90.710 Acquired absence of both cervix and uterus; Z98.890 Other specified postprocedural states; Z98.42 Cataract extraction status, left eye; Z98.41 Cataract extraction status, right eye; Z88.1 Allergy status to other antibiotic agents; Z91.040 Latex allergy status; Z88.0 Allergy status to penicillin; Z88.8 Allergy status to other drugs, medicaments and biological substances; Z91.048 Other nonmedicinal substance allergy status; Z80.0 Family history of malignant neoplasm of digestive organs; Z80.7 Family history of other malignant neoplasms of lymphoid, hematopoietic and related tissues; Z82.3 Family history of stroke; Z82.49 Family history of ischemic heart disease and other diseases of the circulatory system; Z82.69 Family history of other diseases of the musculoskeletal system and connective tissue; Z82.61 Family history of arthritis; Z80.1 Family history of malignant neoplasm of trachea, bronchus and lung
CPT/HCPCS: 80048; 80061; 83036; 83735; 84132; 84443

== ENCOUNTER → 2019-07-20 | Outpatient (CLI) | payer BC, MEDICARE ==
[2019-07-20 09:52] LABS: Basophils % (A) 1 %; Eosinophils # (A) 0.1 k/uL (0-0.7); Eosinophils % (A) 1 %; HCT 41.8 % (34.0-46.0); HGB 13.2 gm/dL (11.4-16.0); Lymphocytes # (A) 3.3 k/uL (1.0-4.8); Lymphocytes % (A) 35 %; MCHC 31.6 g/dL (31.0-37.0); Mean Platelet Volume 7.2; Monocytes # (A) 0.4 k/uL (0-1.0); Monocytes % (A) 5 %; Neutrophils # (A) 5.3 k/uL (1.3-7.7); Neutrophils % (A) 56 %; Platelet Count 281 k/uL (150-450); RBC 4.26 m/uL (3.80-5.40); RDW 13.3 % (11.5-15.5); WBC 9.4 k/uL (3.8-10.6)
[2019-07-20 10:43] LABS: Mucus,Urine Rare /hpf; RBC,Urine 1 /hpf (0-5); Squamous Epithelial Cell,Urine 1 /hpf (0-4); WBC,Urine <1 /hpf (0-5)
[2019-07-20 10:51] LABS: Appearance,Urine Clear (Clear); Color,Urine Yellow
[2019-07-20 10:52] LABS: Bilirubin,Urine Negative (Negative); Blood,Urine Negative (Negative); Glucose,Urine (UA) Negative (Negative); Ketones,Urine Negative (Negative); Leukocyte Esterase,Urine Negative (Negative); Nitrite,Urine Negative (Negative); Protein,Urine 1+ (Negative); Specific Gravity,Urine 1.015 (1.001-1.035); Urobilinogen,Urine <2.0 mg/dL (<2.0)
[2019-07-20 16:19] LABS: % Iron Saturation 16.18 (12.00-45.00); African American GFR (CKD) 93.5 (60.0-200.0); Albumin 4.2 g/dL (3.80-4.90); Albumin/Globulin Ratio 2.1 (1.60-3.17); Anion Gap 8.1 mmol/L (4.00-12.00); Calcium 8.8 mg/dL (8.7-10.3); Carbon Dioxide 21.9 mmol/L (21.6-31.8); Magnesium 1.6 mg/dL (1.5-2.4); Non-African American GFR(CKD) 80.7 (60.0-200.0); Phosphorus 4.6 mg/dL (2.4-5.1); Potassium 4.1 mmol/L (3.5-5.5); Total Bilirubin 0.2 mg/dL (0.3-1.2); Total Protein 6.2 g/dL (6.2-8.2); Uric Acid 5.2 mg/dL (2.9-7.7)
[2019-07-20 16:27] LABS: Ferritin 176.8 ng/mL (10.0-291.0)
[2019-07-20 18:12] LABS: Hemoglobin A1C 5.9 % (4.0-6.0)
[2019-07-20 20:45] LABS: Microalbumin Creatinine Ratio <30 mg/g Creat (0-30); Urine Creatinine 125.8 mg/dL
== END | disposition home or self-care (01) ==
LOC: LABWHC1 09:07
PROVIDERS: ATTEND Nurse Practitioner Family
DX: D64.9 Anemia, unspecified (principal); N39.0 Urinary tract infection, site not specified; R80.9 Proteinuria, unspecified; E21.3 Hyperparathyroidism, unspecified; E55.9 Vitamin D deficiency, unspecified; M10.9 Gout, unspecified; N18.3 Chronic kidney disease, stage 3 (moderate); E11.22 Type 2 diabetes mellitus with diabetic chronic kidney disease
CPT/HCPCS: 36415; 80053; 81001; 82043; 82306; 82570; 82728; 83036; 83540; 83550; 83735; 83970; 84100; 84550; 85025

== ENCOUNTER → 2019-09-29 | Outpatient (CLI) | payer BC, MEDICARE ==
[2019-09-29 11:42] LABS: HCT 46.7 % (34.0-46.0); HGB 14.9 gm/dL (11.4-16.0); MCHC 31.8 g/dL (31.0-37.0); MCV 97.5 fL (80.0-100.0); Mean Platelet Volume 6.9; Platelet Count 321 k/uL (150-450); RDW 13.4 % (11.5-15.5); WBC 9.7 k/uL (3.8-10.6)
[2019-09-29 11:52] LABS: Appearance,Urine Cloudy (Clear); Bilirubin,Urine Negative (Negative); Blood,Urine Negative (Negative); Color,Urine Yellow; Glucose,Urine (UA) Negative (Negative); Ketones,Urine Negative (Negative); Leukocyte Esterase,Urine Negative (Negative); Mucus,Urine Rare /hpf; Nitrite,Urine Negative (Negative); PH, Urine 6.5 (5.0-8.0); Protein,Urine 1+ (Negative); Specific Gravity,Urine 1.017 (1.001-1.035); Squamous Epithelial Cell,Urine 4 /hpf (0-4); Urobilinogen,Urine <2.0 mg/dL (<2.0); WBC,Urine 1 /hpf (0-5)
[2019-09-29 18:09] LABS: Microalbumin Creatinine Ratio <30 mg/g Creat (0-30); Urine Creatinine 122.3 mg/dL
[2019-09-29 18:32] LABS: % Iron Saturation 19.61 (12.00-45.00); African American GFR (CKD) 81.1 (60.0-200.0); Albumin 4.1 g/dL (3.80-4.90); Albumin/Globulin Ratio 1.58 (1.60-3.17); Anion Gap 11.1 mmol/L (4.00-12.00); Calcium 9.4 mg/dL (8.7-10.3); Carbon Dioxide 22.9 mmol/L (21.6-31.8); Globulin 2.6 g/dL (1.6-3.3); Magnesium 1.6 mg/dL (1.5-2.4); Phosphorus 3.6 mg/dL (2.4-5.1); Potassium 3.8 mmol/L (3.5-5.5); Total Bilirubin 0.2 mg/dL (0.3-1.2); Total Protein 6.7 g/dL (6.2-8.2); Uric Acid 5.5 mg/dL (2.9-7.7)
[2019-09-29 18:50] LABS: Ferritin 240.7 ng/mL (10.0-291.0)
[2019-09-29 23:20] LABS: Hemoglobin A1C 7.1 % (4.0-6.0)
== END | disposition home or self-care (01) ==
LOC: LABWHC1 11:01
PROVIDERS: ATTEND Nurse Practitioner Family
DX: N18.3 Chronic kidney disease, stage 3 (moderate) (principal); D64.9 Anemia, unspecified; N39.0 Urinary tract infection, site not specified; E55.9 Vitamin D deficiency, unspecified; M10.9 Gout, unspecified
CPT/HCPCS: 36415; 80053; 81001; 82043; 82306; 82570; 82728; 83036; 83540; 83550; 83735; 83970; 84100; 84550; 85027

== ENCOUNTER → 2019-10-17 | Outpatient (CLI) | payer BC, MEDICARE ==
[2019-10-17 16:26] LABS: African American GFR (CKD) 81.1 (60.0-200.0); Anion Gap 9.9 mmol/L (4.00-12.00); BUN/Creat Ratio 16.67 Ratio (12.00-20.00); Calcium 9.5 mg/dL (8.7-10.3); Carbon Dioxide 22.1 mmol/L (21.6-31.8); Magnesium 1.8 mg/dL (1.5-2.4); Potassium 4.6 mmol/L (3.5-5.5)
== END | disposition home or self-care (01) ==
LOC: LABWHC1 09:12
PROVIDERS: ATTEND Internal Medicine
DX: N18.3 Chronic kidney disease, stage 3 (moderate) (principal)
CPT/HCPCS: 36415; 80048; 83735

== ENCOUNTER → 2019-11-08 | Outpatient (CLI) | payer BC, MEDICARE ==
[2019-11-08 14:14] LABS: MCHC 32.6 g/dL (31.0-37.0); MCV 98.1 fL (80.0-100.0); Mean Platelet Volume 7.3; Platelet Count 282 k/uL (150-450); RBC 4.38 m/uL (3.80-5.40); RDW 13.9 % (11.5-15.5); WBC 7.3 k/uL (3.8-10.6)
[2019-11-08 15:04] LABS: Appearance,Urine Clear (Clear); Bilirubin,Urine Negative (Negative); Blood,Urine Negative (Negative); Color,Urine Yellow; Glucose,Urine (UA) Negative (Negative); Ketones,Urine Negative (Negative); Leukocyte Esterase,Urine Negative (Negative); Mucus,Urine Rare /hpf; Nitrite,Urine Negative (Negative); PH, Urine 6.5 (5.0-8.0); Protein,Urine 1+ (Negative); Specific Gravity,Urine 1.021 (1.001-1.035); Squamous Epithelial Cell,Urine 2 /hpf (0-4); Urobilinogen,Urine <2.0 mg/dL (<2.0); WBC,Urine 4 /hpf (0-5)
[2019-11-08 20:08] LABS: % Iron Saturation 42.81 (12.00-45.00); African American GFR (CKD) 40.5 (60.0-200.0); Albumin 4.3 g/dL (3.80-4.90); Albumin/Globulin Ratio 1.59 (1.60-3.17); Anion Gap 7.7 mmol/L (4.00-12.00); BUN/Creat Ratio 14.38 Ratio (12.00-20.00); Calcium 9.1 mg/dL (8.7-10.3); Carbon Dioxide 19.3 mmol/L (21.6-31.8); Ferritin 344.4 ng/mL (10.0-291.0); Globulin 2.7 g/dL (1.6-3.3); Magnesium 1.8 mg/dL (1.5-2.4); Non-African American GFR(CKD) 34.9 (60.0-200.0); Phosphorus 3.4 mg/dL (2.4-5.1); Potassium 4.4 mmol/L (3.5-5.5); Total Bilirubin 0.3 mg/dL (0.3-1.2); Uric Acid 6.3 mg/dL (2.9-7.7)
== END | disposition home or self-care (01) ==
LOC: LABWHC1 13:40
PROVIDERS: ATTEND Internal Medicine
DX: N18.3 Chronic kidney disease, stage 3 (moderate) (principal); D63.1 Anemia in chronic kidney disease; N39.0 Urinary tract infection, site not specified; E55.9 Vitamin D deficiency, unspecified; N25.81 Secondary hyperparathyroidism of renal origin; M10.9 Gout, unspecified
CPT/HCPCS: 36415; 80053; 81001; 82043; 82306; 82570; 82728; 83540; 83550; 83735; 83970; 84100; 84550; 85027

== ENCOUNTER → 2020-01-17 | Outpatient (CLI) | payer BC, MEDICARE ==
[2020-01-17 12:41] LABS: HCT 47.1 % (34.0-46.0); HGB 14.9 gm/dL (11.4-16.0); MCH 31.4 pg (25.0-35.0); MCHC 31.7 g/dL (31.0-37.0); MCV 98.9 fL (80.0-100.0); Mean Platelet Volume 7.4; Platelet Count 265 k/uL (150-450); RBC 4.76 m/uL (3.80-5.40); RDW 14.1 % (11.5-15.5)
[2020-01-17 13:51] LABS: Appearance,Urine Clear (Clear); Bilirubin,Urine Negative (Negative); Blood,Urine Negative (Negative); Color,Urine Yellow; Glucose,Urine (UA) Negative (Negative); Ketones,Urine Negative (Negative); Leukocyte Esterase,Urine Negative (Negative); Nitrite,Urine Negative (Negative); Protein,Urine Trace (Negative); Specific Gravity,Urine 1.012 (1.001-1.035); Urobilinogen,Urine <2.0 mg/dL (<2.0)
[2020-01-17 18:22] LABS: Ferritin 237.2 ng/mL (10.0-291.0)
[2020-01-17 18:46] LABS: % Iron Saturation 27.3 (12.00-45.00); African American GFR (CKD) 63.6 (60.0-200.0); Albumin 4.3 g/dL (3.80-4.90); Albumin/Globulin Ratio 1.59 (1.60-3.17); Anion Gap 10.7 mmol/L (4.00-12.00); BUN/Creat Ratio 12.73 Ratio (12.00-20.00); Carbon Dioxide 20.3 mmol/L (21.6-31.8); Globulin 2.7 g/dL (1.6-3.3); Magnesium 1.6 mg/dL (1.5-2.4); Non-African American GFR(CKD) 54.9 (60.0-200.0); Potassium 3.6 mmol/L (3.5-5.5); Total Bilirubin 0.3 mg/dL (0.2-1.2); Uric Acid 4.9 mg/dL (2.9-7.7)
[2020-01-18 01:50] LABS: Urine Creatinine 56.2 mg/dL
== END | disposition home or self-care (01) ==
LOC: LABWHC1 10:58
PROVIDERS: ATTEND Nurse Practitioner Family
DX: N18.3 Chronic kidney disease, stage 3 (moderate) (principal); D63.1 Anemia in chronic kidney disease; N39.0 Urinary tract infection, site not specified; R80.9 Proteinuria, unspecified; N25.81 Secondary hyperparathyroidism of renal origin; E55.9 Vitamin D deficiency, unspecified; M10.9 Gout, unspecified
CPT/HCPCS: 36415; 80053; 81003; 82043; 82306; 82570; 82728; 83540; 83550; 83735; 83970; 84100; 84550; 85027

== ENCOUNTER → 2020-01-31 | Outpatient (CLI) | payer BC, MEDICARE ==
--- NOTE | 2020-01-31 15:23 | CT ---
EXAMINATION TYPE: CT thor lumbar spine wo con DATE OF EXAM: 01/31/2020 COMPARISON: CT abdomen and pelvis 10/26/2018 and prior lumbar spine CT 08/14/2015. CT chest 04/02/2017 HISTORY: 59-year-old female chronic back pain TECHNIQUE: Contiguous axial scanning of the thoracic and lumbar spine without IV contrast. Coronal an d sagittal reconstructions performed. CT DLP: 1743.3 mGycm Automated exposure control for dose reduction was used. FINDINGS: THORACIC SPINE: Vertebral body heights are preserved and alignment is maintained. Bridging right anterolateral endplate spondylosis mid to lower thoracic spine. Mild to moderate multilevel degenerative disc disease. Spinal stimulator array centered along the mid thoracic spinal canal. Slightly accentuated midthoracic kyphosis. One of the patient's spinal stimulator leads enters the T9 -T10 interlaminar space. There is a T9 laminectomy present. Hepatic steatosis. Right-sided renal calculi measuring up to 5 mm. Surgical clips of the GE junction. Indeterminate 6 mm left lower lobe pulmonary nodule, axial image 53, unchanged from 2017 compatible w ith a benign etiology. LUMBAR SPINE: Postsurgical changes of L4-L5 posterior and interbody fusion. Mild degenerative disc disease within t he lumbar spine with bulging discs, largest at L5-S1. Hypertrophic facet arthropathy both above and b elow the fusion. The patient's spinal stimulator leads enter the L2-L3 interlaminar space. Vertebral body heights are preserved and alignment is maintained. Metal artifact from the patient's L4-L5 fusion limits assessment of the spinal canal at this level. T here may be a moderate spinal canal stenosis at L5-S1 with moderate bilateral neuroforaminal stenosis . IMPRESSION: 1. MILD/MODERATE DEGENERATIVE DISC DISEASE. SLIGHTLY ACCENTUATED MIDTHORACIC KYPHOSIS. PRIOR T9 NAZ ECTOMY AND A SPINAL STIMULATOR LEAD ENTERING THE T9-T10 INTERLAMINAR SPACE. NO VERTEBRAL COMPRESSION COLLAPSE OR MALALIGNMENT. 2. DISH WITHIN THE MID TO LOWER LUMBAR SPINE. 3. STATUS POST L4-L5 POSTERIOR AND INTERBODY FUSION. DEGENERATIVE DISC DISEASE AND FACET ARTHROPATHY ABOVE AND BELOW THE FUSION. THERE MAY BE A MODERATE SPINAL CANAL STENOSIS AT L5-S1 WITH MODERATE BILA TERAL NEURAL FORAMINAL STENOSIS. 4. HEPATIC STEATOSIS AND NONOBSTRUCTIVE RIGHT RENAL CALCULI.
== END | disposition home or self-care (01) ==
LOC: RADCTMAIN 14:03
PROVIDERS: ATTEND Psychiatry & Neurology Neurology
DX: M51.36 Other intervertebral disc degeneration, lumbar region (principal); M51.34 Other intervertebral disc degeneration, thoracic region; M47.816 Spondylosis without myelopathy or radiculopathy, lumbar region; M40.294 Other kyphosis, thoracic region; Z98.890 Other specified postprocedural states; Z98.1 Arthrodesis status; M48.16 Ankylosing hyperostosis [Forestier], lumbar region
CPT/HCPCS: 72128; 72131

== ENCOUNTER → 2020-03-23 | Outpatient (CLI) | payer BC, MEDICARE ==
[2020-03-23 11:22] LABS: HGB 15.6 gm/dL (11.4-16.0); MCH 33.1 pg (25.0-35.0); MCHC 33.2 g/dL (31.0-37.0); MCV 99.6 fL (80.0-100.0); Mean Platelet Volume 7.5; Platelet Count 264 k/uL (150-450); RBC 4.72 m/uL (3.80-5.40); RDW 13.3 % (11.5-15.5); WBC 9.3 k/uL (3.8-10.6)
[2020-03-23 11:29] LABS: Protein/Creatinine Ratio,Urine 0.317
[2020-03-23 11:32] LABS: Appearance,Urine Cloudy (Clear); Bacteria,Urine Rare /hpf; Bilirubin,Urine Negative (Negative); Blood,Urine Negative (Negative); Color,Urine Yellow; Glucose,Urine (UA) Negative (Negative); Ketones,Urine Negative (Negative); Leukocyte Esterase,Urine Negative (Negative); Mucus,Urine Rare /hpf; Nitrite,Urine Negative (Negative); Protein,Urine Trace (Negative); Specific Gravity,Urine 1.015 (1.001-1.035); Squamous Epithelial Cell,Urine 3 /hpf (0-4); Urobilinogen,Urine <2.0 mg/dL (<2.0); WBC,Urine 1 /hpf (0-5)
[2020-03-23 16:14] LABS: % Iron Saturation 20.45 (12.00-45.00); African American GFR (CKD) 71.4 (60.0-200.0); Albumin 4.1 g/dL (3.80-4.90); Albumin/Globulin Ratio 1.41 (1.60-3.17); Anion Gap 8.7 mmol/L (4.00-12.00); Calcium 9.4 mg/dL (8.7-10.3); Carbon Dioxide 23.3 mmol/L (21.6-31.8); Ferritin 327.6 ng/mL (10.0-291.0); Globulin 2.9 g/dL (1.6-3.3); Magnesium 1.8 mg/dL (1.5-2.4); Non-African American GFR(CKD) 61.6 (60.0-200.0); Phosphorus 3.2 mg/dL (2.4-5.1); Potassium 3.9 mmol/L (3.5-5.5); Total Bilirubin 0.2 mg/dL (0.2-1.2); Uric Acid 5.7 mg/dL (2.9-7.7)
== END | disposition home or self-care (01) ==
LOC: LABWHC1 09:59
PROVIDERS: ATTEND Nurse Practitioner Family
DX: N18.30 Chronic kidney disease, stage 3 unspecified (principal); D63.1 Anemia in chronic kidney disease; N39.0 Urinary tract infection, site not specified; R80.9 Proteinuria, unspecified; N25.81 Secondary hyperparathyroidism of renal origin; E55.9 Vitamin D deficiency, unspecified; M10.9 Gout, unspecified
CPT/HCPCS: 36415; 80053; 81001; 82306; 82570; 82728; 83540; 83550; 83735; 83970; 84100; 84156; 84550; 85027

== ENCOUNTER → 2020-04-18 | Outpatient (CLI) | payer BC, MEDICARE ==
--- NOTE | 2020-04-18 22:12 | CT ---
EXAMINATION TYPE: CT soft tissue neck wo con DATE OF EXAM: 04/18/2020 COMPARISON: 05/01/2016 cervical spine HISTORY: Nodule within the neck CT DLP: 514.70 mGycm CONTRAST: Patient injected with 0 mL of Isovue 300. TECHNIQUE: Axial images at 3 mm thick sections. Reconstructed images in the coronal plane and sagitt al plane are reviewed. FINDINGS: Limited CT sections are obtained the lung apices. The lung apices appear clear. CT neck: The torus tubarius and fossa of Rosenmuller are normal. 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 Para nasal sinuses and mastoid air cells are clear. Parotid glands appear normal and symmetrical. Submandibular glands, are normal. Parapharyngeal spac es are normal. No suspicious adenopathy is evident. The hypopharynx appears within normal limits. Vocal cord level appear symmetrical as visualized. Vocal cords are closed at the time of the exam. Thyroid as visualized is normal. Patient's reported cyst is not identified. Osseous structures are normal. IMPRESSIONS: 1. Soft tissues of the neck as visualized appear normal
== END | disposition home or self-care (01) ==
LOC: RADCTMAIN 14:23
PROVIDERS: ATTEND Otolaryngology Otolaryngology/Facial Plastic Surgery
DX: J31.2 Chronic pharyngitis (principal); R49.8 Other voice and resonance disorders
CPT/HCPCS: 70490

== ENCOUNTER → 2020-07-05 | Outpatient (CLI) | payer BC, MEDICARE ==
--- NOTE | 2020-07-06 11:15 | MM ---
Reason for exam: additional evaluation requested from prior study. Last mammogram was performed 1 year and 6 months ago. History: Patient is postmenopausal. Benign excisional biopsy of the right breast. Taking estrogen for 6 years. Physical Findings: Nurse did not find any significant physical abnormalities on exam. MG Diagnostic Mammo w CAD CHITRA Bilateral CC and MLO view(s) were taken. Spot compression MLO, spot compression CC, and LM view(s) were taken of the left breast. Prior study comparison: December 22, 2018, bilateral MG screening mammo w CAD. August 03, 2017, bilateral MG screening mammo w CAD. The breast tissue is heterogeneously dense. This may lower the sensitivity of mammography. Developing asymmetry left lower inner quadrant anterior position. This finding is changed when compared with previous exams. These results were verbally communicated with the patient and result sheet given to the patient on 07/05/20. ASSESSMENT: Incomplete: need additional imaging evaluation, BI-RAD 0 RECOMMENDATION: Ultrasound of the left breast. (lower inner quadrant) Manage on a clinical basis with regard to palpable and tenderness.
--- NOTE | 2020-07-06 11:18 | USB ---
Reason for exam: additional evaluation requested from abnormal screening. History: Patient is postmenopausal. Benign excisional biopsy of the right breast. Taking estrogen for 6 years. US Breast Limited LT Left limited breast ultrasound including focal area of concern, retroareolar and axilla demonstrates a 8 x 2 x 7mm lesion too small to characterize at 5 o'clock and a 3 x 3 x 6mm cystic lesion at 10 o'clock. These results were verbally communicated with the patient and result sheet given to the patient on 07/05/20. ASSESSMENT: Suspicious, BI-RAD 4 RECOMMENDATION: Ultrasound core biopsy of the left breast. (or) Stereotactic core biopsy of the left breast. (left 5 o'clock anterior) Called Dr. Caban's office with mammographic findings and has scheduled an appointment for the patient for 07/27/20 at 2:[address] Carter. Biopsy scheduled for 07/30/20 at 1:00. PRELIMINARY REPORT CALLED AND FAXED TO DR. CARTER ON 07/05/20. Ultrasound of the left breast in 6 months. (6 months at 10 o'clock if biopsy is negative)
== END | disposition home or self-care (01) ==
LOC: RADMAMWWP 09:17
PROVIDERS: ATTEND Family Medicine
DX: N63.20 Unspecified lump in the left breast, unspecified quadrant (principal); N64.4 Mastodynia; R92.8 Other abnormal and inconclusive findings on diagnostic imaging of breast
CPT/HCPCS: 77066

== ENCOUNTER → 2020-07-19 | Outpatient (CLI) | payer BC, MEDICARE ==
[2020-07-19 19:19] LABS: HGB 16.4 g/dL (12.0-15.0); MCHC 32.8 g/dL (32.0-37.0); MCV 100.6 fL (80.0-97.0); Mean Platelet Volume 9.9 fL (9.5-12.2); Platelet Count 332 X 10*3/uL (140-440); RBC 4.97 X 10*6/uL (4.10-5.20); RDW 13.1 % (11.5-14.5); WBC 11.05 X 10*3/uL (4.50-10.00)
[2020-07-19 20:03] LABS: % Iron Saturation 23.1 (12.00-45.00); African American GFR (CKD) 47.2 (60.0-200.0); Albumin 5.1 g/dL (3.80-4.90); Albumin/Globulin Ratio 1.82 (1.60-3.17); Anion Gap 9.7 mmol/L (4.00-12.00); Calcium 10.1 mg/dL (8.7-10.3); Carbon Dioxide 23.3 mmol/L (21.6-31.8); Globulin 2.8 g/dL (1.6-3.3); Magnesium 1.8 mg/dL (1.5-2.4); Non-African American GFR(CKD) 40.7 (60.0-200.0); Phosphorus 4.1 mg/dL (2.4-5.1); Potassium 4.3 mmol/L (3.5-5.5); Total Bilirubin 0.6 mg/dL (0.2-1.2); Total Protein 7.9 g/dL (6.2-8.2); Uric Acid 6.7 mg/dL (2.9-7.7)
[2020-07-19 20:07] LABS: Ferritin 260.1 ng/mL (10.0-291.0)
[2020-07-19 23:24] LABS: Urine Creatinine 306.2 mg/dL
[2020-07-20 00:28] LABS: Appearance,Urine Cloudy (Clear); Bacteria,Urine Few /HPF (None Seen); Bilirubin,Urine Small (Negative); Blood,Urine Negative (Negative); Calcium Phosphate Crystals,Ur Present (None Seen); Color,Urine Dark Yellow (Yellow); Glucose,Urine (UA) Negative (Negative); Ketones,Urine Trace mg/dL (Negative); Leukocyte Esterase,Urine Negative (Negative); Nitrite,Urine Negative (Negative); Protein,Urine 1+ mg/dL (Negative); Specific Gravity,Urine 1.023 (1.001-1.030)
== END | disposition home or self-care (01) ==
LOC: LABWHC1 11:24
PROVIDERS: ATTEND Internal Medicine
DX: N18.31 Chronic kidney disease, stage 3a (principal); D63.1 Anemia in chronic kidney disease; N39.0 Urinary tract infection, site not specified; R80.9 Proteinuria, unspecified; N25.81 Secondary hyperparathyroidism of renal origin; E55.9 Vitamin D deficiency, unspecified; M10.9 Gout, unspecified
CPT/HCPCS: 36415; 80053; 81001; 82043; 82306; 82570; 82728; 83540; 83550; 83735; 83970; 84100; 84550; 85027

== ENCOUNTER → 2020-07-27 | Outpatient (CLI) | payer BC, MEDICARE ==
--- NOTE | 2020-07-27 15:16 | P.GSHP ---
History of Present Illness H&P Date: 07/27/20 Chief Complaint: mammogram and ultrasound abnormality left breast Margarita is a 60 year old white female seen in consultation for Dr. Nye regarding the radiographic abnormality in her left breast. She underwent a bilateral mammogram and 2421. This revealed a follow-up in asymmetry in the left breast lower inner quadrant anterior position. She then had an ultrasound of the left breast performed. On ultrasound at 5:00 an 8 x 2 x 7 mm lesion was noted and a 3 x 3 x 6 segment millimeters cystic lesion at 10:00 was noted. This was considered to be suspicious BIRADS 4 and ultrasound-guided core biopsy of the left breast stereotactic core biopsy was recommended. The radiographs were reviewed with the radiologist Dr. Krishnamurthy and he feels that the area seen radiographically on the mammogram as this seen on ultrasound and he would like to proceed with an ultrasound-guided core biopsy. The patient states that she herself felt some questionable nodularity in the left breast at the 6 o'clock position prior to the radiographs. She states she does not feel it at this time. The patient is not complaining of any nipple discharge or skin changes. She is not having any new changes of pain in her breast. She is not complaining of any nipple discharge or skin changes. Caffeine: 2 cups/day nicotine: 2 PPD/45 years fidel-bromine: occasional, more at the holidays hormones: estrogen for 6 years, stopped several years ago Family History: father: non small cell lung cancer, smoker mother: lymphoma, and stomach cancer Hormonal History: menarche: 9 , breast fed: yes, age at girth: 21 menopause: 31 JIN, done for endometriosis Hormones: Estrogen but stopped several years ago took them for approximately 6 years control pills: 15 years Surgical History: 5 back surgeries bilateral feet GB carpel tunnel Medical history: Hidradenitis suprativa Diabetes kidney failure TIA anxiety HTN fibromyalgia Social History: smoke: 2 PPD alcohol: rare drugs: none - Constitutional Constitutional: Denies chills, Denies fever - EENT Eyes: denies blurred vision, denies pain Ears: bilateral: tinnitus, deny: decreased hearing Ears, nose, mouth and throat: Reports headache, Denies sore throat - Breasts Breasts: bilateral: as per HPI - Cardiovascular Comment: tachycardia Cardiovascular: Denies chest pain, Denies shortness of breath - Gastrointestinal Comment: IBS Gastrointestinal: Reports diarrhea, Denies abdominal pain, Denies nausea, Denies vomiting - Genitourinary (Female) Comment: kidney failure Genitourinary: Reports urinary frequency, Denies dysuria, Denies hematuria - Menstruation Menstruation: Reports post hysterectomy - Musculoskeletal Musculoskeletal: Reports myalgias - Integumentary Integumentary: Denies pruritus, Denies rash - Neurological Neurological: Reports numbness, Reports weakness - Psychiatric Comment: bipolar Psychiatric: Denies anxiety, Denies depression - Endocrine Comment: diabetes - Hematologic/Lymphatic Comment: none - Allergic/Immunologic Allergic/Immunologic: Reports as per HPI Past Medical History Past Medical History: COPD, CVA/TIA, Diabetes Mellitus, Fibromyalgia, Hyperlipidemia, Hypertension, Osteoarthritis (OA), Renal Disease, Rheumatoid Arthritis (RA), Skin Disorder, Thyroid Disorder Additional Past Medical History / Comment(s): diabetic neuropathy, lupus ,DDD ,IBS, chronic dry eye, palpitations,migraines, TIA x 5-rt lip droops, emphysema, eczema in ears, history of wound on right toe, gastroparesis, Kidney failure [facility] hospitalization in September 2018 History of Any Multi-Drug Resistant Organisms: None Reported Past Surgical History: Back Surgery, Cholecystectomy, Hernia Repair, Hysterectomy, Orthopedic Surgery, Tonsillectomy, Uterine Ablation Additional Past Surgical History / Comment(s): EGD, Colonoscopy, vocal cord surgery, cataract bilateral removal, right knee arthroscopy, right elbow surgery, bilateral feet heel spurs and arthroplasty on B/L foot toes, BILAT CTR, 2 nerve stimulator in spine X2, laminectomy L4-5,hiatal hernia repair, biopsy left arm,mult sinus surgeries, STIMULATOR in back (not currently working) , MORPHINE PUMP INSERTED to left side of abdomen for chronic back pain by Dr. Williamson, I&D RT FOOT WOUND Surgical removal of seroma and cyst on back in November 2018; surgical removal of Pain Pump in november 2018 Past Anesthesia/Blood Transfusion Reactions: Family History of Problems w/ Anesthesia Additional Past Anesthesia/Blood Transfusion Reaction / Comment(s): claustrophobic, mother- [place] during surgery Past Psychological History: Anxiety, Bipolar, Depression, Panic Disorder, PTSD Additional Psychological History / Comment(s): . Smoking Status: Current every day smoker Past Alcohol Use History: Occasional Additional Past Alcohol Use History / Comment(s): smokes > 1 1/2 ppd since 1974 Past Drug Use History: None Reported Additional Drug Use History / Comment(s): NO LONGER USES MARIJUANA. - Past Family History Mother Family Medical History: Cancer, CVA/TIA, Myocardial Infarction ([place]), Osteoarthritis (OA), Rheumatoid Arthritis (RA) Additional Family Medical History / Comment(s): Mother had scleroderma, lymphoma and stomach CA, stents, lupus Father Family Medical History: Cancer Additional Family Medical History / Comment(s): LUNG CANCER Medications and Allergies Home Medications Medication Instructions Recorded Confirmed Type Levothyroxine Sodium [Synthroid] 75 mcg PO DAILY 07/31/18 07/27/20 History SUMAtriptan succinate [Imitrex] 50 mg PO DAILY PRN 04/14/19 07/27/20 History clonazePAM [KlonoPIN] 0.5 mg PO TID PRN #42 tab 04/22/19 07/27/20 Rx Amitriptyline HCl [Elavil] 100 mg PO HS 07/23/20 07/27/20 History Cetirizine HCl 10 mg PO DAILY 07/23/20 07/27/20 History Dicyclomine [Bentyl] 20 mg PO QID 07/23/20 07/27/20 History Dulaglutide [Trulicity] 0.75 mg SQ WEEKLY 07/23/20 07/27/20 History Furosemide [Lasix] 20 mg PO DAILY 07/23/20 07/27/20 History Metoprolol Succinate [Toprol XL] 25 mg PO BID 07/23/20 07/27/20 History Omeprazole 20 mg PO BID 07/23/20 07/27/20 History Simvastatin [Zocor] 20 mg PO DAILY 07/23/20 07/27/20 History busPIRone HCL 5 mg PO BID 07/23/20 07/27/20 History lamoTRIgine [LaMICtal Xr] 50 mg PO BID 07/23/20 07/27/20 History lisinopriL [Zestril] 5 mg PO DAILY 07/23/20 07/27/20 History ondansetron HCL [Zofran] 8 mg PO Q8HR 07/23/20 07/27/20 History Allergies Allergy/AdvReac Type Severity Reaction Status Date / Time adhesive Allergy Rash/Hives Verified 07/27/20 14:26 azithromycin Allergy Rash/Hives Verified 07/27/20 14:26 [From Zithromax Z-Ivan] ciprofloxacin [From Cipro] Allergy Rash/Hives Verified 07/27/20 14:26 ciprofloxacin HCl Allergy Rash/Hives Verified 07/27/20 14:26 [From Cipro] clarithromycin [From Biaxin] Allergy Rash/Hives Verified 07/27/20 14:26 doxycycline calcium Allergy Rash/Hives Verified 07/27/20 14:26 [From Vibramycin] doxycycline hyclate Allergy Rash/Hives Verified 07/27/20 14:26 [From Vibramycin] doxycycline monohydrate Allergy Rash/Hives Verified 07/27/20 14:26 [From Vibramycin] erythromycin base Allergy Rash/Hives Verified 07/27/20 14:26 [From E-Mycin] Latex, Natural Rubber Allergy Anaphylaxis Verified 07/27/20 14:26 levofloxacin [From Levaquin] Allergy Rash/Hives Verified 07/27/20 14:26 oxybutynin chloride Allergy Rash/Hives Verified 07/27/20 14:26 [From Ditropan] penicillin G Allergy Rash/Hives Verified 07/27/20 14:26 prochlorperazine edisylate Allergy Rash/Hives Verified 07/27/20 14:26 [From Compazine] prochlorperazine maleate Allergy Rash/Hives Verified 07/27/20 14:26 [From Compazine] tetracycline [Tetracycline] Allergy Rash/Hives Verified 07/27/20 14:26 valdecoxib [From Bextra] Allergy Hallucinati Verified 07/27/20 14:26 ons Surgical - Exam Vital Signs Temp Pulse Resp BP Pulse Ox 99.0 F 80 20 124/70 95 07/27/20 14:29 07/27/20 14:29 07/27/20 14:29 07/27/20 14:29 07/27/20 14:29 BMI 32.3 - General well developed - Eyes normal ocular movement - ENT normal nares - Neck no masses, trachea midline - Respiratory normal respiratory effort, clear to auscultation - Cardiovascular Rhythm: regular Heart Sounds: normal: S1, S2 - Abdomen Abdomen: soft - Integumentary normal turgor - Neurologic no disoriented, no combative - Musculoskeletal normal gait, normal posture - Psychiatric oriented to time, oriented to person, oriented to place, speech is normal, memory intact breast exam: BRA: 40DD inspection: bilateral grade 3 ptosis, right breast larger than left breast Palpation: Weight breasts: Multiple positional exam fibrocystic changes, no dominant masses or nodules of concern Right axilla: No adenopathy of concern Left breast: Fibrocystic changes, no dominant masses or nodules of concern Left axilla: No adenopathy of concern Results Mammogram and ultrasound personally reviewed with Dr. Krishnamurthy I have reviewed patient's laboratory blood work from I have reviewed computed tomography scan of the abdomen and pelvis and thoracic spine from 9119: Of concern is the fact that there is a 6 mm left lower lobe pulmonary nodule however this appears to be stable with compatible with benign etiology stable from 2016 Right-sided renal calculus Slightly accentuated midthoracic kyphosis Multilevel degenerative disc disease Assessment and Plan Assessment: Impression: Hidradenitis suprativa Diabetes kidney failure TIA anxiety HTN fibromyalgia Fibrocystic breast changes Abnormal left breast mammogram and ultrasound results of CT and lab work reviewed with patient she is following with her physician primary care sports medicine regarding this Plan: 1. After review and discussion of the mammogram and ultrasound with Dr. Krishnamurthy from radiology the plan is for ultrasound-guided core biopsy of the 5:00 lesion. If this is not able to be done then stereo biopsy will be recommended. After the ultrasound biopsy mammogram will be performed to ascertain that the clip was in the correct location of the lesion that was seen on mammogram. Risks and benefits of the procedure discussed with the patient. Risks include but are not limited to bleeding, infection, reaction to the anesthetic. In this case the risk would also be that the area of concern is not able to be clearly identified it may not be the same as that which is seen on the mammogram. The lesion will be evaluated for concordance and if it is not concordant then potentially an open biopsy would be recommended. Cc: Dr. Nye Encounter 30 minutes time spent in reviewing medical records, physical examination, and counseling.
== END | disposition home or self-care (01) ==

== ENCOUNTER → 2020-07-30 | Day surgery (SDC) | payer BC, MEDICARE ==
[2020-07-30 12:28] VITALS: RESP 12
[2020-07-30 13:41] VITALS: BP 120/73; PULSE 77; TEMP 98.4
--- NOTE | 2020-07-30 17:19 | USB ---
EXAMINATION TYPE: US biopsy breast VAD LT, MG post biopsy diagnostic mammo LT wo CAD DATE OF EXAM: 07/30/2020 CLINICAL HISTORY: 60-year-old female R92.8, Abnormal mammogram. TECHNIQUE: Ultrasound guided core biopsy of the left breast. COMPARISON: 07/05/2020 FINDINGS: The procedure of ultrasound guided core biopsy was explained to the patient. Benefits, alternatives, and risks were discussed. An informed consent was then obtained. The patient was placed in supine positioning for imaging and for the procedure. The overlying skin was prepped and draped in usual sterile fashion. Lidocaine was used as anesthetic into the skin and subcutaneous tissue up to area of concern in the 5:00 left breast. Under ultrasound guidance, a 13-gauge vacuum-assisted mammotome Elite biopsy gun was used to obtain 4 core samples. Following this, a wing clip was left at the biopsy site. The patient tolerated the procedure well without any immediate complication. The patient was kept in the radiology department for short stay after the procedure and then discharged home in stable condition. Post procedure mammogram shows clip directly adjacent to the mammographic finding. IMPRESSION: 1. Successful, uncomplicated ultrasound guided core biopsy of mammographic correlate in the 5:00 left breast, full pathology results to follow. 2. If benign biopsy results, six-month follow-up post biopsy mammogram can be performed. Pathology Results: Benign LEFT BREAST, ULTRASOUND GUIDED CORE BIOPSY: Fibrocystic changes including cysts, fibrosis and mild usual type ductal hyperplasia. Recommendation Follow up ultrasound of the left breast in 6 months. JANETT
== END ==
LOC: RADUSWWP 12:01
PROVIDERS: ATTEND Surgery
DX: N60.12 Diffuse cystic mastopathy of left breast (principal); N62 Hypertrophy of breast; R92.8 Other abnormal and inconclusive findings on diagnostic imaging of breast; R68.89 Other general symptoms and signs
CPT/HCPCS: 88305; 77065; 19083; A4648; J2001

== ENCOUNTER → 2020-08-03 | Outpatient (CLI) | payer BC, MEDICARE ==
[2020-08-03 14:56] VITALS: BP 166/90; PULSE 99; RESP 20; TEMP 98.8
--- NOTE | 2020-08-03 15:16 | P.PN ---
Subjective Progress Note Date: 08/03/20 Principal diagnosis: discordant left breast core biopsy Margarita is a 60 year old white female seen in consultation for Dr. Nye regarding the radiographic abnormality in her left breast. She underwent a bilateral mammogram and 2420. This revealed a follow-up in asymmetry in the left breast lower inner quadrant anterior position. She then had an ultrasound of the left breast performed. On ultrasound at 5:00 an 8 x 2 x 7 mm lesion was noted and a 3 x 3 x 6 segment millimeters cystic lesion at 10:00 was noted. This was considered to be suspicious BIRADS 4 and ultrasound-guided core biopsy of the left breast stereotactic core biopsy was recommended. The radiographs were reviewed with the radiologist Dr. Krishnamurthy and he feels that the area seen radiographically on the mammogram as this seen on ultrasound and he would like to proceed with an ultrasound-guided core biopsy. The patient states that she herself felt some questionable nodularity in the left breast at the 6 o'clock position prior to the radiographs. She states she does not feel it at this time. The patient is not complaining of any nipple discharge or skin changes. She is not having any new changes of pain in her breast. She is not complaining of any nipple discharge or skin changes. She had a left breast ultrasound core biopsy performed on 3120. Pathology was fibrocystic changes including cysts, fibrosis and mild usual ductal hyperplasia. This was reviewed with Dr. Krishnamurthy from radiology. His concern was that this was discordant and needle localization and open biopsy with excision should be performed. Caffeine: 2 cups/day nicotine: 2 PPD/45 years fidel-bromine: occasional, more at the holidays hormones: estrogen for 6 years, stopped several years ago Family History: father: non small cell lung cancer, smoker mother: lymphoma, and stomach cancer Hormonal History: menarche: 9 , breast fed: yes, age at girth: 21 menopause: 31 JIN, done for endometriosis Hormones: Estrogen but stopped several years ago took them for approximately 6 years control pills: 15 years Surgical History: 5 back surgeries bilateral feet GB carpel tunnel Medical history: Hidradenitis suprativa Diabetes kidney failure TIA anxiety HTN fibromyalgia Social History: smoke: 2 PPD alcohol: rare drugs: none - Constitutional Constitutional: Denies chills, Denies fever - EENT Eyes: denies blurred vision, denies pain Ears: bilateral: tinnitus, deny: decreased hearing Ears, nose, mouth and throat: Reports headache, Denies sore throat - Breasts Breasts: bilateral: as per HPI - Cardiovascular Comment: tachycardia Cardiovascular: Denies chest pain, Denies shortness of breath - Gastrointestinal Comment: IBS Gastrointestinal: Reports diarrhea, Denies abdominal pain, Denies nausea, Denies vomiting - Genitourinary (Female) Comment: kidney failure Genitourinary: Reports urinary frequency, Denies dysuria, Denies hematuria - Menstruation Menstruation: Reports post hysterectomy - Musculoskeletal Musculoskeletal: Reports myalgias - Integumentary Integumentary: Denies pruritus, Denies rash - Neurological Neurological: Reports numbness, Reports weakness - Psychiatric Comment: bipolar Psychiatric: Denies anxiety, Denies depression - Endocrine Comment: diabetes - Hematologic/Lymphatic Comment: none - Allergic/Immunologic Allergic/Immunologic: Reports as per HPI Objective - Vital Signs Vital signs: Vital Signs Temp 98.8 F 08/03/20 14:54 Pulse 99 08/03/20 14:54 Resp 20 08/03/20 14:54 BP 166/90 08/03/20 14:54 Pulse Ox 97 08/03/20 14:54 Intake & Output 08/02/20 08/03/20 08/03/20 18:59 06:59 18:59 Weight 86.183 kg - Exam BM 30.7 - Constitutional General appearance: Present: average body habitus, cooperative - EENT Eyes: Present: EOMI ENT: Present: hearing grossly normal - Neck Neck: Present: normal ROM - Respiratory Respiratory: bilateral: CTA - Cardiovascular Rhythm: regular Heart sounds: normal: S1, S2 - Gastrointestinal General gastrointestinal: Present: soft - Integumentary Integumentary: Present: normal turgor - Musculoskeletal Musculoskeletal: Present: gait normal - Psychiatric Psychiatric: Present: A&O x's 3, appropriate affect, intact judgment & insight - Additional findings Additional findings: Bresat exam: BRA: 40DD inspection: right breast larger than left breast, tape abrasion on the inner aspect of the left breast Palpation: Bypass: No dominant masses or nodules of concern, fibrocystic changes Right axilla: No adenopathy of concern Left breast: Tape abrasion medial aspect of the left, no evidence of infection, no dominant masses or nodules of concern, mild ecchymosis at the 5 o'clock position related to the core biopsy Left axilla: No adenopathy of concern Assessment and Plan Assessment: Impression: 1. Discordant left breast core biopsy after review with Dr. Krishnamurthy needle local excisional biopsy in the operating room recommended 2. Symmetry of the breast right breast larger than left breast, we have discussed doing this through a mastopexy incision and patient wishes this standard small incision to be made without a mastopexy 3. Hidradenitis suprativa 4. Diabetes 5. kidney failure 6. TIA 7. anxiety 8. HTN 9. fibromyalgia Plan: 1. Needle localization and lumpectomy of discordant area in the left breast 2. No mastopexy to be performed 3. Possible onco-plastic tissue transfer 4. medical clearance Dr. Nye CC: Dr. Nye Encounter 20 minutes, time spent in reviewing medical records, physical examination, and counseling. Risk and benefits of the procedure discussed with the patient. These include but are not limited to bleeding, infection, reaction to the anesthetic. She understands and wishes to proceed. At have requested that the patient stop smoking. Smoking may inhibit wound healing she understands and is going to try.
== END ==
LOC: WWCWWP 14:39
PROVIDERS: ATTEND Surgery
DX: R92.8 Other abnormal and inconclusive findings on diagnostic imaging of breast (principal); L73.2 Hidradenitis suppurativa; I12.9 Hypertensive chronic kidney disease with stage 1 through stage 4 chronic kidney disease, or unspecified chronic kidney disease; E08.29 Diabetes mellitus due to underlying condition with other diabetic kidney complication; I10 Essential (primary) hypertension; M79.7 Fibromyalgia; F17.210 Nicotine dependence, cigarettes, uncomplicated; F41.9 Anxiety disorder, unspecified; Z86.73 Personal history of transient ischemic attack (TIA), and cerebral infarction without residual deficits

== ENCOUNTER → 2020-09-13 | Outpatient (CLI) | payer BC, MEDICARE | END | disposition home or self-care (01) | LOC: LABWHC1 16:35 | PROVIDERS: ATTEND Family Medicine | DX: Z20.822 Contact with and (suspected) exposure to COVID-19 (principal) | CPT/HCPCS: U0003; C9803 ==

== ENCOUNTER → 2020-09-26 | Outpatient (CLI) | payer BC, MEDICARE ==
--- NOTE | 2020-09-26 12:41 | NM ---
EXAMINATION TYPE: NM gastric emptying static DATE OF EXAM: 09/26/2020 COMPARISON: NONE HISTORY: Nausea per order. Epigastric pain with diminished appetite and nausea and vomiting all per p atient. Following administration of 1.9 mCi Tc 99m Sulfur Colloid with 4 ounces of egg whites, 1/[address], 6 ounces of water, projection images of the abdomen were obtained 8 minutes post ingestion. Patient Emptying Values 1 Hour 26 % 2 Hours 66 % 3 Hours 85 % 4 Hours 93 % IMPRESSION: Gastric emptying: No scintigraphic evidence for gastroparesis. Gastric emptying normal percentage values: 30 minutes: <70% of retention (> 30% emptying) suggests abnormally fast emptying. 60 minutes: <90% retention (>10% emptying) is normal; less than 30% retention (>70% emptying) suggest s abnormally rapid emptying. 90 minutes: <65% retention (> 35% emptying) is normal. 120 minutes: <60% retention (> 40% emptying) is normal. 180 minutes: <30% retention (> 70% emptying) is normal. Gastric emptying T-1/2: 93 minutes. Solid: The normal range is 60-105 minutes Liquid only: Normal range is 10-45 minutes. Liquid only-children: At 60 minutes, normal range is 44-58 % . Liquid only-infants: At 60 minutes, normal range is 32-64 %. Additional references: Gastric Emptying Scintigraphy [email or web address]://[email or web address]
== END | disposition home or self-care (01) ==
LOC: RADNMMAIN 07:05
PROVIDERS: ATTEND Internal Medicine Gastroenterology
DX: R11.0 Nausea (principal)
CPT/HCPCS: 78264; A9541

== ENCOUNTER → 2020-10-02 | Outpatient (CLI) | payer BC, MEDICARE ==
[2020-10-02 20:01] LABS: Basophils # (A) 0.05 X 10*3/uL (0.00-0.10); Basophils % (A) 0.5 %; Eosinophils # (A) 0.08 X 10*3/uL (0.04-0.35); Eosinophils % (A) 0.8 %; HCT 45.9 % (37.2-46.3); HGB 15.1 g/dL (12.0-15.0); Lymphocytes % (A) 36.4 %; MCH 32.1 pg (27.0-32.0); MCHC 32.9 g/dL (32.0-37.0); MCV 97.5 fL (80.0-97.0); Mean Platelet Volume 9.8 fL (9.5-12.2); Monocytes # (A) 0.55 X 10*3/uL (0.20-1.00); Monocytes % (A) 5.6 %; Neutrophils # (A) 5.57 X 10*3/uL (1.80-7.70); Neutrophils % (A) 56.4 %; Platelet Count 318 X 10*3/uL (140-440); RBC 4.71 X 10*6/uL (4.10-5.20); RDW 13.4 % (11.5-14.5); Reticulocyte % 1.63 % (0.10-1.80); WBC 9.88 X 10*3/uL (4.50-10.00)
[2020-10-02 21:42] LABS: Erythrocyte Sedimentation Rate 24 mm/Hr (0-30)
[2020-10-03] LABS: Hemoglobin A1C 8.3 % (4.0-6.0)
[2020-10-03 05:04] LABS: Luteinizing Hormone 2.2 mIU/mL
[2020-10-03 05:43] LABS: T4, Free (Free Thyroxine) 0.9 ng/dL (0.80-1.80)
[2020-10-03 05:44] LABS: Follicle Stimulating Hormone 8.8 mIU/mL
[2020-10-03 06:53] LABS: % Iron Saturation 25.15 (12.00-45.00); African American GFR (CKD) 80.5 (60.0-200.0); Albumin 4.6 g/dL (3.80-4.90); Albumin/Globulin Ratio 1.59 (1.60-3.17); Anion Gap 12.7 mmol/L (4.00-12.00); BUN/Creat Ratio 15.56 Ratio (12.00-20.00); C Reactive Protein 2.3 mg/dL (0.0-0.8); Calcium 9.3 mg/dL (8.7-10.3); Carbon Dioxide 18.3 mmol/L (21.6-31.8); Globulin 2.9 g/dL (1.6-3.3); Non-African American GFR(CKD) 69.5 (60.0-200.0); Potassium 4.4 mmol/L (3.5-5.5); Total Bilirubin 0.3 mg/dL (0.3-1.2); Total Protein 7.5 g/dL (6.2-8.2)
[2020-10-04 07:00] LABS: Methylmalonic Acid 0.37 umol/L (<0.40)
== END | disposition home or self-care (01) ==
LOC: LABWHC1 13:54
PROVIDERS: ATTEND Psychiatry & Neurology Pain Medicine
DX: R53.82 Chronic fatigue, unspecified (principal); R53.81 Other malaise; R61 Generalized hyperhidrosis
CPT/HCPCS: 36415; 80053; 82306; 82533; 82607; 82626; 82728; 83001; 83002; 83003; 83036; 83540; 83550; 83615; 83921; 83970; 84305; 84439; 84443; 84466; 84481; 85025; 85045; 85652; 86140

== ENCOUNTER → 2020-10-11 | Outpatient (CLI) | payer BC, MEDICARE ==
--- NOTE | 2020-10-11 10:54 | CT ---
EXAMINATION TYPE: CT brain antelmo watson DATE OF EXAM: 10/11/2020 COMPARISON: 2019. HISTORY: Memory loss and headaches CT DLP: 1708 mGycm Automated exposure control for dose reduction was used. TECHNIQUE: CT scan of the head and cervical spine are performed without contrast. FINDINGS: There is no acute intracranial hemorrhage, mass effect, or midline shift identified. The ventricles and sulci are within normal limits in size. The globes are intact and the visualized sin uses are clear. Cervical spine is visualized in its entirety from C1 through upper thoracic levels and demonstrates s atisfactory alignment without evidence of acute fracture or dislocation. Prevertebral soft tissue ap pears within normal limits. Sclerotic changes seen at the C1-C2 relationship representing mild degene rative disease. Mild uncovertebral hypertrophy is also seen throughout the cervical spine without significant spinal stenosis. IMPRESSION: 1. Mild degenerative disease of the cervical spine. No fracture or subluxation. 2. No acute intracran ial hemorrhage, mass effect, or midline shift is seen. 3. Mild cerebral atrophy slightly advanced for age.
== END | disposition home or self-care (01) ==
LOC: RADCTMAIN 09:21
PROVIDERS: ATTEND Psychiatry & Neurology Neurology
DX: G31.9 Degenerative disease of nervous system, unspecified (principal); M50.30 Other cervical disc degeneration, unspecified cervical region
CPT/HCPCS: 70450; 72125

== ENCOUNTER → 2020-10-18 | Outpatient (CLI) | payer BC, MEDICARE ==
[2020-10-18 11:47] VITALS: BP 143/89; PULSE 103; RESP 20; TEMP 99.3
--- NOTE | 2020-10-18 12:02 | P.PN ---
Subjective Progress Note Date: 10/18/20 Principal diagnosis: Discordant left breast core biopsy discordant left breast core biopsy Margarita is a 60 year old white female seen in consultation for Dr. Nye regarding the radiographic abnormality in her left breast. She underwent a bilateral mammogram on 2420. This revealed asymmetry in the left breast lower inner quadrant anterior position. She then had an ultrasound of the left breast performed. On ultrasound at 5:00 an 8 x 2 x 7 mm lesion was noted and a 3 x 3 x 6 segment millimeters cystic lesion at 10:00 was noted. This was considered to be suspicious BIRADS 4 and ultrasound-guided core biopsy of the left breast stereotactic core biopsy was recommended. The radiographs were reviewed with the radiologist Dr. Krishnamurthy and he feels that the area seen radiographically on the mammogram as this seen on ultrasound and he would like to proceed with an ultrasound-guided core biopsy. The patient states that she herself felt some questionable nodularity in the left breast at the 6 o'clock position prior to the radiographs. She states she does not feel it at this time. The patient is not complaining of any nipple discharge or skin changes. She is not having any new changes of pain in her breast. She is not complaining of any nipple discharge or skin changes. She had a left breast ultrasound core biopsy performed on 3120. Pathology was fibrocystic changes including cysts, fibrosis and mild usual ductal hyperplasia. This was reviewed with Dr. Krishnamurthy from radiology. His concern was that this was discordant and needle localization and open biopsy with excision should be performed. The patient now is complaining of some redness under her right breast. She also complains of some pain at this site. She is recommended to have an ultrasound at this site. Caffeine: 2 cups/day nicotine: 2 PPD/45 years fidel-bromine: occasional, more at the holidays hormones: estrogen for 6 years, stopped several years ago Family History: father: non small cell lung cancer, smoker mother: lymphoma, and stomach cancer Hormonal History: menarche: 9 , breast fed: yes, age at girth: 21 menopause: 31 JIN, done for endometriosis Hormones: Estrogen but stopped several years ago took them for approximately 6 years control pills: 15 years Surgical History: 5 back surgeries bilateral feet GB carpel tunnel Medical history: Hidradenitis suprativa Diabetes kidney failure TIA anxiety HTN fibromyalgia Social History: smoke: 2 PPD alcohol: rare drugs: none - Constitutional Constitutional: Denies chills, Denies fever - EENT Eyes: denies blurred vision, denies pain Ears: bilateral: tinnitus, deny: decreased hearing Ears, nose, mouth and throat: Reports headache, Denies sore throat - Breasts Breasts: bilateral: as per HPI - Cardiovascular Comment: tachycardia Cardiovascular: Denies chest pain, Denies shortness of breath - Gastrointestinal Comment: IBS Gastrointestinal: Reports diarrhea, Denies abdominal pain, Denies nausea, Denies vomiting - Genitourinary (Female) Comment: kidney failure Genitourinary: Reports urinary frequency, Denies dysuria, Denies hematuria - Menstruation Menstruation: Reports post hysterectomy - Musculoskeletal Musculoskeletal: Reports myalgias - Integumentary Integumentary: Denies pruritus, Denies rash - Neurological Neurological: Reports numbness, Reports weakness - Psychiatric Comment: bipolar Psychiatric: Denies anxiety, Denies depression - Endocrine Comment: diabetes - Hematologic/Lymphatic Comment: none - Allergic/Immunologic Allergic/Immunologic: Reports as per HPI Objective - Constitutional General appearance: Present: average body habitus - EENT Eyes: Present: EOMI ENT: Present: hearing grossly normal - Neck Neck: Present: normal ROM - Respiratory Respiratory: bilateral: CTA - Cardiovascular Heart sounds: normal: S1, S2 - Integumentary Integumentary: Present: normal turgor - Musculoskeletal Musculoskeletal: Present: gait normal - Psychiatric Psychiatric: Present: A&O x's 3, appropriate affect, intact judgment & insight - Additional findings Additional findings: Breast Exam: Preoperative: 40 DT Inspection: Right breast larger than left breast, area of erythema on the lateral aspect of the breast 6 mm x 11 mm, bilateral grade 3 ptosis Palpation: Right breast: Multiple positional exam fibrocystic changes, no dominant masses or nodules of concern, in the lateral aspect there is an area of erythema of 6 x 11 mm with the abscess-like lesion in the subcutaneous tissue approximately 2 x 2 centimeters the patient is starting to drain Right axilla: No adenopathy of concern Left breast: Multiple positional exam fibrocystic changes, no dominant masses or nodules of concern Left axilla: No adenopathy of concern Assessment and Plan Assessment: Impression: 1. Discordant left breast core biopsy, after review with Dr. Krishnamurthy needle local excisional biopsy in the operating room recommended 2. Asymmetry of the breast with the right larger than the left we have discussed doing a mastopexy incision and the patient wishes a small incision be made without a mastopexy 3. Hidradenitis suppurativa 4. Diabetes 5. Kidney failure 6. TIA 7. Anxiety 8. Hypertension 9. Fibromyalgia 10. New-onset right breast erythema/superficial skin abscess Plan: 1. Needle localization lumpectomy of discordant area of the left breast 2. No mastopexy to be performed 3. Possible,: Plastic tissue transfer 4. Clearance by Dr. Nye 5. I&D of superficial abscess right breast 6. Antibiotic Clindamycin 7. culture to be obtained 8. follow up one week CC: Rosalina Burt [place] Benefits of incision and drainage discussed with the patient. She understands and wishes to proceed. Simcor but are not limited to bleeding, infection, reaction to the anesthetic. Additionally if the area gets worse she may need debridement in the operating room. If this got worse she may be recommended to go to the emergency room.
--- NOTE | 2020-10-18 12:13 | P.PCN ---
Date of Procedure: 10/18/20 Preoperative Diagnosis: Superficial skin abscess right breast Postoperative Diagnosis: Same Procedure(s) Performed: incision/ drainage skin abscess Anesthesia: local Surgeon: Jennifer Amanda Pathology: none sent Condition: stable Disposition: same day Indications for Procedure: Superficial skin abscess right breast Operative Findings: Serous fluid bolus/abscess area right breast Description of Procedure: The area of concern in the right breast was prepped using Betadine. 1% lidocaine was used to anesthetize the area of concern, approximately 5 mL. A 15 blade was used to make an incision over the area of fluctuance. Serous fluid was obtained with resolution of the bullous area. The area was packed using using Betadine. The patient tolerated procedure in stable condition. The patient will be placed on an antibiotic and follow with Dr. José Miguel Antoine, if the area of erythema increases the patient will go to the emergency room.
== END ==
LOC: WWCWWP 11:35
PROVIDERS: ATTEND Surgery
DX: N61.1 Abscess of the breast and nipple (principal); L73.2 Hidradenitis suppurativa; M79.7 Fibromyalgia; F17.210 Nicotine dependence, cigarettes, uncomplicated; F41.9 Anxiety disorder, unspecified; I12.9 Hypertensive chronic kidney disease with stage 1 through stage 4 chronic kidney disease, or unspecified chronic kidney disease; N18.9 Chronic kidney disease, unspecified; E11.22 Type 2 diabetes mellitus with diabetic chronic kidney disease; N17.9 Acute kidney failure, unspecified; Z86.73 Personal history of transient ischemic attack (TIA), and cerebral infarction without residual deficits; Z91.048 Other nonmedicinal substance allergy status; Z88.1 Allergy status to other antibiotic agents; Z91.040 Latex allergy status; Z88.0 Allergy status to penicillin; Z88.8 Allergy status to other drugs, medicaments and biological substances
CPT/HCPCS: 87070; 87075; 87205

== ENCOUNTER 2020-10-30 07:22 | Day surgery (SDC) | payer BC, MEDICARE ==
[2020-10-25 12:41] VITALS: BMI 29.0
[~2020-10-30 07:22] MED LIST changes: +DEXAMETHASONE SOD PHOSPHATE 4 MG/ML 1 ML VIAL IV ONE; +HEPARIN SODIUM,PORCINE/PF 5,000 UNIT/0.5 ML SYRINGE SQ PRN; +HYDROmorphone 0.5 MG/0.5 ML SYRINGE IVP PRN; +LIDOCAINE 1% (10MG/ML) FOR IV START INTRADERMA PRN; +MIDAZOLAM 2 MG/2 ML VIAL IV PRN; +ONDANSETRON 4 MG/2 ML VIAL IVP ONE; +Pre Op ABX Message 1 EACH MISC MISCELLANE ONE
[2020-10-30 08:13] LABS: Glucose,Whole Blood 154 mg/dL (75-99)
[2020-10-30] MEDS ORDERED: ALPRAZolam 0.5 MG TAB ONE (08:27)
[2020-10-30] MEDS ORDERED: ALPRAZolam 0.5 MG TAB PO ONE (08:30)
[2020-10-30] MEDS ORDERED: LIDOCAINE 1% INJ 10MG/ML (20 ML MDV) SQ ONE (08:58)
[2020-10-30] MEDS ORDERED: SUCCINYLCHOLINE CHLORIDE 100 MG/5 ML SYR IV ONE (09:36)
[2020-10-30] MEDS ORDERED: MIDAZOLAM 2 MG/2 ML VIAL ONE (09:36)
[2020-10-30] MEDS ORDERED: fentaNYL (PF) 50 MCG/ML 2 ML AMP ONE (09:36)
[2020-10-30] MEDS ORDERED: LIDOCAINE 1% INJ 10MG/ML (20 ML MDV) ONE (09:36)
[2020-10-30] MEDS ORDERED: PROPOFOL 10 MG/ML 20 ML VIAL IV ONE (09:36)
--- NOTE | 2020-10-30 09:55 | MM ---
EXAMINATION TYPE: MG pre op needle loc LT DATE OF EXAM: 10/30/2020 COMPARISON: NONE CLINICAL HISTORY: Discordant benign biopsy left breast TECHNIQUE: Needle localization with wire placement and surgical excision of area of concern in the left breast. FINDINGS: The procedure of needle localization with wire placement and than surgical excision was explained to the patient. Benefits, alternatives, and risks were discussed. An informed consent was then obtained. The shortest pathway for procedure was chosen. The overlying skin was prepped and draped in usual sterile fashion. Lidocaine buffered with bicarbonate was used as anesthetic into the skin and subcutaneous tissue up to the level of area of concern. A 5 cm needle was used. It was placed via a inferior approach under mammographic guidance. Subsequent 90 degrees mammogram show the needle to be in satisfactory position relative to the targeted area. At this point, wire was placed and the needle was withdrawn. The wire was fixed to patient's skin. Images were marked for surgeon. The patient tolerated the procedure well without any immediate complication. The patient was kept in the radiology department for short stay after the procedure and then taken to surgery for surgical excision. The biopsy marker clip is within the specimen. The patient was kept in hospital for short stay after the procedure and then discharged home in stable condition. IMPRESSION: Successful, uncomplicated needle localization with wire placement and surgical excision of biopsy clip in the left breast. Pathology results to follow. Pathology Results: High Risk LEFT BREAST, LUMPECTOMY: Focal submillimeter focus of atypical lobular hyperplasia (ALH) and focal small 1 mm intraductal papilloma with usual ductal hyperplasia (see note). Fibrocystic change with apocrine metaplasia, moderate to florid usual ductal hyperplasia, columnar cell change, sclerosing adenosis and focal microcalcification. All margins negative for malignancy. Recommendation Follow up mammogram of the left breast in 6 months. JANETT
--- NOTE | 2020-10-30 10:32 | P.OP ---
Date of Procedure: 10/30/20 Preoperative Diagnosis: Discordant core biopsy left breast Postoperative Diagnosis: Same Procedure(s) Performed: needle Localization excisional lumpectomy left breast Anesthesia: LAYLAA Surgeon: Jennifer Amanda Estimated Blood Loss (ml): 5 IV fluids (ml): 300 Pathology: other (Breast tissue) Condition: stable Disposition: same day Operative Findings: Discordant core biopsy left breast Description of Procedure: The patient is a 60-year-old white female who underwent a core biopsy of an area of concern in the left breast. This was felt to be discordant. Local excisional lumpectomy of the area of concern was recommended. The patient went first to the radiology suite where needle localization of the area of concern was performed. She then came to the operating room and following induction of general anesthesia the left breast was prepped and draped in a sterile fashion. Circumareolar incision was made and carried down to the shaft of the needle. Surrounding tissue was excised. The specimen was painted for or ientation and sent for x-ray. X-ray confirmed that the area of concern had been removed. Titanium clips were placed. The deep tissues were closed using 3-0 Vicryl suture. The skin was reapproximated using 4-0 Monocryl. Steri-Strips were applied. The patient tolerated the procedure in stable condition. All instrument and sponge counts were correct at the end of the case.
--- NOTE | 2020-10-30 10:34 | P.DS ---
Providers Attending physician: Jennifer Amanda Primary care physician: Sabino Youngblood Plan - Discharge Summary Discharge Rx Participant: Yes New Discharge Prescriptions: No Action Levothyroxine Sodium [Synthroid] 100 mcg PO DAILY SUMAtriptan succinate [Imitrex] 50 mg PO DAILY PRN PRN Reason: Headache Furosemide [Lasix] 20 mg PO Q48H Dicyclomine [Bentyl] 20 mg PO QID lamoTRIgine [LaMICtal Xr] 150 mg PO BID busPIRone HCL 5 mg PO BID ondansetron HCL [Zofran] 8 mg PO DIRECTED PRN PRN Reason: Nausea Cetirizine HCl 10 mg PO HS Metoprolol Succinate [Toprol XL] 25 mg PO BID Dulaglutide [Trulicity] 1.75 mg SQ TH Ergocalciferol [Vitamin D2 (1250 Mcg = 53121 Iu)] 1,250 mcg PO QMONTHLY Ibuprofen [Motrin] 800 mg PO DAILY PRN PRN Reason: Pain Morphine Pump 1 applicate CNTINTRATH CONTINUOUS Nitroglycerin Sl Tabs [Nitrostat] 0.4 mg SUBLINGUAL Q5M PRN PRN Reason: Pain metFORMIN HCL [Glucophage] 500 mg PO DAILY Cyclobenzaprine [Flexeril] 10 mg PO HS PRN PRN Reason: Muscle Pain Atorvastatin [Lipitor] 40 mg PO DAILY Clindamycin HCl 300 mg PO Q6HR clonazePAM [KlonoPIN] 0.5 mg PO TID Gabapentin [Neurontin] 100 mg PO BID Linaclotide [Linzess] 290 mcg PO QAM Omeprazole [PriLOSEC] 40 mg PO DAILY Discharge Medication List Levothyroxine Sodium [Synthroid] 100 mcg PO DAILY 07/31/18 [History] SUMAtriptan succinate [Imitrex] 50 mg PO DAILY PRN 04/14/19 [History] Cetirizine HCl 10 mg PO HS 07/23/20 [History] Dicyclomine [Bentyl] 20 mg PO QID 07/23/20 [History] Dulaglutide [Trulicity] 1.75 mg SQ TH 07/23/20 [History] Furosemide [Lasix] 20 mg PO Q48H 07/23/20 [History] Metoprolol Succinate [Toprol XL] 25 mg PO BID 07/23/20 [History] busPIRone HCL 5 mg PO BID 07/23/20 [History] lamoTRIgine [LaMICtal Xr] 150 mg PO BID 07/23/20 [History] ondansetron HCL [Zofran] 8 mg PO DIRECTED PRN 07/23/20 [History] Cyclobenzaprine [Flexeril] 10 mg PO HS PRN 10/18/20 [History] metFORMIN HCL [Glucophage] 500 mg PO DAILY 10/18/20 [History] Atorvastatin [Lipitor] 40 mg PO DAILY 10/25/20 [History] Clindamycin HCl 300 mg PO Q6HR 10/25/20 [History] Ergocalciferol [Vitamin D2 (1250 Mcg = 12791 Iu)] 1,250 mcg PO QMONTHLY 10/25/20 [History] Gabapentin [Neurontin] 100 mg PO BID 10/25/20 [History] Ibuprofen [Motrin] 800 mg PO DAILY PRN 10/25/20 [History] Linaclotide [Linzess] 290 mcg PO QAM 10/25/20 [History] Morphine Pump 1 applicate CNTINTRATH CONTINUOUS 10/25/20 [History] Nitroglycerin Sl Tabs [Nitrostat] 0.4 mg SUBLINGUAL Q5M PRN 10/25/20 [History] Omeprazole [PriLOSEC] 40 mg PO DAILY 10/25/20 [History] clonazePAM [KlonoPIN] 0.5 mg PO TID 10/25/20 [History] Follow up Appointment(s)/Referral(s): Jennifer Amanda MD [STAFF PHYSICIAN] - 1 Week Activity/Diet/Wound Care/Special Instructions: do not drive today wear bra at all times may shower after 48 hours Discharge Disposition: HOME SELF-CARE
[2020-10-30 10:49] VITALS: TEMP 97.1
[2020-10-30 12:27] VITALS: BP 134/73; PULSE 100; RESP 16
--- NOTE | 2020-10-30 17:01 | MM ---
FINDINGS: Left breast specimen radiograph demonstrates the biopsy marker clip to be present eccentrically within the specimen <immediately adjacent> to the localization needle. IMPRESSION: Localization needle and biopsy marker clip present within the specimen radiograph with the needle appearing intact. Pathology Results: High Risk LEFT BREAST, LUMPECTOMY: Focal submillimeter focus of atypical lobular hyperplasia (ALH) and focal small 1 mm intraductal papilloma with usual ductal hyperplasia (see note). Fibrocystic change with apocrine metaplasia, moderate to florid usual ductal hyperplasia, columnar cell change, sclerosing adenosis and focal microcalcification. All margins negative for malignancy. Recommendation Follow up mammogram of the left breast in 6 months. JANETT
== END 2020-10-30 12:43 | disposition home or self-care (01) ==
LOC: OR 07:22
PROVIDERS: ATTEND Surgery
DX: N60.12 Diffuse cystic mastopathy of left breast (principal); E78.5 Hyperlipidemia, unspecified; I10 Essential (primary) hypertension; F17.210 Nicotine dependence, cigarettes, uncomplicated; J44.9 Chronic obstructive pulmonary disease, unspecified; E11.9 Type 2 diabetes mellitus without complications; Z79.84 Long term (current) use of oral hypoglycemic drugs; Z79.899 Other long term (current) drug therapy; Z88.1 Allergy status to other antibiotic agents; Z88.5 Allergy status to narcotic agent; Z88.8 Allergy status to other drugs, medicaments and biological substances; Z88.0 Allergy status to penicillin; Z91.040 Latex allergy status; Z98.890 Other specified postprocedural states
CPT/HCPCS: 19125; 88307; 76098; 19281; J2250; J1100; J2001; J3010; J0330; J2704; J1644

== ENCOUNTER 2020-11-06 10:13 | Emergency (ER) | payer BC, MEDICARE ==
[2020-11-06 10:18] VITALS: RESP 18; TEMP 98.9
[2020-11-06 10:19] LABS: Glucose,Whole Blood 453 mg/dL (75-99)
[2020-11-06] MEDS ORDERED: SODIUM CHLORIDE 0.9% 1,000 ML IV STA (10:31)
[2020-11-06 10:56] LABS: Basophils # (A) 0.1 k/uL (0-0.2); Basophils % (A) 1 %; Eosinophils # (A) 0.2 k/uL (0-0.7); Eosinophils % (A) 2 %; HCT 41.9 % (34.0-46.0); Lymphocytes % (A) 34 %; MCH 32.6 pg (25.0-35.0); MCHC 33.6 g/dL (31.0-37.0); MCV 97.2 fL (80.0-100.0); Mean Platelet Volume 6.8; Monocytes # (A) 0.4 k/uL (0-1.0); Monocytes % (A) 5 %; Neutrophils # (A) 5.1 k/uL (1.3-7.7); Neutrophils % (A) 58 %; Platelet Count 304 k/uL (150-450); RBC 4.31 m/uL (3.80-5.40); RDW 13.6 % (11.5-15.5); WBC 8.8 k/uL (3.8-10.6)
[2020-11-06 11:00] LABS: Appearance,Urine Clear (Clear); Bilirubin,Urine Negative (Negative); Blood,Urine Negative (Negative); Color,Urine Yellow; Glucose,Urine (UA) 4+ (Negative); Ketones,Urine Negative (Negative); Leukocyte Esterase,Urine Negative (Negative); Nitrite,Urine Negative (Negative); Protein,Urine Trace (Negative); Specific Gravity,Urine 1.022 (1.001-1.035); Urobilinogen,Urine <2.0 mg/dL (<2.0)
[2020-11-06 11:11] LABS: ALT 28 U/L (4-34); AST 25 U/L (14-36); African American GFR (CKD) 86 (>60 ml/min/1.73 sqM); Alkaline Phosphatase 150 U/L (38-126); Anion Gap 9 mmol/L; Blood Urea Nitrogen 16 mg/dL (7-17); Calcium 9.1 mg/dL (8.4-10.2); Carbon Dioxide 20 mmol/L (22-30); Chloride 108 mmol/L (98-107); Glucose 451 mg/dL (74-99); Non-African American GFR(CKD) 74 (>60 ml/min/1.73 sqM); Potassium 4.5 mmol/L (3.5-5.1); Sodium 137 mmol/L (137-145); Total Bilirubin 0.2 mg/dL (0.2-1.3); Total Protein 7.1 g/dL (6.3-8.2)
[2020-11-06] MEDS ORDERED: INSULIN ASPART (NovoLOG) 100 UNIT/ML VIAL SQ ONE ×2 (11:13→13:14)
[2020-11-06] MEDS ORDERED: SODIUM CHLORIDE 0.9% 500 ML 500 ML IV ONE (11:35)
--- NOTE | 2020-11-06 11:37 | ED ---
Recheck HPI - General Chief Complaint: Recheck/Abnormal Lab/Rx Stated Complaint: High Blood Sugar/Head Injury Time Seen by Provider: 11/06/20 10:21 Source: patient, RN notes reviewed Mode of arrival: ambulatory Limitations: no limitations - History of Present Illness Initial Comments: Patient is a 60-year-old female that presents emergency department complaining of high blood sugars. She notes that she gets the true elicited shot once a week on . She noted that last she took a shot after her doctor increased the dose and it stung a little bit. She noted that the next time she took it she didn't get that stinging feeling and was wondering if the injector failed. She talked the pharmacist and he did say that sometimes the abdomen does not function. She noted that her sugar at triage was in the 450s which is the highest it is ever been. She notes that she does continue take her metformin at home. She is wanted make sure that everything was okay and that it was most likely a Covid malfunction. She was in no apparent distress or pain. She denied any increased thirst, increased urination, nausea vomiting diarrhea constipation headache change in vision lightheadedness dizziness fever fatigue chills. - Related Data Home Medications Medication Instructions Recorded Confirmed Cetirizine HCl 10 mg PO HS 07/23/20 11/06/20 Dicyclomine [Bentyl] 20 mg PO QID PRN 07/23/20 11/06/20 Furosemide [Lasix] 20 mg PO Q48H 07/23/20 11/06/20 busPIRone HCL 5 mg PO BID 07/23/20 11/06/20 ondansetron HCL [Zofran] 8 mg PO TID PRN 07/23/20 11/06/20 Cyclobenzaprine [Flexeril] 10 mg PO TID PRN 10/18/20 11/06/20 metFORMIN HCL [Glucophage] 500 mg PO DAILY 10/18/20 11/06/20 Atorvastatin [Lipitor] 40 mg PO DAILY 10/25/20 11/06/20 Ergocalciferol [Vitamin D2 (1250 1,250 mcg PO Q30D 10/25/20 11/06/20 Mcg = 19326 Iu)] Gabapentin [Neurontin] 100 mg PO BID 10/25/20 11/06/20 Ibuprofen [Motrin] 800 mg PO TID PRN 10/25/20 11/06/20 Linaclotide [Linzess] 290 mcg PO DAILY 10/25/20 11/06/20 Nitroglycerin Sl Tabs [Nitrostat] 0.4 mg SL Q5M PRN 10/25/20 11/06/20 clonazePAM [KlonoPIN] 0.5 mg PO TID 10/25/20 11/06/20 Albuterol Inhaler [Ventolin Hfa 2 puff INHALATION RT-QID PRN 11/06/20 11/06/20 Inhaler] Cariprazine HCl [Vraylar] 3 mg PO HS 11/06/20 11/06/20 Dulaglutide [Trulicity] 1.5 mg SQ TH 11/06/20 11/06/20 Levothyroxine Sodium [Synthroid] 100 mcg PO DAILY 11/06/20 11/06/20 Metoprolol Tartrate [Lopressor] 25 mg PO BID 11/06/20 11/06/20 Morphine/Bupivacaine Pain Pump 1 dose INTRATHECA CONTINUOUS 11/06/20 11/06/20 Tiotropium Br/Olodaterol HCl 1 puff INHALATION RT-BID 11/06/20 11/06/20 [Stiolto Respimat Inhal [place]] hydrOXYzine pamoate [Vistaril] 25 mg PO BID PRN 11/06/20 11/06/20 lamoTRIgine [LaMICtal] 150 mg PO BID 11/06/20 11/06/20 Allergies Allergy/AdvReac Type Severity Reaction Status Date / Time adhesive Allergy Rash/Hives,skiin Verified 11/06/20 11:22 peels azithromycin Allergy Rash/Hives Verified 11/06/20 11:22 [From Zithromax Z-Ivan] ciprofloxacin [From Cipro] Allergy Rash/Hives Verified 11/06/20 11:22 ciprofloxacin HCl Allergy Rash/Hives Verified 11/06/20 11:22 [From Cipro] clarithromycin [From Biaxin] Allergy Rash/Hives Verified 11/06/20 11:22 doxycycline calcium Allergy Rash/Hives Verified 11/06/20 11:22 [From Vibramycin] doxycycline hyclate Allergy Rash/Hives Verified 11/06/20 11:22 [From Vibramycin] doxycycline monohydrate Allergy Rash/Hives Verified 11/06/20 11:22 [From Vibramycin] erythromycin base Allergy Rash/Hives Verified 11/06/20 11:22 [From E-Mycin] Latex, Natural Rubber Allergy Anaphylaxis Verified 11/06/20 11:22 levofloxacin [From Levaquin] Allergy Rash/Hives Verified 11/06/20 11:22 oxybutynin chloride Allergy Rash/Hives Verified 11/06/20 11:22 [From Ditropan] penicillin G Allergy Rash/Hives Verified 11/06/20 11:22 prochlorperazine edisylate Allergy Rash/Hives Verified 11/06/20 11:22 [From Compazine] prochlorperazine maleate Allergy Rash/Hives Verified 11/06/20 11:22 [From Compazine] rofecoxib [From Vioxx] Allergy Hallucinati Verified 11/06/20 11:22 ons tetracycline [Tetracycline] Allergy Rash/Hives Verified 11/06/20 11:22 valdecoxib [From Bextra] Allergy Hallucinati Verified 11/06/20 11:22 ons Review of Systems ROS Statement: Those systems with pertinent positive or pertinent negative responses have been documented in the HPI. ROS Other: All systems not noted in ROS Statement are negative. Past Medical History Past Medical History: COPD, CVA/TIA, Diabetes Mellitus, Fibromyalgia, GERD/Reflux, Hyperlipidemia, Hypertension, Myocardial Infarction ([place]), Osteoarthritis (OA), Renal Disease, Rheumatoid Arthritis (RA), Skin Disorder, Thyroid Disorder Additional Past Medical History / Comment(s): diabetic neuropathy, lupus ,DDD ,IBS with nausea/vomiting, chronic dry eye, palpitations,migraines, TIA x 5-rt lip droops, emphysema, eczema in ears, history of wound on right toe, gastroparesis, Kidney failure - hospitalization in September 2018, heart murmer, varicose veins, denies SOB-states had episode 10/22/20 with "jaw tingling" no other symptoms-resolved shortly after it started, liver problem "3 years ago", on Rx for cyst rt breast, gout, hx kidney stones Last Myocardial Infarction Date:: unknown History of Any Multi-Drug Resistant Organisms: None Reported Past Surgical History: Back Surgery, Cholecystectomy, Heart Catheterization, Hernia Repair, Hysterectomy, Orthopedic Surgery, Tonsillectomy, Uterine Ablation Additional Past Surgical History / Comment(s): EGD, Colonoscopy, vocal cord jim damion, cataract bilateral removal, right knee arthroscopy, right elbow surgery, bilateral feet heel spurs and arthroplasty joints B/L foot toes, BILAT CTR, 2 nerve stimulator in spine X2, laminectomy L4-5,hiatal hernia repair, biopsy left arm,mult sinus surgeries, STIMULATOR in back (not currently working) , MORPHINE PUMP INSERTED to rt side of abdomen, I&D RT FOOT WOUND Surgical removal of seroma and cyst on back in November 2018; surgical removal of Pain Pump in november 2018, I&D cyst rt breast Past Anesthesia/Blood Transfusion Reactions: Family History of Problems w/ Ane sthesia Additional Past Anesthesia/Blood Transfusion Reaction / Comment(s): claustrophobic, mother- [place] during surgery Past Psychological History: Anxiety, Bipolar, Depression, Panic Disorder, PTSD Smoking Status: Current every day smoker Past Alcohol Use History: None Reported Past Drug Use History: Marijuana - Past Family History Mother Family Medical History: Cancer, Memory Impairment, Myocardial Infarction ([place]) Additional Family Medical History / Comment(s): Mother had scleroderma, lymphoma and stomach CA, stents, lupus Father Family Medical History: Cancer Additional Family Medical History / Comment(s): LUNG CANCER Brother(s) Family Medical History: Cancer General Exam Limitations: no limitations General appearance: alert, in no apparent distress Head exam: Present: atraumatic, normocephalic, normal inspection Eye exam: Present: normal appearance, PERRL, EOMI. Absent: scleral icterus, conjunctival injection, periorbital swelling Neck exam: Present: normal inspection Respiratory exam: Present: normal lung sounds bilaterally. Absent: respiratory distress, wheezes, rales, rhonchi, stridor Cardiovascular Exam: Present: regular rate, normal rhythm, normal heart sounds. Absent: systolic murmur, diastolic murmur, rubs, gallop, clicks GI/Abdominal exam: Present: soft, normal bowel sounds. Absent: distended, tenderness, guarding, rebound, rigid Extremities exam: Present: normal inspection, full ROM, normal capillary refill. Absent: tenderness, pedal edema, joint swelling, calf tenderness Neurological exam: Present: alert, oriented X3, CN II-XII intact Psychiatric exam: Present: normal affect, normal mood Skin exam: Present: warm, dry, intact, normal color. Absent: rash Course Vital Signs 11/06/20 11/06/20 11/06/20 10:14 11:18 12:40 Temperature 98.9 F Pulse Rate 99 72 71 Respiratory 18 18 18 Rate Blood Pressure 180/109 112/69 112/67 O2 Sat by Pulse 98 97 97 Oximetry Medical Decision Making - Medical Decision Making 60-year-old female with elevated blood sugars in the 450s at triage. Basic labs, 1 L normal saline ordered. Serum glucose was 451, 10 units of NovoLog ordered and another 500 mL of normal saline ordered. Rest of labs unremarkable. Sugar remains high at 369, 6 more units of NovoLog ordered. Patient states that she's feels good enough to go home and will take her medication as prescribed. Case discussed with Dr. Olson, patient can discharge home. Patient was discharged in stable condition. - Lab Data Result diagrams: 11/06/20 10:43 11/06/20 10:43 Lab Results 11/06/20 11/06/20 11/06/20 Range/Units 10:17 10:43 10:43 WBC 8.8 (3.8-10.6) k/uL RBC 4.31 (3.80-5.40) m/uL Hgb 14.0 (11.4-16.0) gm/dL Hct 41.9 (34.0-46.0) % MCV 97.2 (80.0-100.0) fL MCH 32.6 (25.0-35.0) pg MCHC 33.6 (31.0-37.0) g/dL RDW 13.6 (11.5-15.5) % Plt Count 304 (150-450) k/uL MPV 6.8 Neutrophils % 58 % Lymphocytes % 34 % Monocytes % 5 % Eosinophils % 2 % Basophils % 1 % Neutrophils # 5.1 (1.3-7.7) k/uL Lymphocytes # 3.0 (1.0-4.8) k/uL Monocytes # 0.4 (0-1.0) k/uL Eosinophils # 0.2 (0-0.7) k/uL Basophils # 0.1 (0-0.2) k/uL Sodium (137-145) mmol/L Potassium (3.5-5.1) mmol/L Chloride (98-107) mmol/L Carbon Dioxide (22-30) mmol/L Anion Gap mmol/L BUN (7-17) mg/dL Creatinine (0.52-1.04) mg/dL Est GFR (CKD-EPI)AfAm (>60 ml/min/1.73 sqM) Est GFR (CKD-EPI)NonAf (>60 ml/min/1.73 sqM) Glucose (74-99) mg/dL POC Glucose (mg/dL) 453 H (75-99) mg/dL POC Glu [employer] Engineer ID [facility] Calcium (8.4-10.2) mg/dL Total Bilirubin (0.2-1.3) mg/dL AST (14-36) U/L ALT (4-34) U/L Alkaline Phosphatase (38-126) U/L Total Protein (6.3-8.2) g/dL Albumin (3.5-5.0) g/dL Urine Color Yellow Urine Appearance Clear (Clear) Urine pH 7.0 (5.0-8.0) Ur Specific [place] 1.022 (1.001-1.035) Urine Protein Trace H (Negative) Urine Glucose (UA) 4+ H (Negative) Urine Ketones Negative (Negative) Urine Blood Negative (Negative) Urine Nitrite Negative (Negative) Urine Bilirubin Negative (Negative) Urine Urobilinogen <2.0 (<2.0) mg/dL Ur Leukocyte Esterase Negative (Negative) Acetone, Qual (Negative) 11/06/20 11/06/20 11/06/20 Range/Units 10:43 11:28 12:14 WBC (3.8-10.6) k/uL RBC (3.80-5.40) m/uL Hgb (11.4-16.0) gm/dL Hct (34.0-46.0) % MCV (80.0-100.0) fL MCH (25.0-35.0) pg MCHC (31.0-37.0) g/dL RDW (11.5-15.5) % Plt Count (150-450) k/uL MPV Neutrophils % % Lymphocytes % % Monocytes % % Eosinophils % % Basophils % % Neutrophils # (1.3-7.7) k/uL Lymphocytes # (1.0-4.8) k/uL Monocytes # (0-1.0) k/uL Eosinophils # (0-0.7) k/uL Basophils # (0-0.2) k/uL Sodium 137 (137-145) mmol/L Potassium 4.5 (3.5-5.1) mmol/L Chloride 108 H (98-107) mmol/L Carbon Dioxide 20 L (22-30) mmol/L Anion Gap 9 mmol/L BUN 16 (7-17) mg/dL Creatinine 0.86 (0.52-1.04) mg/dL Est GFR (CKD-EPI)AfAm 86 (>60 ml/min/1.73 sqM) Est GFR (CKD-EPI)NonAf 74 (>60 ml/min/1.73 sqM) Glucose 451 H (74-99) mg/dL POC Glucose (mg/dL) 413 H 351 H (75-99) mg/dL POC Glu [employer] Engineer Jazmine Hensley [facility] Calcium 9.1 (8.4-10.2) mg/dL Total Bilirubin 0.2 (0.2-1.3) mg/dL AST 25 (14-36) U/L ALT 28 (4-34) U/L Alkaline Phosphatase 150 H (38-126) U/L Total Protein 7.1 (6.3-8.2) g/dL Albumin 4.0 (3.5-5.0) g/dL Urine Color Urine Appearance (Clear) Urine pH (5.0-8.0) Ur Specific [place] (1.001-1.035) Urine Protein (Negative) Urine Glucose (UA) (Negative) Urine Ketones (Negative) Urine Blood (Negative) Urine Nitrite (Negative) Urine Bilirubin (Negative) Urine Urobilinogen (<2.0) mg/dL Ur Leukocyte Esterase (Negative) Acetone, Qual Negative (Negative) 11/06/20 Range/Units 12:44 WBC (3.8-10.6) k/uL RBC (3.80-5.40) m/uL Hgb (11.4-16.0) gm/dL Hct (34.0-46.0) % MCV (80.0-100.0) fL MCH (25.0-35.0) pg MCHC (31.0-37.0) g/dL RDW (11.5-15.5) % Plt Count (150-450) k/uL MPV Neutrophils % % Lymphocytes % % Monocytes % % Eosinophils % % Basophils % % Neutrophils # (1.3-7.7) k/uL Lymphocytes # (1.0-4.8) k/uL Monocytes # (0-1.0) k/uL Eosinophils # (0-0.7) k/uL Basophils # (0-0.2) k/uL Sodium (137-145) mmol/L Potassium (3.5-5.1) mmol/L Chloride (98-107) mmol/L Carbon Dioxide (22-30) mmol/L Anion Gap mmol/L BUN (7-17) mg/dL Creatinine (0.52-1.04) mg/dL Est GFR (CKD-EPI)AfAm (>60 ml/min/1.73 sqM) Est GFR (CKD-EPI)NonAf (>60 ml/min/1.73 sqM) Glucose (74-99) mg/dL POC Glucose (mg/dL) 369 H (75-99) mg/dL POC Glu [employer] Engineer ID Reyes Alarcon Calcium (8.4-10.2) mg/dL Total Bilirubin (0.2-1.3) mg/dL AST (14-36) U/L ALT (4-34) U/L Alkaline Phosphatase (38-126) U/L Total Protein (6.3-8.2) g/dL Albumin (3.5-5.0) g/dL Urine Color Urine Appearance (Clear) Urine pH (5.0-8.0) Ur Specific [place] (1.001-1.035) Urine Protein (Negative) Urine Glucose (UA) (Negative) Urine Ketones (Negative) Urine Blood (Negative) Urine Nitrite (Negative) Urine Bilirubin (Negative) Urine Urobilinogen (<2.0) mg/dL Ur Leukocyte Esterase (Negative) Acetone, Qual (Negative) Disposition Clinical Impression: Type 2 diabetes mellitus, Hyperglycemia, Dehydration Disposition: HOME SELF-CARE Condition: Stable Instructions (If sedation given, give patient instructions): Diabetes and Exercise (ED), Diabetic Hyperglycemia (ED) Additional Instructions: Please return to the Emergency Department if symptoms worsen or any other concerns. Continue to take at home medications as prescribed. Follow-up with primary care in the next 2-3 days. Can take Tylenol as needed for pain control. Is patient prescribed a controlled substance at d/c from ED?: No Referrals: Sabino Youngblood III, MD [Primary Care Provider] - 1-2 days Time of Disposition: 13:16
[2020-11-06 11:49] LABS: Glucose,Whole Blood 413 mg/dL (75-99)
[2020-11-06 12:37] LABS: Glucose,Whole Blood 351 mg/dL (75-99)
[2020-11-06 12:41] VITALS: BP 112/67; PULSE 71
[2020-11-06 12:47] LABS: Glucose,Whole Blood 369 mg/dL (75-99)
[2020-11-06 13:30] LABS: Glucose,Whole Blood 318 mg/dL (75-99)
== END 2020-11-06 13:36 | disposition home or self-care (01) ==
LOC: EC 10:13
DX: E11.65 Type 2 diabetes mellitus with hyperglycemia (principal); E86.0 Dehydration; I10 Essential (primary) hypertension; J43.9 Emphysema, unspecified; E78.5 Hyperlipidemia, unspecified; M79.7 Fibromyalgia; K21.9 Gastro-esophageal reflux disease without esophagitis; E11.40 Type 2 diabetes mellitus with diabetic neuropathy, unspecified; M06.9 Rheumatoid arthritis, unspecified; M19.90 Unspecified osteoarthritis, unspecified site; I25.2 Old myocardial infarction; F41.9 Anxiety disorder, unspecified; F31.9 Bipolar disorder, unspecified; F17.200 Nicotine dependence, unspecified, uncomplicated; F12.90 Cannabis use, unspecified, uncomplicated; Z86.73 Personal history of transient ischemic attack (TIA), and cerebral infarction without residual deficits; Z79.51 Long term (current) use of inhaled steroids; Z79.84 Long term (current) use of oral hypoglycemic drugs; Z88.0 Allergy status to penicillin
CPT/HCPCS: 36415; 80053; 81003; 82009; 85025; 96360; 96361; 99283

== ENCOUNTER → 2020-11-09 | Outpatient (CLI) | payer BC, MEDICARE ==
[2020-11-09 16:05] VITALS: BP 150/94; PULSE 112; RESP 16; TEMP 98.4
--- NOTE | 2020-11-09 16:08 | P.PN ---
Progress Note - Text Progress Note Date: 11/09/20 Kaitlin is a 60-year-old white female status post needle local excisional biopsy of the left breast on 6120. Pathology revealed focal 7 mm focus atypical lobular hyperplasia and 1 mm intraductal papilloma. She has no complaints related to the surgery. She is doing well postoperative. Examination: Lungs: Clear Heart: Regular rate and rhythm Incision: Clean and dry Impression: 1. Atypical lobular hyperplasia/intraductal papilloma on needle localization excisional biopsy Plan: 1. Repeat left breast mammogram in 6 months with physician exam at that time; however mammogram in July 2021 CC: Dr. Youngblood
== END ==
LOC: WWCWWP 15:53
PROVIDERS: ATTEND Surgery
DX: N60.92 Unspecified benign mammary dysplasia of left breast (principal); F17.200 Nicotine dependence, unspecified, uncomplicated; Z98.890 Other specified postprocedural states; Z91.048 Other nonmedicinal substance allergy status; Z88.1 Allergy status to other antibiotic agents; Z91.040 Latex allergy status; Z88.0 Allergy status to penicillin; Z88.6 Allergy status to analgesic agent

== ENCOUNTER → 2020-11-22 | Outpatient (CLI) | payer BC, MEDICARE ==
--- NOTE | 2020-11-22 12:39 | P.PN ---
Progress Note - Text Progress Note Date: 11/22/20 Kaitlin is a 60-year-old white female status post needle local excisional biopsy of the left breast on 6120. Pathology revealed focal 7 mm focus atypical lobular hyperplasia and 1 mm intraductal papilloma. She has no complaints related to the surgery. She is doing well postoperative. She is complaining of some pain at the site. She is not complaining of any fever or chills. Examination: Lungs: Clear Heart: Regular rate and rhythm Incision: Clean and dry; minimal dog ear at the lateral and medial aspect of the incision Impression: 1. Atypical lobular hyperplasia/intraductal papilloma on needle localization excisional biopsy Plan: 1. Repeat left breast mammogram in 6 months with physician exam at that time; however mammogram in July 2021 CC: Dr. Youngblood
[2020-11-22 12:41] VITALS: BP 124/82; PULSE 109; RESP 18; TEMP 99.4
== END ==
LOC: WWCWWP 12:24
PROVIDERS: ATTEND Surgery
DX: D24.2 Benign neoplasm of left breast (principal); N60.92 Unspecified benign mammary dysplasia of left breast; F17.200 Nicotine dependence, unspecified, uncomplicated; Z98.890 Other specified postprocedural states; Z88.0 Allergy status to penicillin; Z88.1 Allergy status to other antibiotic agents; Z91.048 Other nonmedicinal substance allergy status; Z91.040 Latex allergy status; Z88.6 Allergy status to analgesic agent

== ENCOUNTER → 2020-11-26 | Outpatient (CLI) | payer BC, MEDICARE ==
[2020-11-26 14:10] LABS: Appearance,Urine Cloudy (Clear); Bilirubin,Urine Negative (Negative); Blood,Urine Large (Negative); Color,Urine Yellow; Glucose,Urine (UA) Negative (Negative); Hyaline Casts,Urine 82 /lpf (0-2); Ketones,Urine Negative (Negative); Leukocyte Esterase,Urine Trace (Negative); Mucus,Urine Rare /hpf; Nitrite,Urine Negative (Negative); Protein,Urine Trace (Negative); RBC,Urine >182 /hpf (0-5); Specific Gravity,Urine 1.018 (1.001-1.035); Squamous Epithelial Cell,Urine 8 /hpf (0-4); WBC,Urine 3 /hpf (0-5)
[2020-11-26 18:45] LABS: HCT 48.3 % (37.2-46.3); HGB 15.2 g/dL (12.0-15.0); MCH 31.3 pg (27.0-32.0); MCHC 31.5 g/dL (32.0-37.0); MCV 99.6 fL (80.0-97.0); Mean Platelet Volume 9.3 fL (9.5-12.2); Platelet Count 317 X 10*3/uL (140-440); RBC 4.85 X 10*6/uL (4.10-5.20); RDW 13.6 % (11.5-14.5)
[2020-11-26 20:09] LABS: Ferritin 232.7 ng/mL (10.0-291.0)
[2020-11-26 20:23] LABS: % Iron Saturation 24.73 (12.00-45.00); African American GFR (CKD) 63.2 (60.0-200.0); Albumin 4.8 g/dL (3.80-4.90); Albumin/Globulin Ratio 1.6 (1.60-3.17); Anion Gap 6.9 mmol/L (4.00-12.00); BUN/Creat Ratio 11.82 Ratio (12.00-20.00); Calcium 9.7 mg/dL (8.7-10.3); Carbon Dioxide 25.1 mmol/L (21.6-31.8); Magnesium 1.6 mg/dL (1.5-2.4); Non-African American GFR(CKD) 54.5 (60.0-200.0); Phosphorus 4.1 mg/dL (2.4-5.1); Potassium 5.3 mmol/L (3.5-5.5); Total Bilirubin 0.4 mg/dL (0.3-1.2); Total Protein 7.8 g/dL (6.2-8.2); Uric Acid 6.3 mg/dL (2.9-7.7)
[2020-11-26 21:18] LABS: Urine Creatinine 126.4 mg/dL
== END | disposition home or self-care (01) ==
LOC: LABWHC1 13:45
PROVIDERS: ATTEND Nurse Practitioner Family
DX: N39.0 Urinary tract infection, site not specified (principal); N18.31 Chronic kidney disease, stage 3a; N25.81 Secondary hyperparathyroidism of renal origin; E55.9 Vitamin D deficiency, unspecified; D64.9 Anemia, unspecified; M10.9 Gout, unspecified; R80.9 Proteinuria, unspecified
CPT/HCPCS: 36415; 80053; 81001; 82043; 82306; 82570; 82728; 83540; 83550; 83735; 83970; 84100; 84550; 85027

== ENCOUNTER → 2020-12-28 | Outpatient (CLI) | payer BC, MEDICARE ==
[2020-12-28 09:15] VITALS: BP 167/91; PULSE 104; RESP 18; TEMP 98.7
--- NOTE | 2020-12-28 09:41 | P.PN ---
Subjective Progress Note Date: 12/28/20 Principal diagnosis: Fibrocystic breast changes Discordant left breast core biopsy Margarita is a 60 year old white female seen in consultation for Dr. Nye on 07-27-20 regarding a radiographic abnormality in her left breast. She underwent a bilateral mammogram on 2420. This revealed asymmetry in the left breast lower inner quadrant anterior position. She then had an ultrasound of the left breast performed. On ultrasound at 5:00 an 8 x 2 x 7 mm lesion was noted and a 3 x 3 x 6 segment millimeters cystic lesion at 10:00 was noted. This was considered to be suspicious BIRADS 4 and ultrasound-guided core biopsy of the left breast was recommended and performed on 07-30-20. This was benign, however it was reviewed with Dr. Krishnamurthy from radiology and felt to be discordant. She was therefore recommended to undergo a needle localization and excisional lumpectomy which was performed and 6120. The pathology and this revealed a focal 7 mm focus of atypical lobular hyperplasia, and 1 mm intraductal papilloma. She has been followed conservatively and repeat ma mmogram of this site in 6 months was recommended. The patient however has had bilateral breast abscesses drained in the past. The patient has a history of hidradenitis in the past. The patient's was treated with antibiotics after her lumpectomy and at this time is not complaining of any infection like symptoms in the left breast. Patient now complains of pain in the right breast. She is not having any discharge in either breast at this time. She is not complaining of any new lumps masses or nodules in either breast. She has had a low-grade temperature for the past 2 weeks. Caffeine: 2 cups/day nicotine: 1/2 PPD/ used to smoke 2 PPD 1 month ago decreased fidel-bromine: occasional, more at the holidays hormones: estrogen for 6 years, stopped several years ago Family History: father: non small cell lung cancer, smoker mother: lymphoma, and stomach cancer Hormonal History: menarche: 9 , breast fed: yes, age at girth: 21 menopause: 31 JIN, done for endometriosis Hormones: Estrogen but stopped several years ago took them for approximately 6 years control pills: 15 years Surgical History: 5 back surgeries bilateral feet GB carpel tunnel Medical history: Hidradenitis suprativa Diabetes kidney failure TIA anxiety HTN fibromyalgia Social History: smoke: 2 PPD alcohol: rare drugs: none - Constitutional Constitutional: Denies chills, Denies fever - EENT Eyes: denies blurred vision, denies pain Ears: bilateral: tinnitus, deny: decreased hearing Ears, nose, mouth and throat: Reports headache, Denies sore throat - Breasts Breasts: bilateral: as per HPI - Cardiovascular Comment: tachycardia Cardiovascular: Denies chest pain, Denies shortness of breath - Gastrointestinal Comment: IBS Gastrointestinal: Reports diarrhea, Denies abdominal pain, Denies nausea, Denies vomiting - Genitourinary (Female) Comment: kidney failure Genitourinary: Reports urinary frequency, Denies dysuria, Denies hematuria - Menstruation Menstruation: Reports post hysterectomy - Musculoskeletal Musculoskeletal: Reports myalgias - Integumentary Integumentary: Denies pruritus, Denies rash - Neurological Neurological: Reports numbness, Reports weakness - Psychiatric Comment: bipolar Psychiatric: Denies anxiety, Denies depression - Endocrine Comment: diabetes - Hematologic/Lymphatic Comment: none - Allergic/Immunologic Allergic/Immunologic: Reports as per HPI Objective - Vital Signs Vital signs: Vital Signs Temp 98.7 F 12/28/20 09:11 Pulse 104 H 12/28/20 09:11 Resp 18 12/28/20 09:11 BP 167/91 12/28/20 09:11 Pulse Ox 95 12/28/20 09:11 Intake & Output 12/27/20 12/28/20 12/28/20 18:59 06:59 18:59 Weight 82.554 kg - Exam BMI 29.4 - Constitutional General appearance: Present: cooperative - EENT Eyes: Present: EOMI ENT: Present: hearing grossly normal - Neck Neck: Present: normal ROM - Respiratory Respiratory: bilateral: CTA - Cardiovascular Heart sounds: normal: S1, S2 - Integumentary Integumentary: Present: normal turgor - Musculoskeletal Musculoskeletal: Present: gait normal - Psychiatric Psychiatric: Present: A&O x's 3, appropriate affect, intact judgment & insight - Additional findings Additional findings: Breast Exam: BRA: 38C inspection: Right breast larger than left breast, no evidence of any infections Palpation: Right breast: Multiple positional exam fibrocystic changes, no dominant masses or nodules of concern Right axilla: No adenopathy of concern/small pustule in the axillary area related most likely to the hidradenitis patient is going to use warm compresses on this Left breast: Well-healed scar from prior surgery, smaller than right breast, and multiple positional exam fibrocystic changes no dominant masses or nodules of concern Left axilla: No adenopathy of concern Assessment and Plan Assessment: Impression: Hidradenitis suprativa Diabetes kidney failure TIA anxiety HTN fibromyalgia Nicotine dependence/is decreased from 2 packs per day to a half a pack per day in the last month Mastodynia Daily caffeine intake Nothing on today's exam was performed further radiographic study or biopsy of the breast Plan: 1. Antifungal cream under the breast 2. Lifestyle modification stopped nicotine/decreased stopped caffeine intake 3. Small pustule right axilla patient is going to use warm compresses will call if there is concern or does not resolve 4. Medical management of medical conditions 5. Left breast mammogram and physician exam in 6 months 6. Follow-up sooner if any questions or concerns 7. Right breast mammogram due in May 2022 CC: Dr. Nye
== END ==
LOC: WWCWWP 08:59
PROVIDERS: ATTEND Surgery
DX: N64.4 Mastodynia (principal); L73.2 Hidradenitis suppurativa; E11.9 Type 2 diabetes mellitus without complications; F41.9 Anxiety disorder, unspecified; I10 Essential (primary) hypertension; M79.7 Fibromyalgia; N19 Unspecified kidney failure; F15.90 Other stimulant use, unspecified, uncomplicated; F17.210 Nicotine dependence, cigarettes, uncomplicated; Z79.84 Long term (current) use of oral hypoglycemic drugs; Z79.899 Other long term (current) drug therapy; Z86.73 Personal history of transient ischemic attack (TIA), and cerebral infarction without residual deficits; Z91.048 Other nonmedicinal substance allergy status; Z88.1 Allergy status to other antibiotic agents; Z91.040 Latex allergy status; Z88.0 Allergy status to penicillin; Z88.8 Allergy status to other drugs, medicaments and biological substances

== ENCOUNTER → 2021-01-17 | Outpatient (CLI) | payer BC, MEDICARE ==
--- NOTE | 2021-01-17 12:32 | XR ---
EXAMINATION TYPE: XR bone survey complete DATE OF EXAM: 01/17/2021 COMPARISON: NONE HISTORY: 60-year-old female abnormal bone marrow labs. Monoclonal gammopathy. Leukocytosis. Hypothyro idism and fibromyalgia. Technique: 18 views. FINDINGS: Chest: Spinal stimulator recently along the mid thoracic spinal canal. Mild interstitial prominence h as a chronic appearance. Strandy atelectasis right midlung. No discrete rib fracture seen. Cervical spine: Mild degenerative disc disease. Moderate facet/uncovertebral joint arthropathy. No ma lalignment or prevertebral soft tissue swelling. No discrete lytic lesion seen. Thoracic spine: [facility] within the mid to lower thoracic spine. Vertebral body heights are preserved and alignment is maintained. Accentuated upper thoracic kyphosis. Humerus: No discrete lytic lesion or endosteal scalloping on either side. Calvarium: No punched-out lytic lesions. The mandible also appears intact. Pelvis: SI joints and pubic symphysis appear intact. Mild degenerative change of the hips. No lytic l esion identified. Bowel gas projects over the iliac bones. Lumbar spine: Slight dextroconvex curvature. L4-L5 posterior lumbar fusion with laminectomies. Cholec ystectomy clips. 2 generator devices on either side. Vertebral body heights are preserved and alignme nt is maintained. Femurs: No suspicious lytic lesion or endosteal scalloping seen. IMPRESSION: No suspicious lytic lesion identified. No vertebral compression collapse.
== END | disposition home or self-care (01) ==
LOC: LABWHC1 09:46
PROVIDERS: ATTEND Internal Medicine Hematology & Oncology
DX: E03.9 Hypothyroidism, unspecified (principal); D72.829 Elevated white blood cell count, unspecified; D47.2 Monoclonal gammopathy; M79.7 Fibromyalgia; R93.7 Abnormal findings on diagnostic imaging of other parts of musculoskeletal system
CPT/HCPCS: 77075

== ENCOUNTER 2021-01-21 12:08 | Emergency (ER) | payer BC, MEDICARE ==
[2021-01-21 12:35] VITALS: RESP 18
[2021-01-21] MEDS ORDERED: SODIUM CHLORIDE 0.9% 1,000 ML IV STA (13:23)
--- NOTE | 2021-01-21 13:49 | ED ---
Weakness HPI - General Chief complaint: Weakness Stated complaint: weakness in legs Time Seen by Provider: 01/21/21 13:10 Source: patient Mode of arrival: wheelchair Limitations: no limitations - History of Present Illness Initial comments: 6-year-old female with history of type 2 diabetes presenting to the emergency department with chief complaint of weakness. Patient reports her symptoms began about 3 hours prior to arrival. Patient reports to drinking coffee on her couch when she stood up and felt weakness in both her legs. Patient reports her legs felt like "Jell-O". States not feels better and she still able to heavily. She has peripheral neuropathy so most of her sensation is diminished in her feet and ankles. Patient reports no chest pain or shortness of breath. She denies any weakness in her upper extremities. Denies any chest pain, shortness of breath, lightheadedness, dizziness, visual changes, headaches, unilateral weakness or paresthesias. - Related Data Home Medications Medication Instructions Recorded Confirmed Cetirizine HCl 10 mg PO HS 07/23/20 01/21/21 Furosemide [Lasix] 20 mg PO Q48H 07/23/20 01/21/21 busPIRone HCL 5 mg PO BID 07/23/20 01/21/21 metFORMIN HCL [Glucophage] 500 mg PO DAILY 10/18/20 01/21/21 Atorvastatin [Lipitor] 40 mg PO DAILY 10/25/20 01/21/21 Ergocalciferol [Vitamin D2 (1250 1,250 mcg PO Q30D 10/25/20 01/21/21 Mcg = 37364 Iu)] Gabapentin [Neurontin] 100 mg PO BID 10/25/20 01/21/21 Linaclotide [Linzess] 290 mcg PO DAILY 10/25/20 01/21/21 Nitroglycerin Sl Tabs [Nitrostat] 0.4 mg SL Q5M PRN 10/25/20 01/21/21 clonazePAM [KlonoPIN] 0.5 mg PO TID PRN 10/25/20 01/21/21 Albuterol Inhaler [Ventolin Hfa 2 puff INHALATION RT-QID PRN 11/06/20 01/21/21 Inhaler] Cariprazine HCl [Vraylar] 3 mg PO HS 11/06/20 01/21/21 Levothyroxine Sodium [Synthroid] 100 mcg PO DAILY 11/06/20 01/21/21 Metoprolol Tartrate [Lopressor] 25 mg PO BID 11/06/20 01/21/21 Morphine/Bupivacaine Pain Pump 1 dose INTRATHECA CONTINUOUS 11/06/20 01/21/21 Tiotropium Br/Olodaterol HCl 1 puff INHALATION RT-BID 11/06/20 01/21/21 [Stiolto Respimat Inhal [place]] lamoTRIgine [LaMICtal] 150 mg PO BID 11/06/20 01/21/21 Amitriptyline HCl [Elavil] 100 mg PO HS 01/21/21 01/21/21 Dulaglutide [Trulicity] 3 mg SQ TH 01/21/21 01/21/21 Mirtazapine [Remeron] 15 mg PO HS 01/21/21 01/21/21 OXcarbazepine [Trileptal] 150 mg PO BID 01/21/21 01/21/21 OXcarbazepine [Trileptal] 300 mg PO BID 01/21/21 01/21/21 SUMAtriptan succinate [Imitrex] 50 mg PO DAILY PRN 01/21/21 01/21/21 Simvastatin [Zocor] 20 mg PO HS 01/21/21 01/21/21 lamoTRIgine [LaMICtal] 50 mg PO BID 01/21/21 01/21/21 Allergies Allergy/AdvReac Type Severity Reaction Status Date / Time adhesive Allergy Rash/Hives,skiin Verified 01/21/21 14:47 peels azithromycin Allergy Rash/Hives Verified 01/21/21 14:47 [From Zithromax Z-Ivan] ciprofloxacin [From Cipro] Allergy Rash/Hives Verified 01/21/21 14:47 ciprofloxacin HCl Allergy Rash/Hives Verified 01/21/21 14:47 [From Cipro] clarithromycin [From Biaxin] Allergy Rash/Hives Verified 01/21/21 14:47 doxycycline calcium Allergy Rash/Hives Verified 01/21/21 14:47 [From Vibramycin] doxycycline hyclate Allergy Rash/Hives Verified 01/21/21 14:47 [From Vibramycin] doxycycline monohydrate Allergy Rash/Hives Verified 01/21/21 14:47 [From Vibramycin] erythromycin base Allergy Rash/Hives Verified 01/21/21 14:47 [From E-Mycin] Latex, Natural Rubber Allergy Anaphylaxis Verified 01/21/21 14:47 levofloxacin [From Levaquin] Allergy Rash/Hives Verified 01/21/21 14:47 oxybutynin chloride Allergy Rash/Hives Verified 01/21/21 14:47 [From Ditropan] penicillin G Allergy Rash/Hives Verified 01/21/21 14:47 prochlorperazine edisylate Allergy Rash/Hives Verified 01/21/21 14:47 [From Compazine] prochlorperazine maleate Allergy Rash/Hives Verified 01/21/21 14:47 [From Compazine] rofecoxib [From Vioxx] Allergy Hallucinati Verified 01/21/21 14:47 ons tetracycline [Tetracycline] Allergy Rash/Hives Verified 01/21/21 14:47 valdecoxib [From Bextra] Allergy Hallucinati Verified 01/21/21 14:47 ons Review of Systems ROS Statement: Those systems with pertinent positive or pertinent negative responses have been documented in the HPI. ROS Other: All systems not noted in ROS Statement are negative. Past Medical History Past Medical History: COPD, CVA/TIA, Diabetes Mellitus, Fibromyalgia, GERD/Reflux, Hyperlipidemia, Hypertension, Myocardial Infarction (RI), Osteoarthritis (OA), Renal Disease, Rheumatoid Arthritis (RA), Skin Disorder, Thyroid Disorder Additional Past Medical History / Comment(s): diabetic neuropathy, lupus ,DDD ,IBS with nausea/vomiting, chronic dry eye, palpitations,migraines, TIA x 5-rt lip droops, emphysema, eczema in ears, history of wound on right toe, gastroparesis, Kidney failure - hospitalization in September 2018, heart [place], [place]ula icose veins, denies SOB-states had episode 10/22/20 with "jaw tingling" no other symptoms-resolved shortly after it started, liver problem "3 years ago", on Rx for cyst rt breast, gout, hx kidney stones Last Myocardial Infarction Date:: unknown History of Any Multi-Drug Resistant Organisms: None Reported Past Surgical History: Back Surgery, Cholecystectomy, Heart Catheterization, Hernia Repair, Hysterectomy, Orthopedic Surgery, Tonsillectomy, Uterine Ablation Additional Past Surgical History / Comment(s): EGD, Colonoscopy, vocal cord surgery, cataract bilateral removal, right knee arthroscopy, right elbow surgery, bilateral feet heel spurs and arthroplasty joints B/L foot toes, BILAT CTR, 2 nerve stimulator in spine X2, laminectomy L4-5,hiatal hernia repair, biopsy left arm,mult sinus surgeries, STIMULATOR in back (not currently working) , MORPHINE PUMP INSERTED to rt side of abdomen, I&D RT FOOT WOUND Surgical removal of seroma and cyst on back in November 2018; surgical removal of Pain Pump in november 2018, I&D cyst rt breast Past Anesthesia/Blood Transfusion Reactions: Family History of Problems w/ Anesthesia Additional Past Anesthesia/Blood Transfusion Reaction / Comment(s): claustrophobic, mother- RI during surgery Past Psychological History: Anxiety, Bipolar, Depression, Panic Disorder, PTSD Smoking Status: Current every day smoker Past Alcohol Use History: None Reported Past Drug Use History: Marijuana - Past Family History Mother Family Medical History: Cancer, Memory Impairment, Myocardial Infarction (RI) Additional Family Medical History / Comment(s): Mother had scleroderma, lymphoma and stomach CA, stents, lupus Father Family Medical History: Cancer Additional Family Medical History / Comment(s): LUNG CANCER Brother(s) Family Medical History: Cancer General Exam Limitations: no limitations General appearance: alert, in no apparent distress Head exam: Present: atraumatic, normocephalic, normal inspection Eye exam: Present: normal appearance, PERRL, EOMI Pupils: Present: normal accommodation ENT exam: Present: normal exam, normal oropharynx, mucous membranes moist Neck exam: Present: normal inspection, full ROM. Absent: tenderness, lymphadenopathy Respiratory exam: Present: normal lung sounds bilaterally. Absent: respiratory distress, wheezes, rales, rhonchi, stridor Cardiovascular Exam: Present: regular rate, normal rhythm, normal heart sounds. Absent: systolic murmur, diastolic murmur GI/Abdominal exam: Present: soft. Absent: distended, tenderness, guarding, rebo und, rigid Extremities exam: Present: normal inspection, full ROM, normal capillary refill, other (Palpable DP and PT bilaterally.). Absent: tenderness, pedal edema, joint swelling Back exam: Present: normal inspection, full ROM Neurological exam: Present: alert, oriented X3, CN II-XII intact, normal gait Expanded Neurological exam: Present: inattentive Patient oriented to: Present: person, place, time Speech: Present: fluid speech Cranial nerves: EOM's Intact: Normal, Gag Reflex: Normal, Tongue Deviation: Normal, Nystagmus: Normal, Facial Sensation: Normal Cerebellar function: Finger to Nose: Normal Upper motor neuron: Pronator Drift: Normal Sensory exam: Upper Extremity Light Touch: Normal, Upper Extremity Pin Prick: Normal, Lower Extremity Light Touch: Normal (Peripheral neuropathy), Lower Extremity Pin Prick: Normal (Peripheral neuropathy) Motor strength exam: RUE: 5, LUE: 5, RLE: 5, LLE: 5 Psychiatric exam: Present: normal affect, normal mood Skin exam: Present: warm, dry, intact, normal color Course Vital Signs 01/21/21 01/21/21 01/21/21 12:33 14:35 15:35 Temperature 98.4 F Pulse Rate 102 H 89 90 Respiratory 18 Rate Blood Pressure 139/79 O2 Sat by Pulse 95 99 97 Oximetry 01/21/21 16:10 Temperature 98.1 F Pulse Rate 86 Respiratory 18 Rate Blood Pressure 131/73 O2 Sat by Pulse 99 Oximetry EKG Findings - EKG Comments: EKG Findings:: Sinus rhythm. Inverted T waves in lead 3 and aVF. Ventricular rate 85, OH 166, QRS 116, QTc 480. Medical Decision Making - Medical Decision Making 60-year-old female presenting to emergency department with a chief complaint of weakness in the legs. On physical examination, patient is neurovascularly intact in bilateral lower extremities. No focal neural deficits. She has peripheral neuropathy secondary to diabetes therefore her sensation is decreased in both feet at baseline. She does have good peripheral pulses. Laboratory work is unremarkable. Patient had no complaints of chest pain or shortness of breath. Chest x-ray is unremarkable. CT of the brain shows no acute findings. On reevaluation, patient was able to ambulate without any difficulties. Advised the patient to follow with the primary care physician. Return parameters were thoroughly discussed the patient was understanding and agreeable. Case discussed with Dr. Collazo - Lab Data Result diagrams: 01/21/21 13:59 01/21/21 13:59 Lab Results 01/21/21 01/21/21 01/21/21 Range/Units 13:59 13:59 13:59 WBC 10.1 (3.8-10.6) k/uL RBC 4.57 (3.80-5.40) m/uL Hgb 15.2 (11.4-16.0) gm/dL Hct 46.4 H (34.0-46.0) % MCV 101.5 H (80.0-100.0) fL MCH 33.2 (25.0-35.0) pg MCHC 32.8 (31.0-37.0) g/dL RDW 14.2 (11.5-15.5) % Plt Count 309 (150-450) k/uL MPV 7.1 Neutrophils % 70 % Lymphocytes % 24 % Monocytes % 4 % Eosinophils % 1 % Basophils % 0 % Neutrophils # 7.1 (1.3-7.7) k/uL Lymphocytes # 2.4 (1.0-4.8) k/uL Monocytes # 0.4 (0-1.0) k/uL Eosinophils # 0.1 (0-0.7) k/uL Basophils # 0.0 (0-0.2) k/uL Macrocytosis Slight PT 9.8 (9.0-12.0) sec INR 0.9 (<1.2) APTT 22.3 (22.0-30.0) sec Sodium (137-145) mmol/L Potassium (3.5-5.1) mmol/L Chloride (98-107) mmol/L Carbon Dioxide (22-30) mmol/L Anion Gap mmol/L BUN (7-17) mg/dL Creatinine (0.52-1.04) mg/dL Est GFR (CKD-EPI)AfAm (>60 ml/min/1.73 sqM) Est GFR (CKD-EPI)NonAf (>60 ml/min/1.73 sqM) Glucose (74-99) mg/dL Calcium (8.4-10.2) mg/dL Magnesium (1.6-2.3) mg/dL Total Bilirubin (0.2-1.3) mg/dL AST (14-36) U/L ALT (4-34) U/L Alkaline Phosphatase (38-126) U/L Troponin I (0.000-0.034) ng/mL Total Protein (6.3-8.2) g/dL Albumin (3.5-5.0) g/dL Urine Color Yellow Urine Appearance Clear (Clear) Urine pH 7.0 (5.0-8.0) Ur Specific [place] 1.012 (1.001-1.035) Urine Protein Trace H (Negative) Urine Glucose (UA) Negative (Negative) Urine Ketones Negative (Negative) Urine Blood Negative (Negative) Urine Nitrite Negative (Negative) Urine Bilirubin Negative (Negative) Urine Urobilinogen <2.0 (<2.0) mg/dL Ur Leukocyte Esterase Negative (Negative) 01/21/21 01/21/21 Range/Units 13:59 13:59 WBC (3.8-10.6) k/uL RBC (3.80-5.40) m/uL Hgb (11.4-16.0) gm/dL Hct (34.0-46.0) % MCV (80.0-100.0) fL MCH (25.0-35.0) pg MCHC (31.0-37.0) g/dL RDW (11.5-15.5) % Plt Count (150-450) k/uL MPV Neutrophils % % Lymphocytes % % Monocytes % % Eosinophils % % Basophils % % Neutrophils # (1.3-7.7) k/uL Lymphocytes # (1.0-4.8) k/uL Monocytes # (0-1.0) k/uL Eosinophils # (0-0.7) k/uL Basophils # (0-0.2) k/uL Macrocytosis PT (9.0-12.0) sec INR (<1.2) APTT (22.0-30.0) sec Sodium 141 (137-145) mmol/L Potassium 4.8 (3.5-5.1) mmol/L Chloride 110 H (98-107) mmol/L Carbon Dioxide 18 L (22-30) mmol/L Anion Gap 13 mmol/L BUN 11 (7-17) mg/dL Creatinine 0.85 (0.52-1.04) mg/dL Est GFR (CKD-EPI)AfAm 86 (>60 ml/min/1.73 sqM) Est GFR (CKD-EPI)NonAf 75 (>60 ml/min/1.73 sqM) Glucose 122 H (74-99) mg/dL Calcium 9.6 (8.4-10.2) mg/dL Magnesium 1.9 (1.6-2.3) mg/dL Total Bilirubin 0.5 (0.2-1.3) mg/dL AST 35 (14-36) U/L ALT 35 H (4-34) U/L Alkaline Phosphatase 150 H (38-126) U/L Troponin I <0.012 (0.000-0.034) ng/mL Total Protein 7.8 (6.3-8.2) g/dL Albumin 4.6 (3.5-5.0) g/dL Urine Color Urine Appearance (Clear) Urine pH (5.0-8.0) Ur Specific [place] (1.001-1.035) Urine Protein (Negative) Urine Glucose (UA) (Negative) Urine Ketones (Negative) Urine Blood (Negative) Urine Nitrite (Negative) Urine Bilirubin (Negative) Urine Urobilinogen (<2.0) mg/dL Ur Leukocyte Esterase (Negative) Disposition Clinical Impression: Weakness of both legs Disposition: HOME SELF-CARE Condition: Stable Instructions (If sedation given, give patient instructions): Weakness (ED) Additional Instructions: Follow with her primary care physician. Return to emergency department if symptoms worsen. Is patient prescribed a controlled substance at d/c from ED?: No Referrals: Sabino Youngblood III, MD [Primary Care Provider] - 1-2 days Time of Disposition: 15:58
[2021-01-21 14:12] LABS: Basophils % (A) 0 %; Eosinophils # (A) 0.1 k/uL (0-0.7); Eosinophils % (A) 1 %; HCT 46.4 % (34.0-46.0); HGB 15.2 gm/dL (11.4-16.0); Lymphocytes # (A) 2.4 k/uL (1.0-4.8); Lymphocytes % (A) 24 %; MCH 33.2 pg (25.0-35.0); MCHC 32.8 g/dL (31.0-37.0); MCV 101.5 fL (80.0-100.0); Macrocytosis Slight; Mean Platelet Volume 7.1; Monocytes # (A) 0.4 k/uL (0-1.0); Monocytes % (A) 4 %; Neutrophils # (A) 7.1 k/uL (1.3-7.7); Neutrophils % (A) 70 %; Platelet Count 309 k/uL (150-450); RBC 4.57 m/uL (3.80-5.40); RDW 14.2 % (11.5-15.5); WBC 10.1 k/uL (3.8-10.6)
[2021-01-21 14:18] LABS: Appearance,Urine Clear (Clear); Bilirubin,Urine Negative (Negative); Blood,Urine Negative (Negative); Color,Urine Yellow; Glucose,Urine (UA) Negative (Negative); Ketones,Urine Negative (Negative); Leukocyte Esterase,Urine Negative (Negative); Nitrite,Urine Negative (Negative); Protein,Urine Trace (Negative); Specific Gravity,Urine 1.012 (1.001-1.035); Urobilinogen,Urine <2.0 mg/dL (<2.0)
[2021-01-21 14:24] LABS: Albumin 4.6 g/dL (3.5-5.0); Calcium 9.6 mg/dL (8.4-10.2); Magnesium 1.9 mg/dL (1.6-2.3); Potassium 4.8 mmol/L (3.5-5.1); Total Bilirubin 0.5 mg/dL (0.2-1.3); Total Protein 7.8 g/dL (6.3-8.2)
[2021-01-21 14:43] LABS: INR 0.9 (<1.2); Partial Thromboplastin Time 22.3 sec (22.0-30.0); Prothrombin Time 9.8 sec (9.0-12.0)
--- NOTE | 2021-01-21 15:02 | CT ---
EXAMINATION TYPE: CT brain wo con DATE OF EXAM: 01/21/2021 COMPARISON: 10/11/2020 HISTORY: headache CT DLP: 1033.[address] of the brain was performed. The ventricles, basal cisterns and sulci overlying the cerebral convexities demonstrate mild enlargem ent. There is no evidence for intracranial hemorrhage or sulcal effacement. There is decreased attenuation about the periventricular white matter and deep white matter of both c erebral hemispheres, compatible with chronic small vessel ischemia. Differential diagnosis does inclu de demyelination. No mass effects are seen.No midline shift. Osseous calvarium is intact. If symptoms persist consider MRI. IMPRESSION: 1. Age related atrophic and chronic small vessel ischemic change without acute intracranial process s een at this time.
--- NOTE | 2021-01-21 15:21 | XR ---
EXAMINATION TYPE: XR chest 2V DATE OF EXAM: 01/21/2021 COMPARISON: 04/15/2019 HISTORY: Shortness of breath TECHNIQUE: Frontal and lateral views of the chest are obtained. FINDINGS: Scattered senescent parenchymal changes noted. Hyperinflation compatible with COPD. No evidence for infiltrate. No evidence for atelectasis. Heart size is stable. Mediastinal structures are stable and grossly unremarkable. No evidence for hilar prominence. Degenerative changes dorsal spine. IMPRESSION: 1. No evidence for acute pulmonary disease.
[2021-01-21 16:20] VITALS: BP 131/73; PULSE 86; TEMP 98.1
== END 2021-01-21 16:10 | disposition home or self-care (01) ==
LOC: EC 12:08
DX: M62.81 Muscle weakness (generalized) (principal); E11.9 Type 2 diabetes mellitus without complications; K21.9 Gastro-esophageal reflux disease without esophagitis; J44.9 Chronic obstructive pulmonary disease, unspecified; E78.5 Hyperlipidemia, unspecified; I10 Essential (primary) hypertension; I25.2 Old myocardial infarction; M19.90 Unspecified osteoarthritis, unspecified site; E07.9 Disorder of thyroid, unspecified; F41.9 Anxiety disorder, unspecified; F31.9 Bipolar disorder, unspecified; F43.12 Post-traumatic stress disorder, chronic; F17.200 Nicotine dependence, unspecified, uncomplicated; F12.90 Cannabis use, unspecified, uncomplicated; Z79.84 Long term (current) use of oral hypoglycemic drugs; Z88.1 Allergy status to other antibiotic agents; Z91.040 Latex allergy status; Z88.0 Allergy status to penicillin; Z88.6 Allergy status to analgesic agent; Z86.73 Personal history of transient ischemic attack (TIA), and cerebral infarction without residual deficits; Z90.49 Acquired absence of other specified parts of digestive tract; Z90.710 Acquired absence of both cervix and uterus; Z90.89 Acquired absence of other organs
CPT/HCPCS: 36415; 70450; 71046; 80053; 81003; 83735; 84484; 85025; 85610; 85730; 93005; 96360; 99285

== ENCOUNTER → 2021-02-18 | Outpatient (CLI) | payer BC, MEDICARE ==
[2021-02-18 15:10] LABS: Appearance,Urine Clear (Clear); Bacteria,Urine Rare /hpf; Bilirubin,Urine Negative (Negative); Blood,Urine Negative (Negative); Color,Urine Yellow; Glucose,Urine (UA) Negative (Negative); Hyaline Casts,Urine 3 /lpf (0-2); Ketones,Urine Negative (Negative); Leukocyte Esterase,Urine Trace (Negative); Mucus,Urine Rare /hpf; Nitrite,Urine Negative (Negative); PH, Urine 6.5 (5.0-8.0); Protein,Urine 1+ (Negative); RBC,Urine <1 /hpf (0-5); Specific Gravity,Urine 1.013 (1.001-1.035); Squamous Epithelial Cell,Urine 6 /hpf (0-4); Urobilinogen,Urine <2.0 mg/dL (<2.0); WBC,Urine 3 /hpf (0-5)
[2021-02-19 01:25] LABS: HGB 13.5 g/dL (12.0-15.0); MCH 33.3 pg (27.0-32.0); MCHC 32.9 g/dL (32.0-37.0); MCV 101.2 fL (80.0-97.0); Mean Platelet Volume 10.1 fL (9.5-12.2); Platelet Count 266 X 10*3/uL (140-440); RBC 4.05 X 10*6/uL (4.10-5.20); RDW 13.9 % (11.5-14.5); WBC 11.07 X 10*3/uL (4.50-10.00)
[2021-02-19 06:47] LABS: % Iron Saturation 14.2 (12.00-45.00); African American GFR (CKD) 56.9 (60.0-200.0); Albumin 4.2 g/dL (3.80-4.90); Albumin/Globulin Ratio 1.68 (1.60-3.17); Anion Gap 15.4 mmol/L (4.00-12.00); Carbon Dioxide 19.6 mmol/L (21.6-31.8); Globulin 2.5 g/dL (1.6-3.3); Magnesium 1.5 mg/dL (1.5-2.4); Non-African American GFR(CKD) 49.1 (60.0-200.0); Phosphorus 3.2 mg/dL (2.4-5.1); Potassium 4.5 mmol/L (3.5-5.5); Total Bilirubin 0.2 mg/dL (0.2-1.2); Total Protein 6.7 g/dL (6.2-8.2); Uric Acid 6.2 mg/dL (2.9-7.7)
== END | disposition home or self-care (01) ==
LOC: LABWHC1 14:22
PROVIDERS: ATTEND Internal Medicine
DX: E55.9 Vitamin D deficiency, unspecified (principal); D64.9 Anemia, unspecified; M10.9 Gout, unspecified; N25.81 Secondary hyperparathyroidism of renal origin; N39.0 Urinary tract infection, site not specified; R80.9 Proteinuria, unspecified
CPT/HCPCS: 36415; 80053; 81001; 82043; 82306; 82570; 82728; 83540; 83550; 83735; 83970; 84100; 84550; 85027

== ENCOUNTER → 2021-02-20 | Outpatient (CLI) | payer BC, MEDICARE ==
[2021-02-20 11:53] LABS: Basophils # (A) 0.1 k/uL (0-0.2); Basophils % (A) 0 %; Eosinophils # (A) 0.1 k/uL (0-0.7); Eosinophils % (A) 1 %; HCT 42.4 % (34.0-46.0); HGB 14.1 gm/dL (11.4-16.0); Lymphocytes # (A) 2.6 k/uL (1.0-4.8); Lymphocytes % (A) 25 %; MCH 33.2 pg (25.0-35.0); MCHC 33.3 g/dL (31.0-37.0); MCV 99.8 fL (80.0-100.0); Macrocytosis Slight; Mean Platelet Volume 7.2; Monocytes # (A) 0.4 k/uL (0-1.0); Monocytes % (A) 4 %; Neutrophils % (A) 68 %; Platelet Count 309 k/uL (150-450); RBC 4.25 m/uL (3.80-5.40); RDW 14.2 % (11.5-15.5); WBC 10.3 k/uL (3.8-10.6)
[2021-02-20 12:25] LABS: INR 0.9 (<1.2); Prothrombin Time 9.9 sec (9.0-12.0)
[2021-02-20 12:57] LABS: Partial Thromboplastin Time 21.9 sec (22.0-30.0)
== END | disposition home or self-care (01) ==
LOC: LABWHC1 11:28
PROVIDERS: ATTEND Internal Medicine
DX: R31.9 Hematuria, unspecified (principal)
CPT/HCPCS: 36415; 85025; 85610; 85730

== ENCOUNTER 2021-02-21 08:02 | Day surgery (SDC) | payer BC, MEDICARE ==
[2021-02-21] MEDS ORDERED: HYDROmorphone 0.5 MG/0.5 ML SYRINGE IVP PRN (08:06)
[2021-02-21] MEDS ORDERED: ALPRAZolam 0.5 MG TAB PO PRN (08:06)
[2021-02-21] MEDS ORDERED: DESMOPRESSIN ACETATE 24 MCG in SODIUM CHLORIDE 0.9% 50 ML IV ONE (08:30)
[2021-02-21 09:31] VITALS: TEMP 98.1
[2021-02-21 11:22] VITALS: RESP 16
--- NOTE | 2021-02-21 12:19 | CT ---
EXAMINATION TYPE: CT biopsy renal RT DATE OF EXAM: 02/21/2021 COMPARISON: NONE HISTORY: Hematuria CT DLP: 2060 mGycm The procedure was explained to the patient. The risks, complications, benefits, and alternatives wer e discussed and any questions were answered. Informed consent was obtained. Patient was placed pron e on the CT table and prepped and draped in the usual sterile fashion. Utilizing CT guidance, an 18 gauge core biopsy needle access into the right renal cortex was achieved and three 18 gauge core samples were obtained. The patient was stable throughout the procedure and remained stable upon discharge. IMPRESSION: Successful 18 gauge core biopsy of the kidney function.
[2021-02-21 14:26] VITALS: BP 124/60; PULSE 74
== END 2021-02-21 15:26 ==
LOC: RADPROMAIN 08:02 → 6PED 10:40 → RADPROMAIN 15:26
PROVIDERS: ATTEND Internal Medicine
DX: E11.21 Type 2 diabetes mellitus with diabetic nephropathy (principal); I10 Essential (primary) hypertension
CPT/HCPCS: 86900; 86901; 82947; 86850; 36415; 50200; 77012; J2597; J1170

== ENCOUNTER 2021-03-02 15:53 | Emergency (ER) | payer BC, MEDICARE ==
[2021-03-02 16:17] VITALS: BP 168/96; PULSE 79; TEMP 98.6
[2021-03-02 17:20] VITALS: RESP 18
--- NOTE | 2021-03-02 18:09 | USB ---
EXAMINATION TYPE: US breast limited LT DATE OF EXAM: 03/02/2021 COMPARISON: US 2020 CLINICAL HISTORY: pain, lumpectomy in october. Patient states she had a lumpectomy in October and the site has not healed Left Breast: 1.9 x 0.6 x 1.8cm irregular hypoechoic area seen in the 5 o'clock position at patient ar ea of concern. IMPRESSION: Elongated hypoechoic area in the left breast at the surgery site is likely some scar tis dago. Appearance is benign. No discrete fluid collection seen to suggest an abscess. Category BI-RADS 3 probably benign.
--- NOTE | 2021-03-02 18:36 | ED ---
Skin/Abscess/FB HPI - General Chief complaint: Skin/Abscess/Foreign Body Stated complaint: pain l breast Time Seen by Provider: 03/02/21 16:32 Source: patient, RN notes reviewed Mode of arrival: ambulatory Limitations: no limitations - History of Present Illness Initial comments: Patient is a 60-year-old female presenting to emergency Department with co mplaints of discomfort in her left breast. She states that increasing over the past week. She had a lumpectomy performed in October by Dr. Amanda. She states that ever since and she's been having difficulty with pain and sometimes infections. She has been on and off antibiotics over the past couple months. Her last round of antibiotics was about a month ago. Patient denies any fevers or chills, no nausea or vomiting. She denies any discharge on the nipple. She denies any chest pain or shortness of breath. She has no further complaints at this time. Upon arrival to the ER, her vitals are stable. - Related Data Home Medications Medication Instructions Recorded Confirmed Cetirizine HCl 10 mg PO HS 07/23/20 02/21/21 busPIRone HCL 5 mg PO BID 07/23/20 02/21/21 metFORMIN HCL [Glucophage] 500 mg PO DAILY 10/18/20 02/21/21 Ergocalciferol [Vitamin D2 (1250 1,250 mcg PO Q30D 10/25/20 02/21/21 Mcg = 03246 Iu)] Gabapentin [Neurontin] 100 mg PO BID 10/25/20 02/21/21 Linaclotide [Linzess] 290 mcg PO DAILY PRN 10/25/20 02/21/21 Nitroglycerin Sl Tabs [Nitrostat] 0.4 mg SL Q5M PRN 10/25/20 02/21/21 clonazePAM [KlonoPIN] 0.5 mg PO TID PRN 10/25/20 02/21/21 Albuterol Inhaler [Ventolin Hfa 2 puff INHALATION RT-QID PRN 11/06/20 02/21/21 Inhaler] Cariprazine HCl [Vraylar] 3 mg PO HS 11/06/20 02/21/21 Levothyroxine Sodium [Synthroid] 50 mcg PO DAILY 11/06/20 02/21/21 Tiotropium Br/Olodaterol HCl 1 puff INHALATION RT-BID 11/06/20 02/21/21 [Stiolto Respimat Inhal Atkins] lamoTRIgine [LaMICtal] 150 mg PO BID 11/06/20 02/21/21 Dulaglutide [Trulicity] 3 mg SQ TH 01/21/21 02/21/21 Mirtazapine [Remeron] 15 mg PO HS 01/21/21 02/21/21 OXcarbazepine [Trileptal] 300 mg PO BID 01/21/21 02/21/21 SUMAtriptan succinate [Imitrex] 50 mg PO DAILY PRN 01/21/21 02/21/21 Simvastatin [Zocor] 20 mg PO DAILY 01/21/21 02/21/21 lamoTRIgine [LaMICtal] 50 mg PO BID 01/21/21 02/21/21 Hyoscyamine Sulfate [Levbid] 0.375 mg PO QID PRN 02/13/21 02/21/21 Non Formulary Drug 1 each SQ DIRECTED 02/13/21 02/21/21 Ondansetron [Zofran] 4 mg PO Q8HR PRN 02/13/21 02/21/21 Allergies Allergy/AdvReac Type Severity Reaction Status Date / Time adhesive Allergy Rash/Hives,skiin Verified 03/02/21 16:17 peels azithromycin Allergy Rash/Hives Verified 03/02/21 16:17 [From Zithromax Z-Ivan] ciprofloxacin [From Cipro] Allergy Rash/Hives Verified 03/02/21 16:17 ciprofloxacin HCl Allergy Rash/Hives Verified 03/02/21 16:17 [From Cipro] clarithromycin [From Biaxin] Allergy Rash/Hives Verified 03/02/21 16:17 doxycycline calcium Allergy Rash/Hives Verified 03/02/21 16:17 [From Vibramycin] doxycycline hyclate Allergy Rash/Hives Verified 03/02/21 16:17 [From Vibramycin] doxycycline monohydrate Allergy Rash/Hives Verified 03/02/21 16:17 [From Vibramycin] erythromycin base Allergy Rash/Hives Verified 03/02/21 16:17 [From E-Mycin] Latex, Natural Rubber Allergy Anaphylaxis Verified 03/02/21 16:17 levofloxacin [From Levaquin] Allergy Rash/Hives Verified 03/02/21 16:17 oxybutynin chloride Allergy Rash/Hives Verified 03/02/21 16:17 [From Ditropan] penicillin G Allergy Rash/Hives Verified 03/02/21 16:17 prochlorperazine edisylate Allergy Rash/Hives Verified 03/02/21 16:17 [From Compazine] prochlorperazine maleate Allergy Rash/Hives Verified 03/02/21 16:17 [From Compazine] rofecoxib [From Vioxx] Allergy Hallucinati Verified 03/02/21 16:17 ons tetracycline [Tetracycline] Allergy Rash/Hives Verified 03/02/21 16:17 valdecoxib [From Bextra] Allergy Hallucinati Verified 03/02/21 16:17 ons Review of Systems ROS Statement: Those systems with pertinent positive or pertinent negative responses have been documented in the HPI. ROS Other: All systems not noted in ROS Statement are negative. Past Medical History Past Medical History: COPD, CVA/TIA, Diabetes Mellitus, Fibromyalgia, GERD/Reflux, Hyperlipidemia, Hypertension, Myocardial Infarction (MO), Osteoarthritis (OA), Renal Disease, Rheumatoid Arthritis (RA), Skin Disorder, Thyroid Disorder Additional Past Medical History / Comment(s): diabetic neuropathy, lupus ,DDD ,IBS with nausea/vomiting, chronic dry eye, palpitations,migraines, TIA x 5-rt lip droops, emphysema, eczema in ears, history of wound on right toe, gastroparesis, Kidney failure - hospitalization in September 2018, heart murmer, varicose veins, denies SOB-states had episode 10/22/20 with "jaw tingling" no other symptoms-resolved shortly after it started, liver problem "3 years ago", on Rx for cyst rt breast, gout, hx kidney stones Last Myocardial Infarction Date:: unknown History of Any Multi-Drug Resistant Organisms: None Reported Past Surgical History: Back Surgery, Cholecystectomy, Heart Catheterization, Hernia Repair, Hysterectomy, Orthopedic Surgery, Tonsillectomy, Uterine Ablation Additional Past Surgical History / Comment(s): EGD, Colonoscopy, vocal cord surgery, cataract bilateral removal, right knee arthroscopy, right elbow surgery, bilateral feet heel spurs and arthroplasty joints B/L foot toes, BILAT CTR, 2 nerve stimulator in spine X2, laminectomy L4-5,hiatal hernia repair, biopsy left arm,mult sinus surgeries, STIMULATOR in back (not currently working) , MORPHINE PUMP INSERTED to rt side of abdomen, I&D RT FOOT WOUND Surgical removal of seroma and cyst on back in November 2018; surgical removal of Pain Pump in november 2018, I&D cyst rt breast Past Anesthesia/Blood Transfusion Reactions: Family History of Problems w/ Anesthesia Additional Past Anesthesia/Blood Transfusion Reaction / Comment(s): claustrophobic, mother- MO during surgery Past Psychological History: Anxiety, Bipolar, Depression, Panic Disorder, PTSD Smoking Status: Current every day smoker Past Alcohol Use History: None Reported Past Drug Use History: Marijuana - Past Family History Mother Family Medical History: Cancer, Memory Impairment, Myocardial Infarction (MO) Additional Family Medical History / Comment(s): Mother had scleroderma, lymphoma and stomach CA, stents, lupus Father Family Medical History: Cancer Additional Family Medical History / Comment(s): LUNG CANCER Brother(s) Family Medical History: Cancer General Exam - General Exam Comments Initial Comments: GENERAL: Patient is well-developed and well-nourished. Patient is nontoxic and in no acute distress. HEAD: Atraumatic, normocephalic. EYES: Pupils equal round and reactive to light, extraocular movements intact, sclera anicteric, conjunctiva are normal. Eyelids were unremarkable. ENT: Moist mucous membranes. NECK: Normal range of motion, supple without lymphadenopathy or JVD. LUNGS: Unlabored respirations. Breath sounds clear to auscultation bilaterally and equal. No wheezes rales or rhonchi. HEART: Regular rate and rhythm without murmurs, rubs or gallops. ABDOMEN: Soft, nontender, normoactive bowel sounds. No guarding, no rebound. No masses appreciated. : Deferred MUSCULOSKELETAL: Normal extremities with adequate strength and normal range of motion, no pitting or edema. No clubbing or cyanosis. NEUROLOGICAL: Patient is alert and oriented x 3. SKIN: Warm, Dry, normal turgor, no rashes or lesions noted. Patient has mild pain with palpation of the left breast tissue, no lumps felt. There is no erythema, no signs of infection, no swelling. Limitations: no limitations Course Vital Signs 03/02/21 03/02/21 16:15 17:16 Temperature 98.6 F Pulse Rate 79 Respiratory 16 18 Rate Blood Pressure 168/96 O2 Sat by Pulse 95 Oximetry Medical Decision Making - Medical Decision Making Patient is a 60-year-old female here with left breast discomfort ever since October after she had a lumpectomy. Her exam reveals no redness, no swelling, no stiffness Findings on exam. Did do an ultrasound which revealed no acute process, most likely scar tissue. I discussed these findings with her. Recommended following up with her surgeon. She is agreeable to this and is stable for discharge. Disposition Clinical Impression: Breast pain, left Disposition: HOME SELF-CARE Condition: Stable Instructions (If sedation given, give patient instructions): Normal Exam (ED) Additional Instructions: Please return to the Emergency Department if symptoms worsen or any other concerns. Trial of warm compresses. Please follow-up with your doctor as discussed. Is patient prescribed a controlled substance at d/c from ED?: No Referrals: Sabino Youngblood III, MD [Primary Care Provider] - 1-2 days Jennifer Amanda MD [STAFF PHYSICIAN] - 1-2 days Time of Disposition: 18:36
== END 2021-03-02 18:46 | disposition home or self-care (01) ==
LOC: EC 15:53
DX: N64.4 Mastodynia (principal); E11.40 Type 2 diabetes mellitus with diabetic neuropathy, unspecified; I10 Essential (primary) hypertension; E78.5 Hyperlipidemia, unspecified; K21.9 Gastro-esophageal reflux disease without esophagitis; J44.9 Chronic obstructive pulmonary disease, unspecified; I25.2 Old myocardial infarction; M06.9 Rheumatoid arthritis, unspecified; F31.9 Bipolar disorder, unspecified; F41.9 Anxiety disorder, unspecified; F17.200 Nicotine dependence, unspecified, uncomplicated; F12.90 Cannabis use, unspecified, uncomplicated; Z79.890 Hormone replacement therapy; Z79.51 Long term (current) use of inhaled steroids; Z79.84 Long term (current) use of oral hypoglycemic drugs; Z79.899 Other long term (current) drug therapy; Z88.1 Allergy status to other antibiotic agents; Z88.8 Allergy status to other drugs, medicaments and biological substances
CPT/HCPCS: 99283

== ENCOUNTER → 2021-05-03 | Outpatient (CLI) | payer BC, MEDICARE ==
--- NOTE | 2021-05-03 12:15 | MM ---
Reason for exam: follow-up at short interval from prior study. Last mammogram was performed 9 months ago. History: Patient is postmenopausal, has history of high-risk lesion on a previous biopsy at age 60, and history of other cancer. High risk MG pre op needle loc LT of the left breast, October 30, 2020. Benign US biopsy breast VAD LT of the left breast, July 30, 2020. Benign excisional biopsy of the right breast. Taking estrogen for 6 years. Physical Findings: Nurse did not find any significant physical abnormalities on exam. MG 3D Diag Mammo W/Cad LT CC and MLO view(s) were taken of the left breast. Prior study comparison: July 30, 2020, left breast MG diagnostic mammo LT wo CAD. July 05, 2020, bilateral MG diagnostic mammo w CAD CHITRA. There are scattered fibroglandular densities. Finding: There are clips in the anterior, central position of the left breast. There is no discrete abnormality. These results were verbally communicated with the patient and result sheet given to the patient on 05/03/21. ASSESSMENT: Benign, BI-RAD 2 RECOMMENDATION: Routine screening mammogram of both breasts in 2 months. Back on schedule for July 2021.
== END | disposition home or self-care (01) ==
LOC: RADMAMWWP 10:56
PROVIDERS: ATTEND Surgery
DX: N64.89 Other specified disorders of breast (principal); Z78.0 Asymptomatic menopausal state
CPT/HCPCS: 77061; 77065

== ENCOUNTER → 2021-05-09 | Outpatient (CLI) | payer BC, MEDICARE ==
[2021-05-09 16:04] VITALS: BP 115/57; PULSE 75; RESP 16; TEMP 98.7
--- NOTE | 2021-05-09 16:18 | P.PN ---
Subjective Progress Note Date: 05/09/21 Principal diagnosis: bilateral breast fibrocystic changes Margarita is a 60 year old white female seen in consultation for Dr. Nye on 07-27-20 regarding a radiographic abnormality in her left breast. She underwent a bilateral mammogram on 2420. This revealed asymmetry in the left breast lower inner quadrant anterior position. She then had an ultrasound of the left breast performed. On ultrasound at 5:00 an 8 x 2 x 7 mm lesion was noted and a 3 x 3 x 6 segment millimeters cystic lesion at 10:00 was noted. This was considered to be suspicious BIRADS 4 and ultrasound-guided core biopsy of the left breast was recommended and performed on 07-30-20. This was benign, however it was reviewed with Dr. Krishnamurthy from radiology and felt to be discordant. She was therefore recommended to undergo a needle localization and excisional lumpectomy which was performed and 6120. The pathology and this revealed a focal 7 mm focus of atypical lobular hyperplasia, and 1 mm intraductal papilloma. She has been followed conservatively and repeat mammogram of this site in 6 months was recommended. The patient however has had bilateral breast abscesses drained in the past. The patient has a history of hidradenitis in the past. st. She is not having any discharge in either breast at this time. She is not complaining of any new lumps masses or nodules in either breast. She had a left breast mammogram on 05-03-21 which was benign BIRAD 2. She was recommended to have a bilateral mammogram in 2 months back on schedule. Caffeine: 2 cups/day nicotine: 1/2 PPD/ used to smoke 2 PPD 1 month ago decreased fidel-bromine: occasional, more at the holidays hormones: estrogen for 6 years, stopped several years ago Family History: father: non small cell lung cancer, smoker mother: lymphoma, and stomach cancer Hormonal History: menarche: 9 , breast fed: yes, age at girth: 21 menopause: 31 JIN, done for endometriosis Hormones: Estrogen but stopped several years ago took them for approximately 6 years control pills: 15 years Surgical History: 5 back surgeries bilateral feet GB carpel tunnel Medical history: Hidradenitis suprativa Diabetes kidney failure TIA anxiety HTN fibromyalgia Social History: smoke: 2 PPD alcohol: rare drugs: none - Constitutional Constitutional: Denies chills, Denies fever - EENT Eyes: denies blurred vision, denies pain Ears: bilateral: tinnitus, deny: decreased hearing Ears, nose, mouth and throat: Reports headache, Denies sore throat - Breasts Breasts: bilateral: as per HPI - Cardiovascular Comment: tachycardia Cardiovascular: Denies chest pain, Denies shortness of breath - Gastrointestinal Comment: IBS Gastrointestinal: Reports diarrhea, Denies abdominal pain, Denies nausea, Denies vomiting - Genitourinary (Female) Comment: kidney failure Genitourinary: Reports urinary frequency, Denies dysuria, Denies hematuria - Menstruation Menstruation: Reports post hysterectomy - Musculoskeletal Musculoskeletal: Reports myalgias - Integumentary Integumentary: Denies pruritus, Denies rash - Neurological Neurological: Reports numbness, Reports weakness - Psychiatric Comment: bipolar Psychiatric: Denies anxiety, Denies depression - Endocrine Comment: diabetes - Hematologic/Lymphatic Comment: none - Allergic/Immunologic Allergic/Immunologic: Reports as per HPI Objective - Vital Signs Vital signs: Vital Signs Temp 98.7 F 05/09/21 15:58 Pulse 75 05/09/21 15:58 Resp 16 05/09/21 15:58 BP 115/57 05/09/21 15:58 Pulse Ox Intake & Output 05/08/21 05/09/21 05/09/21 18:59 06:59 18:59 Weight 81.647 kg - Constitutional General appearance: Present: cooperative - EENT Eyes: Present: edentulous ENT: Present: hearing grossly normal - Neck Neck: Present: normal ROM - Respiratory Respiratory: bilateral: CTA - Cardiovascular Heart sounds: normal: S1, S2 - Integumentary Integumentary: Present: normal turgor - Musculoskeletal Musculoskeletal: Present: gait normal - Psychiatric Psychiatric: Present: A&O x's 3, appropriate affect, intact judgment & insight - Additional findings Additional findings: Breast Exam: BRA: 38C inspection: Bilateral grade 3 ptosis Palpation: Right breast: larger the left breast, multi-positional exam fibrocystic changes no dominant masses or nodules of concern Right axilla: No adenopathy of concern Left breast: Multi-positional exam fibrocystic changes no dominant masses or nodules of concern Left axilla: No adenopathy of concern Assessment and Plan Assessment: Impression: Fibrocystic breast changes bilateral Plan: Repeat right breast mammogram July 2021, as patient has just had a left breast mammogram rather than repeat this in 2 months she is going to repeat this in July 2022 back on schedule with her right breast mammogram, she understands that this is slightly delayed for the left breast but does not want any additional radiation if she can avoid this. CC: Dr. Youngblood
== END ==
LOC: WWCWWP 15:41
PROVIDERS: ATTEND Surgery
DX: N60.11 Diffuse cystic mastopathy of right breast (principal); N60.12 Diffuse cystic mastopathy of left breast; E11.9 Type 2 diabetes mellitus without complications; F41.9 Anxiety disorder, unspecified; I10 Essential (primary) hypertension; F17.210 Nicotine dependence, cigarettes, uncomplicated; Z86.73 Personal history of transient ischemic attack (TIA), and cerebral infarction without residual deficits; Z88.1 Allergy status to other antibiotic agents; Z91.048 Other nonmedicinal substance allergy status; Z91.040 Latex allergy status; Z88.0 Allergy status to penicillin; Z88.8 Allergy status to other drugs, medicaments and biological substances

== ENCOUNTER → 2021-07-08 | Outpatient (CLI) | payer BC, MEDICARE ==
--- NOTE | 2021-07-08 13:57 | MM ---
Reason for exam: follow-up at short interval from prior study. Last mammogram was performed 2 months ago. History: Patient is postmenopausal, has history of high-risk lesion on a previous biopsy at age 60, and history of other cancer. High risk MG pre op needle loc LT of the left breast, October 30, 2020. Benign US biopsy breast VAD LT of the left breast, July 30, 2020. Benign excisional biopsy of the right breast. Took estrogen for 6 years. Physical Findings: Nurse did not find any significant physical abnormalities on exam. MG 3D Diag Mammo W/Cad RT CC and MLO view(s) were taken of the right breast. Prior study comparison: May 03, 2021, left breast MG 3d diag mammo w/cad LT. July 30, 2020, left breast MG diagnostic mammo LT wo CAD. There are scattered fibroglandular densities. There is chronic nodularity in the right breast. No significant new findings when compared with previous films. These results were verbally communicated with the patient and result sheet given to the patient on 07/08/21. ASSESSMENT: Benign, BI-RAD 2 RECOMMENDATION: Routine screening mammogram of both breasts in 1 year.
== END | disposition home or self-care (01) ==
LOC: RADMAMWWP 13:06
PROVIDERS: ATTEND Surgery
DX: R92.8 Other abnormal and inconclusive findings on diagnostic imaging of breast (principal); Z78.0 Asymptomatic menopausal state
CPT/HCPCS: 77061; 77065

== ENCOUNTER → 2021-08-23 | Outpatient (CLI) | payer BC, MEDICARE ==
--- NOTE | 2021-08-23 15:10 | XR ---
EXAMINATION TYPE: XR chest 2V DATE OF EXAM: 08/23/2021 COMPARISON: Chest x-ray January 21, 2021 HISTORY: Shortness of breath and chest pain. TECHNIQUE: Frontal and lateral views of the chest are obtained. FINDINGS: There is no suspicious focal air space opacity, pleural effusion, or pneumothorax seen. T he cardiac silhouette size remains within normal limits. Spinal stimulator device mid to lower thorac ic spinal canal redemonstrated. Cholecystectomy clips again seen. IMPRESSION: No acute process. No significant change from prior.
== END | disposition home or self-care (01) ==
LOC: RADXRMAIN 14:39
PROVIDERS: ATTEND Family Medicine
DX: R06.02 Shortness of breath (principal); R91.8 Other nonspecific abnormal finding of lung field
CPT/HCPCS: 71046

== ENCOUNTER → 2021-08-23 | Outpatient (CLI) | payer BC, MEDICARE ==
[2021-08-23 15:40] LABS: Appearance,Urine Cloudy (Clear); Bacteria,Urine Rare /hpf; Bilirubin,Urine Negative (Negative); Blood,Urine Negative (Negative); Color,Urine Yellow; Glucose,Urine (UA) Negative (Negative); Hyaline Casts,Urine 69 /lpf (0-2); Ketones,Urine Negative (Negative); Leukocyte Esterase,Urine Trace (Negative); Mucus,Urine Rare /hpf; Nitrite,Urine Negative (Negative); Protein,Urine 1+ (Negative); RBC,Urine 2 /hpf (0-5); Specific Gravity,Urine 1.024 (1.001-1.035); Squamous Epithelial Cell,Urine 18 /hpf (0-4); WBC,Urine 8 /hpf (0-5)
[2021-08-23 15:42] LABS: Creatinine,Urine Random 334.1 mg/dL; Protein/Creatinine Ratio,Urine 0.138
[2021-08-23 22:24] LABS: HCT 39.8 % (37.2-46.3); HGB 13.5 g/dL (12.0-15.0); MCH 32.2 pg (27.0-32.0); MCHC 33.9 g/dL (32.0-37.0); Mean Platelet Volume 9.9 fL (9.5-12.2); NRBC Per 100 WBC 0 /100 WBCS (0.0-0.0); Platelet Count 363 X 10*3/uL (140-440); RBC 4.19 X 10*6/uL (4.10-5.20); RDW 14.6 % (11.5-14.5); WBC 10.14 X 10*3/uL (4.50-10.00)
[2021-08-23 22:55] LABS: % Iron Saturation 16.19 (12.00-45.00); Phosphorus 3.9 mg/dL (2.4-5.1); Uric Acid 6.9 mg/dL (2.9-7.7)
[2021-08-23 23:16] LABS: African American GFR (CKD) 62.8 (60.0-200.0); Albumin 4.3 g/dL (3.8-4.9); Albumin/Globulin Ratio 1.79 (1.60-3.17); Anion Gap 17.3 mmol/L (10.00-18.00); BUN/Creat Ratio 10.55 Ratio (12.00-20.00); Blood Urea Nitrogen 11.6 mg/dL (9.0-27.0); Calcium 9.3 mg/dL (8.7-10.3); Carbon Dioxide 19.7 mmol/L (20.0-27.5); Globulin 2.4 g/dL (1.6-3.3); Non-African American GFR(CKD) 54.1 (60.0-200.0); Potassium 2.6 mmol/L (3.5-5.5); Total Bilirubin 0.2 mg/dL (0.30-1.20); Total Protein 6.7 g/dL (6.2-8.2)
[2021-08-26 10:49] LABS: Free Kappa Lt Chain Qnt, Serum 16.86 mg/dL (0.33-1.94); Free Lambda Lt Chain Qnt, Seru 1.88 mg/dL (0.57-2.63)
== END | disposition home or self-care (01) ==
LOC: LABWHC1 14:07
PROVIDERS: ATTEND Nurse Practitioner Family
DX: E55.9 Vitamin D deficiency, unspecified (principal); E21.3 Hyperparathyroidism, unspecified; D64.9 Anemia, unspecified; M10.9 Gout, unspecified; N18.31 Chronic kidney disease, stage 3a; N39.0 Urinary tract infection, site not specified; R80.9 Proteinuria, unspecified
CPT/HCPCS: 36415; 80053; 81001; 82306; 82570; 82728; 83516; 83540; 83550; 83735; 83883; 83970; 84100; 84156; 84550; 85027; 86038; 86160; 86162; 86225; 86255; 86334; 87086

== ENCOUNTER → 2021-10-31 | Outpatient (CLI) | payer BC, MEDICARE ==
--- NOTE | 2021-10-31 08:57 | BD ---
EXAMINATION TYPE: Axial Bone Density DATE OF EXAM: 10/31/2021 COMPARISON: 05/19/2018 CLINICAL HISTORY: 61 years year old Female. ICD-10 CODE: Z13.820 ENCOUNTER FOR SCREENING FOR OSTEOPO AMADA ,Z78.0 Height: 67 IN Weight: 168 LBS FRAX RISK QUESTIONS: History of Fracture in Adulthood: RT WRIST FX AGE 41; RT FOOT FX AGE 46 Secondary Osteoporosis: 3. Menopause before 45: TOTAL HYST AGE 31 Current Tobacco Use: YES RISK FACTORS HISTORY OF: Hip Fracture (Right/Left): When: Spine Fracture: When: History of Wrist Fracture: RT WRIST AGE 41 Surgery to Spine: YES 6 SPINE SURGERIES SINCE AGE 41 Family History of Osteoporosis: YES MOTHER Active: YES Diet low in dairy products/other sources of calcium: YES Postmenopausal woman: TOTAL HYST AGE 31 Take estrogen and/or progesterone medications: NOT NOW How long: CONTROL FOR 15 YEARS MEDICATIONS: Thyroid Medications: YES Which medication: Levothyroxine How Lon+ YEARS Additional Medications: VIT D, LEVOTHYROXINE, DIABETES MEDS, BIPOLAR MEDS, TRAZODONE, GOUT MEDS, PROT KEYA,POTASSIUM EXAM MEASUREMENTS: Bone mineral densitometry was performed using the [employer] System. 6 SPINE SURGERIES SINCE AGE 41 Bone mineral density about the R hip (g/cm2): 0.829 Bone mineral density about the L hip (g/cm2): 0.802 T Score values are as follows: -----R Neck: -1.5 -----L Neck: -1.7 -----R Total: -0.9 -----L Total: -1.1 Bone mineral density has: Decreased -9.4% since study of: 05/19/2018 Bone mineral density about the L Wrist (g/cm2): 0.595 T Score values are as follows: -----Dist. R+U: -1.8 -----Prox. R+U: -1.0 -----Radius total: -1.3 Bone mineral density has: Decreased -7.4% since study of: 05/19/2018 FRAX%s: The graph provided illustrates a 15.5 chance for a major osteoporotic fx and a 2.9 chance for the hips probability for fx in 10 years time. IMPRESSION: Osteopenia (T Score between -2.5 and -1) remains present. There is slightly increased risk of fracture and the patient may be considered for treatment. Re-Screen 2-5 years. NOTE: T-SCORE=SD OF THE YOUNG ADULT MEAN.
== END | disposition home or self-care (01) ==
LOC: RADBDWWP 07:51
PROVIDERS: ATTEND Internal Medicine
DX: Z13.820 Encounter for screening for osteoporosis (principal); Z78.0 Asymptomatic menopausal state; M85.89 Other specified disorders of bone density and structure, multiple sites
CPT/HCPCS: 77080

== ENCOUNTER → 2021-11-01 | Outpatient (CLI) | payer BC, MEDICARE ==
[2021-11-01 20:06] LABS: Gliadin AB IgA, Deaminated NEGATIVE (NEGATIVE); Gliadin AB IgA, Unit <0.2 U/mL
[2021-11-01 20:07] LABS: Gliadin AB IgG, Deaminated NEGATIVE (NEGATIVE); Gliadin AB IgG, Unit <0.4 U/mL
[2021-11-01 23:32] LABS: Cryptosporidium Antigen Negative (Negative)
== END | disposition home or self-care (01) ==
LOC: LABWHC1 11:35
PROVIDERS: ATTEND Nurse Practitioner Adult Health
DX: R19.7 Diarrhea, unspecified (principal); R11.2 Nausea with vomiting, unspecified; Z87.19 Personal history of other diseases of the digestive system
CPT/HCPCS: 36415; 80183; 83516; 83630; 86255; 87045; 87046; 87328; 87329

== ENCOUNTER → 2021-11-22 | Outpatient (CLI) | payer BC, MEDICARE ==
--- NOTE | 2021-11-22 12:48 | XR ---
EXAMINATION TYPE: XR chest 2V DATE OF EXAM: 11/22/2021 COMPARISON: 08/23/2021 HISTORY: Shortness of breath TECHNIQUE: Frontal and lateral views of the chest are obtained. FINDINGS: Scattered senescent parenchymal changes noted. Hyperinflation compatible with COPD. No evidence for infiltrate. No evidence for atelectasis. Heart size is stable. Mediastinal structures are stable and grossly unremarkable. No evidence for hilar prominence. Degenerative changes dorsal spine. IMPRESSION: 1. No evidence for acute pulmonary disease.
== END | disposition home or self-care (01) ==
LOC: RADXRMAIN 12:31
PROVIDERS: ATTEND Internal Medicine
DX: R06.02 Shortness of breath (principal)
CPT/HCPCS: 71046

== ENCOUNTER → 2021-12-17 | Outpatient (CLI) | payer BC, MEDICARE ==
--- NOTE | 2021-12-17 14:41 | US ---
EXAMINATION TYPE: US kidneys/renal and bladder DATE OF EXAM: 12/17/2021 COMPARISON: 10/26/18 CLINICAL HISTORY: N28.1 Renal cyst left. Hx of renal cysts EXAM MEASUREMENTS: Right Kidney: 12.4 x 4.1 x 4.6 cm Left Kidney: 12.9 x 5.0 x 5.9 cm Right Kidney: Cyst seen mid pole measuring 1.4 x 1.2 x 1.0 cm Left Kidney: Cyst seen in upper pole measuring 1.7 x 1.8 x 1.3 cm. Bladder: Patient did not fill bladder and therefore limited. Bilateral Jets seen: No No hydronephrosis or nephrolithiasis. IMPRESSION: Benign renal cysts.
== END | disposition home or self-care (01) ==
LOC: RADUSWWP 13:45
PROVIDERS: ATTEND Urology
DX: N28.1 Cyst of kidney, acquired (principal)
CPT/HCPCS: 76770

== ENCOUNTER → 2021-12-20 | Outpatient (CLI) | payer BC, MEDICARE ==
[2021-12-20 17:41] LABS: HCT 44.9 % (37.2-46.3); HGB 14.1 g/dL (12.0-15.0); MCH 30.7 pg (27.0-32.0); MCHC 31.4 g/dL (32.0-37.0); MCV 97.6 fL (80.0-97.0); Mean Platelet Volume 10.5 fL (9.5-12.2); NRBC Per 100 WBC 0 /100 WBCS (0.0-0.0); Platelet Count 275 X 10*3/uL (140-440); RDW 13.9 % (11.5-14.5); WBC 11.13 X 10*3/uL (4.50-10.00)
[2021-12-20 17:54] LABS: % Iron Saturation 13.42 (12.00-45.00); ALT 16 U/L (8-44); AST 17 U/L (13-35); African American GFR (CKD) 62.8 (60.0-200.0); Albumin 4.7 g/dL (3.8-4.9); Albumin/Globulin Ratio 1.57 (1.60-3.17); Alkaline Phosphatase 77 U/L (41-126); BUN/Creat Ratio 15.55 Ratio (12.00-20.00); Blood Urea Nitrogen 17.1 mg/dL (9.0-27.0); Calcium 10.2 mg/dL (8.7-10.3); Carbon Dioxide 22.7 mmol/L (20.0-27.5); Chloride 107 mmol/L (96-109); Glucose 113 mg/dL (70-110); Iron 62 ug/dL (50-170); Magnesium 1.6 mg/dL (1.5-2.4); Non-African American GFR(CKD) 54.1 (60.0-200.0); Phosphorus 3.9 mg/dL (2.4-5.1); Sodium 142 mmol/L (135-145); Total Bilirubin <0.15 mg/dL (0.30-1.20); Total Iron Binding Capacity 461 ug/dL (228-460); Total Protein 7.7 g/dL (6.2-8.2); Uric Acid 5.3 mg/dL (2.9-7.7)
[2021-12-20 18:12] LABS: Ferritin 86.4 ng/mL (10.0-291.0)
[2021-12-20 21:15] LABS: Appearance,Urine Cloudy (Clear); Bilirubin,Urine Negative (Negative); Blood,Urine Negative (Negative); Color,Urine Dark Yellow (Yellow); Ketones,Urine Trace mg/dL (Negative); Nitrite,Urine Negative (Negative); PH, Urine 6.5 (5.0-8.0); Specific Gravity,Urine 1.023 (1.001-1.030)
[2021-12-20 21:31] LABS: Bacteria,Urine Trace /HPF (None Seen); Calcium Oxalate Crystals,Urine Present /LPF (None Seen)
[2021-12-20 21:50] LABS: Microalbumin Creatinine Ratio <30 mg/g Creat (0-30)
== END | disposition home or self-care (01) ==
LOC: LABWHC1 12:00
PROVIDERS: ATTEND Nurse Practitioner Family
DX: N25.81 Secondary hyperparathyroidism of renal origin (principal); D64.9 Anemia, unspecified; N39.0 Urinary tract infection, site not specified; E55.9 Vitamin D deficiency, unspecified; M10.9 Gout, unspecified; N18.31 Chronic kidney disease, stage 3a
CPT/HCPCS: 36415; 80053; 81001; 82043; 82306; 82570; 82728; 83540; 83550; 83735; 83970; 84100; 84550; 85027

== ENCOUNTER → 2021-12-31 | Outpatient (CLI) | payer BC, MEDICARE ==
--- NOTE | 2021-12-31 15:43 | CT ---
EXAMINATION TYPE: CT thor lumbar spine wo con CT DLP: 1189.9 mGycm, Automated exposure control for dose reduction was used. DATE OF EXAM: 12/31/2021 12:39 PM COMPARISON: CT lumbar spine 07/16/2015 CT chest abdomen pelvis 05/01/2016. CLINICAL INDICATION:Female, 61 years old with history of M54.5 G89.28 G57.73 M54.6; chronic back pain TECHNIQUE: Axial images of the thoracic spine were obtained without contrast. Coronal and sagittal re formats were performed. FINDINGS: Multilevel disc degeneration changes are seen throughout the spine with endplate osteophyte s, disc space narrowing and vacuum disc phenomenon. There is nerve stimulator device posterior to T7, T8, T9 in the spinal canal which enters at the T9-T10 level. Additional wire device enters at L2-L3 and terminates at T9. There is diffuse osseous demineralization present. Fixation hardware at L4 and L5 appears intact. There is discectomy at L4-L5. T9 spinous processes is absent and may be surgically absent. Laminectomy changes are seen at L4 and L5. T11-T12: Osteophyte with mild spinal canal stenosis. The neural foramen are patent. L1-L2: No significant spinal canal or neural foraminal stenosis. L2-L3: Minimal disc bulging without significant spinal canal stenosis. Nerve stimulator enters the sp ine at this level. Neural foramen are patent. L3-L4: Disc bulging and facet joint arthropathy with mild to moderate spinal canal stenosis. The neur al foramen are mildly narrowed. L4-L5: Streak artifact limits evaluation. Spinal canal is grossly patent. The neural foramen appear p atent. L5-S1: Disc bulging with facet joint arthropathy mild spinal canal and neural foraminal stenosis. Other: There is a left lower lobe pulmonary nodule measuring 9 mm previously 3 mm in 2016 as well a r ight upper lobe 4 mm pulmonary nodule which is not visualized in 2016. IMPRESSION: 1. Multilevel disc degeneration changes worse at L3-L4 with mild/moderate spinal canal stenosis. Vern ral foramen are grossly patent throughout the spine. 2. Postsurgical changes without evidence for spinal fracture. 3. Left lower lobe 9 mm pulmonary nodule which was previously 3 mm in 2016. Additional right upper l obe 4 mm pulmonary nodule not visualized in 2016. Short-term follow-up in 3-6 months is recommended.
== END | disposition home or self-care (01) ==
LOC: RADCTMAIN 12:11
PROVIDERS: ATTEND Psychiatry & Neurology Neurology
DX: M51.26 Other intervertebral disc displacement, lumbar region (principal); M48.061 Spinal stenosis, lumbar region without neurogenic claudication; G57.73 Causalgia of bilateral lower limbs
CPT/HCPCS: 72128; 72131

== ENCOUNTER 2022-01-06 18:59 | Emergency (ER) | payer BC, MEDICARE ==
[2022-01-06 19:05] VITALS: BP 136/88; PULSE 90; RESP 18; TEMP 98.6
--- NOTE | 2022-01-06 19:25 | ED ---
General Adult HPI - General Chief complaint: Recheck/Abnormal Lab/Rx Stated complaint: bone & muscle pain - schedule appt online Time Seen by Provider: 01/06/22 19:08 Source: patient, RN notes reviewed Mode of arrival: wheelchair Limitations: no limitations - History of Present Illness Initial comments: This is a pleasant 61-year-old female who has a history of chronic pain. Patient is on a pain pump. Patient also has a pain management physician, Dr. Williamson. So the past 4 days she's had increasing generalized pain. Patient states that her entire body hurts. Patient talking about muscle aches in her legs, arms, patient denying any chest pain or shortness breath. No known fever. No respiratory symptoms. Patient states she has been taking Tylenol for pain control. She is asked taken a few doses of ibuprofen despite having renal failure. No headache, no fever or chills, no changes in vision or hearing, no sore throat or difficulty with speech, no neck pain, no chest pain or shortness of breath, no abdominal pain, no nausea or vomiting, no changes in urination or bowel movements, no numbness or tingling, no skin rashes or lesions. Past medical, surgical, social, and family history reviewed. - Related Data Home Medications Medication Instructions Recorded Confirmed Cetirizine HCl 10 mg PO HS 07/23/20 07/04/21 metFORMIN HCL [Glucophage] 500 mg PO BID 10/18/20 07/04/21 Nitroglycerin Sl Tabs [Nitrostat] 0.4 mg SL Q5M PRN 10/25/20 07/04/21 Levothyroxine Sodium [Synthroid] 50 mcg PO DAILY 11/06/20 07/04/21 Mirtazapine [Remeron] 15 mg PO HS 01/21/21 07/04/21 OXcarbazepine [Trileptal] 300 mg PO BID 01/21/21 07/04/21 Simvastatin [Zocor] 20 mg PO DAILY 01/21/21 07/04/21 Dicyclomine [Bentyl] 20 mg PO QID PRN 07/04/21 07/04/21 Dilaudid/Bupivacaine Pain Pump 1 dose IV CONTINUOUS 07/04/21 07/04/21 Dulaglutide [Trulicity] 4.5 mg SQ TH 07/04/21 07/04/21 LORazepam [Ativan] 0.5 mg PO BID 07/04/21 07/04/21 Linaclotide [Linzess] 290 mcg PO DAILY PRN 07/04/21 07/04/21 Metoprolol Tartrate [Lopressor] 25 mg PO BID 07/04/21 07/04/21 busPIRone HCl [Buspar] 10 mg PO BID 07/04/21 07/04/21 ondansetron HCL [Zofran] 8 mg PO TID PRN 07/04/21 07/04/21 Previous Rx's Medication Instructions Recorded Orphenadrine [Norflex] 100 mg PO Q12H #14 tab 07/04/21 Allergies Allergy/AdvReac Type Severity Reaction Status Date / Time adhesive Allergy Rash/Hives,skiin Verified 01/06/22 19:05 peels azithromycin Allergy Rash/Hives Verified 01/06/22 19:05 [From Zithromax Z-Ivan] ciprofloxacin [From Cipro] Allergy Rash/Hives Verified 01/06/22 19:05 ciprofloxacin HCl Allergy Rash/Hives Verified 01/06/22 19:05 [From Cipro] clarithromycin [From Biaxin] Allergy Rash/Hives Verified 01/06/22 19:05 doxycycline calcium Allergy Rash/Hives Verified 01/06/22 19:05 [From Vibramycin] doxycycline hyclate Allergy Rash/Hives Verified 01/06/22 19:05 [From Vibramycin] doxycycline monohydrate Allergy Rash/Hives Verified 01/06/22 19:05 [From Vibramycin] erythromycin base Allergy Rash/Hives Verified 01/06/22 19:05 [From E-Mycin] Latex, Natural Rubber Allergy Anaphylaxis Verified 01/06/22 19:05 levofloxacin [From Levaquin] Allergy Rash/Hives Verified 01/06/22 19:05 oxybutynin chloride Allergy Rash/Hives Verified 01/06/22 19:05 [From Ditropan] penicillin G Allergy Rash/Hives Verified 01/06/22 19:05 prochlorperazine edisylate Allergy Rash/Hives Verified 01/06/22 19:05 [From Compazine] prochlorperazine maleate Allergy Rash/Hives Verified 01/06/22 19:05 [From Compazine] rofecoxib [From Vioxx] Allergy Hallucinati Verified 01/06/22 19:05 ons sulfamethoxazole Allergy Unknown Verified 01/06/22 19:05 [From Bactrim] tetracycline [Tetracycline] Allergy Rash/Hives Verified 01/06/22 19:05 trimethoprim [From Bactrim] Allergy Unknown Verified 01/06/22 19:05 valdecoxib [From Bextra] Allergy Hallucinati Verified 01/06/22 19:05 ons Review of Systems ROS Statement: Those systems with pertinent positive or pertinent negative responses have been documented in the HPI. ROS Other: All systems not noted in ROS Statement are negative. Past Medical History Past Medical History: COPD, CVA/TIA, Diabetes Mellitus, Fibromyalgia, GERD/Reflux, Hyperlipidemia, Hypertension, Myocardial Infarction (AK), Osteoarthritis (OA), Renal Disease, Rheumatoid Arthritis (RA), Skin Disorder, Thyroid Disorder Additional Past Medical History / Comment(s): diabetic neuropathy, lupus ,DDD ,IBS with nausea/vomiting, chronic dry eye, palpitations,migraines, TIA x 5-rt lip droops, emphysema, eczema in ears, history of wound on right toe, gastroparesis, Kidney failure - hospitalization in September 2018, heart murmer, varicose veins, denies SOB-states had episode 10/22/20 with "jaw tingling" no other symptoms-resolved shortly after it started, liver problem "3 years ago", on Rx for cyst rt breast, gout, hx kidney stones Last Myocardial Infarction Date:: unknown History of Any Multi-Drug Resistant Organisms: None Reported Past Surgical History: Back Surgery, Cholecystectomy, Heart Catheterization, Hernia Repair, Hysterectomy, Orthopedic Surgery, Tonsillectomy, Uterine Ablation Additional Past Surgical History / Comment(s): EGD, Colonoscopy, vocal cord surgery, cataract bilateral removal, right knee arthroscopy, right elbow surgery, bilateral feet heel spurs and arthroplasty joints B/L foot toes, BILAT CTR, 2 nerve stimulator in spine X2, laminectomy L4-5,hiatal hernia repair, biopsy left arm,mult sinus surgeries, STIMULATOR in back (not currently working) , MORPHINE PUMP INSERTED to rt side of abdomen, I&D RT FOOT WOUND Surgical removal of seroma and cyst on back in November 2018; surgical removal of Pain Pump in november 2018, I&D cyst rt breast Past Anesthesia/Blood Transfusion Reactions: Family History of Problems w/ Anesthesia Additional Past Anesthesia/Blood Transfusion Reaction / Comment(s): claustrophobic, mother- AK during surgery Past Psychological History: Anxiety, Bipolar, Depression, Panic Disorder, PTSD Smoking Status: Current every day smoker Past Alcohol Use History: None Reported Past Drug Use History: Marijuana - Past Family History Mother Family Medical History: Cancer, Memory Impairment, Myocardial Infarction ([place]) Additional Family Medical History / Comment(s): Mother had scleroderma, lymphoma and stomach CA, stents, lupus Father Family Medical History: Cancer Additional Family Medical History / Comment(s): LUNG CANCER Brother(s) Family Medical History: Cancer General Exam - General Exam Comments Initial Comments: She does not appear to be in any significant distress. Does not appear to be ill or toxic. Vital signs reviewed. Limitations: no limitations General appearance: alert, in no apparent distress Head exam: Present: atraumatic, normocephalic, normal inspection Eye exam: Present: normal appearance, EOMI. Absent: scleral icterus, conjunctival injection, periorbital swelling Neck exam: Present: normal inspection, full ROM Respiratory exam: Present: normal lung sounds bilaterally. Absent: respiratory distress, wheezes, rales, rhonchi, stridor Cardiovascular Exam: Present: regular rate, normal rhythm, normal heart sounds. Absent: systolic murmur, diastolic murmur, rubs, gallop, clicks GI/Abdominal exam: Present: soft. Absent: distended, tenderness Extremities exam: Present: normal inspection, joint swelling. Absent: tenderness, pedal edema Back exam: Present: normal inspection Neurological exam: Present: alert, oriented X3, CN II-XII intact (Grossly) Psychiatric exam: Present: normal affect, normal mood Skin exam: Present: warm, dry, normal color Course Vital Signs 01/06/22 19:02 Temperature 98.6 F Pulse Rate 90 Respiratory 18 Rate Blood Pressure 136/88 O2 Sat by Pulse 99 Oximetry Medical Decision Making - Medical Decision Making Patient presents with what is likely an exacerbation of her chronic pain. However viral syndrome also within the differential with the body aches. Autoimmune disease possible but less likely.We'll also test the patient for COVID-19. Apparently the patient became upset for some reason, came in to the triage [facility], asked for the Amina same and then left the ER. I'm not sure why the patient was upset. There was no evidence of this during our interaction in the triage [facility]. I was only able to perform a limited physical examination as the patient had not made it to a definitive emergency department room at that time. Note that the patient was only here just over 30 minutes total. I did not have chance to speak with the patient prior to her leaving the waiting room. - Lab Data Lab Results 01/06/22 Range/Units 19:09 Coronavirus (PCR) Not Detected (Not Detectd) Disposition Clinical Impression: Generalized pain Disposition: Left Against Medical Advice Referrals: Skyler Grant MD [Primary Care Provider] - 1-2 days
== END 2022-01-06 19:33 | disposition left against medical advice (07) ==
LOC: EC 18:59
DX: G89.29 Other chronic pain (principal); J44.9 Chronic obstructive pulmonary disease, unspecified; E11.9 Type 2 diabetes mellitus without complications; I10 Essential (primary) hypertension; Z82.49 Family history of ischemic heart disease and other diseases of the circulatory system; E07.9 Disorder of thyroid, unspecified; Z79.899 Other long term (current) drug therapy; Z20.822 Contact with and (suspected) exposure to COVID-19; Z91.040 Latex allergy status; Z88.1 Allergy status to other antibiotic agents; Z88.6 Allergy status to analgesic agent; Z88.0 Allergy status to penicillin; Z88.2 Allergy status to sulfonamides; Z88.8 Allergy status to other drugs, medicaments and biological substances
CPT/HCPCS: 87635

== ENCOUNTER → 2022-01-29 | Outpatient (CLI) | payer BC, MEDICARE ==
--- NOTE | 2022-01-29 16:29 | CTL ---
EXAMINATION TYPE: CT Low Dose Lung DATE OF EXAM ORDERED: 01/29/2022 HISTORY: . Lung cancer screening CT DLP: 97.[address] CTDI: 3.2 mGy Automated exposure control for dose reduction was used. SCREENING VISIT: Initial COMPARISON: 04/02/2017 TECHNIQUE: Low dose computed tomography scan was performed through the chest at 1 mm thick sections a nd reconstructed images in the coronal plane at [address] DIAGNOSTIC QUALITY: Satisfactory FINDINGS: LUNG NODULES: None. LUNGS: COPD: Severity: None Fibrosis: Severity: None Lymph nodes: None Other findings: None RIGHT PLEURAL SPACE: Effusion: None Calcification: None Thickening: None Pneumothorax: None LEFT PLEURAL SPACE: Effusion: None Calcification: None Thickening: None Pneumothorax: None HEART: Heart Size: Normal Coronary calcification: Minimal Pericardial effusion: None OTHER FINDINGS: Upper abdomen: Normal Bony thorax: Normal Supraclavicular region: Normal Other: Ascending thoracic aorta at the level the main pulmonary artery measures 3.1 cm. The main pul monary artery at the bifurcation measures 3.2 cm. Stimulator leads are within the lower thoracic reg ion IMPRESSION: 1. Normal low-dose CT chest FOLLOW UP CT CHEST RECOMMENDATION: Older CT chest [address] LUNG RAD: 1
== END | disposition home or self-care (01) ==
LOC: RADCTMAIN 12:05
PROVIDERS: ATTEND Internal Medicine
DX: Z12.2 Encounter for screening for malignant neoplasm of respiratory organs (principal); Z87.891 Personal history of nicotine dependence
CPT/HCPCS: 71271

== ENCOUNTER → 2022-02-13 | Outpatient (CLI) | payer BC, MEDICARE ==
[2022-02-13 16:35] LABS: Creatinine,Urine Random 126.1 mg/dL; Protein/Creatinine Ratio,Urine 0.127
[2022-02-13 23:16] LABS: Appearance,Urine Cloudy (Clear); Bilirubin,Urine Negative (Negative); Blood,Urine Negative (Negative); Color,Urine Yellow (Yellow); Ketones,Urine Negative (Negative); Nitrite,Urine Negative (Negative); PH, Urine 7.5 (5.0-8.0); Specific Gravity,Urine 1.016 (1.001-1.030)
[2022-02-13 23:23] LABS: Bacteria,Urine None Seen /HPF (None Seen)
[2022-02-14 01:46] LABS: African American GFR (CKD) 92.2 (60.0-200.0); Anion Gap 9.9 mmol/L (10.00-18.00); BUN/Creat Ratio 8.13 Ratio (12.00-20.00); Blood Urea Nitrogen 6.5 mg/dL (9.0-27.0); Calcium 9.5 mg/dL (8.7-10.3); Carbon Dioxide 23.1 mmol/L (20.0-27.5); Non-African American GFR(CKD) 79.6 (60.0-200.0); Phosphorus 4.3 mg/dL (2.4-5.1); Potassium 4.6 mmol/L (3.5-5.5)
[2022-02-14 02:08] LABS: Basophils # (A) 0.05 X 10*3/uL (0.00-0.10); Basophils % (A) 0.4 %; Eosinophils # (A) 0.09 X 10*3/uL (0.04-0.35); Eosinophils % (A) 0.7 %; HCT 41.7 % (37.2-46.3); HGB 13.9 g/dL (12.0-15.0); Immature Grans, Automated 0.2 %; Lymphocytes % (A) 32.8 %; MCH 31.7 pg (27.0-32.0); MCHC 33.3 g/dL (32.0-37.0); MCV 95.2 fL (80.0-97.0); Mean Platelet Volume 9.6 fL (9.5-12.2); Monocytes # (A) 0.84 X 10*3/uL (0.20-1.00); Monocytes % (A) 6.9 %; NRBC Per 100 WBC 0 /100 WBCS (0.0-0.0); Platelet Count 308 X 10*3/uL (140-440); RBC 4.38 X 10*6/uL (4.10-5.20); RDW 13.8 % (11.5-14.5); WBC 12.21 X 10*3/uL (4.50-10.00)
== END | disposition home or self-care (01) ==
LOC: LABWHC1 15:07
PROVIDERS: ATTEND Internal Medicine
DX: E55.9 Vitamin D deficiency, unspecified (principal); D63.1 Anemia in chronic kidney disease; N39.0 Urinary tract infection, site not specified; N18.31 Chronic kidney disease, stage 3a; R80.9 Proteinuria, unspecified
CPT/HCPCS: 36415; 80048; 81001; 82306; 82570; 82728; 83540; 83550; 83735; 84100; 84156; 85025

== ENCOUNTER → 2022-02-28 | Outpatient (CLI) | payer BC, MEDICARE ==
--- NOTE | 2022-03-02 08:00 | PE ---
EXAMINATION TYPE: PET CT fusion skull to thigh DATE OF EXAM: 02/28/2022 CLINICAL INDICATION:Female, 61 years old with history of R91.8 Lung Nodule; TECHNIQUE: Following the intravenous administration of 11.6 mCi of F-18 FDG, whole body images are performed from the skull base to the midthigh. Images are reviewed on the computer in the coronal, a xial, and sagittal planes. Reconstructed rotating images are created on independent workstation and reviewed on the computer. A non-contrast CT is performed in conjunction with the PET scan. Glucose level 92 mg/dL COMPARISON: CT 01/29/2022, 12/31/2021, PET/CT None, FINDINGS: Mediastinal SUV mean is 1.5. Hepatic parenchyma SUV mean is 2.2. SKULL BASE AND NECK: No suspicious FDG activity. CHEST, MEDIASTINUM, AND HILAR REGION: * No suspicious FDG activity. * Left lower lobe 9 mm pulmonary nodule similar in size with FDG activity below background levels at max SUV 0.5. ABDOMEN AND PELVIS: No suspicious FDG activity. OSSEOUS STRUCTURES: No suspicious FDG activity. OTHER CT: Bilateral aphakia atherosclerosis of the arterial vasculature and coronary arteries. Post s urgical changes gastroesophageal junction. Gallbladder surgically absent. Postsurgical changes to the lower spine. Battery pack device in the right lower abdomen an left buttock. IMPRESSION: 1. 9 mm left lower lobe pulmonary nodule with FDG activity below background levels. Continued survei llance with CT low dose lung cancer screening is recommended. 2. No suspicious areas of FDG activity.
== END | disposition home or self-care (01) ==
LOC: RADXRMAIN 16:34
PROVIDERS: ATTEND Internal Medicine
DX: R91.1 Solitary pulmonary nodule (principal)
CPT/HCPCS: 78815; A9552

== ENCOUNTER → 2022-03-26 | Outpatient (CLI) | payer BC, MEDICARE ==
[2022-03-26 18:34] LABS: HCT 41.8 % (37.2-46.3); HGB 13.9 g/dL (12.0-15.0); MCH 31.7 pg (27.0-32.0); MCHC 33.3 g/dL (32.0-37.0); MCV 95.4 fL (80.0-97.0); Mean Platelet Volume 9.3 fL (9.5-12.2); NRBC Per 100 WBC 0 /100 WBCS (0.0-0.0); Platelet Count 378 X 10*3/uL (140-440); RBC 4.38 X 10*6/uL (4.10-5.20); RDW 13.7 % (11.5-14.5); WBC 12.48 X 10*3/uL (4.50-10.00)
[2022-03-26 19:30] LABS: % Iron Saturation 14.19 (12.00-45.00); African American GFR (CKD) 86.9 (60.0-200.0); Albumin 4.5 g/dL (3.8-4.9); Albumin/Globulin Ratio 1.72 (1.60-3.17); Anion Gap 13.3 mmol/L (10.00-18.00); BUN/Creat Ratio 23.57 Ratio (12.00-20.00); Blood Urea Nitrogen 19.8 mg/dL (9.0-27.0); Calcium 9.9 mg/dL (8.7-10.3); Carbon Dioxide 21.5 mmol/L (20.0-27.5); Ferritin 97.7 ng/mL (10.0-291.0); Globulin 2.6 g/dL (1.6-3.3); Magnesium 1.5 mg/dL (1.5-2.4); Phosphorus 4.6 mg/dL (2.4-5.1); Potassium 4.2 mmol/L (3.5-5.5); Total Bilirubin 0.2 mg/dL (0.30-1.20)
[2022-03-26 22:44] LABS: Appearance,Urine Cloudy (Clear); Bilirubin,Urine Negative (Negative); Blood,Urine Negative (Negative); Color,Urine Yellow (Yellow); Ketones,Urine Negative (Negative); Nitrite,Urine Negative (Negative); Specific Gravity,Urine 1.021 (1.001-1.030); Urobilinogen,Urine 0.2 (0.2,1.0)
[2022-03-26 22:52] LABS: Bacteria,Urine None Seen /HPF (None Seen); Calcium Oxalate Crystals,Urine Present /LPF (None Seen)
[2022-03-27 00:18] LABS: Microalbumin Creatinine Ratio <30 mg/g Creat (0-30); Urine Creatinine 97.3 mg/dL (28.0-217.0)
== END | disposition home or self-care (01) ==
LOC: LABWHC1 13:54
PROVIDERS: ATTEND Internal Medicine
DX: N25.81 Secondary hyperparathyroidism of renal origin (principal); N18.31 Chronic kidney disease, stage 3a; D63.1 Anemia in chronic kidney disease; N39.0 Urinary tract infection, site not specified; E55.9 Vitamin D deficiency, unspecified
CPT/HCPCS: 36415; 80053; 81001; 82043; 82306; 82570; 82728; 83540; 83550; 83735; 83970; 84100; 85027

== ENCOUNTER 2022-04-07 11:54 | Emergency (ER) | payer BC, MEDICARE ==
[2022-04-07 12:18] VITALS: BP 164/83; PULSE 80; RESP 20; TEMP 98.9
[2022-04-07 12:36] LABS: Basophils # (A) 0.1 k/uL (0-0.2); Basophils % (A) 1 %; Eosinophils # (A) 0.1 k/uL (0-0.7); Eosinophils % (A) 1 %; HCT 37.4 % (34.0-46.0); HGB 12.6 gm/dL (11.4-16.0); Lymphocytes # (A) 2.2 k/uL (1.0-4.8); Lymphocytes % (A) 28 %; MCHC 33.7 g/dL (31.0-37.0); MCV 97.7 fL (80.0-100.0); Mean Platelet Volume 7.3; Monocytes # (A) 0.3 k/uL (0-1.0); Monocytes % (A) 4 %; Neutrophils % (A) 65 %; Platelet Count 298 k/uL (150-450); RBC 3.83 m/uL (3.80-5.40); RDW 13.6 % (11.5-15.5); WBC 7.7 k/uL (3.8-10.6)
[2022-04-07 12:49] LABS: ALT 24 U/L (4-34); AST 20 U/L (14-36); African American GFR (CKD) >90 (>60 ml/min/1.73 sqM); Albumin 4.1 g/dL (3.5-5.0); Alkaline Phosphatase 69 U/L (38-126); Anion Gap 7 mmol/L; Blood Urea Nitrogen 7 mg/dL (7-17); Calcium 8.9 mg/dL (8.4-10.2); Carbon Dioxide 25 mmol/L (22-30); Chloride 109 mmol/L (98-107); Glucose 120 mg/dL (74-99); Non-African American GFR(CKD) >90 (>60 ml/min/1.73 sqM); Potassium 4.2 mmol/L (3.5-5.1); Sodium 141 mmol/L (137-145); Total Bilirubin 0.4 mg/dL (0.2-1.3); Total Protein 6.6 g/dL (6.3-8.2)
--- NOTE | 2022-04-07 12:49 | XR ---
EXAMINATION TYPE: XR chest 2V DATE OF EXAM: 04/07/2022 12:43 PM COMPARISON: Chest radiographs from 11/22/2021. TECHNIQUE: XR chest 2V Frontal and lateral views of the chest. CLINICAL INDICATION:Female, 61 years old with history of difficulty breathing; FINDINGS: Lungs/Pleura: There is no evidence of pleural effusion, focal consolidation, or pneumothorax. Right midlung linear atelectasis. Scattered senescent parietal changes. Hyperinflation compatible with COPD . Pulmonary vascularity: Unremarkable. Heart/mediastinum: Cardiomediastinal silhouette is unremarkable. Atherosclerotic calcifications are seen in the aorta. Musculoskeletal: Multiple level degenerative disc disease changes seen throughout the spine. Other findings: Spinal stimulator leads noted. IMPRESSION: 1. Right midlung linear atelectasis otherwise no acute process. 2. COPD changes.
[2022-04-07 13:03] LABS: INR 0.9 (<1.2); Partial Thromboplastin Time 23.6 sec (22.0-30.0); Prothrombin Time 9.7 sec (9.0-12.0)
--- NOTE | 2022-04-07 13:12 | ED ---
General Adult HPI - General Chief complaint: Shortness of Breath Stated complaint: swelling to hands/face/ankles Time Seen by Provider: 04/07/22 13:01 Source: patient, RN notes reviewed Mode of arrival: ambulatory Limitations: no limitations - History of Present Illness Initial comments: Patient is a pleasant 61-year-old female presenting to the emergency Department with leg edema. Onset of symptoms was a couple weeks ago. Patient does have some mild discomfort of the skin. No calf pain. Patient states she is somewhat fatigued. Patient states there may have been some swelling to her hands and face yesterday as well. No abdominal pain. Patient does have some mild dyspnea, especially with exertion, some with lying flat. - Related Data Home Medications Medication Instructions Recorded Confirmed Cetirizine HCl 10 mg PO HS 07/23/20 07/04/21 metFORMIN HCL [Glucophage] 500 mg PO BID 10/18/20 07/04/21 Nitroglycerin Sl Tabs [Nitrostat] 0.4 mg SL Q5M PRN 10/25/20 07/04/21 Levothyroxine Sodium [Synthroid] 50 mcg PO DAILY 11/06/20 07/04/21 Mirtazapine [Remeron] 15 mg PO HS 01/21/21 07/04/21 OXcarbazepine [Trileptal] 300 mg PO BID 01/21/21 07/04/21 Simvastatin [Zocor] 20 mg PO DAILY 01/21/21 07/04/21 Dicyclomine [Bentyl] 20 mg PO QID PRN 07/04/21 07/04/21 Dilaudid/Bupivacaine Pain Pump 1 dose IV CONTINUOUS 07/04/21 07/04/21 Dulaglutide [Trulicity] 4.5 mg SQ TH 07/04/21 07/04/21 LORazepam [Ativan] 0.5 mg PO BID 07/04/21 07/04/21 Linaclotide [Linzess] 290 mcg PO DAILY PRN 07/04/21 07/04/21 Metoprolol Tartrate [Lopressor] 25 mg PO BID 07/04/21 07/04/21 busPIRone HCl [Buspar] 10 mg PO BID 07/04/21 07/04/21 ondansetron HCL [Zofran] 8 mg PO TID PRN 07/04/21 07/04/21 Previous Rx's Medication Instructions Recorded Orphenadrine [Norflex] 100 mg PO Q12H #14 tab 07/04/21 Allergies Allergy/AdvReac Type Severity Reaction Status Date / Time adhesive Allergy Rash/Hives,skiin Verified 01/06/22 19:05 peels azithromycin Allergy Rash/Hives Verified 01/06/22 19:05 [From Zithromax Z-Ivan] ciprofloxacin [From Cipro] Allergy Rash/Hives Verified 01/06/22 19:05 ciprofloxacin HCl Allergy Rash/Hives Verified 01/06/22 19:05 [From Cipro] clarithromycin [From Biaxin] Allergy Rash/Hives Verified 04/07/22 12:18 doxycycline calcium Allergy Rash/Hives Verified 04/07/22 12:18 [From Vibramycin] doxycycline hyclate Allergy Rash/Hives Verified 04/07/22 12:18 [From Vibramycin] doxycycline monohydrate Allergy Rash/Hives Verified 04/07/22 12:18 [From Vibramycin] erythromycin base Allergy Rash/Hives Verified 04/07/22 12:18 [From E-Mycin] Latex, Natural Rubber Allergy Anaphylaxis Verified 04/07/22 12:18 levofloxacin [From Levaquin] Allergy Rash/Hives Verified 04/07/22 12:18 oxybutynin chloride Allergy Rash/Hives Verified 04/07/22 12:18 [From Ditropan] penicillin G Allergy Rash/Hives Verified 04/07/22 12:18 prochlorperazine edisylate Allergy Rash/Hives Verified 04/07/22 12:18 [From Compazine] prochlorperazine maleate Allergy Rash/Hives Verified 04/07/22 12:18 [From Compazine] rofecoxib [From Vioxx] Allergy Hallucinati Verified 04/07/22 12:18 ons sulfamethoxazole Allergy Unknown Verified 04/07/22 12:18 [From Bactrim] tetracycline [Tetracycline] Allergy Rash/Hives Verified 04/07/22 12:18 trimethoprim [From Bactrim] Allergy Unknown Verified 04/07/22 12:18 valdecoxib [From Bextra] Allergy Hallucinati Verified 04/07/22 12:18 ons codeine Allergy Rash/Hives Uncoded 11/07/22 12:18 Review of Systems ROS Statement: Those systems with pertinent positive or pertinent negative responses have been documented in the HPI. ROS Other: All systems not noted in ROS Statement are negative. Constitutional: Denies: fever Eyes: Denies: eye pain ENT: Denies: ear pain Respiratory: Reports: as per HPI. Denies: cough Cardiovascular: Reports: dyspnea on exertion, orthopnea, edema. Denies: palpi tations Endocrine: Reports: fatigue Gastrointestinal: Denies: abdominal pain Genitourinary: Denies: dysuria Musculoskeletal: Denies: back pain Skin: Denies: rash Neurological: Denies: weakness Past Medical History Past Medical History: COPD, CVA/TIA, Diabetes Mellitus, Fibromyalgia, GERD/Reflux, Hyperlipidemia, Hypertension, Myocardial Infarction (NE), Osteoarthritis (OA), Renal Disease, Rheumatoid Arthritis (RA), Skin Disorder, Thyroid Disorder Additional Past Medical History / Comment(s): diabetic neuropathy, lupus ,DDD ,IBS with nausea/vomiting, chronic dry eye, palpitations,migraines, TIA x 5-rt lip droops, emphysema, eczema in ears, history of wound on right toe, gastropa resis, Kidney failure - hospitalization in September 2018, heart murmer, varicose veins, denies SOB-states had episode 10/22/20 with "jaw tingling" no other symptoms-resolved shortly after it started, liver problem "3 years ago", on Rx for cyst rt breast, gout, hx kidney stones Last Myocardial Infarction Date:: unknown History of Any Multi-Drug Resistant Organisms: None Reported Past Surgical History: Back Surgery, Cholecystectomy, Heart Catheterization, Hernia Repair, Hysterectomy, Orthopedic Surgery, Tonsillectomy, Uterine Ablation Additional Past Surgical History / Comment(s): EGD, Colonoscopy, vocal cord surgery, cataract bilateral removal, right knee arthroscopy, right elbow surgery, bilateral feet heel spurs and arthroplasty joints B/L foot toes, BILAT CTR, 2 nerve stimulator in spine X2, laminectomy L4-5,hiatal hernia repair, biopsy left arm,mult sinus surgeries, STIMULATOR in back (not currently working) , MORPHINE PUMP INSERTED to rt side of abdomen, I&D RT FOOT WOUND Surgical removal of seroma and cyst on back in November 2018; surgical removal of Pain Pump in november 2018, I&D cyst rt breast Past Anesthesia/Blood Transfusion Reactions: Family History of Problems w/ Anesthesia Additional Past Anesthesia/Blood Transfusion Reaction / Comment(s): claustrophobic, mother- NE during surgery Past Psychological History: Anxiety, Bipolar, Depression, Panic Disorder, PTSD Smoking Status: Current every day smoker Past Alcohol Use History: None Reported Past Drug Use History: Marijuana - Past Family History Mother Family Medical History: Cancer, Memory Impairment, Myocardial Infarction (NE) Additional Family Medical History / Comment(s): Mother had scleroderma, lymphoma and stomach CA, stents, lupus Father Family Medical History: Cancer Additional Family Medical History / Comment(s): LUNG CANCER Brother(s) Family Medical History: Cancer General Exam Limitations: no limitations General appearance: alert, in no apparent distress Head exam: Present: normocephalic Eye exam: Present: normal appearance ENT exam: Present: other (No facial edema) Neck exam: Present: normal inspection Respiratory exam: Present: normal lung sounds bilaterally Cardiovascular Exam: Present: regular rate, normal rhythm GI/Abdominal exam: Present: soft. Absent: tenderness Extremities exam: Present: pedal edema, other (No edema noticed to the hands). Absent: calf tenderness Neurological exam: Present: alert Psychiatric exam: Present: normal affect, normal mood Skin exam: Present: normal color Course Vital Signs 04/07/22 04/07/22 12:13 13:07 Temperature 98.9 F Pulse Rate 80 Respiratory 20 20 Rate Blood Pressure 164/83 O2 Sat by Pulse 97 Oximetry - Reevaluation(s) Reevaluation #1: 04/07/22 16:22 Patient has eloped EKG Findings - EKG Comments: EKG Findings:: Safe urticaria rate 58. OH 151. QRS 110. QT 466. QTc 464. Normal axis. Septal Q waves. No acute ST change Medical Decision Making - Medical Decision Making Computed tomography scan somewhat limited however is consistent with clinical picture fluid overload state. - Lab Data Result diagrams: 04/07/22 12:29 04/07/22 12:29 Lab Results 04/07/22 04/07/22 04/07/22 Range/Units 12:29 12:29 12:29 WBC 7.7 (3.8-10.6) k/uL RBC 3.83 (3.80-5.40) m/uL Hgb 12.6 (11.4-16.0) gm/dL Hct 37.4 (34.0-46.0) % MCV 97.7 (80.0-100.0) fL MCH 33.0 (25.0-35.0) pg MCHC 33.7 (31.0-37.0) g/dL RDW 13.6 (11.5-15.5) % Plt Count 298 (150-450) k/uL MPV 7.3 Neutrophils % 65 % Lymphocytes % 28 % Monocytes % 4 % Eosinophils % 1 % Basophils % 1 % Neutrophils # 5.0 (1.3-7.7) k/uL Lymphocytes # 2.2 (1.0-4.8) k/uL Monocytes # 0.3 (0-1.0) k/uL Eosinophils # 0.1 (0-0.7) k/uL Basophils # 0.1 (0-0.2) k/uL PT 9.7 (9.0-12.0) sec INR 0.9 (<1.2) APTT 23.6 (22.0-30.0) sec D-Dimer (<0.60) mg/L FEU Sodium 141 (137-145) mmol/L Potassium 4.2 (3.5-5.1) mmol/L Chloride 109 H (98-107) mmol/L Carbon Dioxide 25 (22-30) mmol/L Anion Gap 7 mmol/L BUN 7 (7-17) mg/dL Creatinine 0.65 (0.52-1.04) mg/dL Est GFR (CKD-EPI)AfAm >90 (>60 ml/min/1.73 sqM) Est GFR (CKD-EPI)NonAf >90 (>60 ml/min/1.73 sqM) Glucose 120 H (74-99) mg/dL Plasma Lactic Acid Otis (0.7-2.0) mmol/L Calcium 8.9 (8.4-10.2) mg/dL Total Bilirubin 0.4 (0.2-1.3) mg/dL AST 20 (14-36) U/L ALT 24 (4-34) U/L Alkaline Phosphatase 69 (38-126) U/L Troponin I (0.000-0.034) ng/mL NT-Pro-B Natriuret Pep pg/mL Total Protein 6.6 (6.3-8.2) g/dL Albumin 4.1 (3.5-5.0) g/dL Urine Color Urine Appearance (Clear) Urine pH (5.0-8.0) Ur Specific [place] (1.001-1.035) Urine Protein (Negative) Urine Glucose (UA) (Negative) Urine Ketones (Negative) Urine Blood (Negative) Urine Nitrite (Negative) Urine Bilirubin (Negative) Urine Urobilinogen (<2.0) mg/dL Ur Leukocyte Esterase (Negative) 04/07/22 04/07/22 04/07/22 Range/Units 12:29 12:29 12:29 WBC (3.8-10.6) k/uL RBC (3.80-5.40) m/uL Hgb (11.4-16.0) gm/dL Hct (34.0-46.0) % MCV (80.0-100.0) fL MCH (25.0-35.0) pg MCHC (31.0-37.0) g/dL RDW (11.5-15.5) % Plt Count (150-450) k/uL MPV Neutrophils % % Lymphocytes % % Monocytes % % Eosinophils % % Basophils % % Neutrophils # (1.3-7.7) k/uL Lymphocytes # (1.0-4.8) k/uL Monocytes # (0-1.0) k/uL Eosinophils # (0-0.7) k/uL Basophils # (0-0.2) k/uL PT (9.0-12.0) sec INR (<1.2) APTT (22.0-30.0) sec D-Dimer (<0.60) mg/L FEU Sodium (137-145) mmol/L Potassium (3.5-5.1) mmol/L Chloride (98-107) mmol/L Carbon Dioxide (22-30) mmol/L Anion Gap mmol/L BUN (7-17) mg/dL Creatinine (0.52-1.04) mg/dL Est GFR (CKD-EPI)AfAm (>60 ml/min/1.73 sqM) Est GFR (CKD-EPI)NonAf (>60 ml/min/1.73 sqM) Glucose (74-99) mg/dL Plasma Lactic Acid Otis 1.7 (0.7-2.0) mmol/L Calcium (8.4-10.2) mg/dL Total Bilirubin (0.2-1.3) mg/dL AST (14-36) U/L ALT (4-34) U/L Alkaline Phosphatase (38-126) U/L Troponin I <0.012 (0.000-0.034) ng/mL NT-Pro-B Natriuret Pep 458 pg/mL Total Protein (6.3-8.2) g/dL Albumin (3.5-5.0) g/dL Urine Color Urine Appearance (Clear) Urine pH (5.0-8.0) Ur Specific [place] (1.001-1.035) Urine Protein (Negative) Urine Glucose (UA) (Negative) Urine Ketones (Negative) Urine Blood (Negative) Urine Nitrite (Negative) Urine Bilirubin (Negative) Urine Urobilinogen (<2.0) mg/dL Ur Leukocyte Esterase (Negative) 04/07/22 04/07/22 Range/Units 12:29 13:13 WBC (3.8-10.6) k/uL RBC (3.80-5.40) m/uL Hgb (11.4-16.0) gm/dL Hct (34.0-46.0) % MCV (80.0-100.0) fL MCH (25.0-35.0) pg MCHC (31.0-37.0) g/dL RDW (11.5-15.5) % Plt Count (150-450) k/uL MPV Neutrophils % % Lymphocytes % % Monocytes % % Eosinophils % % Basophils % % Neutrophils # (1.3-7.7) k/uL Lymphocytes # (1.0-4.8) k/uL Monocytes # (0-1.0) k/uL Eosinophils # (0-0.7) k/uL Basophils # (0-0.2) k/uL PT (9.0-12.0) sec INR (<1.2) APTT (22.0-30.0) sec D-Dimer 1.39 H (<0.60) mg/L FEU Sodium (137-145) mmol/L Potassium (3.5-5.1) mmol/L Chloride (98-107) mmol/L Carbon Dioxide (22-30) mmol/L Anion Gap mmol/L BUN (7-17) mg/dL Creatinine (0.52-1.04) mg/dL Est GFR (CKD-EPI)AfAm (>60 ml/min/1.73 sqM) Est GFR (CKD-EPI)NonAf (>60 ml/min/1.73 sqM) Glucose (74-99) mg/dL Plasma Lactic Acid Otis (0.7-2.0) mmol/L Calcium (8.4-10.2) mg/dL Total Bilirubin (0.2-1.3) mg/dL AST (14-36) U/L ALT (4-34) U/L Alkaline Phosphatase (38-126) U/L Troponin I (0.000-0.034) ng/mL NT-Pro-B Natriuret Pep pg/mL Total Protein (6.3-8.2) g/dL Albumin (3.5-5.0) g/dL Urine Color Light Yellow Urine Appearance Clear (Clear) Urine pH 7.0 (5.0-8.0) Ur Specific [place] 1.015 (1.001-1.035) Urine Protein Trace H (Negative) Urine Glucose (UA) Negative (Negative) Urine Ketones Negative (Negative) Urine Blood Negative (Negative) Urine Nitrite Negative (Negative) Urine Bilirubin Negative (Negative) Urine Urobilinogen <2.0 (<2.0) mg/dL Ur Leukocyte Esterase Negative (Negative) - Radiology Data Radiology results: report reviewed (Bilateral lower extremity ultrasound negative for DVT. Computed tomography scan limited, no central pulmonary embolism. Bilateral edema concerning for fluid overload state.), image reviewed (Chest x-ray shows atelectasis, COPD) Disposition Clinical Impression: Leg edema Disposition: Left Against Medical Advice Is patient prescribed a controlled substance at d/c from ED?: No Referrals: Skyler Grant MD [Primary Care Provider] - 1-2 days Time of Disposition: 16:22
[2022-04-07 13:16] LABS: Appearance,Urine Clear (Clear); Bilirubin,Urine Negative (Negative); Blood,Urine Negative (Negative); Color,Urine Light Yellow; Glucose,Urine (UA) Negative (Negative); Ketones,Urine Negative (Negative); Leukocyte Esterase,Urine Negative (Negative); Nitrite,Urine Negative (Negative); Protein,Urine Trace (Negative); Specific Gravity,Urine 1.015 (1.001-1.035); Urobilinogen,Urine <2.0 mg/dL (<2.0)
--- NOTE | 2022-04-07 16:17 | US ---
EXAMINATION TYPE: US venous doppler duplex LE BI DATE OF EXAM: 04/07/2022 2:29 PM COMPARISON: NONE CLINICAL HISTORY: edema. Edema SIDE PERFORMED: Bilateral TECHNIQUE: The lower extremity deep venous system is examined utilizing real time linear array sonog mariana with graded compression, doppler sonography and color-flow sonography. VESSELS IMAGED: Common Femoral Vein Deep Femoral Vein Greater Saphenous Vein * Femoral Vein Popliteal Vein Small Saphenous Vein * Proximal Calf Veins (* superficial vessels) Grayscale, color doppler, spectral doppler imaging performed of the deep veins of the lower extremiti es. There is normal flow, compressibility, vascular waveforms. Right Leg: Negative for DVT Left Leg: Negative for DVT IMPRESSION: No ultrasound evidence for deep venous thrombosis of the bilateral lower extremities.
--- NOTE | 2022-04-07 16:18 | CT ---
EXAMINATION TYPE: CT angio chest DATE OF EXAM: 04/07/2022 COMPARISON: Prior PET/CT February 28, 2022 and older studies HISTORY: PATTI CT DLP: 355.8 mGycm. Automated Exposure Control for Dose Reduction was Utilized. CONTRAST: CTA scan of the thorax is performed with IV Contrast, patient injected with 70 mL of Isovue 370, pulm onary embolism protocol. MIP Images are created on CT scanner and reviewed. FINDINGS: LUNGS: Respiratory motion artifact compromises noted makes evaluation suboptimal particularly for sub centimeter nodules. Stable 8 mm left lower lobe nodule axial image 78. Overall mosaic attenuation. No suspicious focal consolidation. No pleural effusion or pneumothorax seen bilaterally. MEDIASTINUM: There is suboptimal study with near equal contrast seen in the pulmonary arteries versus veins and heterogeneity in the periphery. No central pulmonary embolism. Mildly enlarged Main pulmo nary artery 3.3 cm axial image 56. Findings suggestive of underlying pulmonary artery hypertension. C oronary artery calcification redemonstrated. Prominent but subcentimeter bilateral hilar lymph nodes and subcarinal lymph node redemonstrated. No cardiomegaly or pericardial effusion is seen. Bovine t ype aortic arch redemonstrated which is normal variant. OTHER: Surgical change just below diaphragm redemonstrated from Romeo fundoplication surgical repair . Cholecystectomy clips redemonstrated. Thoracic spinal stimulator device again seen. IMPRESSION: 1. Suboptimal study without acute central pulmonary embolism. 2. Mild bilateral edema suggest fluid overload state. No pleural effusion or suspicious focal consoli dation.
== END 2022-04-07 17:32 | disposition left against medical advice (07) ==
LOC: EC 11:54
DX: R60.0 Localized edema (principal); F41.9 Anxiety disorder, unspecified; F32.A Depression, unspecified; J44.9 Chronic obstructive pulmonary disease, unspecified; E11.9 Type 2 diabetes mellitus without complications; K21.9 Gastro-esophageal reflux disease without esophagitis; I10 Essential (primary) hypertension; E78.5 Hyperlipidemia, unspecified; F17.200 Nicotine dependence, unspecified, uncomplicated; Z86.79 Personal history of other diseases of the circulatory system; Z88.2 Allergy status to sulfonamides; Z88.1 Allergy status to other antibiotic agents; Z88.0 Allergy status to penicillin; Z91.040 Latex allergy status; Z91.048 Other nonmedicinal substance allergy status; Z88.5 Allergy status to narcotic agent; Z88.8 Allergy status to other drugs, medicaments and biological substances; Z79.84 Long term (current) use of oral hypoglycemic drugs; Z79.899 Other long term (current) drug therapy; Z53.29 Procedure and treatment not carried out because of patient's decision for other reasons; Z86.73 Personal history of transient ischemic attack (TIA), and cerebral infarction without residual deficits
CPT/HCPCS: 36415; 93005; 85379; 83880; 80053; 83605; 84484; 85025; 85610; 85730; 71046; 93970; 71275; 99285; Q9967; 81003

== ENCOUNTER → 2022-04-10 | Outpatient (CLI) | payer BC, MEDICARE ==
[2022-04-10 09:01] VITALS: BP 115/68; PULSE 91; RESP 17; TEMP 98.1
--- NOTE | 2022-04-10 09:18 | P.PN ---
Subjective Progress Note Date: 04/10/22 Principal diagnosis: Fibrocystic breast changes bilateral breast fibrocystic changes Margarita is a 61 year old white female seen in consultation on 07-27-20 regarding a radiographic abnormality in her left breast. She underwent a bilateral mammogram on 2420. This revealed asymmetry in the left breast lower inner quadrant anterior position. She then had an ultrasound of the left breast performed. On ultrasound at 5:00 an 8 x 2 x 7 mm lesion was noted and a 3 x 3 x 6 segment millimeters cystic lesion at 10:00 was noted. This was considered to be suspicious BIRADS 4 and ultrasound-guided core biopsy of the left breast was recommended and performed on 07-30-20. This was benign, however it was reviewed with Dr. Krishnamurthy from radiology and felt to be discordant. She was therefore recommended to undergo a needle localization and excisional lumpectomy which was performed and 6120. The pathology and this revealed a focal 7 mm focus of atypical lobular hyperplasia, and 1 mm intraductal papilloma. She has been followed conservatively and repeat mammogram of this site in 6 months was recommended. The patient has had bilateral breast abscesses drained in the past. The patient has a history of hidradenitis in the past. st. She is not having any discharge in either breast at this time. She is not complaining of any new lumps masses or nodules in either breast. She had a left breast mammogram on 05-03-21 which was benign BIRAD 2. She underwent a right breast mammogram in 2721 which was benign BIRADS 2. She will be due for bilateral mammogram in July 2022, realizing that this is approximately 2 months over a year for the left breast. The patient states she is complaining of some nodularity in her left axilla. She also complains of bilateral nipple discomfort. It is sporadic. She is not complaining of any nipple discharge. Patient had a PET scan performed on which revealed a 9 mm left lower lobe pulmonary nodule and this had been low background levels and close surveillance was recommended. Caffeine: 2 cups/day nicotine: 2 PPD fidel-bromine: occasional, more at the holidays hormones: estrogen for 6 years, stopped several years ago Family History: father: non small cell lung cancer, smoker mother: lymphoma, and stomach cancer Hormonal History: menarche: 9 , breast fed: yes, age at girth: 21 menopause: 31 JIN, done for endometriosis Hormones: Estrogen but stopped several years ago took them for approximately 6 years control pills: 15 years Surgical History: 5 back surgeries bilateral feet GB carpel tunnel Medical history: Hidradenitis suprativa Diabetes kidney failure TIA anxiety HTN fibromyalgia Social History: smoke: 2 PPD alcohol: rare drugs: none - Constitutional Constitutional: Denies chills, Denies fever - EENT Eyes: denies blurred vision, denies pain Ears: bilateral: tinnitus, deny: decreased hearing Ears, nose, mouth and throat: Reports headache, Denies sore throat - Breasts Breasts: bilateral: as per HPI - Cardiovascular Comment: tachycardia Cardiovascular: Denies chest pain, Denies shortness of breath - Gastrointestinal Comment: IBS Gastrointestinal: Reports diarrhea, Denies abdominal pain, Denies nausea, Denies vomiting - Genitourinary (Female) Comment: kidney failure Genitourinary: Reports urinary frequency, Denies dysuria, Denies hematuria - Menstruation Menstruation: Reports post hysterectomy - Musculoskeletal Musculoskeletal: Reports myalgias - Integumentary Integumentary: Denies pruritus, Denies rash - Neurological Neurological: Reports numbness, Reports weakness - Psychiatric Comment: bipolar Psychiatric: Denies anxiety, Denies depression - Endocrine Comment: diabetes - Hematologic/Lymphatic Comment: none - Allergic/Immunologic Allergic/Immunologic: Reports as per HPI Objective - Vital Signs Vital signs: Vital Signs Temp 98.1 F 04/10/22 08:58 Pulse 91 04/10/22 08:58 Resp 17 04/10/22 08:58 BP 115/68 04/10/22 08:58 Pulse Ox 96 04/10/22 08:58 FiO2 - Constitutional General appearance: Present: cooperative - EENT Eyes: Present: EOMI ENT: Present: hearing grossly normal - Neck Neck: Present: normal ROM - Respiratory Respiratory: bilateral: CTA - Cardiovascular Rhythm: regular Heart sounds: normal: S1, S2 - Gastrointestinal General gastrointestinal: Present: soft - Integumentary Integumentary: Present: normal turgor - Musculoskeletal Musculoskeletal: Present: gait normal - Psychiatric Psychiatric: Present: A&O x's 3, appropriate affect, intact judgment & insight - Additional findings Additional findings: Breast Exam: BRA: 38C Inspection: right breast larger than left; bilateral grade 3 ptosis Well-healed scar left breast from prior surgery Palpation: Right breast: Multiple positional exam fibrocystic changes no dominant masses or nodules of concern Right axilla: No adenopathy of concern Left breast: Multi-positional exam fibrocystic changes no dominant masses or nodules of concern Left axilla: No adenopathy of concern Assessment and Plan Assessment: Impression: Fibrocystic breast changes Hidradenitis suprativa Diabetes kidney failure TIA anxiety HTN fibromyalgia Plan: Bilateral mammogram Jul. with appointment CC: Dr. Grant
== END | disposition home or self-care (01) ==
LOC: WWCWWP 08:42
PROVIDERS: ATTEND Surgery
DX: Z53.9 Procedure and treatment not carried out, unspecified reason (principal)

== ENCOUNTER → 2022-08-13 | Outpatient (CLI) | payer MEDICARE ==
[2022-08-13 23:21] LABS: ALT 19 U/L (8-44); AST 15 U/L (13-35); African American GFR (CKD) 91.6 (60.0-200.0); Albumin 4.4 g/dL (3.8-4.9); Albumin/Globulin Ratio 1.76 (1.60-3.17); Alkaline Phosphatase 76 U/L (41-126); BUN/Creat Ratio 17.13 Ratio (12.00-20.00); Blood Urea Nitrogen 13.7 mg/dL (9.0-27.0); Calcium 9.5 mg/dL (8.7-10.3); Carbon Dioxide 24.9 mmol/L (20.0-27.5); Chloride 103 mmol/L (96-109); Globulin 2.5 g/dL (1.6-3.3); Glucose 131 mg/dL (70-110); LDL Cholesterol,Calculated 165.8 mg/dL (0.0-131.0); Potassium 4.7 mmol/L (3.5-5.5); Sodium 137 mmol/L (135-145); Total Bilirubin <0.15 mg/dL (0.30-1.20); Total Protein 6.9 g/dL (6.2-8.2)
[2022-08-13 23:30] LABS: Basophils # (A) 0.04 X 10*3/uL (0.00-0.10); Basophils % (A) 0.4 %; Eosinophils # (A) 0.06 X 10*3/uL (0.04-0.35); Eosinophils % (A) 0.6 %; HCT 44.8 % (37.2-46.3); HGB 14.8 g/dL (12.0-15.0); Immature Grans, Automated 0.4 %; Lymphocytes # (A) 3.28 X 10*3/uL (0.90-5.00); Lymphocytes % (A) 32.8 %; MCH 32.5 pg (27.0-32.0); MCV 98.5 fL (80.0-97.0); Mean Platelet Volume 9.4 fL (9.5-12.2); Monocytes # (A) 0.57 X 10*3/uL (0.20-1.00); Monocytes % (A) 5.7 %; NRBC Per 100 WBC 0 /100 WBCS (0.0-0.0); Neutrophils % (A) 60.1 %; Platelet Count 328 X 10*3/uL (140-440); RBC 4.55 X 10*6/uL (4.10-5.20); RDW 14.6 % (11.5-14.5); WBC 9.99 X 10*3/uL (4.50-10.00)
[2022-08-13 23:46] LABS: INR 0.86 (0.90-1.11); Prothrombin Time 9.8 sec (9.9-11.9)
== END | disposition home or self-care (01) ==
LOC: LABWHC1 13:53
PROVIDERS: ATTEND Internal Medicine
DX: E78.5 Hyperlipidemia, unspecified (principal); M79.10 Myalgia, unspecified site; D51.0 Vitamin B12 deficiency anemia due to intrinsic factor deficiency; E11.9 Type 2 diabetes mellitus without complications
CPT/HCPCS: 36415; 80053; 80061; 80183; 82175; 82570; 82607; 82746; 83036; 83655; 83825; 85025; 85610

== ENCOUNTER → 2022-08-22 | Outpatient (CLI) | payer MEDICARE ==
--- NOTE | 2022-08-25 14:10 | MM ---
Reason for Exam: Screening (asymptomatic). Last mammogram was performed 2 year(s) and 1 month(s) ago. Patient History: Menarche at age 9. First Full-Term at age 21. Left ovary removed at age 31. Right ovary removed at age 31. Hysterectomy at age 31. Postmenopausal. Other cancer. Estrogen for 6 years until age 51. Benign Excisional Biopsy on the right side. 10/30/2020, High risk Core Biopsy on the left side. 07/30/2020, Benign Core Biopsy on the left side. Risk Values: [place] 5 year model risk: 2.3%. NCI Lifetime model risk: 10.0%. Prior Study Comparison: 07/30/2020 Left Diagnostic Mammogram, [facility]. 05/03/2021 Left Diagnostic Mammogram, [facility]. 07/08/2021 Right Diagnostic Mammogram, [facility]. Tissue Density: There are scattered fibroglandular densities. Findings: Analyzed By CAD. Surgical clips in the left breast from interval excision are now present. There is occasional tiny benign-appearing punctate calcification bilaterally redemonstrated. There is no suspicious new group of microcalcifications or new suspicious mass in either breast. Overall Assessment: Incomplete: need additional imaging evaluation, BI-RAD 0 Management: Diagnostic Breast Ultrasound of the left breast. Targeted ultrasound left breast, new palpable abnormality. Electronically signed and approved by: Russell Hughes M.D.
== END | disposition home or self-care (01) ==
LOC: RADMAMWWP 11:53
PROVIDERS: ATTEND Surgery
DX: Z12.31 Encounter for screening mammogram for malignant neoplasm of breast (principal); Z78.0 Asymptomatic menopausal state
CPT/HCPCS: 77063; 77067

== ENCOUNTER → 2022-08-25 | Outpatient (CLI) | payer MEDICARE ==
--- NOTE | 2022-08-25 16:18 | CT ---
EXAMINATION TYPE: CT chest w con DATE OF EXAM: 08/25/2022 COMPARISON: CTA chest April 07, 2022 and older studies HISTORY: Lung Nodule. CT DLP: 437.5 mGycm. Automated Exposure Control for Dose Reduction was Utilized. TECHNIQUE: CT scan of the thorax is performed following with IV Contrast, patient injected with 100c c mL of Isovue 300. FINDINGS: LUNGS: Mild right middle lobe linear scarring is redemonstrated. Stable 8-9 mm left lower lobe nodule axial image 31. Adjacent 3 to 4 mm left lower lobe nodule noted same image. No new greater than 5 mm pulmonary nodules. No suspicious focal consolidation. No pleural effusion or pneumothorax seen bilat erally. MEDIASTINUM: Persistent mildly enlarged Main pulmonary artery 3.2 cm axial image 26. Findings suggest rolando of underlying pulmonary artery hypertension. Coronary artery calcification redemonstrated. Promin ent but subcentimeter bilateral hilar lymph nodes and subcarinal lymph node redemonstrated. No card iomegaly or pericardial effusion is seen. Bovine type aortic arch redemonstrated which is normal vari ant. OTHER: Surgical change just below diaphragm redemonstrated from Romeo fundoplication surgical repair . Cholecystectomy clips redemonstrated. Thoracic spinal stimulator device again seen. IMPRESSION: Stable 8 to 9 mm left lower lobe pulmonary nodule from most recent CT. Follow-up CT is ad vised to document two-year stability.
== END | disposition home or self-care (01) ==
LOC: RADCTMAIN 14:16
PROVIDERS: ATTEND Internal Medicine
DX: R91.1 Solitary pulmonary nodule (principal)
CPT/HCPCS: 82565; 84520; 71260; 36415; Q9967

== ENCOUNTER → 2022-09-04 | Outpatient (CLI) | payer MEDICARE ==
--- NOTE | 2022-09-04 10:11 | USB ---
Reason for Exam: Clinical finding. Patient History: Menarche at age 9. First Full-Term at age 21. Left ovary removed at age 31. Right ovary removed at age 31. Hysterectomy at age 31. Postmenopausal. Other cancer. Estrogen for 6 years until age 51. Benign Excisional Biopsy on the right side. 10/30/2020, High risk Core Biopsy on the left side. 07/30/2020, Benign Core Biopsy on the left side. Risk Values: Lavonen 5 year model risk: 2.3%. NCI Lifetime model risk: 10.0%. Technique: Method: Targeted. Prior Study Comparison: 05/03/2021 Left Diagnostic Mammogram, [facility]. 07/08/2021 Right Diagnostic Mammogram, [facility]. 08/22/2022 Bilateral MG 3D screening mammo w/cad, [facility]. Findings: The area of palpable concern of the left breast and the axilla of the left breast were scanned. Targeted ultrasound left breast far peripheral 2 to 4:00 position at the patient's palpable site. Additional scanning of the axilla. No lymphadenopathy or solid or cystic lesion. Overall Assessment: Benign, BI-RAD 2 Management: Screening Mammogram of both breasts in 11 months. In time for the patient's annual exam. Further clinical management of any suspicious palpable abnormalities. Patient should continue monthly self breast exams. Results were given to the patient verbally at the time of exam. Electronically signed and approved by: Amelia Sorto M.D. Radiologist
== END | disposition home or self-care (01) ==
LOC: RADUSWWP 09:30
PROVIDERS: ATTEND Surgery
DX: R92.8 Other abnormal and inconclusive findings on diagnostic imaging of breast (principal); Z78.0 Asymptomatic menopausal state

== ENCOUNTER → 2022-09-23 | Outpatient (CLI) | payer MEDICARE | END | disposition home or self-care (01) | LOC: LABWHC1 13:39 | PROVIDERS: ATTEND Nurse Practitioner Adult Health | DX: R60.0 Localized edema (principal) | CPT/HCPCS: 36415; 83880 ==

== ENCOUNTER → 2022-09-30 | Outpatient (CLI) | payer MEDICARE ==
--- NOTE | 2022-09-30 14:27 | XR ---
EXAMINATION TYPE: XR chest 2V DATE OF EXAM: 09/30/2022 1:59 PM COMPARISON: Chest radiographs from 04/07/2022 TECHNIQUE: XR chest 2V Frontal and lateral views of the chest. CLINICAL INDICATION:Female, 62 years old with history of J441; FINDINGS: Lungs/Pleura: There is no evidence of pleural effusion, focal consolidation, or pneumothorax. Pulmonary vascularity: Unremarkable. Heart/mediastinum: Cardiomediastinal silhouette is unremarkable. Musculoskeletal: No acute osseous pathology. Nerve simulator devices with leads terminating over the spine. IMPRESSION: No acute cardiopulmonary disease/process.
== END | disposition home or self-care (01) ==
LOC: RADXRMAIN 13:45
PROVIDERS: ATTEND Internal Medicine
DX: J44.1 Chronic obstructive pulmonary disease with (acute) exacerbation (principal)
CPT/HCPCS: 71046

== ENCOUNTER → 2022-12-24 | Outpatient (CLI) | payer MEDICARE, OTHER ==
[2022-12-24 20:33] LABS: % Iron Saturation 18.82 (12.00-50.00); ALT 20 U/L (8-49); AST 19 U/L (13-35); Albumin 4.7 d/dL (3.8-4.9); Albumin/Globulin Ratio 1.68 Ratio (1.60-3.17); Alkaline Phosphatase 76 U/L (41-126); BUN/Creat Ratio 11.09 Ratio (12.00-20.00); Blood Urea Nitrogen 12.2 mg/dL (9.0-27.0); Calcium 10.3 mg/dL (8.7-10.3); Carbon Dioxide 26.6 mmol/L (21.6-31.8); Chloride 104 mmol/L (96-109); Ferritin 47.7 ng/mL (10.0-322.0); Globulin 2.8 d/dL (1.6-3.3); Glucose 100 mg/dL (70-110); Iron 83 UG/DL (50-175); Magnesium 1.7 mg/dL (1.5-2.4); Phosphorus 3.7 mg/dL (2.4-5.1); Potassium 4.7 mmol/L (3.5-5.5); Sodium 144 mmol/L (135-145); Total Bilirubin 0.2 mg/dL (0.3-1.2); Total Iron Binding Capacity 441 UG/DL (228-460); Total Protein 7.5 d/dL (6.2-8.2); Uric Acid 5.7 mg/dL (2.9-8.7)
[2022-12-24 22:24] LABS: Basophils # (A) 0.04 X 10*3/uL (0.00-0.10); Basophils % (A) 0.4 %; Eosinophils # (A) 0.08 X 10*3/uL (0.04-0.35); Eosinophils % (A) 0.9 %; HCT 47.7 % (37.2-50.0); HGB 15.4 d/dL (12.0-17.0); Lymphocytes # (A) 3.72 X 10*3/uL (0.90-5.00); Lymphocytes % (A) 40.6 %; MCH 32.2 pg (27.0-32.0); MCHC 32.3 d/dL (32.0-37.0); MCV 99.6 FL (80.0-97.0); Mean Platelet Volume 9.6 FL (9.5-12.2); Monocytes # (A) 0.73 X 10*3/uL (0.20-1.00); NRBC Per 100 WBC 0 X 10*3/uL (0.00-0.01); Neutrophils # (A) 4.57 X 10*3/uL (1.80-7.70); Neutrophils % (A) 49.8 %; Platelet Count 303 X 10*3/uL (140-440); RBC 4.79 X 10*6/uL (4.10-5.60); RDW 13.7 % (11.5-14.5); WBC 9.17 X 10*3/uL (4.50-10.00)
[2022-12-25 00:02] LABS: Microalbumin Creatinine Ratio <9 mg/g Cr (0-30)
[2022-12-25 23:16] LABS: Appearance,Urine Clear (Clear); Bilirubin,Urine Negative (Negative); Blood,Urine Negative (Negative); Color,Urine Yellow (Yellow); Ketones,Urine Negative (Negative); Nitrite,Urine Negative (Negative); PH, Urine 6.5 (4.0-8.0); Specific Gravity,Urine 1.015 (1.001-1.030); Urobilinogen,Urine 0.2 (>1.0)
== END | disposition home or self-care (01) ==
LOC: LABWHC1 13:53
PROVIDERS: ATTEND Internal Medicine
DX: N25.81 Secondary hyperparathyroidism of renal origin (principal); N18.31 Chronic kidney disease, stage 3a; D63.1 Anemia in chronic kidney disease; N39.0 Urinary tract infection, site not specified; M10.9 Gout, unspecified; E55.9 Vitamin D deficiency, unspecified; R80.9 Proteinuria, unspecified
CPT/HCPCS: 36415; 80053; 81003; 82043; 82306; 82570; 82728; 83540; 83550; 83735; 84100; 84550; 85025; 86376

== ENCOUNTER → 2022-12-25 | Outpatient (CLI) | payer MEDICARE, OTHER | END | disposition home or self-care (01) | LOC: LABWHC1 13:55 | PROVIDERS: ATTEND Internal Medicine | DX: N25.81 Secondary hyperparathyroidism of renal origin (principal); N39.0 Urinary tract infection, site not specified; E55.9 Vitamin D deficiency, unspecified; M10.9 Gout, unspecified; N18.31 Chronic kidney disease, stage 3a; D63.1 Anemia in chronic kidney disease; R80.9 Proteinuria, unspecified | CPT/HCPCS: 36415; 83970 ==

== ENCOUNTER → 2023-02-16 | Outpatient (CLI) | payer MEDICARE, OTHER ==
--- NOTE | 2023-02-16 15:38 | XR ---
EXAMINATION TYPE: XR chest 2V DATE OF EXAM: 02/16/2023 3:17 PM COMPARISON: Chest radiographs from 01/14/2023 TECHNIQUE: XR chest 2V Frontal and lateral views of the chest. CLINICAL INDICATION:Female, 62 years old with history of J43.9 EMPHYSEMA, UNSPECIFIED; FINDINGS: Lungs/Pleura: There is no evidence of pleural effusion, focal consolidation, or pneumothorax. Pulmonary vascularity: Unremarkable. Heart/mediastinum: Cardiomediastinal silhouette is unremarkable. Atherosclerotic calcifications are seen in the aorta. Musculoskeletal: No acute osseous pathology. Mild degenerative changes of the thoracic spine. Midthor acic spine spinal stimulator leads identified. IMPRESSION: No acute cardiopulmonary disease/process.
== END | disposition home or self-care (01) ==
LOC: RADXRMAIN 14:58
PROVIDERS: ATTEND Internal Medicine
DX: J43.9 Emphysema, unspecified (principal)
CPT/HCPCS: 71046

== ENCOUNTER 2023-04-21 11:52 | Day surgery (SDC) | payer MEDICARE, OTHER ==
[~2023-04-21 11:52] MED LIST changes: -DEXAMETHASONE SOD PHOSPHATE 4 MG/ML 1 ML VIAL IV ONE; -HEPARIN SODIUM,PORCINE/PF 5,000 UNIT/0.5 ML SYRINGE SQ PRN; -HYDROmorphone 0.5 MG/0.5 ML SYRINGE IVP PRN; -LIDOCAINE 1% (10MG/ML) FOR IV START INTRADERMA PRN; -MIDAZOLAM 2 MG/2 ML VIAL IV PRN; -ONDANSETRON 4 MG/2 ML VIAL IVP ONE; -Pre Op ABX Message 1 EACH MISC MISCELLANE ONE
[2023-04-21 12:21] VITALS: TEMP 98.3
[2023-04-21 12:26] LABS: Glucose,Whole Blood 106 mg/dL (70-110)
[2023-04-21] MEDS ORDERED: PROPOFOL 10 MG/ML 20 ML VIAL IV ONE (12:59)
[2023-04-21] MEDS ORDERED: LIDOCAINE 1% INJ 10MG/ML (20 ML MDV) ONE (12:59)
[2023-04-21] MEDS ORDERED: LIDOCAINE 2% INJ 20 MG/ML INTRATRACH ONE ×2 (13:00→13:09)
--- NOTE | 2023-04-21 14:04 | OP ---
OPERATIVE REPORT DATE OF SERVICE : 04/21/2023 OPERATIONS: Bronchoscopy and random bronchoalveolar lavage of different lobes. PREOPERATIVE DIAGNOSIS: Chronic cough, recurrent bronchitis. POSTOPERATIVE DIAGNOSIS: Chronic cough, recurrent bronchitis. In addition, the patient has tracheomalacia. ANESTHESIA USED: IV conscious sedation. DESCRIPTION OF PROCEDURE: The patient was prepared according to the bronchoscopy protocol. O2 was applied via Ventimask and she was placed in a supine position, we monitored her O2 saturation continuously. Blood pressure was intermittently monitored, cardiac rhythm was continuously monitored. After adequate IV conscious sedation, 2 mL of lidocaine was instilled into the left naris, and the bronchoscope was inserted through the left naris down to the vocal cords. The vocal cords were noted to be patent, no lesions on the vocal cords. Then, lidocaine was applied over the vocal cords, and the bronchoscope was advanced further down. Examination of the trachea was done and there was some mild- to-moderate tracheomalacia. Further down, we examined the onofre, the right upper lobe, right middle lobe, right lower lobe, left upper lobe, lingula, and left lower lobe. There was a moderate amount of slightly purulent secretions, these were lavaged from the different areas of the lobes including right upper lobe, right middle lobe, right lower lobe, left upper lobe, lingula, and left lower lobe. Fluid obtained, was sent for different diagnostic studies, mostly cultures. Procedure was well tolerated, no complications. The patient will be discharged home and follow up on an outpatient basis. MMODL / IJN: [id number] /
[2023-04-21 14:16] VITALS: BP 112/77; PULSE 88; RESP 18
[2023-04-21 18:47] LABS: Appearance,BF Cloudy (Clear); RBC, Body Fluid 8 /UL (0-2000)
[2023-04-22 08:37] LABS: Nucleated Cells, Body Fluid 18 /UL
== END 2023-04-21 13:58 | disposition home or self-care (01) ==
LOC: ORWHC2ENDO 11:52
PROVIDERS: ATTEND Internal Medicine
DX: J40 Bronchitis, not specified as acute or chronic (principal); J44.9 Chronic obstructive pulmonary disease, unspecified; J39.8 Other specified diseases of upper respiratory tract; Z88.0 Allergy status to penicillin; Z88.1 Allergy status to other antibiotic agents; Z91.040 Latex allergy status; Z88.5 Allergy status to narcotic agent; Z88.8 Allergy status to other drugs, medicaments and biological substances; Z88.3 Allergy status to other anti-infective agents
CPT/HCPCS: 89050; 87070; 87205; 87116; 87102; 87206; 31624; J2001 ×2; J2704

== ENCOUNTER → 2023-04-24 | Outpatient (CLI) | payer MEDICARE, OTHER ==
--- NOTE | 2023-04-24 14:25 | US ---
EXAMINATION TYPE: US kidneys/renal and bladder DATE OF EXAM: 04/24/2023 COMPARISON: 12/17/2021. CLINICAL INDICATION: Female, 62 years old with history of E04.9 NONTOXIC GOITER, UNSPECIFIED; CKD EXAM MEASUREMENTS: Right Kidney: 12.8 x 4.1 x 4.6 cm Left Kidney: 12.7 x 5.1 x 4.0 cm Right Kidney: Anechoic area mid pole 1.6 x 1.2 x 1.5 cm. Left Kidney: Anechoic area upper pole 1.9 x 1.6 x 1.8 cm. Bladder: Anechoic Bilateral Jets seen: no There is no evidence for hydronephrosis at this point in time. No nephrolithiasis is seen. No arleth s are identified. The urinary bladder is anechoic. Bilateral ureteral jets are seen. IMPRESSION: 1. No evidence for obstructive uropathy. Cortical medullary differentiation is maintained. 2. Bilateral renal cysts.
== END | disposition home or self-care (01) ==
LOC: RADUSWWP 13:44
PROVIDERS: ATTEND Internal Medicine
DX: N18.31 Chronic kidney disease, stage 3a (principal); N28.1 Cyst of kidney, acquired
CPT/HCPCS: 76770

== ENCOUNTER → 2023-04-30 | Outpatient (CLI) | payer MEDICARE, OTHER ==
[2023-04-30 13:59] LABS: African American GFR (CKD) 86 (>60 ml/min/1.73 sqM); Blood Urea Nitrogen 11 mg/dL (7-17); Non-African American GFR(CKD) 75 (>60 ml/min/1.73 sqM)
--- NOTE | 2023-04-30 15:11 | CT ---
Exam: CT Chest with contrast. Date: 04/30/2023. Comparison: 08/25/2022 and 04/07/2022. History: Follow-up for pulmonary nodules. Technique: CT examination of the chest was performed following the intravenous administration of 100 mL of Isovue-300. Coronal and sagittal reformats were performed. CT dose lowering techniques were us ed, to include: automated exposure control, adjustment for patient size, and/or use of iterative brenie nstruction. FINDINGS: Mediastinum and Sarah: There is no axillary, mediastinal or hilar lymphadenopathy. Pleural and Pericardial spaces: There are no pleural or pericardial effusions. Upper Abdomen: The visualized upper abdomen is unremarkable. Cardiovascular: The thoracic aorta is normal in size without evidence of aneurysm or dissection. Pulmonary Artery: There are no central pulmonary arterial abnormalities. The examination was not per formed to evaluate for pulmonary embolism. Lung Parenchyma and Airways: 9 mm nodule in the left lower lobe on series 4 image 31 appears similar to the most recent previous examination, however does appear to have been slowly increasing in size o ovi time. No new nodules are otherwise seen.. Bones: No fracture or aggressive osseous lesion. IMPRESSION: 1. Unchanged left lower lobe pulmonary nodule dating back to 01/29/2022. This had increased in size si nce a previous examination of 04/02/2017. Follow-up in one year is recommended. 2. No acute findings otherwise seen.
== END | disposition home or self-care (01) ==
LOC: RADCTMAIN 13:06
PROVIDERS: ATTEND Internal Medicine
DX: R91.1 Solitary pulmonary nodule (principal)
CPT/HCPCS: 82565; 84520; 71260; 36415; Q9967

== ENCOUNTER → 2023-05-14 | Outpatient (CLI) | payer MEDICARE, OTHER ==
--- NOTE | 2023-05-14 14:10 | P.PN ---
Subjective Progress Note Date: 05/14/23 Principal diagnosis: fibrocystic breast changes Fibrocystic breast changes Margarita is a 62 year old white female seen in consultation on 07-27-20 regarding a radiographic abnormality in her left breast. She underwent a bilateral mammogram on 2420. This revealed asymmetry in the left breast lower inner quadrant anterior position. She then had an ultrasound of the left breast performed. On ultrasound at 5:00 an 8 x 2 x 7 mm lesion was noted and a 3 x 3 x 6 segment millimeters cystic lesion at 10:00 was noted. This was considered to be suspicious BIRADS 4 and ultrasound-guided core biopsy of the left breast was recommended and performed on 07-30-20. This was benign, however it was reviewed with Dr. Krishnamurthy from radiology and felt to be discordant. She was therefore recommended to undergo a needle localization and excisional lumpectomy which was performed on 6120. The pathology and this revealed a focal 7 mm focus of atypical lobular hyperplasia, and 1 mm intraductal papilloma. She has been followed conservatively and repeat mammogram of this site in 6 months was recommended. The patient has had bilateral breast abscesses drained in the past. The patient has a history of hidradenitis in the past. She is not having any discharge in either breast at this time. She is not complaining of any new lumps masses or nodules in either breast. Most recent bilateral mammogram 08-22-22 which led to a left breast ultrasound 09-04-22 BIRAD 2. Lavonne Risk 5 year: 2.3% Complaining of pain in the left periareolar region for approximately 5 months. She is not certain as to whether she feels any lumps masses or nodules. She is not complaining of any nipple discharge or skin changes. The pain is worse with palpation. She states she often runs a low-grade fever. This is not anything new. The area is not red. She is not complaining of any recent trauma or infection in the area. Patient had a PET scan performed on which revealed a 9 mm left lower lobe pulmonary nodule and this had been low background levels and close surveillance was recommended. A CAT scan was done to evaluate this and she is following with Dr. Busby. Caffeine: 2 cups/day nicotine: 2 PPD now down to 1 PPD chocolate: occasional, more at the holidays hormones: estrogen for 6 years, stopped several years ago BCP: in [place] past a JIN in 1991 Family History: father: non small cell lung cancer, smoker mother: lymphoma, and stomach cancer Hormonal History: menarche: 9 , breast fed: yes, age at girth: 21 menopause: 31 JIN, done for endometriosis Hormones: Estrogen but stopped several years ago took them for approximately 6 years control pills: 15 years Surgical History: 5 back surgeries bilateral feet GB carpel tunnel Medical history: Hidradenitis suprativa Diabetes kidney failure TIA anxiety HTN fibromyalgia Social History: smoke: 2 PPD alcohol: rare drugs: none - Constitutional Constitutional: Denies chills, Denies fever - EENT Eyes: denies blurred vision, denies pain Ears: bilateral: tinnitus, deny: decreased hearing Ears, nose, mouth and throat: Reports headache, Denies sore throat - Breasts Breasts: bilateral: as per HPI - Cardiovascular Comment: tachycardia Cardiovascular: Denies chest pain, Denies shortness of breath - Gastrointestinal Comment: IBS Gastrointestinal: Reports diarrhea, Denies abdominal pain, Denies nausea, Denies vomiting - Genitourinary (Female) Comment: kidney failure Genitourinary: Reports urinary frequency, Denies dysuria, Denies hematuria - Menstruation Menstruation: Reports post hysterectomy - Musculoskeletal Musculoskeletal: Reports myalgias - Integumentary Integumentary: Denies pruritus, Denies rash - Neurological Neurological: Reports numbness, Reports weakness - Psychiatric Comment: bipolar Psychiatric: Denies anxiety, Denies depression - Endocrine Comment: diabetes - Hematologic/Lymphatic Comment: none - Allergic/Immunologic Allergic/Immunologic: Reports as per HPI Objective - Constitutional General appearance: Present: cooperative - EENT Eyes: Present: EOMI ENT: Present: hearing grossly normal - Neck Neck: Present: normal ROM - Respiratory Respiratory: bilateral: CTA - Cardiovascular Rhythm: regular Heart sounds: normal: S1, S2 - Integumentary Integumentary: Present: normal turgor - Musculoskeletal Musculoskeletal: Present: gait normal - Psychiatric Psychiatric: Present: A&O x's 3, appropriate affect, intact judgment & insight - Additional findings Additional findings: Breast Exam: BRA: 38C Inspection: right breast larger than left; bilateral grade 3 ptosis Well-healed scar left breast from prior surgery Palpation: Right breast: Multiple positional exam fibrocystic changes no dominant masses or nodules of concern, tender at 12:00 Right axilla: No adenopathy of concern Left breast: Multi-positional exam fibrocystic changes no dominant masses or nodules of concern Left axilla: No adenopathy of concern Assessment and Plan Assessment: Impression: Fibrocystic breast changes Hidradenitis suprativa Diabetes kidney failure TIA anxiety HTN fibromyalgia bilateral mammogram on 08-22-22 led to a left breast ultrasound on 09-04-22 BIRAD 2 Plan: Bilateral mammogram July 2023 with appointment ultrasound of the area of tenderness in the left breast with follow up after I've encouraged the patient to stop smoking and stop her caffeine intake and that may help with the tenderness in the left breast At this time there is nothing discrete on examination to account for the tenderness CC: Dr. Grant
[2023-05-14 14:18] VITALS: BP 149/82; PULSE 83; RESP 18; TEMP 98.2
== END ==
LOC: WWCWWP 13:47
PROVIDERS: ATTEND Surgery
DX: Z12.31 Encounter for screening mammogram for malignant neoplasm of breast (principal); E11.22 Type 2 diabetes mellitus with diabetic chronic kidney disease; L73.2 Hidradenitis suppurativa; I12.9 Hypertensive chronic kidney disease with stage 1 through stage 4 chronic kidney disease, or unspecified chronic kidney disease; N18.9 Chronic kidney disease, unspecified; I10 Essential (primary) hypertension; F41.9 Anxiety disorder, unspecified; N60.12 Diffuse cystic mastopathy of left breast; M79.7 Fibromyalgia; Z86.73 Personal history of transient ischemic attack (TIA), and cerebral infarction without residual deficits; N64.89 Other specified disorders of breast; F17.210 Nicotine dependence, cigarettes, uncomplicated; Z88.1 Allergy status to other antibiotic agents; Z88.2 Allergy status to sulfonamides; Z88.3 Allergy status to other anti-infective agents; Z88.0 Allergy status to penicillin; Z88.5 Allergy status to narcotic agent; Z88.8 Allergy status to other drugs, medicaments and biological substances; Z91.048 Other nonmedicinal substance allergy status; Z91.040 Latex allergy status; Z79.84 Long term (current) use of oral hypoglycemic drugs; Z79.890 Hormone replacement therapy

== ENCOUNTER → 2023-07-15 | Outpatient (CLI) | payer MEDICARE, OTHER ==
--- NOTE | 2023-07-15 15:19 | US ---
EXAMINATION TYPE: US venous doppler duplex LE LT DATE OF EXAM: 07/15/2023 3:07 PM COMPARISON: 04/07/22 CLINICAL INDICATION: Female, 63 years old with history of M79.662 PAIN IN LEG; pain left posterior ca lf SIDE PERFORMED: Left TECHNIQUE: The lower extremity deep venous system is examined utilizing real time linear array sonog mariana with graded compression, doppler sonography and color-flow sonography. VESSELS IMAGED: Common Femoral Vein Deep Femoral Vein Greater Saphenous Vein * Femoral Vein Popliteal Vein Small Saphenous Vein * Proximal Calf Veins (* superficial vessels) Left Leg: Negative for DVT results communicated to Cait at office IMPRESSION: No evidence of deep venous thrombosis.
== END | disposition home or self-care (01) ==
LOC: RADUSWWP 14:21
PROVIDERS: ATTEND Internal Medicine
DX: M79.662 Pain in left lower leg (principal)

== ENCOUNTER → 2023-07-23 | Outpatient (CLI) | payer MEDICARE, OTHER ==
[2023-07-23 15:08] LABS: ALT 46 U/L (4-34); AST 26 U/L (14-36); African American GFR (CKD) 81 (>60 ml/min/1.73 sqM); Albumin 4.8 g/dL (3.5-5.0); Albumin/Globulin Ratio 1.6; Alkaline Phosphatase 87 U/L (38-126); Anion Gap 15 mmol/L; Blood Urea Nitrogen 13 mg/dL (7-17); Calcium 10.4 mg/dL (8.4-10.2); Carbon Dioxide 19 mmol/L (22-30); Chloride 108 mmol/L (98-107); Glucose 164 mg/dL (74-99); Non-African American GFR(CKD) 71 (>60 ml/min/1.73 sqM); Potassium 4.4 mmol/L (3.5-5.1); Sodium 142 mmol/L (137-145); Total Bilirubin 0.5 mg/dL (0.2-1.3); Total Protein 7.8 g/dL (6.3-8.2)
[2023-07-23 16:02] LABS: Basophils % (A) 0 %; Eosinophils % (A) 0 %; HCT 50.1 % (34.0-46.0); Lymphocytes # (A) 0.8 k/uL (1.0-4.8); Lymphocytes % (A) 11 %; Mean Platelet Volume 7.9; Monocytes # (A) 0.1 k/uL (0-1.0); Monocytes % (A) 1 %; Neutrophils # (A) 6.3 k/uL (1.3-7.7); Neutrophils % (A) 88 %; Platelet Count 318 k/uL (150-450); RBC 5.01 m/uL (3.80-5.40); RDW 13.8 % (11.5-15.5); WBC 7.2 k/uL (3.8-10.6)
[2023-07-23 16:11] LABS: Creatine Kinase 100 U/L (30-135); Uric Acid 5.2 mg/dL (3.7-7.4)
--- NOTE | 2023-07-23 16:23 | CT ---
EXAMINATION TYPE: CT soft tissue neck wo/w con DATE OF EXAM: 07/23/2023 3:50 PM COMPARISON: None available. HISTORY: Tenderness to left submandibular gland. CT DLP: 862.3 mGycm Automated exposure control for dose reduction was used. CONTRAST: CT scan of the neck is performed following without and with IV Contrast, patient injected with 100 mL of Isovue 300. Axial images are obtained, coronal and sagittal reformatted images are reviewed. FINDINGS: Airway: No gross abnormality seen. Parotid/submandibular glands: No gross abnormality seen. Carotid/Vascular Structures: There is mild vascular calcification in the carotid bulbs and intracrani al segment of the carotid arteries bilaterally. There does not appear to be significant stenosis. Mil d vascular calcification is also seen in the aortic arch. Osseous Structures: There are no acute osseous abnormalities. There appears to be prior surgical eldridge ges within the maxillary sinuses bilaterally with absence of the medial chavez. Prior surgical changes is also likely present in the ethmoid air cells. The mastoid air cells appear clear. Other: Mild centrilobular emphysema seen in the visualized lungs. IMPRESSION: 1. No gross abnormality of the submandibular glands. 2. No gross adenopathy. 3. Mild emphysema in the visualized lungs.
[2023-07-23 17:19] LABS: T4, Free (Free Thyroxine) 0.96 ng/dL (0.78-2.19)
[2023-07-24 04:20] LABS: Chol/HDL Ratio 4.47 Ratio; LDL Cholesterol,Calculated 128.6 mg/dL (0.0-131.0)
== END | disposition home or self-care (01) ==
LOC: RADCTMAIN 14:22
PROVIDERS: ATTEND Internal Medicine
DX: J43.2 Centrilobular emphysema (principal); K11.8 Other diseases of salivary glands; E11.40 Type 2 diabetes mellitus with diabetic neuropathy, unspecified; E03.9 Hypothyroidism, unspecified; M85.80 Other specified disorders of bone density and structure, unspecified site; M10.9 Gout, unspecified; M79.662 Pain in left lower leg
CPT/HCPCS: 84439; 80061; 80053; 82550; 84443; 84550; 85025; 82306; 70492; 36415; Q9967

== ENCOUNTER → 2023-07-24 | Outpatient (CLI) | payer MEDICARE, OTHER ==
[2023-07-24 15:13] LABS: Basophils # (A) 0.03 X 10*3/uL (0.00-0.10); Basophils % (A) 0.2 %; Eosinophils # (A) 0.01 X 10*3/uL (0.04-0.35); Eosinophils % (A) 0.1 %; HCT 41.1 % (37.2-50.0); HGB 13.7 g/dL (12.0-17.0); Lymphocytes # (A) 3.08 X 10*3/uL (0.90-5.00); Lymphocytes % (A) 21.7 %; MCH 31.9 pg (27.0-32.0); MCHC 33.3 g/dL (32.0-37.0); MCV 95.6 FL (80.0-97.0); Mean Platelet Volume 9.4 FL (9.5-12.2); Monocytes # (A) 1.25 X 10*3/uL (0.20-1.00); Monocytes % (A) 8.8 %; NRBC Per 100 WBC 0 X 10*3/uL (0.00-0.01); Neutrophils # (A) 9.79 X 10*3/uL (1.80-7.70); Neutrophils % (A) 68.8 %; Platelet Count 287 X 10*3/uL (140-440); RDW 14.2 % (11.5-14.5); WBC 14.22 X 10*3/uL (4.50-10.00)
[2023-07-24 15:46] LABS: ALT 17 U/L (8-49); AST 16 U/L (13-35); Albumin 4.4 g/dL (3.8-4.9); Albumin/Globulin Ratio 1.76 Ratio (1.60-3.17); Alkaline Phosphatase 76 U/L (41-126); BUN/Creat Ratio 19.12 Ratio (12.00-20.00); Blood Urea Nitrogen 15.3 mg/dL (9.0-27.0); Calcium 10.1 mg/dL (8.7-10.3); Carbon Dioxide 20.8 mmol/L (21.6-31.8); Chloride 106 mmol/L (96-109); Chol/HDL Ratio 4.93 Ratio; Creatine Kinase 117 U/L (26-257); Globulin 2.5 g/dL (1.6-3.3); Glucose 122 mg/dL (70-110); Potassium 4.5 mmol/L (3.5-5.5); Sodium 142 mmol/L (135-145); T4, Free (Free Thyroxine) 1.04 ng/dL (0.80-1.80); Total Bilirubin 0.2 mg/dL (0.3-1.2); Total Protein 6.9 g/dL (6.2-8.2)
== END | disposition home or self-care (01) ==
LOC: LABWHC1 07-23 13:00
PROVIDERS: ATTEND Internal Medicine
DX: E11.40 Type 2 diabetes mellitus with diabetic neuropathy, unspecified (principal); E03.9 Hypothyroidism, unspecified; M10.9 Gout, unspecified; M85.80 Other specified disorders of bone density and structure, unspecified site; M79.662 Pain in left lower leg
CPT/HCPCS: 36415; 80053; 80061; 82306; 82550; 84439; 84443; 84550; 85025

== ENCOUNTER → 2023-08-14 | Outpatient (CLI) | payer MEDICARE, OTHER ==
--- NOTE | 2023-08-15 18:21 | CT ---
EXAMINATION TYPE: CT lumbar spine wo con CT DLP: 1140.2 mGycm, Automated exposure control for dose reduction was used. DATE OF EXAM: 08/14/2023 12:07 PM COMPARISON: 12/31/2021. CLINICAL INDICATION:Female, 63 years old with history of G57.71 CAUSALGIA OF RIGHT LOWER LIMB G57.72, low back pain TECHNIQUE: Multiple axial images were obtained from the midportion of T11 through the sacroiliac colby nts. Soft tissue and bone windows in coronal and sagittal planes were obtained and reviewed. Contrast used: mL of , (None, if empty). Oral contrast used: (None, if empty). FINDINGS: Alignment: There are 5 lumbar type vertebral bodies within normal alignment. Bone: Fixation changes L4 and L5. Hardware appears intact. Laminectomy changes at L4 and L5. Discs: T12-L1: No spinal canal or neural foraminal stenosis is identified. L1-L2: No spinal canal or neural foraminal stenosis is identified. L2-L3: No spinal canal or neural foraminal stenosis is identified. L3-L4: Facet joint arthropathy, osteophytes and disc bulging result in moderate spinal canal stenosis and moderate bilateral neural foraminal stenosis. L4-L5: Degeneration changes with moderate left and mild to moderate right neural foraminal stenosis. The spinal canal is patent. L5-S1: Streak artifact limits evaluation for subtle. There is moderate bilateral neural foraminal hailee nosis secondary to facet joint arthropathy. Spinal canal appears patent. Other: Surgical clips in the upper abdomen. Left renal probable cyst. IMPRESSION: 1. Postsurgical changes with hardware intact and appropriate position. Evaluation of these levels is limited due to artifact. 2. Moderate degeneration changes throughout the spine with neural foraminal stenosis worse at left L 5-S1 with moderate and moderate bilateral L3-L4. 3. Spinal canal stenosis worse at L3-L4 with moderate stenosis.
== END | disposition home or self-care (01) ==
LOC: RADCTMAIN 11:48
PROVIDERS: ATTEND Psychiatry & Neurology Neurology
DX: M99.73 Connective tissue and disc stenosis of intervertebral foramina of lumbar region (principal); M48.061 Spinal stenosis, lumbar region without neurogenic claudication; M51.37 Other intervertebral disc degeneration, lumbosacral region; G57.73 Causalgia of bilateral lower limbs; Z45.1 Encounter for adjustment and management of infusion pump; M53.3 Sacrococcygeal disorders, not elsewhere classified
CPT/HCPCS: 72131

== ENCOUNTER → 2023-08-25 | Outpatient (CLI) | payer MEDICARE, OTHER ==
--- NOTE | 2023-08-28 08:46 | MM ---
Reason for Exam: Screening (asymptomatic). Last screening mammogram was performed 12 month(s) ago. Patient History: Menarche at age 9. First Full-Term at age 21. Left ovary removed at age 31. Right ovary removed at age 31. Hysterectomy at age 31. Postmenopausal. Other cancer. Estrogen for 6 years until age 51. Benign Excisional Biopsy on the right side. 10/30/2020, High risk Core Biopsy on the left side. 07/30/2020, Benign Core Biopsy on the left side. Risk Values: Lavonne 5 year model risk: 2.3%. NCI Lifetime model risk: 9.7%. Prior Study Comparison: 05/03/2021 Left Diagnostic Mammogram, [facility]. 07/08/2021 Right Diagnostic Mammogram, [facility]. 08/22/2022 Bilateral MG 3D screening mammo w/cad, [facility]. Tissue Density: The breasts are almost entirely fatty. Findings: Analyzed By CAD. The pattern is symmetrical. Pattern is stable. Surgical clips are within the left breast. No suspicious groups of microcalcifications, spiculated or lobular masses, architectural distortion or other secondary signs of malignancy are mammographically apparent. Overall Assessment: Benign, BI-RAD 2 Management: Screening Mammogram of both breasts in 1 year. A negative mammogram report should not preclude additional follow up of suspicious palpable abnormalities. Patient should continue monthly self breast exam. A clinical breast exam by your physician is recommended on an annual basis and results should be correlated with mammographic findings. Electronically signed and approved by: Brandon Krishnamurthy D.O. Radiologis
== END | disposition home or self-care (01) ==
LOC: RADMAMWWP 10:02
PROVIDERS: ATTEND Surgery
DX: Z12.31 Encounter for screening mammogram for malignant neoplasm of breast (principal); Z78.0 Asymptomatic menopausal state
CPT/HCPCS: 77063; 77067

== ENCOUNTER → 2023-11-23 | Outpatient (CLI) | payer MEDICARE, OTHER ==
--- NOTE | 2023-11-23 21:06 | CT ---
EXAMINATION TYPE: CT chest wo con DATE OF EXAM: 11/23/2023 COMPARISON: 04/30/2023, and 3122 HISTORY: 53-year-old female R91.1, hx lung nodules TECHNIQUE: Contiguous axial scanning of the chest without IV contrast. Coronal/sagittal reconstructio ns performed. CT DLP: 741mGycm. Automatic exposure control utilized for a dose reduction. FINDINGS: Heart limits of normal in size with trace left lateral pericardial fluid measuring 6 mm thick. Aorta normal caliber with mild atherosclerotic arch calcifications and bovine configuration to the ao rtic arch. No progressive lymphadenopathy in this area. Postlumpectomy changes left breast. Prominent scarring at the mid and lower lungs similar compared to 04/30/2023 but progressed from 202 . There is some scattered mosaic attenuation suggesting underlying small airways disease. Mild emphys ematous changes. Moderate diffuse bronchial wall thickening. A 1 cm left lower lobe pulmonary nodule remains unchanged from 01/29/2022, nearly 2 years. No suspicio us new pulmonary nodule is seen. Post surgical changes GE junction related to prior hiatal hernia repair. 1.7 cm cyst upper pole left kidney redemonstrated. Cholecystectomy clips. Bones: Spinal stimulator array centered along the mid thoracic spinal canal. DISH lower thoracic spin e. IMPRESSION: COPD with mild emphysema and stable 1 cm left lower lobe pulmonary nodule for just under 2 years. Thi s suggests a benign etiology. Recommend an additional one-year surveillance follow-up.
== END | disposition home or self-care (01) ==
LOC: RADCTMAIN 13:22
PROVIDERS: ATTEND Internal Medicine
DX: R91.1 Solitary pulmonary nodule (principal); J43.9 Emphysema, unspecified; J44.9 Chronic obstructive pulmonary disease, unspecified
CPT/HCPCS: 71250

== ENCOUNTER 2023-12-28 11:48 | Emergency (ER) | payer MEDICARE ==
[2023-12-28 11:51] VITALS: RESP 18
--- NOTE | 2023-12-28 12:18 | ED ---
Lower Extremity Injury HPI - General Chief Complaint: Extremity Injury, Lower Stated Complaint: R knee pain Time Seen by Provider: 12/28/23 12:15 Source: patient, RN notes reviewed Mode of arrival: wheelchair Limitations: no limitations - History of Present Illness Initial Comments: 63-year-old female presenting with right knee pain x 4 days. States she woke up 4 days ago with swelling and pain in her right knee. States the pain began in the popliteal area and is now having swelling around the entire knee. Admits mild redness. Admits pain with weightbearing and flexion and extension of the knee. Denies known trauma or injury, however states several days before the swelling started she went to several large concert venues and was walking far distances. Denies recent travel, surgeries, hormone replacement therapy, history of DVT. Denies calf swelling or redness. Denies numbness or tingling. She is a current tobacco smoker. - Related Data Home Medications Medication Instructions Recorded Confirmed Cetirizine HCl 10 mg PO HS 07/23/20 05/14/23 metFORMIN HCL [Glucophage] 1,000 mg PO BID 10/18/20 05/14/23 Nitroglycerin Sl Tabs [Nitrostat] 0.4 mg SL Q5M PRN 10/25/20 05/14/23 Levothyroxine Sodium [Synthroid] 50 mcg PO DAILY 11/06/20 05/14/23 OXcarbazepine [Trileptal] 300 mg PO BID 01/21/21 05/14/23 Dicyclomine [Bentyl] 20 mg PO QID PRN 07/04/21 05/14/23 Dilaudid/Bupivacaine Pain Pump 1 dose IV CONTINUOUS 07/04/21 05/14/23 busPIRone HCl [Buspar] 15 mg PO BID 07/04/21 05/14/23 ondansetron HCL [Zofran] 8 mg PO TID PRN 07/04/21 05/14/23 clonazePAM 0.5 mg PO BID PRN 04/16/23 05/14/23 glipiZIDE [glipiZIDE ER] 5 mg PO DAILY 04/16/23 05/14/23 predniSONE 10 mg PO BID 04/21/23 05/14/23 Allergies Allergy/AdvReac Type Severity Reaction Status Date / Time adhesive Allergy Rash/Hives,skiin Verified 11/21/23 12:11 peels azithromycin Allergy Rash/Hives Verified 04/21/23 12:11 [From Zithromax Z-Ivan] ciprofloxacin [From Cipro] Allergy Rash/Hives Verified 04/21/23 12:11 ciprofloxacin HCl Allergy Rash/Hives Verified 04/21/23 12:11 [From Cipro] clarithromycin [From Biaxin] Allergy Rash/Hives Verified 04/21/23 12:11 doxycycline calcium Allergy Rash/Hives Verified 04/21/23 12:11 [From Vibramycin] doxycycline hyclate Allergy Rash/Hives Verified 04/21/23 12:11 [From Vibramycin] doxycycline monohydrate Allergy Rash/Hives Verified 04/21/23 12:11 [From Vibramycin] erythromycin base Allergy Rash/Hives Verified 04/21/23 12:11 [From E-Mycin] Latex, Natural Rubber Allergy Anaphylaxis Verified 04/21/23 12:11 levofloxacin [From Levaquin] Allergy Rash/Hives Verified 04/21/23 12:11 oxybutynin chloride Allergy Rash/Hives Verified 04/21/23 12:11 [From Ditropan] penicillin G Allergy Rash/Hives Verified 04/21/23 12:11 prochlorperazine edisylate Allergy Rash/Hives Verified 04/21/23 12:11 [From Compazine] prochlorperazine maleate Allergy Rash/Hives Verified 04/21/23 12:11 [From Compazine] rofecoxib [From Vioxx] Allergy Hallucinati Verified 04/21/23 12:11 ons tetracycline [Tetracycline] Allergy Rash/Hives Verified 04/21/23 12:11 valdecoxib [From Bextra] Allergy Hallucinati Verified 04/21/23 12:11 ons metoprolol [From Lopressor] AdvReac Anaphylaxis Verified 04/21/23 12:11 codeine Allergy Rash/Hives Uncoded 04/21/23 12:11 Review of Systems ROS Statement: Those systems with pertinent positive or pertinent negative responses have been documented in the HPI. ROS Other: All systems not noted in ROS Statement are negative. Past Medical History Past Medical History: COPD, CVA/TIA, Diabetes Mellitus, Fibromyalgia, Hyperlipidemia, Myocardial Infarction (ME), Osteoarthritis (OA), Renal Disease, Rheumatoid Arthritis (RA), Skin Disorder, Thyroid Disorder Additional Past Medical History / Comment(s): diabetic neuropathy, lupus ,DDD ,IBS with nausea/vomiting, chronic dry eye, palpitations,migraines, TIA x 5-rt lip droops, emphysema, eczema in ears, history of wound on right toe, alvin roparesis, Kidney failure - hospitalization in September 2018, heart murmer, varicose veins, denies SOB-states had episode 10/22/20 with "jaw tingling" no other symptoms-resolved shortly after it started, liver fatty"3 years ago", on Rx for cyst rt breast, gout, hx kidney stones chronic kidney dx. just started using home O2 at hs and when "resting" Last Myocardial Infarction Date:: unknown History of Any Multi-Drug Resistant Organisms: None Reported Past Surgical History: Back Surgery, Cholecystectomy, Heart Catheterization, Hernia Repair, Hysterectomy, Orthopedic Surgery, Tonsillectomy, Uterine Ablation Additional Past Surgical History / Comment(s): EGD, Colonoscopy, vocal cord surgery, cataract bilateral removal, right knee arthroscopy, right elbow surgery, bilateral feet heel spurs and arthroplasty joints B/L foot toes, BILAT CTR, 2 nerve stimulator in spine X2, laminectomy L4-5,hiatal hernia repair, biopsy left arm,mult sinus surgeries, STIMULATOR in back (not currently working) ,dilaudid PUMP INSERTED to rt side of abdomen, I&D RT FOOT WOUND Surgical removal of seroma and cyst on back in November 2018; surgical removal of Pain Pump in november 2018, I&D cyst rt breast Past Anesthesia/Blood Transfusion Reactions: Family History of Problems w/ Anesthesia Additional Past Anesthesia/Blood Transfusion Reaction / Comment(s): claustrophobic, mother- ME during surgery Past Psychological History: Anxiety, Bipolar, Depression, Panic Disorder, PTSD Smoking Status: Current every day smoker Past Alcohol Use History: None Reported Past Drug Use History: Marijuana - Past Family History Mother Family Medical History: Cancer, Memory Impairment, Myocardial Infarction (ME) Additional Family Medical History / Comment(s): Mother had scleroderma, lymphoma and stomach CA, stents, lupus Father Family Medical History: Cancer Additional Family Medical History / Comment(s): LUNG CANCER Brother(s) Family Medical History: Cancer General Exam Limitations: no limitations General appearance: alert, in no apparent distress Head exam: Present: atraumatic, normocephalic, normal inspection Right Upper Leg exam: Present: normal inspection, full ROM. Absent: tenderness, swelling Knee exam: Present: full ROM (Pain with flexion and extension), tenderness (Tenderness in popliteal area), swelling (Diffuse swelling around anterior knee), full knee extension. Absent: normal inspection, abrasion, laceration, deformity, posterior draw sign, pain/laxity with valgus, pain/laxity with varus Lower Leg exam: Present: normal inspection, full ROM. Absent: tenderness, swelling, erythema, palpable cord, Homans' sign Ankle exam: Present: normal inspection, full ROM. Absent: tenderness, swelling Foot/Toe exam: Present: normal inspection, full ROM. Absent: tenderness, sw elling Neurovascular tendon exam: Present: no vascular compromise. Absent: pulse deficit, abnormal cap refill, motor deficit, sensory deficit Course Vital Signs 12/28/23 12/28/23 11:48 14:34 Temperature 98.2 F 97.9 F Pulse Rate 113 H 96 Respiratory 18 18 Rate Blood Pressure 129/73 126/80 O2 Sat by Pulse 94 L 95 Oximetry Medical Decision Making - Medical Decision Making Was pt. sent in by a medical professional or institution (, PA, COMMUNITY ORGANIZATION WORKER, urgent ca re, hospital, or snf...) When possible be specific @ -No Did you speak to anyone other than the patient for history (EMS, parent, family, police, friend...)? What history was obtained from this source @ -No Did you review nursing and triage notes (agree or disagree)? Why? @ -I reviewed and agree with nursing and triage notes Were old charts reviewed (outside hosp., previous admission, EMS record, old EKG, old radiological studies, urgent care reports/EKG's, snf records)? Report findings @ -No old charts were reviewed Differential Diagnosis (chest pain, altered mental status, abdominal pain women, abdominal pain men, vaginal bleeding, weakness, fever, dyspnea, syncope, he adache, dizziness, GI bleed, back pain, seizure, CVA, palpatations, mental health, musculoskeletal)? @ -Differential Musculoskeletal Muscular strain, contusion, ligament sprain, fracture, arthritis, septic arthritis, bursitis, cellulitis, muscle spasm, nerve compression, DVT, arterial occlusion, herpes zoster, electrolyte abnormality, tumor.... This is not meant to be in all inclusive list EKG interpreted by me (3pts min.). @ -None X-rays interpreted by me (1pt min.). @ -X-ray of right knee revealed no acute process CT interpreted by me (1pt min.). @ -None done U/S interpreted by me (1pt. min.). @ -Ultrasound of right lower extremity revealed no sign of DVT What testing was considered but not performed or refused? (CT, X-rays, U/S, labs)? Why? @ -None What meds were considered but not given or refused? Why? @ -None Did you discuss the management of the patient with other professionals ( professionals i.e. DrSuzan, PA, COMMUNITY ORGANIZATION WORKER, lab, RT, psych nurse, social services analyst, clinical asst, teacher, traffic maintenance officer, case resolution specialist)? Give summary @ -No Was smoking cessation discussed for >3mins.? @ -No Was critical care preformed (if so, how long)? @ -No Were there social determinants of health that impacted care today? How? (Homelessness, low income, unemployed, alcoholism, drug addiction, transportation, low edu. Level, literacy, decrease access to med. care, senior living, rehab)? @ -No Was there de-escalation of care discussed even if they declined (Discuss DNR or withdrawal of care, Hospice)? DNR status @ -No What co-morbidities impacted this encounter? (DM, HTN, Smoking, COPD, CAD, Cancer, CVA, ARF, Chemo, Hep., AIDS, mental health diagnosis, sleep apnea, morbid obesity)? @ -None Was patient admitted / discharged? Hospital course, mention meds given and route, prescriptions, significant lab abnormalities, going to OR and other pertinent info. @ -Patient was discharged. Patient was seen and evaluated for right knee pain and swelling x 4 days. No sign of bacterial infection. Patient is neurovascularly intact. X-ray reveals no acute process. Ultrasound is negative for DVT. White blood cell count 9.3. CRP 3.7, likely reactive from inflammation. Discussed with patient there is no sign of emergent etiology upon examination today, symptoms are likely due to right knee sprain. Strict return parameters discussed. Supportive care discussed. Patient is agreeable to plan. Case was discussed with my ED attending Dr. Grigsby. Patient is discharged in stable condition. Undiagnosed new problem with uncertain prognosis? @ -No Drug Therapy requiring intensive monitoring for toxicity (Heparin, Nitro, Insulin, Cardizem)? @ -No Were any procedures done? @ -No Diagnosis/symptom? @ -Right knee sprain Acute, or Chronic, or Acute on Chronic? @ -Acute Uncomplicated (without systemic symptoms) or Complicated (systemic symptoms)? @ -Uncomplicated Side effects of treatment? @ -No Exacerbation, Progression, or Severe Exacerbation? @ -No Poses a threat to life or bodily function? How? (Chest pain, USA, ME, pneumonia, PE, COPD, DKA, ARF, appy, cholecystitis, CVA, Diverticulitis, Homicidal, Suicidal, threat to staff... and all critical care pts) @ -No - Lab Data Result diagrams: 12/28/23 12:21 12/28/23 12:21 Lab Results 12/28/23 12/28/23 Range/Units 12:21 12:21 WBC 9.3 (3.8-10.6) k/uL RBC 4.53 (3.80-5.40) m/uL Hgb 14.2 (11.4-16.0) gm/dL Hct 43.0 (34.0-46.0) % MCV 94.9 (80.0-100.0) fL MCH 31.4 (25.0-35.0) pg MCHC 33.1 (31.0-37.0) g/dL RDW 13.9 (11.5-15.5) % Plt Count 255 (150-450) k/uL MPV 7.4 Neutrophils % 75 % Lymphocytes % 19 % Monocytes % 5 % Eosinophils % 1 % Basophils % 0 % Neutrophils # 7.0 (1.3-7.7) k/uL Lymphocytes # 1.8 (1.0-4.8) k/uL Monocytes # 0.4 (0-1.0) k/uL Eosinophils # 0.1 (0-0.7) k/uL Basophils # 0.0 (0-0.2) k/uL Sodium 140 (137-145) mmol/L Potassium 3.8 (3.5-5.1) mmol/L Chloride 110 H (98-107) mmol/L Carbon Dioxide 24 (22-30) mmol/L Anion Gap 6 mmol/L BUN 14 (7-17) mg/dL Creatinine 0.83 (0.52-1.04) mg/dL Est GFR (CKD-EPI)AfAm 87 (>60 ml/min/1.73 sqM) Est GFR (CKD-EPI)NonAf 76 (>60 ml/min/1.73 sqM) Glucose 147 H (74-99) mg/dL Calcium 10.4 H (8.4-10.2) mg/dL Total Bilirubin 0.4 (0.2-1.3) mg/dL AST 23 (14-36) U/L ALT 15 (4-34) U/L Alkaline Phosphatase 64 (38-126) U/L C-Reactive Protein 3.7 H (<1.0) mg/dL Total Protein 6.4 (6.3-8.2) g/dL Albumin 3.9 (3.5-5.0) g/dL Disposition Clinical Impression: Right knee sprain Disposition: HOME SELF-CARE Condition: Stable Instructions (If sedation given, give patient instructions): Knee Sprain (ED) Additional Instructions: Ice and elevate the right knee. Please return to the Emergency Department if symptoms worsen or any other concerns. Is patient prescribed a controlled substance at d/c from ED?: No Referrals: Skyler Grant DO [Primary Care Provider] - 1-2 days Time of Disposition: 14:22
[2023-12-28 12:38] LABS: Basophils % (A) 0 %; Eosinophils # (A) 0.1 k/uL (0-0.7); Eosinophils % (A) 1 %; HGB 14.2 gm/dL (11.4-16.0); Lymphocytes # (A) 1.8 k/uL (1.0-4.8); Lymphocytes % (A) 19 %; MCH 31.4 pg (25.0-35.0); MCHC 33.1 g/dL (31.0-37.0); MCV 94.9 fL (80.0-100.0); Mean Platelet Volume 7.4; Monocytes # (A) 0.4 k/uL (0-1.0); Monocytes % (A) 5 %; Neutrophils % (A) 75 %; Platelet Count 255 k/uL (150-450); RBC 4.53 m/uL (3.80-5.40); RDW 13.9 % (11.5-15.5); WBC 9.3 k/uL (3.8-10.6)
--- NOTE | 2023-12-28 12:54 | US ---
EXAMINATION TYPE: US venous doppler duplex LE RT DATE OF EXAM: 12/28/2023 12:15 PM COMPARISON: US 2021 CLINICAL INDICATION: Female, 63 years old with history of pain; Right leg pain SIDE PERFORMED: Right TECHNIQUE: The lower extremity deep venous system is examined utilizing real time linear array sonog mariana with graded compression, doppler sonography and color-flow sonography. VESSELS IMAGED: Common Femoral Vein Deep Femoral Vein Greater Saphenous Vein * Femoral Vein Popliteal Vein Small Saphenous Vein * Proximal Calf Veins (* superficial vessels) Right Leg: Appears negative for DVT Right popliteal fossa: 5.4 x 2.0 x 3.0cm Hatch's cyst IMPRESSION: Grayscale, color doppler, spectral doppler imaging performed of the deep veins of the lo wer extremities. There is normal flow, compressibility, vascular waveforms.
[2023-12-28 12:58] LABS: ALT 15 U/L (4-34); African American GFR (CKD) 87 (>60 ml/min/1.73 sqM); Albumin 3.9 g/dL (3.5-5.0); Anion Gap 6 mmol/L; Blood Urea Nitrogen 14 mg/dL (7-17); C Reactive Protein 3.7 mg/dL (<1.0); Calcium 10.4 mg/dL (8.4-10.2); Carbon Dioxide 24 mmol/L (22-30); Chloride 110 mmol/L (98-107); Glucose 147 mg/dL (74-99); Non-African American GFR(CKD) 76 (>60 ml/min/1.73 sqM); Sodium 140 mmol/L (137-145); Total Bilirubin 0.4 mg/dL (0.2-1.3); Total Protein 6.4 g/dL (6.3-8.2)
[2023-12-28] MEDS: ACETAMINOPHEN TAB 325 MG TAB PO STA (13:10)
[2023-12-28 13:18] LABS: Potassium 3.8 mmol/L (3.5-5.1)
[2023-12-28 13:19] LABS: AST 23 U/L (14-36); Alkaline Phosphatase 64 U/L (38-126)
--- NOTE | 2023-12-28 13:30 | XR ---
EXAMINATION TYPE: XR knee complete RT DATE OF EXAM: 12/28/2023 CLINICAL HISTORY: pain TECHNIQUE: Three views of the right knee are obtained. COMPARISON: None. FINDINGS: There is no acute fracture/dislocation. The tri-compartment joint spaces appear within no rmal limits. Meniscal chondrocalcinosis noted as well as spur formation. Moderate suprapatellar join t effusion. The overlying soft tissue appears unremarkable. IMPRESSION: There is no acute fracture or dislocation.ICD 10 NO FRACTURE, INITIAL EVALUATION
[2023-12-28 14:36] VITALS: BP 126/80; PULSE 96; TEMP 97.9
== END 2023-12-28 14:36 | disposition home or self-care (01) ==
LOC: EC 11:48
DX: S83.91XA Sprain of unspecified site of right knee, initial encounter (principal); F17.200 Nicotine dependence, unspecified, uncomplicated; Z88.0 Allergy status to penicillin; Z88.1 Allergy status to other antibiotic agents; Z88.5 Allergy status to narcotic agent; Z88.6 Allergy status to analgesic agent; Z91.040 Latex allergy status; Z91.09 Other allergy status, other than to drugs and biological substances; Z86.73 Personal history of transient ischemic attack (TIA), and cerebral infarction without residual deficits; X58.XXXA Exposure to other specified factors, initial encounter
CPT/HCPCS: 36415; 80053; 85025; 86140; 99284

== ENCOUNTER → 2024-01-11 | Outpatient (CLI) | payer MEDICARE | END | disposition home or self-care (01) | LOC: LABWHC1 07:36 | PROVIDERS: ATTEND Internal Medicine | DX: E83.52 Hypercalcemia | CPT/HCPCS: 36415; 82164; 82306 ==

== ENCOUNTER → 2024-01-12 | Outpatient (CLI) | payer MEDICARE ==
--- NOTE | 2024-02-15 13:07 | XR ---
Patient: Margarita Eller Ordering Physician: Unknown, Unknown ID: [id number] Phone, Pager: Phone: N /A Pager: N/A : [phone] Age/Gender: 63Y, F Primary Location: N/A Procedure: XR knee 4V RT Study Date: 01/12/2024 4:01:00 PM EXAMINATION TYPE: XR knee complete RT DATE OF EXAM: 01/24/2024 12:27 PM CLINICAL INDICATION: Pain COMPARISON: Prior plain films TECHNIQUE: XR knee complete RT; examined in Frontal, lateral and oblique projections. FINDINGS: No evidence of any acute osseous pathology, soft tissue swelling, or joint effusion is no pradip. Tricompartmental osteophyte formation involving the femoral condyles, tibial plateau and patella . Mild joint space narrowing. Chondrocalcinosis present. IMPRESSION: 1. No acute osseous pathology. 2. Moderate tricompartmental osteoarthritic changes.
--- NOTE | 2024-02-15 13:08 | XR ---
Patient: Margarita Eller Ordering Physician: Unknown, Unknown ID: [id number] Phone, Pager: Phone: N /A Pager: N/A : [phone] Age/Gender: 63Y, F Primary Location: N/A Procedure: XR ankle complete L T Study Date: 01/12/2024 4:01:00 PM EXAMINATION TYPE: XR ankle complete LT DATE OF EXAM: 01/24/2024 12:27 PM CLINICAL INDICATION: Pain COMPARISON: None TECHNIQUE: XR ankle complete LT; ankle is imaged in frontal, lateral and oblique projections. FINDINGS: There is no evidence of acute osseous pathology. No evidence of subluxation or dislocation. Kager's fat pad is intact. Mild soft tissue swelling around the ankle. No radiopaque foreign bodies are ident ified. IMPRESSION: 1. No evidence of acute fracture. 2. Subcutaneous swelling around the ankle likely secondary to underlying soft tissue injury and/or ce llulitis.
== END | disposition home or self-care (01) ==
LOC: RADXRMAIN 15:47
PROVIDERS: ATTEND Internal Medicine

== ENCOUNTER → 2024-02-25 | Outpatient (CLI) | payer MEDICARE ==
[2024-02-25 18:25] LABS: ALT 12 U/L (8-49); AST 13 U/L (13-35); Albumin 4.2 g/dL (3.8-4.9); Albumin/Globulin Ratio 1.68 Ratio (1.60-3.17); Alkaline Phosphatase 93 U/L (41-126); BUN/Creat Ratio 8.67 Ratio (12.00-20.00); Blood Urea Nitrogen 10.4 mg/dL (9.0-27.0); Calcium 11.6 mg/dL (8.7-10.3); Carbon Dioxide 26.5 mmol/L (21.6-31.8); Chloride 104 mmol/L (96-109); Chol/HDL Ratio 4.38 Ratio; Globulin 2.5 g/dL (1.6-3.3); Glucose 132 mg/dL (70-110); LDL Cholesterol,Calculated 36.9 mg/dL (0.0-131.0); Potassium 3.8 mmol/L (3.5-5.5); Sodium 145 mmol/L (135-145); Total Bilirubin 0.2 mg/dL (0.3-1.2); Total Protein 6.7 g/dL (6.2-8.2)
[2024-02-26 03:55] LABS: Appearance,Urine Cloudy (Clear); Bilirubin,Urine Negative (Negative); Blood,Urine Negative (Negative); Color,Urine Yellow (Yellow); Ketones,Urine Negative (Negative); Nitrite,Urine Negative (Negative); Specific Gravity,Urine 1.011 (1.001-1.030); Urobilinogen,Urine 0.2 E.U./DL
[2024-02-26 04:34] LABS: Bacteria,Urine 2+ (None Seen)
[2024-02-26 09:12] LABS: Angiotensin-1 Converting Enz. 18 U/L (8-52)
[2024-02-26 20:17] LABS: Vitamin D, 1, 25-Dihydroxy 13 pg/mL (20 - 79)
== END | disposition home or self-care (01) ==
LOC: LABWHC1 13:35
PROVIDERS: ATTEND Internal Medicine Interventional Cardiology
DX: E78.2 Mixed hyperlipidemia (principal); N39.0 Urinary tract infection, site not specified; E55.9 Vitamin D deficiency, unspecified; N25.81 Secondary hyperparathyroidism of renal origin; N18.31 Chronic kidney disease, stage 3a
CPT/HCPCS: 36415; 80053; 80061; 81001; 82164; 82306; 82652; 83970; 87086

== ENCOUNTER → 2024-03-04 | Outpatient (CLI) | payer MEDICARE ==
--- NOTE | 2024-03-04 20:29 | CT ---
EXAMINATION TYPE: CT ankle LT wo con DATE OF EXAM: 03/04/2024 COMPARISON: X-ray 01/12/2024 HISTORY: Pain in left ankle x3 months CT DLP: 181.4 mGycm Automated exposure control for dose reduction was used. Contrast: None Technique: Axial images 2 mm thick sections. Reconstructed images in the coronal and sagittal plane. 3-D reconstructed images performed separately by the technologist on a separate computer. FINDINGS: Soft tissue swelling is noted over the lateral malleolus. Some mild posterior swelling may be present . Achilles tendon appears intact. Muscular density appears unremarkable. Joint spaces are preserved. No acute fractures are identified. No subacute osseous abnormality eviden t. Three-D reconstructed images are performed and reviewed rotated on the computer. No suspicious acute osseous abnormality evident. IMPRESSION: 1. NO ACUTE OR CHRONIC OSSEOUS ABNORMALITY RADIOGRAPHICALLY APPARENT. 2. THERE IS SOFT TISSUE SWELLING OVER THE LATERAL MALLEOLUS [facility], Workstation: [facility], 03/04/2024 8:26 PM
== END | disposition home or self-care (01) ==
LOC: RADCTMAIN 16:15
PROVIDERS: ATTEND Internal Medicine
DX: M25.572 Pain in left ankle and joints of left foot (principal); R60.0 Localized edema; M79.89 Other specified soft tissue disorders

== ENCOUNTER → 2024-03-09 | Outpatient (CLI) | payer MEDICARE ==
[2024-03-09 19:08] LABS: Blood Urea Nitrogen 9.5 mg/dL (9.0-27.0); Glucose 122 mg/dL (70-110)
[2024-03-09 19:09] LABS: ALT 11 U/L (8-49); AST 14 U/L (13-35); Albumin 4.3 g/dL (3.8-4.9); Albumin/Globulin Ratio 1.65 Ratio (1.60-3.17); Alkaline Phosphatase 88 U/L (41-126); Calcium 10.3 mg/dL (8.7-10.3); Carbon Dioxide 27.9 mmol/L (21.6-31.8); Chloride 103 mmol/L (96-109); Globulin 2.6 g/dL (1.6-3.3); Potassium 3.5 mmol/L (3.5-5.5); Sodium 144 mmol/L (135-145); Total Bilirubin 0.2 mg/dL (0.3-1.2); Total Protein 6.9 g/dL (6.2-8.2)
[2024-03-10 15:05] LABS: Free Kappa Lt Chain Qnt, Serum 27.16 mg/dL (0.33-1.94); Free Lambda Lt Chain Qnt, Seru 1.13 mg/dL (0.57-2.63)
== END | disposition home or self-care (01) ==
LOC: LABWHC1 13:54
PROVIDERS: ATTEND Thoracic Surgery (Cardiothoracic Vascular Surgery)
DX: E83.52 Hypercalcemia (principal)
CPT/HCPCS: 36415; 80053; 82306; 83883; 83970; 86334

== ENCOUNTER → 2024-05-09 | Outpatient (CLI) | payer MEDICARE ==
[2024-05-09 19:29] LABS: Appearance,Urine Clear (Clear); Bilirubin,Urine Negative (Negative); Blood,Urine Negative (Negative); Color,Urine Yellow (Yellow); Ketones,Urine Negative (Negative); Nitrite,Urine Negative (Negative); PH, Urine 7.5; Specific Gravity,Urine 1.006 (1.001-1.030); Urobilinogen,Urine 0.2 E.U./DL
[2024-05-09 19:53] LABS: ALT 18 U/L (8-49); AST 20 U/L (13-35); Albumin 4.3 g/dL (3.8-4.9); Albumin/Globulin Ratio 1.65 Ratio (1.60-3.17); Alkaline Phosphatase 105 U/L (41-126); Blood Urea Nitrogen 10.4 mg/dL (9.0-27.0); Calcium 9.6 mg/dL (8.7-10.3); Carbon Dioxide 26.8 mmol/L (21.6-31.8); Chloride 101 mmol/L (96-109); Globulin 2.6 g/dL (1.6-3.3); Glucose 210 mg/dL (70-110); Potassium 3.5 mmol/L (3.5-5.5); Sodium 144 mmol/L (135-145); Total Bilirubin <0.2 mg/dL (0.3-1.2); Total Protein 6.9 g/dL (6.2-8.2)
[2024-05-10 14:49] LABS: Free Kappa Lt Chain Qnt, Serum 42.04 mg/dL (0.33-1.94); Free Lambda Lt Chain Qnt, Seru 1.48 mg/dL (0.57-2.63)
== END | disposition home or self-care (01) ==
LOC: LABWHC1 13:42
PROVIDERS: ATTEND Nurse Practitioner Acute Care
DX: N39.0 Urinary tract infection, site not specified (principal); N18.31 Chronic kidney disease, stage 3a; N25.81 Secondary hyperparathyroidism of renal origin; E83.52 Hypercalcemia
CPT/HCPCS: 36415; 80053; 81003; 82306; 83883; 83970; 86334; 87086

== ENCOUNTER → 2024-05-31 | Outpatient (CLI) | payer MEDICARE ==
--- NOTE | 2024-05-31 13:11 | CT ---
EXAMINATION TYPE: CT cervical spine wo con CT DLP: 502.9 mGycm, Automated exposure control for dose reduction was used. DATE OF EXAM: 05/31/2024 12:57 PM COMPARISON: CT soft tissue neck 07/23/2023, 07/04/2021, CT brain C-spine 10/11/2020. CLINICAL INDICATION:Female, 64 years old with history of M50.20 cervical disc displacement; PHH, cerv ical disc displacement TECHNIQUE: Axial CT images from the skull base to the inferior aspect of T2 we obtained without intra venous contrast. Coronal and sagittal reformatted images were also reviewed. FINDINGS: Fracture: None. Osseous structures: Multilevel degenerative disc disease changes with endplate spurring and disc spa ce narrowing. Vertebral alignment: Within normal limits. Spinal canal/Neural Foramina: No significant central canal or neural foraminal stenosis at C2-C3. Central disc protrusion at C3-C4 with mild effacement of anterior thecal sac. Uncovertebral joint hyp ertrophy with left facet arthropathy resulting in mild left neural foraminal stenosis. The right neur al foramen is patent. Central disc protrusion with mild effacement of the anterior thecal sac at C4-C5. Uncovertebral joint hypertrophy with facet arthropathy resulting in moderate left neural foraminal stenosis. Mild right neuroforaminal stenosis. Broad-based disc bulge with mild effacement of the anterior thecal sac at C5-C6. Uncovertebral joint hypertrophy with bilateral facet arthropathy resulting in moderate bilateral neural foraminal stenosi s. Eccentric right disc bulge with mild effacement of the anterior thecal sac at C6-C7. Bilateral facet arthropathy resulting in mild bilateral neuroforaminal stenosis. No significant neural foraminal or central canal stenosis at C7-T1. Neck soft tissues: Prevertebral soft tissues are within normal limits. Other: The airway is patent. Centrilobular emphysematous changes. Mild biapical pleural-parenchymal s carring. Atherosclerotic calcification of the aortic arch. Bilateral carotid bulb calcifications. IMPRESSION: 1. No evidence of cervical spine fracture. 2. Mild to moderate multilevel degenerative disc disease. [facility], , 05/31/2024 1:08 PM
== END | disposition home or self-care (01) ==
LOC: RADCTMAIN 12:37
PROVIDERS: ATTEND Psychiatry & Neurology Neurology
DX: M50.31 Other cervical disc degeneration, high cervical region (principal)
CPT/HCPCS: 72125

== ENCOUNTER → 2024-06-16 | Outpatient (CLI) | payer MEDICARE ==
--- NOTE | 2024-06-16 14:47 | XR ---
EXAMINATION TYPE: XR Hip Complete LT DATE OF EXAM: 06/16/2024 1:39 PM COMPARISON: None. CLINICAL INDICATION: Female, 64 years old with history of M25.552 LEFT HIP PAIN, pain TECHNIQUE: 2 view(s) obtained. FINDINGS: No acute fracture or dislocation evident. Femoral head articulates with the acetabulum. Joint space m ay have mild diffuse narrowing. Follow up exams can be performed 7-10 days from acute trauma for continued pain. IMPRESSION: 1. No acute osseous abnormality left hip [facility], , 06/16/2024 2:44 PM
== END | disposition home or self-care (01) ==
LOC: RADXRMAIN 13:16
PROVIDERS: ATTEND Internal Medicine
DX: M25.552 Pain in left hip (principal)
CPT/HCPCS: 73502

== ENCOUNTER → 2024-09-20 | Outpatient (CLI) | payer MEDICARE ==
[2024-09-20 18:55] LABS: Carbon Dioxide 25.2 mmol/L (21.6-31.8); Chloride 104 mmol/L (96-109); Glucose 190 mg/dL (70-110); Potassium 3.1 mmol/L (3.5-5.5); Sodium 144 mmol/L (135-145)
[2024-09-20 18:56] LABS: ALT 21 U/L (8-49); AST 53 U/L (13-35); Albumin 4.2 g/dL (3.8-4.9); Albumin/Globulin Ratio 1.56 Ratio (1.60-3.17); Alkaline Phosphatase 121 U/L (41-126); Calcium 9.3 mg/dL (8.7-10.3); Globulin 2.7 g/dL (1.6-3.3); Total Bilirubin 0.2 mg/dL (0.3-1.2); Total Protein 6.9 g/dL (6.2-8.2)
[2024-09-20 22:06] LABS: Appearance,Urine Clear (Clear); Bilirubin,Urine Negative (Negative); Blood,Urine Negative (Negative); Color,Urine Yellow (Yellow); Ketones,Urine Negative (Negative); Nitrite,Urine Negative (Negative); PH, Urine 7.5; Specific Gravity,Urine 1.015 (1.001-1.030); Urobilinogen,Urine 0.2 E.U./DL
[2024-09-20 22:21] LABS: Bacteria,Urine 1+ (None Seen)
== END | disposition home or self-care (01) ==
LOC: LABWHC1 13:30
PROVIDERS: ATTEND Nurse Practitioner Acute Care
DX: E55.9 Vitamin D deficiency, unspecified (principal); N39.0 Urinary tract infection, site not specified; N25.81 Secondary hyperparathyroidism of renal origin; N18.31 Chronic kidney disease, stage 3a
CPT/HCPCS: 36415; 80053; 81001; 82306; 83970

== ENCOUNTER → 2024-09-23 | Outpatient (CLI) | payer MEDICARE | END | disposition home or self-care (01) | LOC: LABWHC1 13:34 | PROVIDERS: ATTEND Internal Medicine | DX: N18.31 Chronic kidney disease, stage 3a (principal) | CPT/HCPCS: 36415; 84132 ==

== ENCOUNTER → 2024-09-26 | Outpatient (CLI) | payer MEDICARE | END | disposition home or self-care (01) | LOC: LABWHC1 13:33 | DX: N18.31 Chronic kidney disease, stage 3a (principal) | CPT/HCPCS: 36415; 84132 ==

== ENCOUNTER → 2024-10-05 | Outpatient (CLI) | payer MEDICARE ==
--- NOTE | 2024-10-05 14:29 | XR ---
EXAMINATION TYPE: XR foot complete LT, XR toes LT DATE OF EXAM: 10/05/2024 2:14 PM INDICATION: Patient age:Female; 64 years old; Reason for study: M10.9; PHH. pain COMPARISON: None TECHNIQUE: The left foot was examined in the AP, oblique, and lateral projections. The fifth digit o f the left foot was examined in AP, oblique, lateral projections. FINDINGS: No evidence of any acute osseous pathology. Well-corticated lucent change involving the proximal fift h digit phalanx related to degenerative change. Dorsal mid foot osteophytosis. IMPRESSION: 1. No evidence of acute fracture. 2. No osseous erosion to suggest osteomyelitis. [facility], , 10/05/2024 2:27 PM
[2024-10-05 19:09] LABS: BUN/Creat Ratio 6.73 Ratio (12.00-20.00); Blood Urea Nitrogen 7.4 mg/dL (9.0-27.0); Chloride 102 mmol/L (96-109); Glucose 192 mg/dL (70-110); Sodium 140 mmol/L (135-145)
[2024-10-05 19:10] LABS: Calcium 9.4 mg/dL (8.7-10.3); Carbon Dioxide 23.8 mmol/L (21.6-31.8); Magnesium 1.8 mg/dL (1.5-2.4)
== END | disposition home or self-care (01) ==
LOC: LABWHC1 13:40
PROVIDERS: ATTEND Internal Medicine
DX: N18.31 Chronic kidney disease, stage 3a (principal); M10.9 Gout, unspecified
CPT/HCPCS: 36415; 80048; 83735

== ENCOUNTER → 2024-12-29 | Outpatient (CLI) | payer MEDICARE ==
[2024-12-29 19:07] LABS: Basophils # (A) 0.04 X 10*3/uL (0.00-0.10); Basophils % (A) 0.4 %; Eosinophils # (A) 0.04 X 10*3/uL (0.04-0.35); Eosinophils % (A) 0.4 %; HCT 50.1 % (37.2-50.0); HGB 15.8 g/dL (12.0-17.0); Immature Grans, Automated 0.20 %; Lymphocytes # (A) 2.85 X 10*3/uL (0.90-5.00); Lymphocytes % (A) 31.7 %; MCH 29.8 pg (27.0-32.0); MCHC 31.5 g/dL (32.0-37.0); MCV 94.5 FL (80.0-97.0); Monocytes # (A) 0.59 X 10*3/uL (0.20-1.00); Monocytes % (A) 6.6 %; NRBC Per 100 WBC 0 X 10*3/uL (0.00-0.01); Neutrophils # (A) 5.45 X 10*3/uL (1.80-7.70); Neutrophils % (A) 60.7 %; Platelet Count 227 X 10*3/uL (140-440); RBC 5.30 X 10*6/uL (4.10-5.60); RDW 16.1 % (11.5-14.5); WBC 8.99 X 10*3/uL (4.50-10.00)
[2024-12-29 19:19] LABS: ALT 14 U/L (8-49); AST 22 U/L (13-35); Albumin 4.3 g/dL (3.8-4.9); Albumin/Globulin Ratio 1.72 Ratio (1.60-3.17); Alkaline Phosphatase 123 U/L (41-126); Anion Gap 15.50 mmol/L (4.00-12.00); BUN/Creat Ratio 10.00 Ratio (12.00-20.00); Blood Urea Nitrogen 10.0 mg/dL (9.0-27.0); Calcium 9.0 mg/dL (8.7-10.3); Carbon Dioxide 21.5 mmol/L (21.6-31.8); Chloride 104 mmol/L (96-109); Globulin 2.5 g/dL (1.6-3.3); Glucose 186 mg/dL (70-110); Magnesium 1.7 mg/dL (1.5-2.4); Potassium 4.3 mmol/L (3.5-5.5); Sodium 141 mmol/L (135-145); Total Protein 6.8 g/dL (6.2-8.2); Uric Acid 4.7 mg/dL (2.9-8.7)
[2024-12-29 19:50] LABS: Ferritin 16.8 ng/mL (10.0-322.0); Iron 55 UG/DL (50-175); Total Iron Binding Capacity 514 UG/DL (228-460)
== END | disposition home or self-care (01) ==
LOC: LABWHC1 13:41
PROVIDERS: ATTEND Internal Medicine
DX: E55.9 Vitamin D deficiency, unspecified (principal); N18.31 Chronic kidney disease, stage 3a; D63.1 Anemia in chronic kidney disease; N39.0 Urinary tract infection, site not specified; N25.81 Secondary hyperparathyroidism of renal origin; M10.9 Gout, unspecified
CPT/HCPCS: 36415; 80053; 82306; 82728; 83540; 83550; 83735; 83970; 84100; 84550; 85025